=== PATIENT | female | born 1930 | race Hispanic/Latino ===

== ENCOUNTER 2017-01-18 19:43 | Inpatient (IN) | payer BC, MEDICARE ==
[2017-01-18 19:43] VITALS: PULSE 115
[2017-01-18] MEDS ORDERED: Sodium Chloride 0.9% 1,000 ML IV STA (20:18)
[2017-01-18] MEDS ORDERED: Morphine 2 mg/ml ISec IVP STA ×2 (20:18→23:22)
[2017-01-18] MEDS ORDERED: Sodium Chloride 0.9% 500 ML IV STA (20:20)
[2017-01-18] MEDS ORDERED: Iohexol 350 MG/100 ML VIAL ONE (20:33)
[2017-01-18 21:07] LABS: BASO # 0.04 K/mm3 (0.0-2.0); BASO % 0.3 % (0.0-3.0); EOS # 0.1 (0.0-0.7); EOS % 0.8 % (1.5-5.0); GRAN # 9.64 (1.4-6.5); GRAN % 78.6 % (50.0-68.0); HEMATOCRIT 33.2 % (36.0-48.0); LYMPH # 1.2 (1.2-3.4); LYMPH % 9.9 % (22.0-35.0); MEAN CELL VOLUME 78.1 fl (80.0-105.0); MEAN CORPUSCULAR HEMOGLOBIN 23.8 pg (25.0-35.0); MEAN CORPUSCULAR HGB CONC 30.4 g/dl (31.0-37.0); MEAN PLATELET VOLUME 10.6 fl (7.0-11.0); MONO # 1.3 (0.1-0.6); MONO % 10.4 % (1.0-6.0); RED CELL DISTRIBUTION WIDTH 17.8 % (11.5-14.5); WHITE BLOOD COUNT 12.3 10^3/ul (4.5-11.0)
[2017-01-18 21:10] LABS: INR 1.04 (0.93-1.08); PARTIAL THROMBOPLASTIN TIME 25.3 Seconds (25.1-36.5)
[2017-01-18 21:55] LABS: ALB/GLOB RATIO 1.1 (1.1-1.8); ALKALINE PHOSPHATASE 69 U/L (38-126); ALT/SGPT 36 U/L (7-56); AST/SGOT 26 U/L (14-36); BILIRUBIN,TOTAL 0.5 mg/dL (0.2-1.3); BLOOD UREA NITROGEN 16 mg/dL (7-21); CALCIUM 8.9 mg/dL (8.4-10.5); CARBON DIOXIDE 27 mmol/L (21-33); CHLORIDE 108 mmol/L (98-107); GFR AFRICAN-AMERICAN > 60; GLUCOSE,RANDOM 130 mg/dL (70-110); POTASSIUM 3.7 mmol/L (3.6-5.0); SODIUM 143 mmol/L (132-148); TOTAL PROTEIN 7.3 g/dL (5.8-8.3)
--- NOTE | 2017-01-18 21:56 | ED PDOC ---
Arrival/HPI <Wesly Phelps - Last Filed: 01/19/17 00:45> - General Historian: Patient - History of Present Illness Time/Duration: Prior to Arrival Symptom Onset: Sudden Symptom Course: Unchanged Quality: Pressure, Tightness, Stabbing, Throbbing Severity Level: 10 <Genia Andrews - Last Filed: 01/19/17 02:07> - General Chief Complaint: Trauma Time Seen by Provider: 01/18/17 20:04 - History of Present Illness Narrative History of Present Illness (Text): 01/18/17 21:53 86-year-old female presents today with right sided rib pain. Patient states she slipped coming out of the bathtub fell backwards landing on the edge of the bathtub sustaining an injury to her right lower ribs. Patient complaining of shortness of breath pain with deep inspiration. She is also complaining of a pressure sensation in the right upper abdomen. She denies dizziness or weakness. Denies lower leg pain. She denies hitting her head. She denies nausea or vomiting. Incident occurred prior to arrival no medications have been taken for pain at home. Patient denies loss of consciousness. c/o neck pain. (Genia Andrews) Past Medical History - Provider Review Nursing Documentation Reviewed: Yes - Travel History Have you recently traveled outside [place] w/in the past 3 mons?: No - Infectious Disease Hx of Infectious Diseases: None - Tetanus Immunization Tetanus Immunization: Unknown - Cardiac Hx Cardiac Disorders: Yes Hx Angina: No Hx Cardiac Arrhythmia: Yes Hx Circulatory Problems: Yes Hx Congestive Heart Failure: No Hx Heart Murmur: No Hx Heart Transplant: No Hx Hypertension: Yes Hx Internal Defibrillator: No Hx Mitral Valve Prolapse: No Hx Pacemaker: No Hx Peripheral Edema: No Hx Peripheral Vascular Disease: No Other/Comment: Afib - Pulmonary Hx Respiratory Disorders: Yes Hx Asthma: Yes Hx Bronchitis: No Hx Chronic Obstructive Pulmonary Disease (COPD): Yes Hx Emphysema: No Hx Pneumonia: No Hx Respiratory Aspiration: No Hx Respiratory Tract Infection: No Hx Sleep Apnea: No Hx Tuberculosis: No - Neurological Hx Neurological Disorder: Yes Hx Alzheimer's Disease: No HX Cerebrovascular Accident: No Hx Dementia: No Hx Dizziness: No Hx Meningitis: No Hx Migraine: No Hx Parkinson's Disease: No Hx Seizures: No Hx Transient Ischemic Attacks (TIA): No - HEENT Hx HEENT Disorder: Yes Hx Blind: No Hx Cataracts: Yes Hx Deafness: No Hx Epistaxis: No Hx Glaucoma: No Hx Macular Degeneration: No - Renal Hx Renal Disorder: Yes Hx Dialysis: No Hx Kidney Stones: No Hx Neurogenic Bladder: No Hx Pyelonephritis: No Hx Renal Cancer: No Hx Renal Failure: No - Endocrine/Metabolic Hx Endocrine Disorders: Yes Hx Adrenal Cancer: No Hx Diabetes Insipidus: No Hx Diabetes Mellitus Type 1: No Hx Diabetes Mellitus Type 2: Yes Hx Hyperthyroidism: No Hx Hypothyroidism: Yes Hx Systemic Lupus Erythematosus: No - Hematological/Oncological Hx Blood Disorders: No Hx AIDS: No Hx Anemia: No Hx Cancer: No Hx Chemotherapy: No Hx Cirrhosis: No Hx Hemophilia: No Hx Hepatitis A: No Hx Hepatitis B: No Hx Hepatitis C: No Hx Metastasis: No Hx Shingles: No Hx Sickle Cell Disease: No Hx Unexplained Bleeding: No Other/Comment: Blood transfusion - Integumentary Hx Dermatological Disorder: No Hx Basal Cell Carcinoma: No Hx Eczema: No Hx Melanoma: No Hx Psoriasis: No Hx Squamous Cell Carcinoma: No - Musculoskeletal/Rheumatological Hx Musculoskeletal Disorders: No Hx Arthritis: Yes Hx Back Pain: Yes Hx Degenerative Joint Disease: Yes Hx Falls: Yes Hx Fractures: Yes (left shoulder) Hx Gout: No Hx Herniated Disk: Yes Hx Myasthenia Gravis: No Hx Osteoarthritis: Yes Hx Osteomyelitis: No Hx Osteoporosis: Yes Hx Rhabdomyolysis: No Hx Spinal Stenosis: No Hx Unsteady Gait: Yes (uses cane) Other/Comment: Diverticulosis - Gastrointestinal Hx Gastrointestinal Disorders: Yes Hx Colostomy: No Hx Crohn's Disease: No Hx Diverticulitis: No Hx Gall Bladder Disease: No Hx Gastroesophageal Reflux: Yes Hx Ileostomy: No Hx Liver Failure: No Hx Pancreatitis: Yes HX Swallowing Problems: No - Genitourinary/Gynecological Hx Genitourinary Disorders: Yes Hx Hematuria: Yes Hx Incontinence: Yes (overactive bladder) Hx Sexually Transmitted Diseases: No Hx Urinary Tract Infection: No - Psychiatric Hx Psychophysiologic Disorder: No Hx Anxiety: No Hx Bipolar Disorder: No Hx Depression: No Hx Emotional Abuse: No Hx Hallucinations: No Hx Panic Disorder: No Hx Post Traumatic Stress Disorder: No Hx Psychosis: No Hx Physical Abuse: No Hx Schizophrenia: No Hx Sexual Abuse: No Hx Substance Use: No - Surgical History Hx Amputation: No Hx Appendectomy: Yes Hx Cholecystectomy: Yes Hx Coronary Stent: Yes Hx Gastric Bypass Surgery: No Hx Hysterectomy: No Hx Joint Replacement: No Hx Kidney Transplant: No Hx Liver Transplant: No Hx Musculoskeletal Surgery: No Hx Open Heart Surgery: No Hx Orthopedic Surgery: No Hx Splenectomy: No Hx Valve Replacement: No Other/Comment: Bilateral cataract sx - Anesthesia Hx Anesthesia: Yes Hx Anesthesia Reactions: No Hx Malignant Hyperthermia: No - Suicidal Assessment Feels Threatened In Home Enviroment: No <Genia Andrews - Last Filed: 01/19/17 02:07> Family/Social History - Physician Review Nursing Documentation Reviewed: Yes Family/Social History: Unknown Family HX Smoking Status: Former Smoker Hx Alcohol Use: No Hx Substance Use: No Hx Substance Use Treatment: No <Genia Andrews - Last Filed: 01/19/17 02:07> Allergies/Home Meds <Wesly Phelps - Last Filed: 01/19/17 00:45> <Genia Andrews - Last Filed: 01/19/17 02:07> Allergies/Adverse Reactions: Allergies No Known Allergies Allergy (Verified 08/01/15 19:10) Home Medications: Home Meds Medication Instructions Recorded Confirmed Unobtainable 01/18/17 01/18/17 Review of Systems - Review of Systems Constitutional: absent: Fevers Respiratory: SOB, Other (right rib pain) Cardiovascular: absent: Chest Pain, Palpitations Gastrointestinal: Abdominal Pain. absent: Constipation, Diarrhea, Nausea, Vomiting Genitourinary Female: absent: Dysuria, Frequency, Hematuria Musculoskeletal: Arthralgias (left arm pain (chronic)), Neck Pain. absent: Back Pain Skin: absent: Rash, Pruritis Neurological: absent: Headache, Dizziness Psychiatric: absent: Anxiety, Depression <Genia Andrews - Last Filed: 01/19/17 02:07> Physical Exam Vital Signs Reviewed: Yes Temperature: Afebrile Blood Pressure: Normal Pulse: Regular Respiratory Rate: Normal Appearance: Positive for: Well-Appearing, Non-Toxic, Uncomfortable Pain Distress: Mild Mental Status: Positive for: Alert and Oriented X 3 - Systems Exam Head: Present: Atraumatic Extroacular Muscles: Present: EOMI Mouth: Present: Moist Mucous Membranes Neck: Present: Normal Range of Motion, MIDLINE TENDERNESS, Paraspinal Tenderness , Trachea Midline Respiratory/Chest: Present: Rhonchi, Tender to Palpation (+ right lower posterior rib tenderness, ecchymosis and swelling; ). No: Clear to Auscultation , Respiratory Distress, Accessory Muscle Use, Wheezes Cardiovascular: Present: Regular Rate and Rhythm Abdomen: Present: Tenderness (+ minimal ruq tenderness), Normal Bowel Sounds. No: Rebound, Guarding Back: No: Normal Inspection (+ ecchymosis to left lower ribs; no midline tenderness), Midline Tenderness, Paraspinal Tenderness Upper Extremity: Present: Normal ROM, NORMAL PULSES, Tenderness, Neurovascularly Intact. No: Swelling, Erythema, Temperature Abnormalties, Capillary Refill < 2s Neurological: Present: GCS=15, Speech Normal Skin: Present: Warm, Dry, Normal Color. No: Rashes Psychiatric: Present: Alert, Oriented x 3 <Genia Andrews - Last Filed: 01/19/17 02:07> Vital Signs Temp Pulse Resp BP Pulse Ox 01/19/17 01:26 20 96 01/18/17 23:45 83 20 164/73 H 95 01/18/17 19:59 97.5 F L 84 18 185/52 H 99 Medical Decision Making <Wesly Phelps - Last Filed: 01/19/17 00:45> <Genia Andrews - Last Filed: 01/19/17 02:07> ED Course and Treatment: 01/18/17 22:00 86yr old female with right sided rib pain, sob , right sided upper abdominal pain s/p slip and fall onto edge of bathtub. morphine given for pain; pt on 2L NS at home. 2L nc given here. cbc: wnl cmp: wnl trop; wnl ekg: Sinus rhythm with first-degree AV block at 84 bpm normal axis and no ST elevations cxr; no infiltrate. pt refused xray of left arm; pt states she knows she has fracture, denies pain currently. states insurance wont cover a repeat xray of the arm. head ct: FINDINGS: Brain: No acute intracranial hemorrhage. Age-appropriate periventricular white matter disease. No edema. Ventricles: Age-appropriate ventriculomegaly. Bones: No acute displaced fracture. Sinuses: Unremarkable as visualized. No acute sinusitis. Mastoid air cells: Unremarkable as visualized. No mastoid effusion. IMPRESSION: No acute intracranial hemorrhage, or suspicious mass effect. neck ct; FINDINGS: Vertebrae: No acute fracture. Alignment: Preservation of the normal curvature of the cervical spine. Discs/spinal canal/neural foramina: Degenerative disease is present, with osteophyte formation, disc space narrowing, endplate changes and facet arthropathy. Thickening of the transverse ligament is suspected with accompanying synovial hypertrophy. Soft tissues: Right carotid artery stent. Densely calcified atherosclerotic disease. The remaining soft tissues are otherwise symmetric. Lung apices: The visualized lung apices are clear. IMPRESSION: Degenerative disease, without acute fracture. chest/abd/pelvis ct: FINDINGS: ABDOMEN: Liver: The hepatic parenchyma is intact. No perihepatic fluid. Benign-appearing hepatic calcifications. Gallbladder and bile ducts: No acute findings. No significant intra- or extrahepatic biliary ductal dilation. Pancreas: Enhances homogeneously. No ductal dilation. No discrete mass. No peripancreatic fluid. Spleen: The splenic parenchyma is intact, without perisplenic fluid. Adrenals: No acute findings. Kidneys and ureters: No acute findings. No hydronephrosis or renal calculi. No discrete solid mass. No perinephric fluid. PELVIS: HERON JENSEN | Final Radiology Report Page 2 of 3 Bladder: The bladder is decompressed. Reproductive: The uterus is atrophic. ABDOMEN and PELVIS: Stomach and bowel: No obstruction. No mucosal thickening. Colonic diverticulosis , without inflammation. Peritoneum: No free fluid. No free air. Lymph nodes: No pathologically enlarged lymph nodes. Vasculature: Intact. Densely calcified atherosclerotic disease. A filter is identified within the inferior vena cava with its struts beyond the berry of the IVC which is markedly decompressed and slitlike. These findings suggest significant hypovolemia, for which clinical correlation is needed. Bones: No acute fracture. IMPRESSION: No hollow or solid visceral organ injury. No acute fracture within the abdomen or pelvis. Findings suggesting significant hypovolemia, for which clinical correlation is needed. FINDINGS: Lungs: No mass. No consolidation. Small bilateral pleural effusions, with adjacent compressive atelectasis. Interstitial thickening is also detected. Pleural spaces: No significant effusion. No pneumothorax or hemothorax. Heart: No cardiomegaly. No significant pericardial effusion. Calcified coronary artery disease and calcified mitral annulus. Vasculature: The great vessels are intact. No aneurysmal dilatation of the thoracic aorta. Calcified atherosclerotic disease is present. Lymph nodes: Scattered lymph nodes within the mediastinum and supraclavicular region, all nonpathologically enlarged, a nonspecific finding. The Bones: Acute minimally displaced fractures are identified within the right posterior seventh, eighth and ninth ribs. The eighth and ninth ribs are fractured in 2 separate locations , worrisome for flail chest. No acute fractures within either the sternum, remaining ribs or thoracic vertebral bodies. No scapular or clavicular fractures are noted. Findings within the left humerus consistent with prior fracture with callus formation. IMPRESSION: Acute minimally displaced fractures within the right posterior seventh eighth and ninth ribs. Findings within the eighth ninth ribs worrisome for flail chest, as detailed above. Small bilateral pleural effusions, right greater than left (likely secondary to fractures) with adjacent compressive atelectasis. pt reassessment; pt with continued pain; additional morphine dose given. pt given incentive spirometer. case discussed with residential treatment staff dr. rizzo; who saw patient at bedside; discussed ct findings of rib fracture with mention of radiologist statement of "worrisome for flail chest" case discussed with dr. pabon covering for dr. moon; will consult surgery. admit observational status for rib fractures with intractable pain. impression; rib fractures, intractable pain admit observational status for rib fractures with surgical consult. (Genia Andrews) - Lab Interpretations Lab Results: 01/18/17 20:38 01/18/17 21:30 Lab Results 01/19/17 00:05: Urine Color Yellow, Urine Appearance Clear, Urine pH 7.0, Ur Specific Model 1.010, Urine Protein Trace H, Urine Glucose (UA) Negative, Urine Ketones Negative, Urine Blood Negative, Urine Nitrate Negative, Urine Bilirubin Negative, Urine Urobilinogen 0.2, Ur Leukocyte Esterase Negative, Urine RBC 0 - 2, Urine WBC 1 - 3, Ur Epithelial Cells 0 - 2 01/18/17 21:36: Lactate Dehydrogenase 556, Total Creatine Kinase 138, Troponin I < 0.01 01/18/17 21:30: Sodium 143, Potassium 3.7, Chloride 108 H, Carbon Dioxide 27, Anion Gap 12, BUN 16, Creatinine 0.7, Est GFR ( Amer) > 60, Est GFR (Non- Af Amer) > 60, Random Glucose 130 H, Calcium 8.9, Total Bilirubin 0.5, AST 26, ALT 36, Alkaline Phosphatase 69, Total Protein 7.3, Albumin 3.9, Globulin 3.4, Albumin/Globulin Ratio 1.1 01/18/17 20:38: WBC 12.3 H D, RBC 4.25, Hgb 10.1 L, Hct 33.2 L, MCV 78.1 L, MCH 23.8 L, MCHC 30.4 L, RDW 17.8 H, Plt Count 187, MPV 10.6, Gran % 78.6 H, Lymph % (Auto) 9.9 L, Coke % (Auto) 10.4 H, Eos % (Auto) 0.8 L, Baso % (Auto) 0.3, Gran # 9.64 H, Lymph # 1.2, Coke # 1.3 H, Eos # 0.1, Baso # 0.04 01/18/17 20:38: PT 11.3, INR 1.04, APTT 25.3 - RAD Interpretation Radiology Orders: 01/18/17 20:16 CHEST PORTABLE [RAD] Stat 01/18/17 20:20 CERVICAL SPINE W/O CONTRAST [CT] Stat 01/18/17 20:21 CHEST,ABD,PEL W/IV CONT ONLY [CT] Stat HEAD W/O CONTRAST [CT] Stat - Medication Orders Current Medication Orders: Hydromorphone HCl (Dilaudid) 0.5 mg IVP Q3H PRN PRN Reason: Pain, severe (8-10) Lactated Ringer's (Lactated Ringer's) 1,000 mls @ 75 mls/hr IV .[id number] ROSALBA Last Admin: 01/19/17 01:19 Dose: 75 mls/hr eMAR Start Stop Document 01/19/17 01:19 [email or web address] (Rec: 01/19/17 01:19 [email or web address] [facility] [id number]) Intravenous Solution Start Date 01/19/17 Start Time 01:19 End Date 01/19/17 Oxycodone/Acetaminophen (Percocet 10/325 Mg Tab) 1 tab PO Q4H PRN PRN Reason: Pain, moderate (4-7) Last Admin: 01/19/17 01:52 Dose: 1 tab MAR Pain Assessment Document 01/19/17 01:52 RR (Rec: 01/19/17 01:53 RR [id number]) Pain Reassessment Is this a pain reassessment? No Sleep Is patient sleeping during reassessment? No Presence of Pain Presence of Pain Yes Pain Scale Used Pain Scale Used Numeric Location Left, Right or Bilateral Right Upper or Lower Upper Pain Location Body Site Chest Description Description Constant Intensity of Pain at present 9 Pain Behavior Moaning Guarding Facial Grimacing Alleviating Factors/Management Medication Techniques Alleviating Factors Medication Oxycodone/Acetaminophen (Percocet 5/325 Mg Tab) 1 tab PO PRN PRN PRN Reason: Pain, Mild (1-3) Stop: 01/22/17 00:47 Discontinued Medications Sodium Chloride (Sodium Chloride 0.9%) 500 mls @ 999 mls/hr IV .Q31M STA Stop: 01/18/17 20:50 Last Admin: 01/18/17 21:17 Dose: 999 mls/hr eMAR Start Stop Document 01/18/17 21:17 [email or web address] (Rec: 01/18/17 21:[id number]) Intravenous Solution Start Date 01/18/17 Start Time 21:17 End Date 01/18/17 Morphine Sulfate (Morphine) 1 mg IVP STAT STA Stop: 01/18/17 20:19 Last Admin: 01/18/17 21:17 Dose: 1 mg MAR Pain Assessment Document 01/18/17 21:17 [email or web address] (Rec: 01/18/17 21:[id number]) Pain Reassessment Is this a pain reassessment? No Sleep Is patient sleeping during reassessment? No Presence of Pain Presence of Pain Yes Pain Scale Used Pain Scale Used Numeric Location Left, Right or Bilateral Right Pain Location Body Site Back Description Description Constant Intensity of Pain at present 8 Pain Behavior Facial Grimacing Aggravating Factors Changing Position Alleviating Factors/Management Medication Techniques Alleviating Factors Medication IVP Administration Document 01/18/17 21:17 [email or web address] (Rec: [facility]18/17 [id number] Charges for Administration # of IVP Administrations 1 Morphine Sulfate (Morphine) 1 mg IVP STAT STA Stop: 01/18/17 23:23 Last Admin: 01/18/17 23:44 Dose: 1 mg MAR Pain Assessment Document 01/18/17 23:44 [email or web address] (Rec: 01/18/17 23:[id number]) Pain Reassessment Is this a pain reassessment? No Sleep Is patient sleeping during reassessment? No Presence of Pain Presence of Pain Yes Pain Scale Used Pain Scale Used Numeric Location Left, Right or Bilateral Right Pain Location Body Site Back Description Description Constant Intensity of Pain at present 8 Pain Behavior Facial Grimacing Aggravating Factors Changing Position Alleviating Factors/Management Medication Techniques Alleviating Factors Medication IVP Administration Document 01/18/17 23:44 [email or web address] (Rec: 01/18/17 23:45 [email or web address] [facility] [id number]) Charges for Administration # of IVP Administrations 1 - PA / INTERIOR DESIGN ASSISTANT / Resident Statement MD/DO has reviewed & agrees with the documentation as recorded. /DO has examined the patient and agrees with the treatment plan. <Wesly Phelps - Last Filed: 01/19/17 00:45> Disposition/Present on Arrival <Wesly Phelps - Last Filed: 01/19/17 00:45> - Present on Arrival Any Indicators Present on Arrival: Yes History of DVT/PE: Yes History of Uncontrolled Diabetes: Yes Urinary Catheter: No History of Decub. Ulcer: No History Surgical Site Infection Following: None - Disposition Have Diagnosis and Disposition been Completed?: Yes Disposition Time: 00:29 Patient Plan: Observation <Genia Andrews - Last Filed: 01/19/17 02:07> - Disposition Diagnosis: Rib fractures, Intractable pain Disposition: HOSPITALIZED Patient Problems: Current Active Problems Problem Status Onset Intractable pain Acute Rib fractures Acute Condition: FAIR
[2017-01-18 22:28] LABS: TROPONIN I < 0.01 ng/mL
--- NOTE | 2017-01-18 23:18 | CT ---
EXAM: CT Head Without Intravenous Contrast CLINICAL HISTORY: 86 years old, female; Injury or trauma; Fall; Initial encounter; Blunt trauma (contusions or hematomas); Consciousness not specified TECHNIQUE: Axial computed tomography images of the head/brain without intravenous contrast. All CT scans at this facility use one or more dose reduction techniques, viz.: automated exposure control; ma/kV adjustment per patient size (including targeted exams where dose is matched to indication; i.e. head); or iterative reconstruction technique. COMPARISON: No relevant prior studies available. FINDINGS: Brain: No acute intracranial hemorrhage. Age-appropriate periventricular white matter disease. No edema. Ventricles: Age-appropriate ventriculomegaly. Bones: No acute displaced fracture. Sinuses: Unremarkable as visualized. No acute sinusitis. Mastoid air cells: Unremarkable as visualized. No mastoid effusion. IMPRESSION: No acute intracranial hemorrhage, or suspicious mass effect.
--- NOTE | 2017-01-18 23:48 | CT ---
EXAM: CT Cervical Spine Without Intravenous Contrast CLINICAL HISTORY: 86 years old, female; Injury or trauma; Fall; Initial encounter; Blunt trauma; Additional info: Neck pain TECHNIQUE: Axial computed tomography images of the cervical spine without intravenous contrast. All CT scans at this facility use one or more dose reduction techniques, viz.: automated exposure control; ma/kV adjustment per patient size (including targeted exams where dose is matched to indication; i.e. head); or iterative reconstruction technique. Coronal and sagittal reformatted images were created and reviewed. COMPARISON: None FINDINGS: Vertebrae: No acute fracture. Alignment: Preservation of the normal curvature of the cervical spine. Discs/spinal canal/neural foramina: Degenerative disease is present, with osteophyte formation, disc space narrowing, endplate changes and facet arthropathy. Thickening of the transverse ligament is suspected with accompanying synovial hypertrophy. Soft tissues: Right carotid artery stent. Densely calcified atherosclerotic disease. The remaining soft tissues are otherwise symmetric. Lung apices: The visualized lung apices are clear. IMPRESSION: Degenerative disease, without acute fracture.
--- NOTE | 2017-01-19 00:01 | CT ---
EXAM: CT Abdomen and Pelvis With Intravenous Contrast CLINICAL HISTORY: 86 years old, female; Injury or trauma; Fall; Initial encounter; Blunt; Generalized; Blunt trauma (contusions or hematomas); Additional info: Trauma, right upper back/rib, right upper abd pain TECHNIQUE: Axial computed tomography images of the abdomen and pelvis with intravenous contrast. All CT scans at this facility use one or more dose reduction techniques, viz.: automated exposure control; ma/kV adjustment per patient size (including targeted exams where dose is matched to indication; i.e. head); or iterative reconstruction technique. MIP reconstructed images were created and reviewed. Coronal and sagittal reformatted images were created and reviewed. CONTRAST: 100 mL of OMNI 350 administered intravenously. COMPARISON: CT of the abdomen and pelvis performed 05/24/2015 FINDINGS: ABDOMEN: Liver: The hepatic parenchyma is intact. No perihepatic fluid. Benign-appearing hepatic calcifications. Gallbladder and bile ducts: No acute findings. No significant intra- or extrahepatic biliary ductal dilation. Pancreas: Enhances homogeneously. No ductal dilation. No discrete mass. No peripancreatic fluid. Spleen: The splenic parenchyma is intact, without perisplenic fluid. Adrenals: No acute findings. Kidneys and ureters: No acute findings. No hydronephrosis or renal calculi. No discrete solid mass. No perinephric fluid. PELVIS: Bladder: The bladder is decompressed. Reproductive: The uterus is atrophic. ABDOMEN and PELVIS: Stomach and bowel: No obstruction. No mucosal thickening. Colonic diverticulosis, without inflammation. Peritoneum: No free fluid. No free air. Lymph nodes: No pathologically enlarged lymph nodes. Vasculature: Intact. Densely calcified atherosclerotic disease. A filter is identified within the inferior vena cava with its struts beyond the berry of the IVC which is markedly decompressed and slitlike. These findings suggest significant hypovolemia, for which clinical correlation is needed. Bones: No acute fracture. IMPRESSION: No hollow or solid visceral organ injury. No acute fracture within the abdomen or pelvis. Findings suggesting significant hypovolemia, for which clinical correlation is needed. EXAM: CT Chest With Intravenous Contrast CLINICAL HISTORY: 86 years old, female; Injury or trauma; Fall; Initial encounter; Blunt; Generalized; Blunt trauma (contusions or hematomas); Additional info: Trauma, right upper back/rib, right upper abd pain TECHNIQUE: Axial computed tomography images of the chest with intravenous contrast. All CT scans at this facility use one or more dose reduction techniques, viz.: automated exposure control; ma/kV adjustment per patient size (including targeted exams where dose is matched to indication; i.e. head); or iterative reconstruction technique. MIP reconstructed images were created and reviewed. Coronal and sagittal reformatted images were created and reviewed. CONTRAST: 100 mL of OMNI 350 administered intravenously. COMPARISON: None FINDINGS: Lungs: No mass. No consolidation. Small bilateral pleural effusions, with adjacent compressive atelectasis. Interstitial thickening is also detected. Pleural spaces: No significant effusion. No pneumothorax or hemothorax. Heart: No cardiomegaly. No significant pericardial effusion. Calcified coronary artery disease and calcified mitral annulus. Vasculature: The great vessels are intact. No aneurysmal dilatation of the thoracic aorta. Calcified atherosclerotic disease is present. Lymph nodes: Scattered lymph nodes within the mediastinum and supraclavicular region, all non-pathologically enlarged, a nonspecific finding. The Bones: Acute minimally displaced fractures are identified within the right posterior seventh, eighth and ninth ribs. The eighth and ninth ribs are fractured in 2 separate locations, worrisome for flail chest. No acute fractures within either the sternum, remaining ribs or thoracic vertebral bodies. No scapular or clavicular fractures are noted. Findings within the left humerus consistent with prior fracture with callus formation. IMPRESSION: Acute minimally displaced fractures within the right posterior seventh eighth and ninth ribs. Findings within the eighth ninth ribs worrisome for flail chest, as detailed above. Small bilateral pleural effusions, right greater than left (likely secondary to fractures) with adjacent compressive atelectasis.
[2017-01-19 00:28] LABS: URINE BILIRUBIN NEGATIVE (NEGATIVE); URINE BLOOD NEGATIVE (NEGATIVE); URINE GLUCOSE (UA) NEGATIVE (NEGATIVE); URINE KETONE NEGATIVE (NEGATIVE); URINE LEUKOCYTE ESTERASE NEGATIVE Leu/uL (NEGATIVE); URINE PROTEIN TRACE mg/dL (<30 mg/dL); URINE UROBILINOGEN 0.2 E.U./dL (<1 E.U./dL)
[2017-01-19 00:31] LABS: URINE APPEARANCE CLEAR (CLEAR); URINE COLOR YELLOW (YELLOW)
[2017-01-19] MEDS ORDERED: Oxycodone/Acetaminophen 5/325 mg Tab PO PRN (00:46)
[2017-01-19 00:54] LABS: URINE EPITHELIAL CELLS 0 - 2 /hpf (0-5); URINE RBC 0 - 2 /hpf (0-2)
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
[2017-01-19] MEDS ORDERED: Lactated Ringer's 1,000 ML IV SCH (01:15)
[2017-01-19] MEDS: Oxycodone/Acetaminophen 10/325 mg Tab PO PRN ×2 (01:52→11:57)
[2017-01-19] MEDS: HYDROmorphone 0.5 mg/0.5 ml ISec IVP PRN ×3 (04:17→18:04)
[2017-01-19 06:25] LABS: HEMATOCRIT 29.8 % (36.0-48.0); MEAN CELL VOLUME 76.8 fl (80.0-105.0); MEAN CORPUSCULAR HEMOGLOBIN 23.2 pg (25.0-35.0); MEAN CORPUSCULAR HGB CONC 30.2 g/dl (31.0-37.0); MEAN PLATELET VOLUME 10.8 fl (7.0-11.0); RED CELL DISTRIBUTION WIDTH 17.7 % (11.5-14.5); WHITE BLOOD COUNT 8.4 10^3/ul (4.5-11.0)
--- NOTE | 2017-01-19 07:29 | RAD ---
HISTORY: right rib pain COMPARISON: Portable chest 08/01/2015. FINDINGS: LUNGS: No active pulmonary disease. PLEURA: No significant pleural effusion identified, no pneumothorax apparent. CARDIOVASCULAR: Cardiomegaly appears stable. No definite pulmonary vascular derangement identified. OSSEOUS STRUCTURES: No significant abnormalities. VISUALIZED UPPER ABDOMEN: Normal. OTHER FINDINGS: None. IMPRESSION: No interval definitive acute cardiopulmonary disease appreciated.Stable cardiomegaly.
[2017-01-19 07:44] LABS: BLOOD UREA NITROGEN 13 mg/dL (7-21); CALCIUM 8.6 mg/dL (8.4-10.5); CARBON DIOXIDE 28 mmol/L (21-33); CHLORIDE 107 mmol/L (98-107); GFR AFRICAN-AMERICAN > 60; GLUCOSE,RANDOM 120 mg/dL (70-110); POTASSIUM 3.6 mmol/L (3.6-5.0); SODIUM 139 mmol/L (132-148)
--- NOTE | 2017-01-19 10:17 | HP ---
HISTORY OF PRESENT ILLNESS: I know Joslyn very well for many years. She comes into the emergency room last night with a slip and fall out of the bathtub, when back was landing on the right posterior ribs, had a bad injury with shortness of breath with deep inspiration and pressure in the upper abdomen and eventually made it to the emergency room. PAST MEDICAL HISTORY: She has a past medical history of atrial fibrillation, coronary artery disease, heart failure, hypertension, atrial fibrillation, COPD, asthma, neurological disorders, neuropathy, cataracts, renal insufficiency, diabetes type 2, hypothyroidism, arthritis, back pain, joint pain, left shoulder fracture, multiple falls, myesthesia gravis, herniated disk, osteoarthritis, osteoporosis, spinal stenosis, she uses cane, she has unsteady gait, diverticulosis, gastroesophageal reflux, pancreatitis history, hematuria, overactive bladder, appendectomy, cholecystectomy, coronary stents, bilateral cataract surgeries. ALLERGIES: NO KNOWN DRUG ALLERGIES. MEDICATIONS: She does take slew of medications, they do not have it on formulary here. I will get my office to get them called in this afternoon. FAMILY HISTORY: Hypertension and diabetes in the family. SOCIAL HISTORY: Former smoker. No alcohol. No drugs. REVIEW OF SYSTEMS: She has severe right rib pain in the back and shortness of breath. No chest pain or palpitation. There is some abdominal pain, but there is no constipation, diarrhea, nausea, or vomiting. No problems urinating. She does have a left arm pain, which is chronic and arthralgias in the back. No dizziness or headaches. No itching. No anxiety or depression. PHYSICAL EXAMINATION: GENERAL: She is appearing and uncomfortable with the right-sided rib fracture pain. Alert and oriented. She still works. VITAL SIGNS: Temperature 97.5, pulse 84, respiratory rate 18, blood pressure 185/52, and O2 saturation 99% on room air. HEENT: Head is atraumatic and normocephalic. Extraocular muscles intact. Throat is moist. NECK: Supple. Thyroid midline. No palpable or appreciable lymphadenopathy. HEART: Regular rate at this time, sometimes it is irregular atrial fibrillation. LUNGS: Decreased breath sounds bilaterally. Tender to palpation on the right posterior ribs. No wheezes or rhonchi right now, but unable to take a deep breath. ABDOMEN: Soft and nontender with positive bowel sounds. No guarding. No rebound. No CVA tenderness. EXTREMITIES: Trace edema. NEUROLOGIC: GCS is 15. Cranial nerves II through XII grossly intact. Alert and oriented x3. Calm. SKIN: Warm and dry. No rashes. No sweating. LABORATORY DATA: She has a urine that is normal. She has sodium 139, potassium 3.6, BUN 13, creatinine 0.6, GFR is greater than 60, sugar is 120, calcium 8.6, total bilirubin 0.5, AST 26, ALT 36, alkaline phosphatase 69. Lactate dehydrogenase is 556. Total creatinine kinase is 138. Troponin I is less than 0.01. Total protein is 7.2. Albumin is 3.9. Globulin is 3.4. INR is 1.04. White count, when she came in was 12.3, it could be reactionary, it is down to 8.4, hemoglobin 10.1 and now it is 9, hematocrit 29.8, and platelets are 169. A CAT scan of the chest, abdomen, and head were okay; cervical spine was okay. Chest x-ray was okay, but the chest showed on CAT scan fractured ribs posteriorly 7, 8, and 9, and it could be a flail chest. So we will get Surgery involved to keep an eye on her. IMPRESSION AND PLAN: She is in observation right now. After Physical Therapy sees her, if they recommend TCU or subacute rehab, I will change it to an inpatient for 3 overnights. I do think, she is going to need TCU or subacute rehab. We will put her back on her medications once they find out what they are. We will check her labs tomorrow. She uses morphine for pain. She is here fall with fractured right ribs 7, 8, and 9 posteriorly. Osvaldo Reyes DO
[2017-01-19] MEDS: Potassium Chloride 20 mEq ER Tab PO SCH (11:41)
[2017-01-19] MEDS: Sodium Chloride 0.45% 1,000 ML IV SCH (11:44)
--- NOTE | 2017-01-19 17:16 | CARD ---
APPROVED REPORT EKG Measurement Heart [id number] <Conclusion> Sinus rhythm with 1st degree AV block Nonspecific ST abnormality Abnormal ECG
[2017-01-20] MEDS: HYDROmorphone 0.5 mg/0.5 ml ISec IVP PRN ×3 (02:46→15:32)
[2017-01-20] MEDS ORDERED: Levothyroxine 150 MCG TAB PO SCH (06:00)
[2017-01-20 06:35] LABS: HEMATOCRIT 34.5 % (36.0-48.0); MEAN CELL VOLUME 78.4 fl (80.0-105.0); MEAN CORPUSCULAR HEMOGLOBIN 23.4 pg (25.0-35.0); MEAN CORPUSCULAR HGB CONC 29.9 g/dl (31.0-37.0); MEAN PLATELET VOLUME 11.2 fl (7.0-11.0); RED CELL DISTRIBUTION WIDTH 17.7 % (11.5-14.5); WHITE BLOOD COUNT 8.8 10^3/ul (4.5-11.0)
[2017-01-20 07:09] LABS: BLOOD UREA NITROGEN 14 mg/dL (7-21); CALCIUM 9.1 mg/dL (8.4-10.5); CARBON DIOXIDE 24 mmol/L (21-33); CHLORIDE 102 mmol/L (98-107); GFR AFRICAN-AMERICAN > 60; GLUCOSE,RANDOM 121 mg/dL (70-110); POTASSIUM 3.9 mmol/L (3.6-5.0); SODIUM 137 mmol/L (132-148)
[2017-01-20 07:17] VITALS: RESP 20
--- NOTE | 2017-01-20 08:02 | CP.PCM.PN ---
Subjective - Date & Time of Evaluation Date of Evaluation: 01/20/17 Time of Evaluation: 07:58 - Subjective Subjective: General Surgery - Dr. Dominique Pt S&E. NEFTALY. Pt complains of R sided back pain likely related to the rib fractures. She states it is worse with deep inspiration. Encouraged to ask for pain medication when needed. Pt is working with incentive spirometer but only reaching 500 at this time. She denies any F/C, SOB/CP. Objective - Vital Signs/Intake and Output Vital Signs (last 24 hours): Temp Pulse Resp BP Pulse Ox 98.5 F 67 20 145/54 L 97 01/20/17 07:00 01/20/17 07:00 01/20/17 07:00 01/20/17 07:00 01/20/17 00:00 Intake and Output: 01/20/17 01/20/17 06:59 18:59 Intake Total 420 Output Total 500 Balance -80 - Medications Medications: Current Medications Amiodarone HCl (Cordarone) 200 mg PO DAILY [facility] Last Admin: 01/19/17 11:41 Dose: 200 mg Aspirin (Aspirin Chewable) 81 mg PO DAILY [facility] Last Admin: 01/19/17 11:41 Dose: 81 mg Cyclobenzaprine HCl (Flexeril) 5 mg PO TID [facility] Last Admin: 01/19/17 18:01 Dose: 5 mg Docusate Sodium (Colace) 100 mg PO DAILY [facility] Last Admin: 01/19/17 11:41 Dose: 100 mg Fenofibrate (Tricor) 145 mg PO DAILY [facility] Last Admin: 01/19/17 11:41 Dose: 145 mg Hydromorphone HCl (Dilaudid) 0.5 mg IVP Q3H PRN PRN Reason: Pain, severe (8-10) Last Admin: 01/20/17 05:43 Dose: 0.5 mg Sodium Chloride (Sodium Chloride 0.45%) 1,000 mls @ 30 mls/hr IV .Q24H [facility] Last Admin: 01/19/17 11:44 Dose: 30 mls/hr Levothyroxine Sodium (Synthroid) 300 mcg PO 0600 [facility] Last Admin: 01/20/17 05:43 Dose: 300 mcg Oxycodone/Acetaminophen (Percocet 5/325 Mg Tab) 1 tab PO Q4H PRN PRN Reason: Pain, Mild (1-3) Stop: 01/22/17 00:47 Last Admin: 01/19/17 23:03 Dose: 1 tab Potassium Chloride (K-Dur 20 Meq Er Tab) 20 meq PO BRK ROSALBA Last Admin: 01/19/17 11:41 Dose: 20 meq - Labs Labs: 01/20/17 05:30 01/20/17 05:30 PT 11.3 SECONDS (9.4-12.5) 01/18/17 20:38 INR 1.04 (0.93-1.08) 01/18/17 20:38 APTT 25.3 Seconds (25.1-36.5) 01/18/17 20:38 - Constitutional Appears: No Acute Distress - Head Exam Head Exam: ATRAUMATIC, NORMAL INSPECTION, NORMOCEPHALIC - Eye Exam Eye Exam: Normal appearance - Respiratory Exam Respiratory Exam: NORMAL BREATHING PATTERN. absent: Respiratory Distress - Neurological Exam Neurological Exam: Alert, Oriented x3 - Psychiatric Exam Psychiatric exam: Normal Affect, Normal Mood - Skin Skin Exam: Dry, Intact Assessment and Plan - Assessment and Plan (Free Text) Assessment: 86F s/p fall w/ rib fractures 7-9 Plan: -Pain control -Incentive Spirometer - Encourage throughout the day to use 10x/hour to prevent pneumonia in setting of multiple rib fxs -OOB to chair and physical therapy -No surgical interventions planned DW Dr Catina Houston PGY3
[2017-01-20] MEDS: Sodium Chloride 0.45% 1,000 ML IV SCH (08:48)
[2017-01-20] MEDS: Potassium Chloride 20 mEq ER Tab PO SCH (08:48)
[2017-01-20] MEDS ORDERED: Lidocaine 5% Patch TD SCH (10:00)
--- NOTE | 2017-01-20 13:31 | PN ---
SUBJECTIVE: I saw Joslyn resting comfortably in bed. Family is present, answered many questions. Family discussed at length with Joslyn the plan. The plan is tomorrow she will go to [facility]CU [facility]. She has fractured ribs 7, 8 and 9. She is very uncomfortable. She is using incentive spirometry which is very good. She did get out of bed to chair yesterday for a while. She is eating little bit. She is uncomfortable though. I am going to add a Flector patch, they have it here on formulary, and hopefully tomorrow she will get over there to TCU. MEDICATIONS: She is currently on IV fluids, aspirin, Colace, Cordarone, Dilaudid, Flexeril, potassium, oxycodone, levothyroxine, and TriCor. PHYSICAL EXAMINATION: VITAL SIGNS: 98.5 temperature, 67 pulse, 145/64 blood pressure, 20 respiratory rate, 97% O2 sat on nasal canula. HEENT: Head is atraumatic and normocephalic. HEART: Regular rate. LUNGS: Clear to auscultation with decreased breath sounds. ABDOMEN: Soft. There is right-sided tenderness, especially when you palpate it close to the right ribs. EXTREMITIES: Trace edema. LABORATORY DATA: She has an 8.8 white count better than when she came in, 10.3 hemoglobin, 34.5 hematocrit with 197 platelets. She has a 137 sodium, potassium is 3.9, BUN is 14, creatinine 0.7, GFR is greater than 60, sugar is 121, calcium is 9.1. Urine was clean. She was being seen by surgery and she is doing much better. PLAN: She fell. She had a fractured right rib, and hopefully tomorrow she is going to TCU. Osvaldo Reyes DO
[2017-01-20 16:48] VITALS: BP 162/76; PULSE 84; TEMP 98; O2SAT 98
== END 2017-01-20 17:20 | DRG 185 ==
LOC: ED 19:43 → ERH 01-19 00:50 → 3RNO 01-19 01:34 → OBSVTOIN 01-19 12:00
PROVIDERS: ADMIT Family Medicine; ATTEND Family Medicine
DX: S22.41XA Multiple fractures of ribs, right side, initial encounter for closed fracture (principal); E11.40 Type 2 diabetes mellitus with diabetic neuropathy, unspecified; I50.9 Heart failure, unspecified; I11.0 Hypertensive heart disease with heart failure; I48.91 Unspecified atrial fibrillation; J44.9 Chronic obstructive pulmonary disease, unspecified; N32.81 Overactive bladder; M81.0 Age-related osteoporosis without current pathological fracture; K21.9 Gastro-esophageal reflux disease without esophagitis; I25.10 Atherosclerotic heart disease of native coronary artery without angina pectoris; E03.9 Hypothyroidism, unspecified; W18.2XXA Fall in (into) shower or empty bathtub, initial encounter; Y93.E1 Activity, personal bathing and showering; Y92.002 Bathroom of unspecified non-institutional (private) residence as the place of occurrence of the external cause; Y99.9 Unspecified external cause status; Z99.81 Dependence on supplemental oxygen; Z90.49 Acquired absence of other specified parts of digestive tract; Z95.5 Presence of coronary angioplasty implant and graft; Z87.891 Personal history of nicotine dependence; R29.6 Repeated falls

== ENCOUNTER 2017-01-20 16:47 | Inpatient (IN) | payer BC, OTHER ==
[2017-01-20 17:26] VITALS: BMI 27.8
[2017-01-20] MEDS ORDERED: Sodium Chloride 0.45% 1,000 ML IV SCH (17:30)
[2017-01-20] MEDS ORDERED: Influenza Vaccine 60 mcg/0.5 mL SYR (4YR UP) IM ONE (19:23)
[2017-01-20] MEDS ORDERED: Pneumococcal 23-Valent Vaccine IM ONE (19:23)
[2017-01-20] MEDS: HYDROmorphone 0.5 mg/0.5 ml ISec IVP PRN (22:44)
[2017-01-21] MEDS: Oxycodone/Acetaminophen 5/325 mg Tab PO PRN (00:35)
[2017-01-21 06:29] LABS: BASO # 0.03 K/mm3 (0.0-2.0); BASO % 0.4 % (0.0-3.0); EOS # 0.2 (0.0-0.7); EOS % 2.3 % (1.5-5.0); GRAN # 4.51 (1.4-6.5); GRAN % 65.9 % (50.0-68.0); HEMATOCRIT 29.7 % (36.0-48.0); LYMPH # 1.2 (1.2-3.4); LYMPH % 17.1 % (22.0-35.0); MEAN CELL VOLUME 77.3 fl (80.0-105.0); MEAN CORPUSCULAR HEMOGLOBIN 23.7 pg (25.0-35.0); MEAN CORPUSCULAR HGB CONC 30.6 g/dl (31.0-37.0); MEAN PLATELET VOLUME 10.8 fl (7.0-11.0); MONO % 14.3 % (1.0-6.0); RED CELL DISTRIBUTION WIDTH 17.5 % (11.5-14.5); WHITE BLOOD COUNT 6.9 10^3/ul (4.5-11.0)
[2017-01-21] MEDS: Levothyroxine 150 MCG TAB PO SCH (06:35)
[2017-01-21 07:04] LABS: ALKALINE PHOSPHATASE 52 U/L (38-126); ALT/SGPT 38 U/L (7-56); AST/SGOT 28 U/L (14-36); BILIRUBIN,TOTAL 0.9 mg/dL (0.2-1.3); BLOOD UREA NITROGEN 14 mg/dL (7-21); CALCIUM 8.6 mg/dL (8.4-10.5); CARBON DIOXIDE 27 mmol/L (21-33); CHLORIDE 103 mmol/L (98-107); GFR AFRICAN-AMERICAN > 60; GLUCOSE,RANDOM 102 mg/dL (70-110); POTASSIUM 3.9 mmol/L (3.6-5.0); SODIUM 136 mmol/L (132-148); TOTAL PROTEIN 6.2 g/dL (5.8-8.3)
[2017-01-21] MEDS: HYDROmorphone 0.5 mg/0.5 ml ISec IVP PRN ×4 (07:34→23:14)
[2017-01-21] MEDS: Potassium Chloride 20 mEq ER Tab PO SCH (08:48)
--- NOTE | 2017-01-21 10:33 | HP ---
HISTORY OF PRESENT ILLNESS: I know Joslyn very well, she had fallen backwards in the bathroom and slipped and hurt her right ribs and broke 7, 8 and 9. They thought it was is now needing physical therapy. She is in the Transitional Care Unit, I saw her in a room 319. She is a 86-year-old white female, who is still working, very productive, who has broken ribs 7, 8 and 9, and pain and needs some balance and strength training and was recommended by physical therapy to go the CCU. PAST MEDICAL HISTORY: She has a past medical history of atrial fibrillation, coronary artery disease, heart failure, hypertension, atrial fibrillation, COPD, asthma, neuropathy, cataracts, renal insufficiency, diabetes type 2, hypothyroidism, arthritis, back pain, joint pain, left shoulder fracture, multiple falls, myesthesia gravis, herniated disk, osteoarthritis, osteoporosis, spinal stenosis, diverticulosis, gastroesophageal reflux disease, pancreatitis history, hematuria, overactive bladder, appendectomy, cholecystectomy, coronary stents, and bilateral cataract surgeries. ALLERGIES: NO KNOWN DRUG ALLERGIES. FAMILY HISTORY: Has hypertension and diabetes in the family. SOCIAL HISTORY: She is a former smoker. No alcohol. No drugs. MEDICATIONS: She is on aspirin, Colace, Cordarone, Dilaudid, Flexeril, potassium, Lidoderm patch, Percocet, Synthroid, and TriCor. REVIEW OF SYSTEMS: No acute vision or hearing changes. No sore throat. No neck pain. No chest pain. There is some right-sided rib pain with little shortness of breath, but she is using incentive spirometry. No abdominal pain, nausea, vomiting, or constipation. Extremities are not swollen. There is no itching. No anxiety and no depression. She still has shoulder pains. she has definitely slowly improving with the fractured ribs. PHYSICAL EXAMINATION VITAL SIGNS: She has a 98.1 temperature, 83 pulse, 168/65 blood pressure, 18 respiratory rate, and 95% O2 saturation on room air. GENERAL: She is sitting up in bed which is good. She ate her breakfast. She is comfortable. No acute pain right now without moving. She has a patch on and she got medicated. She is alert and oriented x3. HEENT: Her head is atraumatic and normocephalic. Extraocular muscles are intact. Throat is moist. NECK: Supple. Thyroid is midline. No palpable appreciable lymphadenopathy. HEART: Regular rate, occasionally gets irregular, now it is regular. LUNGS: Decreased breath sounds, but clear to auscultation. Tender to palpation on the right side broken ribs. She is using the incentive spirometry very well, but no wheezes, rhonchi or rales. ABDOMEN: Soft and nontender. Positive bowel sounds. No guarding. No rebound. No CVA tenderness. EXTREMITIES: Have trace edema, which is good for her. NEUROLOGIC: GCS is 15. Cranial nerves II through XII grossly intact. Alert and oriented x3. She is calm. SKIN: Warm and dry. No rashes. No sweating. LABORATORY DATA: There are blood tests done this morning, 136 sodium, potassium is 3.9, BUN is 14, and creatinine is 0.6. GFR is greater than 60, sugar is 102, calcium is 8.6, and total and bilirubin is 0.9. AST is 28, ALT is 38, alkaline phosphatase is 52, total protein is 6.2, albumin is 3.2, and globulin is 3.1. White count is 6.9, hemoglobin is 9.1, hematocrit is 29.7, and platelets are 181. IMPRESSION AND PLAN: I am going to discontinue the intravenous fluids. Her kidney functions are good. She is eating and drinking well. She has pain medication. Hopefully, we will stop the Dilaudid and switch her to Toradol and Ultram soon in the next day or two, as she still has to heal. She will get physical therapy for balance and strength and she is here for fall and fractured right ribs. Osvaldo Reyes DO MTDD
[2017-01-21] MEDS: Lidocaine 5% Patch TD SCH (11:33)
--- NOTE | 2017-01-21 12:02 | CP.PCM.PN ---
<Teddy Ervin - Last Filed: 01/21/17 11:56> Subjective - Date & Time of Evaluation Date of Evaluation: 01/21/17 Time of Evaluation: 11:56 - Subjective Subjective: PGY1 General Surgery Progress Note for Dr. Dominique Patient seen and examined at bedside this morning. No acute events overnight. Patient was sleeping comfortably. She states that she is in pain but it has been well controlled with oral medications. Patient is working with incentive spirometer and is currently getting 750 at this time. Denies fevers, chills, shortness of breath and/or chest pain. Objective - Vital Signs/Intake and Output Vital Signs (last 24 hours): Temp Pulse Resp BP Pulse Ox 97.6 F 71 18 136/49 L 95 01/21/17 09:58 01/21/17 09:58 01/21/17 09:58 01/21/17 09:58 01/21/17 09:58 - Medications Medications: Current Medications Amiodarone HCl (Cordarone) 200 mg PO DAILY [facility] PRN Reason: Protocol Last Admin: 01/21/17 11:32 Dose: 200 mg Aspirin (Aspirin Chewable) 81 mg PO 0800 [facility] PRN Reason: Protocol Last Admin: 01/21/17 08:47 Dose: 81 mg Cyclobenzaprine HCl (Flexeril) 5 mg PO TID ROSAL[facility] PRN Reason: Protocol Last Admin: 01/21/17 11:33 Dose: 5 mg Docusate Sodium (Colace) 100 mg PO DAILY [facility] PRN Reason: Protocol Last Admin: 01/21/17 11:30 Dose: 100 mg Fenofibrate (Tricor) 145 mg PO DAILY [facility] PRN Reason: Protocol Last Admin: 01/21/17 11:35 Dose: 145 mg Hydromorphone HCl (Dilaudid) 0.5 mg IVP Q3H PRN; Protocol PRN Reason: Pain, severe (8-10) Last Admin: 01/21/17 07:34 Dose: 0.5 mg Levothyroxine Sodium (Synthroid) 300 mcg PO 0600 [facility] PRN Reason: Protocol Last Admin: 01/21/17 06:35 Dose: 300 mcg Lidocaine (Lidoderm) 1 ea TD DAILY ROS[facility] PRN Reason: Protocol Last Admin: 01/21/17 11:33 Dose: 1 ea Oxycodone/Acetaminophen (Percocet 5/325 Mg Tab) 1 tab PO Q4H PRN PRN Reason: Pain, Mild (1-3) Stop: 01/23/17 17:26 Last Admin: 01/21/17 00:35 Dose: 1 tab Potassium Chloride (K-Dur 20 Meq Er Tab) 20 meq PO 0800 [facility] PRN Reason: Protocol Last Admin: 01/21/17 08:48 Dose: 20 meq - Labs Labs: 01/21/17 06:15 01/21/17 06:15 - Constitutional Appears: Non-toxic, No Acute Distress - Head Exam Head Exam: ATRAUMATIC, NORMOCEPHALIC - Eye Exam Eye Exam: EOMI, Normal appearance. absent: Scleral icterus - ENT Exam ENT Exam: Mucous Membranes Moist - Respiratory Exam Respiratory Exam: NORMAL BREATHING PATTERN. absent: Accessory Muscle Use, Respiratory Distress - Neurological Exam Neurological Exam: Alert, Awake, Oriented x3 - Psychiatric Exam Psychiatric exam: Normal Affect, Normal Mood - Skin Skin Exam: Dry, Warm Assessment and Plan - Assessment and Plan (Free Text) Assessment: 86 year old female s/p fall with rib fractures 7-9 Plan: Pain Control Encourage Incentive Spirometer OOB to chair and physical therapy No surgical intervention at this time Surgery will be signing off. Please re-consult as needed. Case discussed with Dr. Catina Espinal Aziza PGY1 <Agustin Dominique - Last Filed: 01/30/17 23:45> Objective - Vital Signs/Intake and Output Vital Signs (last 24 hours): Temp Pulse Resp BP Pulse Ox 98.3 F 87 20 132/59 L 95 01/30/17 16:06 01/30/17 16:06 01/30/17 16:06 01/30/17 16:06 01/30/17 16:06 - Medications Medications: Current Medications Amiodarone HCl (Cordarone) 200 mg PO DAILY [facility] PRN Reason: Protocol Last Admin: 01/30/17 10:06 Dose: Not Given Amylase (Pancrease [id number] [id number] U) 5,000 u PO [facility] Last Admin: 01/30/17 17:58 Dose: 5,000 u Aspirin (Aspirin Chewable) 81 mg PO 0800 [facility] PRN Reason: Protocol Last Admin: 01/30/17 07:46 Dose: 81 mg Docusate Sodium (Colace) 100 mg PO DAILY [facility] PRN Reason: Protocol Last Admin: 01/30/17 09:45 Dose: Not Given Fenofibrate (Tricor) 145 mg PO DAILY [facility] PRN Reason: Protocol Last Admin: 01/30/17 10:07 Dose: 145 mg Meropenem 1 gm/ Dextrose 100 mls @ 100 mls/hr IVPB Q8 [facility] PRN Reason: Protocol Stop: 02/06/17 14:01 Last Admin: 01/30/17 22:12 Dose: 100 mls/hr Ketorolac Tromethamine (Toradol) 30 mg IVP Q8H PRN PRN Reason: Pain, moderate (4-7) Last Admin: 01/30/17 20:46 Dose: 30 mg Levothyroxine Sodium (Synthroid) 300 mcg PO 0600 [facility] PRN Reason: Protocol Last Admin: 01/30/17 05:21 Dose: 300 mcg Lidocaine (Lidoderm) 1 ea TD DAILY [facility] PRN Reason: Protocol Last Admin: 01/30/17 10:07 Dose: 1 ea Lorazepam (Ativan) 0.5 mg IVP Q4H PRN; Protocol PRN Reason: severe agitation Potassium Chloride (K-Dur 20 Meq Er Tab) 20 meq PO 0800 [facility] PRN Reason: Protocol Last Admin: 01/30/17 07:46 Dose: 20 meq Quetiapine Fumarate (Seroquel) 50 mg PO HS [facility] PRN Reason: Protocol Last Admin: 01/30/17 22:13 Dose: 50 mg Tramadol/Acetaminophen (Ultracet 37.5/325 Mg) 1 tab PO Q6H PRN PRN Reason: Pain, moderate (4-7) Last Admin: 01/29/17 11:59 Dose: 1 tab - Labs Labs: 01/30/17 07:04 01/30/17 07:04 Assessment and Plan - Assessment and Plan (Free Text) Plan: Patient was seen and examined by me. I agree with assessment and plan as per resident's note.
[2017-01-22] MEDS: HYDROmorphone 0.5 mg/0.5 ml ISec IVP PRN ×4 (03:26→22:32)
[2017-01-22] MEDS: Levothyroxine 150 MCG TAB PO SCH (05:43)
[2017-01-22 07:49] LABS: HEMATOCRIT 30.9 % (36.0-48.0); MEAN CELL VOLUME 77.6 fl (80.0-105.0); MEAN CORPUSCULAR HEMOGLOBIN 23.4 pg (25.0-35.0); MEAN CORPUSCULAR HGB CONC 30.1 g/dl (31.0-37.0); MEAN PLATELET VOLUME 10.9 fl (7.0-11.0); RED CELL DISTRIBUTION WIDTH 17.3 % (11.5-14.5); WHITE BLOOD COUNT 7.3 10^3/ul (4.5-11.0)
[2017-01-22 07:58] LABS: ALB/GLOB RATIO 1.1 (1.1-1.8); ALKALINE PHOSPHATASE 59 U/L (38-126); ALT/SGPT 37 U/L (7-56); AST/SGOT 24 U/L (14-36); BILIRUBIN,TOTAL 0.9 mg/dL (0.2-1.3); BLOOD UREA NITROGEN 13 mg/dL (7-21); CARBON DIOXIDE 30 mmol/L (21-33); CHLORIDE 102 mmol/L (98-107); GFR AFRICAN-AMERICAN > 60; GLUCOSE,RANDOM 103 mg/dL (70-110); POTASSIUM 3.9 mmol/L (3.6-5.0); SODIUM 137 mmol/L (132-148); TOTAL PROTEIN 6.4 g/dL (5.8-8.3)
[2017-01-22] MEDS: Potassium Chloride 20 mEq ER Tab PO SCH (08:34)
[2017-01-22] MEDS: Lidocaine 5% Patch TD SCH (10:44)
--- NOTE | 2017-01-22 12:10 | PN ---
DATE: SUBJECTIVE: Ms. Jorgensen is resting comfortably in bed, but she does not move. She is doing well. Any kind of motion makes the right ribs very painful. She has three fractured ribs 7, 8, and 9. She is on TCU, getting physical therapy and pain medications. She did walk a little bit yesterday, which was great. She is on aspirin, Colace, Cordarone, Dilaudid, Flexeril, potassium, Lidoderm patch, Percocet, Synthroid, and TriCor. PHYSICAL EXAMINATION VITAL SIGNS: She has 98.2 temperature, 73 pulse, 131/44 blood pressure, 18 respiratory rate, and 93% O2 saturation on nasal cannula. HEENT: Head atraumatic, normocephalic. Throat is moist. NECK: Supple. HEART: Regular rate. LUNGS: Decreased breath sounds, but clear. ABDOMEN: Soft. EXTREMITIES: No edema. There is tenderness to the right anterior rib area 7, 8, and 9. LABORATORY DATA: She has up to 7.3 white count, 9.3 hemoglobin, and 30.9 hematocrit with 202 platelets. Sodium 137, potassium 3.9, BUN 13, and creatinine 0.7. GFR is greater than 60. Sugar is 103. Calcium is 9, total bilirubin is 0.9, AST is 24, ALT is 37, alkaline phosphatase is 69, total protein is 6.4, and albumin is 3.3. ASSESSMENT AND PLAN: She is fairly comfortable. She is getting her medications. Surgery is following for possibility of a chest tube, which she does not need right now as the throat was not getting bad. There could have been a flail chest, but she is comfortable. She is on medications, which we need to watch her closely. Encouraged her to get out of bed to chair, eat healthy, use the breathing incentive spirometry. We will check her labs tomorrow. Fallen with fractured 7, 8, and 9 ribs right anteriorly. Osvaldo Reyes DO
[2017-01-22] MEDS: Oxycodone/Acetaminophen 5/325 mg Tab PO PRN (23:51)
[2017-01-23] MEDS: Levothyroxine 150 MCG TAB PO SCH (05:18)
[2017-01-23 05:54] LABS: HEMATOCRIT 30.8 % (36.0-48.0); MEAN CELL VOLUME 77.6 fl (80.0-105.0); MEAN CORPUSCULAR HEMOGLOBIN 23.7 pg (25.0-35.0); MEAN CORPUSCULAR HGB CONC 30.5 g/dl (31.0-37.0); MEAN PLATELET VOLUME 10.7 fl (7.0-11.0); RED CELL DISTRIBUTION WIDTH 17.8 % (11.5-14.5); WHITE BLOOD COUNT 7.2 10^3/ul (4.5-11.0)
[2017-01-23 06:29] LABS: ALB/GLOB RATIO 1.1 (1.1-1.8); ALKALINE PHOSPHATASE 60 U/L (38-126); ALT/SGPT 23 U/L (7-56); AST/SGOT 20 U/L (14-36); BILIRUBIN,TOTAL 0.9 mg/dL (0.2-1.3); BLOOD UREA NITROGEN 14 mg/dL (7-21); CALCIUM 9.1 mg/dL (8.4-10.5); CARBON DIOXIDE 27 mmol/L (21-33); CHLORIDE 104 mmol/L (98-107); GFR AFRICAN-AMERICAN > 60; GLUCOSE,RANDOM 104 mg/dL (70-110); POTASSIUM 3.7 mmol/L (3.6-5.0); SODIUM 138 mmol/L (132-148); TOTAL PROTEIN 6.4 g/dL (5.8-8.3)
[2017-01-23] MEDS: Potassium Chloride 20 mEq ER Tab PO SCH (08:26)
[2017-01-23] MEDS: Oxycodone/Acetaminophen 5/325 mg Tab PO PRN ×2 (08:27→13:19)
[2017-01-23] MEDS: Lidocaine 5% Patch TD SCH (09:20)
[2017-01-23] MEDS: HYDROmorphone 0.5 mg/0.5 ml ISec IVP PRN ×2 (11:11→20:20)
--- NOTE | 2017-01-23 13:07 | PN ---
DATE: SUBJECTIVE: I saw Joslyn sleeping this morning in her bed. She is having pain from the fractured ribs on the right anterior area of her belly. She had gotten out of bed and sat out of bed to chair yesterday for a while. She is eating okay. She is very uncomfortable. She is on aspirin, Colace, Cordarone, Dilaudid, Flexeril, potassium, Lidoderm, Percocet, Synthroid, TriCor, and I added Ultracet. She is trying physical therapy, has good spirit to the fracture. PHYSICAL EXAMINATION: VITAL SIGNS: She has 97.7 temperature, 77 pulse, 130/82 blood pressure, 20 respiratory rate, 100% O2 sat on 2 liters nasal cannula. HEENT: Head atraumatic, normocephalic. Throat is moist. NECK: Supple. HEART: Regular rate. LUNGS: Fair effort. Lot of pain in the right side rib fractures, but she is moving air. I am asking her to use the incentive spirometry every hour, 10 breaths. I did not hear any rhonchi, rales, or wheezes. EXTREMITIES: Trace edema, but good for her. She is only much worse. MEDICATIONS: She is on aspirin, Colace, Cordarone, Dilaudid, Flexeril, potassium, Lidoderm, Percocet, Synthroid, TriCor, and I added Ultracet to may be get her off some of the narcotics and switch her to Ultracet for the pain. She is working on that. LABORATORY DATA: She has a 7.2 white count, 9.4 hemoglobin, 30.8 hematocrit with a 200 platelets. 138 sodium, potassium 3.7, BUN is 14, creatinine 0.7, GFR is greater than 60, sugar is 104, calcium is 9.1, total bilirubin is 0.9, AST is 20, ALT is 23, alkaline phosphatase is 60, total protein is 6.4, albumin is 3.3, globulin is 3.1. ASSESSMENT AND PLAN: Overall, she is 5 more days in CCU. Physical therapy, incentive spirometry, pain medications, ambulation, out of bed to chair. Hopefully, she will continue to improve. Osvaldo Reyes DO MTDD
[2017-01-23] MEDS: TraMADol/Apap 37.5/325 mg Tab PO PRN (17:30)
[2017-01-24] MEDS: HYDROmorphone 0.5 mg/0.5 ml ISec IVP PRN ×4 (00:56→17:06)
[2017-01-24] MEDS: Levothyroxine 150 MCG TAB PO SCH (05:27)
[2017-01-24] MEDS: Potassium Chloride 20 mEq ER Tab PO SCH (08:03)
[2017-01-24] MEDS: Lidocaine 5% Patch TD SCH (10:48)
[2017-01-24] MEDS: TraMADol/Apap 37.5/325 mg Tab PO PRN ×2 (10:48→22:54)
--- NOTE | 2017-01-24 14:07 | PN ---
DATE: SUBJECTIVE: Ms. Jorgensen is resting comfortably in bed this morning. She slept well. Pain is still there, but may be a little bit better. MEDICATIONS: She is on aspirin, Colace, Cordarone, Dilaudid, Flexeril, potassium, Lidoderm, Synthroid, TriCor, and Ultracet. PHYSICAL EXAMINATION VITAL SIGNS: She has 98.2 temperature, 64 pulse, 124/54 blood pressure, 18 respiratory rate, and 90% O2 sat on 2 liters nasal cannula. GENERAL: She is also eating little bit better. HEENT: Head atraumatic and normocephalic. Throat is moist. NECK: Supple. HEART: Regular rate. LUNGS: Decreased breath sounds, but clear. ABDOMEN: Soft. EXTREMITIES: No edema. The right side of the ribs are turpentine distiller, may be a slight improvement. CHEST: She is using incentive spirometry, which is palpating her keep deep breath sounds and avoiding pneumonias. LABORATORY DATA: She has a 7.2 white count, 9.4 hemoglobin, and 30.8 hematocrit with 200 platelets. Last blood sugar was 109. Sodium is 138, potassium is 3.7, BUN is 14, and creatinine is 0.7. GFR is greater than 60. Sugar is 104. Calcium is 9.1, total bilirubin is 0.9, AST is 20, ALT is 23, alkaline phosphatase is 60, and total protein is 6.4. ASSESSMENT AND PLAN: We will check her labs tomorrow and get her out of bed to chair everyday. Pain medications as needed. A few more days here before she goes home, so she is a little bit more stable of all this right rib pain. Fracture of 7, 8 and 9 ribs. Osvaldo Reyes DO
[2017-01-25] MEDS: Levothyroxine 150 MCG TAB PO SCH (06:40)
[2017-01-25] MEDS: TraMADol/Apap 37.5/325 mg Tab PO PRN ×2 (06:47→21:11)
[2017-01-25 07:03] LABS: MEAN CELL VOLUME 77.3 fl (80.0-105.0); MEAN CORPUSCULAR HEMOGLOBIN 23.7 pg (25.0-35.0); MEAN CORPUSCULAR HGB CONC 30.6 g/dl (31.0-37.0); MEAN PLATELET VOLUME 10.1 fl (7.0-11.0); RED CELL DISTRIBUTION WIDTH 18.5 % (11.5-14.5); WHITE BLOOD COUNT 6.6 10^3/ul (4.5-11.0)
[2017-01-25 07:20] LABS: ALB/GLOB RATIO 1.1 (1.1-1.8); ALKALINE PHOSPHATASE 57 U/L (38-126); ALT/SGPT 33 U/L (7-56); AST/SGOT 20 U/L (14-36); BILIRUBIN,TOTAL 0.9 mg/dL (0.2-1.3); BLOOD UREA NITROGEN 15 mg/dL (7-21); CALCIUM 9.1 mg/dL (8.4-10.5); CARBON DIOXIDE 28 mmol/L (21-33); CHLORIDE 105 mmol/L (98-107); GFR AFRICAN-AMERICAN > 60; GLUCOSE,RANDOM 103 mg/dL (70-110); POTASSIUM 3.9 mmol/L (3.6-5.0); SODIUM 139 mmol/L (132-148); TOTAL PROTEIN 6.3 g/dL (5.8-8.3)
[2017-01-25] MEDS: Potassium Chloride 20 mEq ER Tab PO SCH (07:44)
[2017-01-25] MEDS: Lidocaine 5% Patch TD SCH (09:43)
--- NOTE | 2017-01-25 12:00 | PN ---
DATE: SUBJECTIVE: I saw Joslyn sitting up in bed in the TCU. She had a rough night last night with pains from the rib fractures. She is eating somewhat and she is doing well in therapy. MEDICATIONS: She is on aspirin, Colace, Cordarone, Dilaudid, Flexeril, potassium, Lidoderm patch, Synthroid, TriCor, and Ultracet. PHYSICAL EXAMINATION VITAL SIGNS: Her vital signs are 98.7 temperature, 76 pulse, 132/46 blood pressure and 135/62 blood pressure, 22 respiratory rate and 95% O2 saturation on 2 L nasal cannula. HEENT: Head is atraumatic and normocephalic. Throat is moist. NECK: Supple. HEART: Regular rate. LUNGS: Clear to auscultation bilaterally. Even with the pain, she is using the incentive spirometry and it is helping. ABDOMEN: Soft and nontender. Positive bowel sounds. EXTREMITIES: No edema. LABORATORY DATA: She has a 6.6 white count, 9.5 hemoglobin, 31 hematocrit with 191 platelets. She has 139 sodium, potassium is 3.9, BUN is 15, and creatinine is 0.7. GFR is greater than 60. Sugar is 103 and calcium is 9.1. Total bilirubin is 0.9. AST is 20, ALT is 33, alkaline phosphatase is 37, total protein is 6.3 and albumin is 3.2. IMPRESSION AND PLAN: She also is trying hard on therapy. We will continue progressive treatment and care. She had fallen with fractured ribs. Osvaldo Reyes DO
[2017-01-25] MEDS: HYDROmorphone 0.5 mg/0.5 ml ISec IVP PRN (13:40)
[2017-01-25 18:33] LABS: BASO # 0.05 K/mm3 (0.0-2.0); BASO % 0.6 % (0.0-3.0); EOS # 0.3 (0.0-0.7); GRAN # 5.63 (1.4-6.5); GRAN % 61.9 % (50.0-68.0); HEMATOCRIT 33.7 % (36.0-48.0); LYMPH # 1.7 (1.2-3.4); LYMPH % 19.1 % (22.0-35.0); MEAN CELL VOLUME 77.8 fl (80.0-105.0); MEAN CORPUSCULAR HGB CONC 30.9 g/dl (31.0-37.0); MEAN PLATELET VOLUME 10.7 fl (7.0-11.0); MONO # 1.4 (0.1-0.6); MONO % 15.4 % (1.0-6.0); RED CELL DISTRIBUTION WIDTH 18.6 % (11.5-14.5); WHITE BLOOD COUNT 9.1 10^3/ul (4.5-11.0)
[2017-01-25 18:44] LABS: ALB/GLOB RATIO 1.2 (1.1-1.8); ALKALINE PHOSPHATASE 70 U/L (38-126); ALT/SGPT 37 U/L (7-56); AST/SGOT 25 U/L (14-36); BLOOD UREA NITROGEN 17 mg/dL (7-21); CALCIUM 9.6 mg/dL (8.4-10.5); CARBON DIOXIDE 25 mmol/L (21-33); CHLORIDE 100 mmol/L (98-107); GFR AFRICAN-AMERICAN > 60; GLUCOSE,RANDOM 108 mg/dL (70-110); POTASSIUM 3.8 mmol/L (3.6-5.0); SODIUM 136 mmol/L (132-148); TOTAL PROTEIN 7.8 g/dL (5.8-8.3)
[2017-01-25 23:15] LABS: URINE BILIRUBIN NEGATIVE (NEGATIVE); URINE BLOOD TRACE-LYSED (NEGATIVE); URINE GLUCOSE (UA) NEGATIVE (NEGATIVE); URINE KETONE NEGATIVE (NEGATIVE); URINE LEUKOCYTE ESTERASE LARGE Leu/uL (NEGATIVE); URINE PROTEIN NEGATIVE mg/dL (<30 mg/dL); URINE UROBILINOGEN 0.2 E.U./dL (<1 E.U./dL)
[2017-01-25 23:18] LABS: URINE APPEARANCE SL CLOUDY (CLEAR); URINE COLOR YELLOW (YELLOW)
[2017-01-25 23:29] LABS: URINE BACTERIA MANY (NEG); URINE EPITHELIAL CELLS 0 - 2 /hpf (0-5); URINE RBC 0 - 2 /hpf (0-2); URINE WBC 20 - 25 /hpf (0-6)
[2017-01-26] MEDS: Levothyroxine 150 MCG TAB PO SCH (05:05)
[2017-01-26] MEDS: TraMADol/Apap 37.5/325 mg Tab PO PRN ×2 (05:06→17:56)
[2017-01-26 06:13] LABS: HEMATOCRIT 31.2 % (36.0-48.0); MEAN CELL VOLUME 77.6 fl (80.0-105.0); MEAN CORPUSCULAR HEMOGLOBIN 23.6 pg (25.0-35.0); MEAN CORPUSCULAR HGB CONC 30.4 g/dl (31.0-37.0); MEAN PLATELET VOLUME 10.1 fl (7.0-11.0); RED CELL DISTRIBUTION WIDTH 18.5 % (11.5-14.5); WHITE BLOOD COUNT 7.1 10^3/ul (4.5-11.0)
[2017-01-26 07:01] LABS: ALB/GLOB RATIO 1.1 (1.1-1.8); ALKALINE PHOSPHATASE 64 U/L (38-126); ALT/SGPT 28 U/L (7-56); AST/SGOT 21 U/L (14-36); BLOOD UREA NITROGEN 16 mg/dL (7-21); CALCIUM 9.3 mg/dL (8.4-10.5); CARBON DIOXIDE 26 mmol/L (21-33); CHLORIDE 104 mmol/L (98-107); GFR AFRICAN-AMERICAN > 60; GLUCOSE,RANDOM 109 mg/dL (70-110); POTASSIUM 3.8 mmol/L (3.6-5.0); SODIUM 138 mmol/L (132-148); TOTAL PROTEIN 6.7 g/dL (5.8-8.3)
[2017-01-26] MEDS: Potassium Chloride 20 mEq ER Tab PO SCH (08:04)
--- NOTE | 2017-01-26 10:32 | PN ---
DATE: SUBJECTIVE: I saw Joslyn Ellis on the TCU today. She was confused as of last night. I called the Neurology for change in mentation, ordered CAT scan of her head. Also, the urinalysis came out positive, I am going put on antibiotics, felt it could be urinary tract infection. I also stopped her Dilaudid and any medications that could give her change in mentation, I changed it to tramadol and Toradol IV. She is comfortable in bed. No chest pain. No abdominal pain, not even any rib pain right now. PHYSICAL EXAMINATION: VITAL SIGNS: She has a 98.3 temp, 43 to 58 pulse, 142/45 blood pressure, 16 respiratory rate, 90% O2 sat on 2 liters. HEENT: Head is atraumatic and normocephalic. GENERAL: She is alert and comfortable. No pain. She knew who I was, though she was HEART: Regular rate. LUNGS: Clear to auscultation with decreased breath sounds. ABDOMEN: Soft. Positive bowel sounds. EXTREMITIES: There is right-sided rib pain and no edema in the extremities and she is mildly confused. MEDICATIONS: She is now on aspirin, Colace, Cordarone, Flexeril, I am going to stop the Flexeril; potassium, Lidoderm, Synthroid, Toradol, TriCor, and Ultracet. I am trying to start all my alternating drugs. LABORATORY DATA: Her white count today was 7.1 with a hemoglobin 9.5, hematocrit 31.2, platelets 196. She has a 138 sodium, potassium 3.8, BUN 16, creatinine 0.6. GFR is greater than 60. Sugar is 109, calcium is 9.3, total bili is AST is 21, ALT is 28, alkaline phosphatase 64, total protein 6.7. Urine is positive, came back this morning many enlarged, we will put on antibiotics. ASSESSMENT AND PLAN: I have ordered Neurology consult, I ordered CAT scan of the head and some antibiotics. We will check her labs tomorrow, hopefully, she will be well and improved with antibiotics and stopped the Dilaudid and other pain medications that can make her oozy and hopefully she will improve. This is a progress note on Joslyn Ellis who had fallen and fractured 3 ribs, 7, 8, and 9 on the right, now change in mentation and urinary tract infection. Osvaldo Reyes DO PITA
[2017-01-26] MEDS: Lidocaine 5% Patch TD SCH (11:00)
[2017-01-26] MEDS ORDERED: cefTRIAXone 1 gm 1 GM/100 ML BAG IVPB ONE (11:03)
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
[2017-01-26] MEDS: Tmp-Smz 800 mg-160 mg DS Tab PO SCH ×3 (11:42→17:13)
--- NOTE | 2017-01-26 13:13 | RAD ---
PROCEDURE: Skull x-ray. HISTORY: COMPARISON: None available. TECHNIQUE: Four views of the skull were obtained. FINDINGS: The osseous structures are normal. The bone mineralization is normal. IMPRESSION: Normal radiographs of the skull.
--- NOTE | 2017-01-26 14:08 | CP.PCM.CON ---
<Corrine Solitario - Last Filed: 01/26/17 22:45> History of Present Illness - History of Present Illness History of Present Illness: PGY-2 Neurology consult note for Dr. Luke's service 86 yo female with PMH of a. fib, CAD, heart failure, HTN, copd, asthma, diabetes , multiple fractures, osteoporosis consulted for AMS. Patient had recent fall with multiple fractures. She was admitted to the TCU for further rehab. Per nurse overnight patient was confused and altered, she repeated tried to leave her room. Per patient she does not recall all the events overnight. She is alert and oriented to person, place and time but not to situation. Patient denies any headache, dizziness, lightheadedness, vision changes, chest pain, sob , focal weakness. PMH: a. 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, illicit drug use allergy: NKDA Review of Systems - Review of Systems All systems: reviewed and no additional remarkable complaints except (as stated in HPI) Past Patient History - Infectious Disease Hx of Infectious Diseases: None - Tetanus Immunizations Tetanus Immunization: Unknown - Past Social History Smoking Status: Former Smoker - CARDIAC Hx Cardiac Disorders: Yes Hx Hypertension: Yes - PULMONARY Hx Chronic Obstructive Pulmonary Disease (COPD): Yes - NEUROLOGICAL HX Cerebrovascular Accident: No - HEENT Hx HEENT Problems: Yes Hx Blind: No Hx Cataracts: Yes Hx Deafness: No Hx Epistaxis: No Hx Glaucoma: No Hx Macular Degeneration: No - RENAL Hx Renal Failure: No - ENDOCRINE/METABOLIC Hx Diabetes Mellitus Type 2: Yes Hx Hypothyroidism: Yes - HEMATOLOGICAL/ONCOLOGICAL Hx Blood Disorders: No Hx AIDS: No Hx Anemia: No Hx Cancer: No Hx Chemotherapy: No Hx Cirrhosis: No Hx Hemophilia: No Hx Hepatitis A: No Hx Hepatitis B: No Hx Hepatitis C: No Hx Metastesis: No Hx Shingles: No Hx Sickle Cell Disease: No Hx Unexplained Bleeding: No Other/Comment: Blood transfusion - INTEGUMENTARY Hx Dermatological Problems: No Hx Basil Cell: No Hx Eczema: No Hx Melanoma: No Hx Psoriasis: No Hx Squamous Cell: No - MUSCULOSKELETAL/RHEUMATOLOGICAL Hx Arthritis: Yes - GASTROINTESTINAL Hx Gastrointestinal Disorders: Yes (CONSTIPATION,DIVERTICULOSIS,ULCER,ABDOMINAL SX,CHOLECYSTECTOOMY,APPENDECTOM) - GENITOURINARY/GYNECOLOGICAL Hx Genitourinary Disorders: Yes (INCONTINENT,) Hx Reproductive Disorders: No - PSYCHIATRIC Hx Psychophysiologic Disorder: No Hx Anxiety: No Hx Bipolar Disorder: No Hx Depression: No Hx Emotional Abuse: No Hx Hallucinations: No Hx Panic Symptoms: No Hx Post Traumatic Stress Disorder: No Hx Psychosis: No Hx Physical Abuse: No Hx Schizophrenia: No Hx Sexual Abuse: No Hx Substance Use: No - SURGICAL HISTORY Hx Amputation: No Hx Appendectomy: Yes Hx Cholecystectomy: Yes Hx Coronary Stent: Yes Hx Gastric Bypass Surgery: No Hx Hysterectomy: No Hx Joint Replacement: No Hx Kidney Transplant: No Hx Liver Transplant: No Hx Musculoskeletal Surgery: No Hx Open Heart Surgery: No Hx Orthopedic Surgery: No Hx Splenectomy: No Hx Valve Replacement: No Other/Comment: Bilateral cataract sx - ANESTHESIA Hx Anesthesia: Yes Hx Anesthesia Reactions: No Hx Malignant Hyperthermia: No Meds Allergies/Adverse Reactions: Allergies Allergy/AdvReac Type Severity Reaction Status Date / Time No Known Allergies Allergy Verified 01/20/17 19:03 - Medications Medications: Current Medications Amiodarone HCl (Cordarone) 200 mg PO DAILY ROSALBA PRN Reason: Protocol Last Admin: 01/26/17 11:00 Dose: 200 mg Aspirin (Aspirin Chewable) 81 mg PO 0800 ROSALBA PRN Reason: Protocol Last Admin: 01/26/17 08:04 Dose: 81 mg Docusate Sodium (Colace) 100 mg PO DAILY ROSALBA PRN Reason: Protocol Last Admin: 01/26/17 11:42 Dose: 100 mg Fenofibrate (Tricor) 145 mg PO DAILY ROSALBA PRN Reason: Protocol Last Admin: 01/25/17 09:44 Dose: 145 mg Ketorolac Tromethamine (Toradol) 30 mg IVP Q8H PRN PRN Reason: Pain, moderate (4-7) Levothyroxine Sodium (Synthroid) 300 mcg PO 0600 ROSALBA PRN Reason: Protocol Last Admin: 01/26/17 05:05 Dose: 300 mcg Lidocaine (Lidoderm) 1 ea TD DAILY ROSALBA PRN Reason: Protocol Last Admin: 01/26/17 11:00 Dose: 1 ea Potassium Chloride (K-Dur 20 Meq Er Tab) 20 meq PO 0800 ROSALBA PRN Reason: Protocol Last Admin: 01/26/17 08:04 Dose: 20 meq Tramadol/Acetaminophen (Ultracet 37.5/325 Mg) 1 tab PO Q6H PRN PRN Reason: Pain, moderate (4-7) Last Admin: 01/26/17 05:06 Dose: 1 tab Trimethoprim/Sulfamethoxazole (Bactrim Ds Tab) 1 tab PO BID ROSALBA Physical Exam - Constitutional Appears: No Acute Distress - Head Exam Head Exam: ATRAUMATIC, NORMAL INSPECTION, NORMOCEPHALIC - Eye Exam Eye Exam: EOMI, Normal appearance - ENT Exam ENT Exam: Mucous Membranes Moist - Respiratory Exam Respiratory Exam: Clear to Auscultation Bilateral, NORMAL BREATHING PATTERN. absent: Rhonchi, Wheezes, Respiratory Distress - Cardiovascular Exam Cardiovascular Exam: REGULAR RHYTHM. absent: Tachycardia - GI/Abdominal Exam GI & Abdominal Exam: Normal Bowel Sounds, Soft. absent: Tenderness - Extremities Exam Extremities exam: Positive for: normal inspection. Negative for: pedal edema, tenderness - Neurological Exam Neurological exam: Alert, CN II-XII Intact Additional comments: patient is somewhat confused - Expanded Neurological Exam Expanded Patient oriented to: person, place, time Cranial nerves: EOM's Intact: Normal, Tongue Deviation: Normal Cerebellar Function: Finger to Nose: Normal Neuro motor strength exam: Left Upper Extremity: 5, Right Upper Extremity: 5, Left Lower Extremity: 5, Right Lower Extremity: 5 Coma Scale Motor Response: OBEYS COMMANDS - Skin Skin Exam: Dry, Intact, Normal Color, Warm Results - Vital Signs Recent Vital Signs: Last Vital Signs Temp 98.7 F 01/26/17 10:25 Pulse 74 01/26/17 11:00 Resp 16 01/26/17 10:25 BP 147/91 H 01/26/17 11:00 Pulse Ox 96 01/26/17 10:25 - Labs Result Diagrams: 01/26/17 06:00 01/26/17 06:00 Labs: Laboratory Results - last 24 hr 01/25/17 01/25/17 01/25/17 06:50 18:18 18:18 WBC 9.1 D RBC 4.33 Hgb 10.4 L Hct 33.7 L MCV 77.8 L MCH 24.0 L MCHC 30.9 L RDW 18.6 H Plt Count 239 MPV 10.7 Gran % 61.9 Lymph % (Auto) 19.1 L Beauregard % (Auto) 15.4 H Eos % (Auto) 3.0 Baso % (Auto) 0.6 Gran # 5.63 Lymph # 1.7 Beauregard # 1.4 H Eos # 0.3 Baso # 0.05 Sodium 136 Potassium 3.8 Chloride 100 Carbon Dioxide 25 Anion Gap 14 BUN 17 Creatinine 0.9 Est GFR ( Amer) > 60 Est GFR (Non-Af Amer) 60 POC Glucose (mg/dL) 112 H Random Glucose 108 Calcium 9.6 Total Bilirubin 1.0 AST 25 ALT 37 Alkaline Phosphatase 70 Ammonia Total Protein 7.8 Albumin 4.2 Globulin 3.6 Albumin/Globulin Ratio 1.2 Urine Color Urine Appearance Urine pH Ur Specific Natalia Urine Protein Urine Glucose (UA) Urine Ketones Urine Blood Urine Nitrate Urine Bilirubin Urine Urobilinogen Ur Leukocyte Esterase Urine RBC Urine WBC Ur Epithelial Cells Urine Bacteria 01/25/17 01/26/17 01/26/17 23:00 04:51 06:00 WBC 7.1 D RBC 4.02 Hgb 9.5 L Hct 31.2 L MCV 77.6 L MCH 23.6 L MCHC 30.4 L RDW 18.5 H Plt Count 196 MPV 10.1 Gran % Lymph % (Auto) Beauregard % (Auto) Eos % (Auto) Baso % (Auto) Gran # Lymph # Beauregard # Eos # Baso # Sodium Potassium Chloride Carbon Dioxide Anion Gap BUN Creatinine Est GFR ( Amer) Est GFR (Non-Af Amer) POC Glucose (mg/dL) 124 H Random Glucose Calcium Total Bilirubin AST ALT Alkaline Phosphatase Ammonia Total Protein Albumin Globulin Albumin/Globulin Ratio Urine Color Yellow Urine Appearance Sl cloudy Urine pH 7.0 Ur Specific Natalia 1.010 Urine Protein Negative Urine Glucose (UA) Negative Urine Ketones Negative Urine Blood Trace-lysed H Urine Nitrate Negative Urine Bilirubin Negative Urine Urobilinogen 0.2 Ur Leukocyte Esterase Large H Urine RBC 0 - 2 Urine WBC 20 - 25 Ur Epithelial Cells 0 - 2 Urine Bacteria Many 01/26/17 01/26/17 01/26/17 06:00 09:00 11:27 WBC RBC Hgb Hct MCV MCH MCHC RDW Plt Count MPV Gran % Lymph % (Auto) Beauregard % (Auto) Eos % (Auto) Baso % (Auto) Gran # Lymph # Beauregard # Eos # Baso # Sodium 138 Potassium 3.8 Chloride 104 Carbon Dioxide 26 Anion Gap 12 BUN 16 Creatinine 0.8 Est GFR ( Amer) > 60 Est GFR (Non-Af Amer) > 60 POC Glucose (mg/dL) 130 H Random Glucose 109 Calcium 9.3 Total Bilirubin 1.0 AST 21 ALT 28 Alkaline Phosphatase 64 Ammonia < 9 L Total Protein 6.7 Albumin 3.5 Globulin 3.2 Albumin/Globulin Ratio 1.1 Urine Color Urine Appearance Urine pH Ur Specific Natalia Urine Protein Urine Glucose (UA) Urine Ketones Urine Blood Urine Nitrate Urine Bilirubin Urine Urobilinogen Ur Leukocyte Esterase Urine RBC Urine WBC Ur Epithelial Cells Urine Bacteria Assessment & Plan - Assessment and Plan (Free Text) Assessment: 86 yo female with PMH of a. fib, CAD, heart failure, HTN, copd, asthma, diabetes , multiple fractures, osteoporosis consulted for AMS most likely due to delirium secondary to most likely secondary to pain medication. 1. delirium 2. multiple fractures - CT head showed no acute finding - xray of skull was negative - holding opioids, recommend muscle relaxant, tizanidine 4mg q6 prn or lidocaine patch - fall precautions - avoid night time disturbances - if agitated at night, seroquel 12.5 mg HS Thank you for the consult, if needed please reconsult Case reviewed and discussed with attending, Dr. Luke. <Ej Luke - Last Filed: 01/27/17 05:58> Meds - Medications Medications: Current Medications Amiodarone HCl (Cordarone) 200 mg PO DAILY ROSALBA PRN Reason: Protocol Last Admin: 01/26/17 11:00 Dose: 200 mg Aspirin (Aspirin Chewable) 81 mg PO 0800 ROSALBA PRN Reason: Protocol Last Admin: 01/26/17 08:04 Dose: 81 mg Docusate Sodium (Colace) 100 mg PO DAILY ROSALBA PRN Reason: Protocol Last Admin: 01/26/17 11:42 Dose: 100 mg Fenofibrate (Tricor) 145 mg PO DAILY ROSALBA PRN Reason: Protocol Last Admin: 01/26/17 11:00 Dose: 145 mg Ketorolac Tromethamine (Toradol) 30 mg IVP Q8H PRN PRN Reason: Pain, moderate (4-7) Levothyroxine Sodium (Synthroid) 300 mcg PO 0600 ROSALBA PRN Reason: Protocol Last Admin: 01/26/17 05:05 Dose: 300 mcg Lidocaine (Lidoderm) 1 ea TD DAILY ROSALBA PRN Reason: Protocol Last Admin: 01/26/17 11:00 Dose: 1 ea Potassium Chloride (K-Dur 20 Meq Er Tab) 20 meq PO 0800 ROSALBA PRN Reason: Protocol Last Admin: 01/26/17 08:04 Dose: 20 meq Quetiapine Fumarate (Seroquel) 12.5 mg PO HS PRN; Protocol PRN Reason: agitation/psychosis Last Admin: 01/26/17 20:04 Dose: 12.5 mg Tramadol/Acetaminophen (Ultracet 37.5/325 Mg) 1 tab PO Q6H PRN PRN Reason: Pain, moderate (4-7) Last Admin: 01/26/17 17:56 Dose: 1 tab Trimethoprim/Sulfamethoxazole (Bactrim Ds Tab) 1 tab PO BID ROSALBA Last Admin: 01/26/17 17:13 Dose: 1 tab Results - Vital Signs Recent Vital Signs: Last Vital Signs Temp 98.7 F 01/26/17 10:25 Pulse 74 01/26/17 11:00 Resp 16 01/26/17 10:25 BP 147/91 H 01/26/17 11:00 Pulse Ox 96 01/26/17 10:25 - Labs Result Diagrams: 01/26/17 06:00 01/26/17 06:00 Labs: Laboratory Results - last 24 hr 01/25/17 01/26/17 01/26/17 06:50 04:51 06:00 WBC 7.1 D RBC 4.02 Hgb 9.5 L Hct 31.2 L MCV 77.6 L MCH 23.6 L MCHC 30.4 L RDW 18.5 H Plt Count 196 MPV 10.1 Sodium Potassium Chloride Carbon Dioxide Anion Gap BUN Creatinine Est GFR ( Amer) Est GFR (Non-Af Amer) POC Glucose (mg/dL) 112 H 124 H Random Glucose Calcium Total Bilirubin AST ALT Alkaline Phosphatase Ammonia Total Protein Albumin Globulin Albumin/Globulin Ratio 01/26/17 01/26/17 01/26/17 06:00 09:00 11:27 WBC RBC Hgb Hct MCV MCH MCHC RDW Plt Count MPV Sodium 138 Potassium 3.8 Chloride 104 Carbon Dioxide 26 Anion Gap 12 BUN 16 Creatinine 0.8 Est GFR ( Amer) > 60 Est GFR (Non-Af Amer) > 60 POC Glucose (mg/dL) 130 H Random Glucose 109 Calcium 9.3 Total Bilirubin 1.0 AST 21 ALT 28 Alkaline Phosphatase 64 Ammonia < 9 L Total Protein 6.7 Albumin 3.5 Globulin 3.2 Albumin/Globulin Ratio 1.1 01/26/17 01/26/17 17:03 21:43 WBC RBC Hgb Hct MCV MCH MCHC RDW Plt Count MPV Sodium Potassium Chloride Carbon Dioxide Anion Gap BUN Creatinine Est GFR ( Amer) Est GFR (Non-Af Amer) POC Glucose (mg/dL) 127 H 127 H Random Glucose Calcium Total Bilirubin AST ALT Alkaline Phosphatase Ammonia Total Protein Albumin Globulin Albumin/Globulin Ratio Attending/Attestation - Attestation I have personally seen and examined this patient.: Yes I have fully participated in the care of the patient.: Yes I have reviewed all pertinent clinical information: Yes
[2017-01-27] MEDS: Levothyroxine 150 MCG TAB PO SCH (06:07)
[2017-01-27 06:12] LABS: HEMATOCRIT 34.7 % (36.0-48.0); MEAN CELL VOLUME 78.3 fl (80.0-105.0); MEAN CORPUSCULAR HEMOGLOBIN 23.7 pg (25.0-35.0); MEAN CORPUSCULAR HGB CONC 30.3 g/dl (31.0-37.0); MEAN PLATELET VOLUME 10.7 fl (7.0-11.0); RED CELL DISTRIBUTION WIDTH 18.6 % (11.5-14.5); WHITE BLOOD COUNT 6.6 10^3/ul (4.5-11.0)
[2017-01-27 06:29] LABS: ALB/GLOB RATIO 1.2 (1.1-1.8); ALKALINE PHOSPHATASE 73 U/L (38-126); ALT/SGPT 28 U/L (7-56); AST/SGOT 24 U/L (14-36); BILIRUBIN,TOTAL 0.9 mg/dL (0.2-1.3); BLOOD UREA NITROGEN 13 mg/dL (7-21); CALCIUM 9.5 mg/dL (8.4-10.5); CARBON DIOXIDE 21 mmol/L (21-33); CHLORIDE 106 mmol/L (98-107); GFR AFRICAN-AMERICAN > 60; GLUCOSE,RANDOM 106 mg/dL (70-110); SODIUM 139 mmol/L (132-148); TOTAL PROTEIN 7.5 g/dL (5.8-8.3)
--- NOTE | 2017-01-27 06:51 | CP.PCM.PN ---
Subjective - Date & Time of Evaluation Date of Evaluation: 01/27/17 Time of Evaluation: 06:50 (seen earlier.) - Subjective Subjective: Draft agitation. Ativan 05mg IV x 1. Objective - Vital Signs/Intake and Output Vital Signs (last 24 hours): Temp Pulse Resp BP Pulse Ox 98.7 F 74 16 147/91 H 96 01/26/17 10:25 01/26/17 11:00 01/26/17 10:25 01/26/17 11:00 01/26/17 10:25 - Medications Medications: Current Medications Amiodarone HCl (Cordarone) 200 mg PO DAILY ROSALBA PRN Reason: Protocol Last Admin: 01/26/17 11:00 Dose: 200 mg Aspirin (Aspirin Chewable) 81 mg PO 0800 REPLACED BY [facility] PRN Reason: Protocol Last Admin: 01/26/17 08:04 Dose: 81 mg Docusate Sodium (Colace) 100 mg PO DAILY ROSALBA PRN Reason: Protocol Last Admin: 01/26/17 11:42 Dose: 100 mg Fenofibrate (Tricor) 145 mg PO DAILY ROSALBA PRN Reason: Protocol Last Admin: 01/26/17 11:00 Dose: 145 mg Ketorolac Tromethamine (Toradol) 30 mg IVP Q8H PRN PRN Reason: Pain, moderate (4-7) Levothyroxine Sodium (Synthroid) 300 mcg PO 0600 REPLACED BY [facility] PRN Reason: Protocol Last Admin: 01/27/17 06:07 Dose: 300 mcg Lidocaine (Lidoderm) 1 ea TD DAILY ROSALBA PRN Reason: Protocol Last Admin: 01/26/17 11:00 Dose: 1 ea Potassium Chloride (K-Dur 20 Meq Er Tab) 20 meq PO 0800 ROSALBA PRN Reason: Protocol Last Admin: 01/26/17 08:04 Dose: 20 meq Quetiapine Fumarate (Seroquel) 12.5 mg PO HS PRN; Protocol PRN Reason: agitation/psychosis Last Admin: 01/26/17 20:04 Dose: 12.5 mg Tramadol/Acetaminophen (Ultracet 37.5/325 Mg) 1 tab PO Q6H PRN PRN Reason: Pain, moderate (4-7) Last Admin: 01/26/17 17:56 Dose: 1 tab Trimethoprim/Sulfamethoxazole (Bactrim Ds Tab) 1 tab PO BID REPLACED BY [facility] Last Admin: 01/26/17 17:13 Dose: 1 tab - Labs Labs: 01/27/17 05:30 01/27/17 05:30
[2017-01-27] MEDS: Potassium Chloride 20 mEq ER Tab PO SCH (08:13)
[2017-01-27] MEDS: Tmp-Smz 800 mg-160 mg DS Tab PO SCH ×2 (09:50→17:40)
[2017-01-27] MEDS: Lidocaine 5% Patch TD SCH (09:51)
[2017-01-27] MEDS: TraMADol/Apap 37.5/325 mg Tab PO PRN ×2 (13:43→23:12)
--- NOTE | 2017-01-27 19:03 | PN ---
DATE: SUBJECTIVE: The patient is 86-year-old female, not known previous psychiatric history. The patient who was seen initially yesterday for evaluation of change in mental status. The patient was started on small dose of Seroquel at the nighttime because the patient was confused and had hallucinations. The patient also had a fall yesterday. The patient was followed up today. The patient presented to be alert. The patient was started on one to one which this proposal lead writer is in agreement with. The patient appears to be confused. The patient does not have recollection of full yesterday. The patient also has hallucinations seeing things and hearing things. The patient most likely is in delirium stage which could be related to the pain killers and urinary tract infection, for both, the patient is on antibiotics. Case was discussed with Dr. Reyes, most likely the patient needs to stay in the hospital. This proposal lead writer will follow up on labs tomorrow. The patient's vital signs are stable. OBJECTIVE: VITAL SIGNS: Pulse is 73, temperature 98.7, blood pressure 166/77. MEDICATIONS: Reviewed. Seroquel will be increased to 50 mg at the nighttime. This proposal lead writer also had prolonged conversation with the nursing staff. The patient had agitation overnight and required to have Seroquel. MENTAL STATUS EXAMINATION: The patient presented to be alert. The patient knows that she is in [facility], but is not aware of what is the date today. Mood described. Intermittent eye contact. Speech was minimal, low volume. Thought process seems to be disorganized at times. The patient thought content, the patient has some visual hallucinations. The patient is seeing things, also seeing water on the floor. Visual hallucinations are related to the medical issues and delirium stage. Insight and judgment limited. Impulses are unpredictable. IMPRESSION: The patient most likely is in delirium stage due to either pain killers or urinary tract infection. PLAN: Continue current management. Seroquel will be increased to 50 mg at the nighttime. This proposal lead writer will follow up on the labs tomorrow. Case was discussed with Dr. Reyes. Should you have any questions give me a call back. Thank you very much. Elaina Escobar MD
[2017-01-28] MEDS: Levothyroxine 150 MCG TAB PO SCH (06:43)
[2017-01-28] MEDS: TraMADol/Apap 37.5/325 mg Tab PO PRN ×3 (06:56→21:42)
[2017-01-28 07:13] LABS: BASO # 0.02 K/mm3 (0.0-2.0); BASO % 0.4 % (0.0-3.0); EOS # 0.1 (0.0-0.7); EOS % 2.5 % (1.5-5.0); GRAN # 2.57 (1.4-6.5); GRAN % 54.1 % (50.0-68.0); HEMATOCRIT 30.8 % (36.0-48.0); LYMPH # 1.2 (1.2-3.4); LYMPH % 25.4 % (22.0-35.0); MEAN CELL VOLUME 77.6 fl (80.0-105.0); MEAN CORPUSCULAR HEMOGLOBIN 23.7 pg (25.0-35.0); MEAN CORPUSCULAR HGB CONC 30.5 g/dl (31.0-37.0); MEAN PLATELET VOLUME 10.6 fl (7.0-11.0); MONO # 0.8 (0.1-0.6); MONO % 17.6 % (1.0-6.0); RED CELL DISTRIBUTION WIDTH 18.4 % (11.5-14.5); WHITE BLOOD COUNT 4.8 10^3/ul (4.5-11.0)
[2017-01-28 07:47] LABS: ALB/GLOB RATIO 1.1 (1.1-1.8); ALKALINE PHOSPHATASE 59 U/L (38-126); ALT/SGPT 34 U/L (7-56); AST/SGOT 22 U/L (14-36); BILIRUBIN,TOTAL 0.7 mg/dL (0.2-1.3); BLOOD UREA NITROGEN 17 mg/dL (7-21); CARBON DIOXIDE 25 mmol/L (21-33); CHLORIDE 106 mmol/L (98-107); GFR AFRICAN-AMERICAN > 60; GLUCOSE,RANDOM 90 mg/dL (70-110); POTASSIUM 4.2 mmol/L (3.6-5.0); SODIUM 139 mmol/L (132-148); TOTAL PROTEIN 6.7 g/dL (5.8-8.3)
--- NOTE | 2017-01-28 08:52 | CON ---
DATE: 01/26/2017 HISTORY OF PRESENT ILLNESS: The patient is 86-year-old female with not known previous psychiatric history. The patient has multiple falls and that is why the patient was admitted into the medical side and then was transferred to Transitional Care Unit. Psych consult was called for evaluation of confusion as well as change in mental status. The patient was seen and examined today. The patient seems to be having aging process or early signs of dementia. The patient knows that she is in the hospital. The patient knows that she is in [facility]. The patient has difficulties to find the right words. She was confused with the dates, but besides that, the patient denied being depressed, denied thoughts of killing herself or others. The patient also denied any visual, auditory, or tactile hallucinations, but as per staff, the patient was confused and has episodes of restless behavior. This signwriter checked the previous history. The patient does not have history of mental illness. PHYSICAL EXAMINATION: VITAL SIGNS: Checked temperature 98.7, pulse is 74, blood pressure 147/91, respirations 16, oxygen saturation is 96. MEDICATIONS: Reviewed. The patient is on amiodarone, aspirin, Colace, TriCor, Toradol, Synthroid, Lidoderm, K-Dur, Ultracet and Bactrim. LABORATORY DATA: Reviewed. Urinalysis reviewed. Leukocyte esterase large, notes reviewed as well. The patient said that she does not have memory problems. The patient said that she is able to take care of her finances and when this signwriter asked the patient again about who is managing her finances, the patient remembers that she was asked this question before. The patient lives independently but the patient nephew lives 10 blocks from her. After this signwriter left the room, the patient fell, code star was called. The patient had x-ray of the skull normal. There is no fracture. MENTAL STATUS EXAMINATION: The patient appears to be alert. The patient knows that she is in [facility] but was confused with the dates. The patient had intermittent eye contact. Speech at times, the patient was having difficult to find the right words, appears to be confused at times. Mood described as I feel okay. Affect was constricted. Thought process seems to be circumstantial. Thought content, the patient denied visual,auditory or tactile hallucinations. Denied paranoid ideation, but as per staff reports the patient has episodes of confusion as well as visual hallucinations. Insight and judgment are limited. Impulses are not predictable. IMPRESSION: Most likely the patient has delirium, sundowning which is related to urinary tract infection and pain medication and also multiple medical conditions including atrial fibrillation, coronary artery disease, heart failure, hypertension, chronic obstructive pulmonary disease, asthma, diabetes and the patient has multiple fractures, osteoporosis. The patient was seen by Neurology team as well, which Neurology team has the same impression most likely the patient has delirium. PLAN: Continue current management. Neurology team involved. Physical Therapy involved. The patient also was started on antibiotics. Please try to avoid opioids. The patient should be on one to one in case of agitation at the nighttime, very small dose of Seroquel would be beneficial, 12.5 mg at the nighttime only as needed to clear sensorium. This signwriter discussed case with the dependency case manager, most likely the patient needs to have long-term placement in the skilled nursing but at the same time this signwriter cannot exclude that the patient mental status could be improving after improvement of medical condition. Family should be involved. Should you have any questions give me a call back. Thank you very much for letting me participate in care of your patient. Elaina Escobar MD
[2017-01-28] MEDS: Potassium Chloride 20 mEq ER Tab PO SCH (08:56)
--- NOTE | 2017-01-28 09:09 | PN ---
SUBJECTIVE: Joslyn is not doing well today. She fell last night. She is on one-to-one. She is mentally confused. She is being seen by Dr. Delaney, the psychiatrist. She is definitely changed. She has also been seen by the neurologist, Dr. Luke, who is stopped all medications that can make her loopy. Hoping that she will come back mentally, but the fall last night. She does not need to go to subacute rehab. I don't think she is able to go home tomorrow. She is having delirium, another fall, not helping. I am going to ask for case management to get her finance tomorrow because she is going to need further physical therapy and hopefully get her mentally back. I will continue hopefully her medications in the rehab for the fractured ribs. PHYSICAL EXAMINATION: VITAL SIGNS: Temperature 98.7, 76 pulse, 152/46 blood pressure, 16 respiratory rate, 98% O2 sat on room air. HEENT: Head is atraumatic and normocephalic. Throat is moist. NECK: Supple. HEART: Regular rate. LUNGS: Clear to auscultation. ABDOMEN: Soft. EXTREMITIES: No edema. The right ribs are tender to palpation. She is comfortable out of bed to a chair. She has a one-to-one. MEDICATIONS: She is on aspirin, Ativan, Bactrim DS for urinary tract infection, Colace, Cordarone, potassium, Lidoderm, Seroquel, Synthroid, Toradol, TriCor, and Ultracet. LABORATORY DATA: She has 6.6 white count, 10.5 hemoglobin, 34.7 hematocrit, and 230 platelets. Sodium is 139, potassium is 4, BUN is 30, creatinine 0.8. GFR is greater than 60. Sugar is 106, calcium is 9.5, total bilirubin is 0.9, AST is 24, ALT is 20, alk phos is 73, and total protein is 7.5. ASSESSMENT AND PLAN: She has a positive leukocytes and many bacteria. We treating for urinary tract infection, fractured ribs. Physical therapy for her weakness and her falls if she fell again. She also has diabetes, atrial fibrillation, congestive heart failure, everything is from delirium. I will get Psychiatry and Neurology give me the suggestion. My goal is to get her finance to more physical therapy before she came home. I get her mentally oriented. Osvaldo Reyes DO
[2017-01-28] MEDS: Tmp-Smz 800 mg-160 mg DS Tab PO SCH (09:36)
[2017-01-28] MEDS: Lidocaine 5% Patch TD SCH (09:37)
[2017-01-28] MEDS ORDERED: cefTRIAXone 1 gm 1 GM/100 ML BAG IVPB SCH (10:00)
--- NOTE | 2017-01-28 12:01 | PN ---
DATE: SUBJECTIVE: I saw Joslyn resting comfortably in bed. She actually may be a little more coherent than the other day. She has a camera in the room to keep an eye on her, she is off to one-to-one. PHYSICAL EXAMINATION: VITAL SIGNS: She has a 98.7 temperature, 42 pulse, 143/65 blood pressure, 16 respiratory rate, and 96% O2 sat on room air. HEENT: Head is atraumatic and normocephalic. GENERAL: She knew who I was this morning. She is alert, looking at me, comfortable. She understands why she is there. Mouth is moist. NECK: Supple. HEART: Regular rate. LUNGS: Decreased breath sounds. No wheezes or rhonchi. No rales. She does have fractured ribs on the right and she is using incentive spirometry to keep the lungs open, so far so good, so less pain. ABDOMEN: Soft and nontender. Positive bowel sounds. EXTREMITIES: No edema. LABORATORY DATA: She has 139 sodium, potassium 4.2, BUN 17, creatinine is 1, GFR is 53, sugar is 90, calcium is 9, total bilirubin is 0.7, AST is 22, ALT is 34, alkaline phosphatase is 59, total protein is 6.7, albumin is 3.5, globulin is 3.2. White count is 4.8, hemoglobin 9.4, hematocrit 30.8, platelets of 224. MEDICATIONS: She is on aspirin, Ativan, Colace, Cordarone, potassium, Lidoderm, Rocephin, Seroquel, Synthroid, Toradol, TriCor, Ultracet, I discontinued the Bactrim today. ASSESSMENT AND PLAN: She has urinary tract infection with large leukocytes, many bacteria. She is still on Rocephin IV and stated it. It was discontinued the other day, not sure why. I called in Dr. Godfrey, Infectious Disease to take a look at her, see if the antibiotics are okay. Hopefully, she will go to [facility] in a day or two, will see how she does mentally and continue physical therapy before she goes home. I will watch her potassium, replace the potassium as needed. We will check her labs tomorrow. Osvaldo Reyes DO
[2017-01-28] MEDS: Meropenem 1 GM in Dextrose 5% In Water 100 ML IVPB SCH ×2 (14:09→21:40)
--- NOTE | 2017-01-28 14:13 | CON ---
DATE: 01/28/2017 LOCATION: The patient seen earlier today in room 318. CHIEF COMPLAINT: Positive urine culture x1 day. HISTORY OF PRESENT ILLNESS: This is an 86-year-old female with past medical history significant for hypertension, diabetes mellitus, high cholesterol, hypothyroidism, atrial fibrillation, asthma, GERD, right carotid stent with no known allergies, who was admitted to Transitional Care with intractable pain. The patient found to have urinary symptoms, had urine culture which was positive for gram-negative jerry. Infectious Disease consultation requested. REVIEW OF SYSTEMS: Reveals the patient is having frequency and polyuria. The patient denies any fevers, any chills. No chest pain. No abdominal pain, diarrhea, or constipation at this time. No headaches or blurred vision. PAST MEDICAL HISTORY: Significant for hypertension, diabetes, high cholesterol, hypothyroidism, atrial fibrillation, asthma, GERD, osteoarthritis, and osteoporosis. PAST SURGICAL HISTORY: Significant for right carotid stent placement. The patient is an ex-tobacco user and the patient also has COPD. ALLERGIES: THE PATIENT HAS NO KNOWN ALLERGIES. PHYSICAL EXAMINATION: VITAL SIGNS: On exam, the patient's temperature is 98, blood pressure is 160/77, respiratory rate was up to 22. HEENT: Unremarkable. NECK: Supple. LUNGS: Decreased breath sounds. HEART: Normal S1, S2. ABDOMEN: Soft, nontender. No organomegaly, no rebound, no guarding, and no masses. LABORATORY DATA: Reveals a white count of 4.8, hemoglobin of 9, platelets of 224. Chemistries reveals a BUN of 17, creatinine of 1.0. Urinalysis reveals 20-25 wbc's. Microbiology now, gram-negative is identified as ESBL Klebsiella. Klebsiella pneumonia. Blood cultures are reported to be negative. Dr. Osvaldo Reyes's note from yesterday is reviewed. Dr. Delaney, psychiatrist, has seen the patient also. Dr. Osvaldo Reyes's history of physical examination is also reviewed. ASSESSMENT AND PLAN: This is an 86-year-old female with hypertension, diabetes, high cholesterol, hypothyroidism, chronic obstructive pulmonary disease, asthma, gastroesophageal reflux disease, and osteoporosis and osteoarthritis, presenting with urinary symptoms and positive urine culture. 1. Extended-spectrum beta-lactamase Klebsiella urinary tract infection. We will discontinue the Bactrim and discontinue the Rocephin. Start the patient on meropenem and place the patient on extended-spectrum beta-lactamase precautions. Care discussed with Dr. Osvaldo Reyes. We will follow closely with you. Rj Godfrey MD
--- NOTE | 2017-01-28 18:22 | PN ---
FOLLOWUP NOTE SUBJECTIVE: Shortly, the patient is an 86-year-old female. This financial underwriter was following the patient up for hallucinations and change in mental status. Labs showed that the patient has urinary tract infection as well as microbiology showed urine positive for Klebsiella pneumoniae. The patient has episodes of visual hallucinations. Majority of the time is at the nighttime. The patient was seen by Infectious Disease team. The patient was started on Bactrim and discontinued Rocephin. Discussed case with Dr. Reyes as well as nursing staff. The patient was seen today. The patient presented to be alert, presents a little bit better. Based on reports from the nursing staff, the patient was agitated overnight and IV Ativan was given. As per the patient, she is feeling well. She is quite aware of her discharge plan. The patient wants to go to [facility] but at [facility], she wants to feel better. MENTAL STATUS EXAMINATION: The patient appears to be alert, oriented, pleasant, cooperative, not in distress. Intermittent eye contact. Speech was normal rate but underproductive. Mood described as "I feel better." Affect was constricted but reactive. Thought process seems to be more coherent and goal directed. Thought content, the patient denied visual, auditory, or tactile hallucinations. Denied paranoid ideation. The patient denied thoughts of harming herself or others. Denied intents or plan. Overnight, the patient had episodes of hallucinations as well as agitated behavior. IMPRESSION: Most likely, the patient is in delirium stage, which is related to urinary tract infection, which is improving. PLAN: Continue current management. The patient is on Seroquel. This financial underwriter expects the patient to improve and going further because source of delirium was found, the patient has urinary tract infection, Dr. Conn will follow up on this patient every other day. The patient will be seen by her on Tuesday. Should you have any questions, give me a call back. Case was discussed with the patient's primary care physician Dr. Reyes. The patient is having physical therapy, antibiotics by Infectious Disease team. Thank you very much for letting me participate in care of your patient. Elaina Escobar MD [facility] # [id number]
[2017-01-29] MEDS: Meropenem 1 GM in Dextrose 5% In Water 100 ML IVPB SCH ×3 (05:01→21:33)
[2017-01-29] MEDS: Levothyroxine 150 MCG TAB PO SCH (05:54)
[2017-01-29 06:21] LABS: HEMATOCRIT 29.9 % (36.0-48.0); MEAN CELL VOLUME 76.9 fl (80.0-105.0); MEAN CORPUSCULAR HEMOGLOBIN 23.9 pg (25.0-35.0); MEAN CORPUSCULAR HGB CONC 31.1 g/dl (31.0-37.0); MEAN PLATELET VOLUME 10.8 fl (7.0-11.0); RED CELL DISTRIBUTION WIDTH 18.4 % (11.5-14.5); WHITE BLOOD COUNT 4.4 10^3/ul (4.5-11.0)
[2017-01-29 06:33] LABS: ALB/GLOB RATIO 1.1 (1.1-1.8); ALKALINE PHOSPHATASE 64 U/L (38-126); ALT/SGPT 22 U/L (7-56); AST/SGOT 25 U/L (14-36); BILIRUBIN,TOTAL 0.6 mg/dL (0.2-1.3); BLOOD UREA NITROGEN 15 mg/dL (7-21); CALCIUM 8.9 mg/dL (8.4-10.5); CARBON DIOXIDE 23 mmol/L (21-33); CHLORIDE 104 mmol/L (98-107); GFR AFRICAN-AMERICAN > 60; GLUCOSE,RANDOM 98 mg/dL (70-110); SODIUM 136 mmol/L (132-148); TOTAL PROTEIN 6.4 g/dL (5.8-8.3)
[2017-01-29] MEDS: Potassium Chloride 20 mEq ER Tab PO SCH (08:21)
--- NOTE | 2017-01-29 08:51 | PN ---
DATE: 01/29/2017 SUBJECTIVE: The patient is in bed and was seen in room 318. The patient has no fevers and no chills. She is comfortable. PHYSICAL EXAMINATION: VITAL SIGNS: On exam, temperature is 98, blood pressure is 120/50, and respiratory rate of 16. HEENT: Examination of HEENT is unremarkable. NECK: Supple. LUNGS: Have decreased breath sounds. HEART: Normal S1 and S2. GASTROINTESTINAL: Abdominal examination is soft and nontender. LABORATORY DATA: Examination reveals the patient's urine cultures positive for Klebsiella ESBL. White count is 4.4, hemoglobin of 9, and platelets of 233. Chemistries are noted. BUN of 15 and creatinine of 0.9. Blood cultures are reported to be no growth. REVIEW OF ORDERS: Confirms the patient to be on meropenem which was started by me yesterday. ASSESSMENT AND PLAN: This is an 86-year-old female with hypertension, diabetes, high cholesterol, hypothyroidism, chronic obstructive lung disease, asthma, gastroesophageal reflux disease, osteoporosis and osteoarthritis with urinary symptoms and positive urine culture. Extended-spectrum B-lactamase Klebsiella urinary tract infection, on day number 2 of meropenem. We will give a short course of antibiotics and follow the patient closely with you. Case discussed with Dr. Osvaldo Reyes. Rj Godfrey MD
[2017-01-29] MEDS ORDERED: Amylase/Lipase/Protease 5,000 U ECC PO SCH (11:15)
[2017-01-29] MEDS: Lidocaine 5% Patch TD SCH (11:57)
[2017-01-29] MEDS: TraMADol/Apap 37.5/325 mg Tab PO PRN (11:59)
[2017-01-29] MEDS: Amylase/Lipase/Protease 5,000 U ECC PO SCH ×2 (12:00→17:42)
[2017-01-30] MEDS: Meropenem 1 GM in Dextrose 5% In Water 100 ML IVPB SCH ×3 (05:21→22:12)
[2017-01-30] MEDS: Levothyroxine 150 MCG TAB PO SCH (05:21)
[2017-01-30 07:14] LABS: HEMATOCRIT 31.8 % (36.0-48.0); MEAN CORPUSCULAR HEMOGLOBIN 23.2 pg (25.0-35.0); MEAN CORPUSCULAR HGB CONC 30.2 g/dl (31.0-37.0); MEAN PLATELET VOLUME 10.8 fl (7.0-11.0); RED CELL DISTRIBUTION WIDTH 18.3 % (11.5-14.5); WHITE BLOOD COUNT 5.3 10^3/ul (4.5-11.0)
[2017-01-30] MEDS: Potassium Chloride 20 mEq ER Tab PO SCH (07:46)
[2017-01-30] MEDS: Amylase/Lipase/Protease 5,000 U ECC PO SCH ×3 (07:46→17:58)
[2017-01-30 08:06] LABS: ALB/GLOB RATIO 1.1 (1.1-1.8); ALKALINE PHOSPHATASE 72 U/L (38-126); ALT/SGPT 24 U/L (7-56); AST/SGOT 24 U/L (14-36); BILIRUBIN,TOTAL 0.7 mg/dL (0.2-1.3); BLOOD UREA NITROGEN 20 mg/dL (7-21); CALCIUM 9.1 mg/dL (8.4-10.5); CARBON DIOXIDE 24 mmol/L (21-33); CHLORIDE 104 mmol/L (98-107); GFR AFRICAN-AMERICAN > 60; GLUCOSE,RANDOM 107 mg/dL (70-110); POTASSIUM 4.3 mmol/L (3.6-5.0); SODIUM 138 mmol/L (132-148); TOTAL PROTEIN 6.5 g/dL (5.8-8.3)
[2017-01-30] MEDS: Lidocaine 5% Patch TD SCH (10:07)
--- NOTE | 2017-01-30 14:11 | PN ---
DATE: SUBJECTIVE: I saw Ms. Ellis resting comfortably out of bed to chair. She is mentally improved. She had a fall 2 to 3 days ago. The plan is to get finance tomorrow for further physical therapy since she fell in TCU. She is on aspirin, Ativan, Colace, Cordarone, potassium, Lidoderm, Merrem IV, amylase, which is Pancrease, Seroquel, Synthroid, Toradol, TriCor, and Ultracet. She is actually back to her baseline, which she great and significantly strong before she goes home. PHYSICAL EXAMINATION: VITAL SIGNS: She has a 97.7 temp, 77 pulse, 115/65 blood pressure, 18 respiratory rate, and 95% O2 sat on nasal cannula. HEENT: Head is atraumatic and normocephalic. Throat is moist. NECK: Supple. HEART: Regular rate. LUNGS: Clear to auscultation. ABDOMEN: Soft. Positive bowel sounds. There is tenderness over the right rib, where she fractured, 7, 8, and 9 are fractured. EXTREMITIES: No edema. LABORATORY DATA: She had a 5.3 white count, 9.6 hemoglobin, 31.8 hematocrit, and 247 platelets. Sodium is 138, potassium is 4.3, BUN is 20, creatinine is 0.9, GFR is greater than 60, sugar is 107, calcium is 9.1, total bili is 0.7, AST is 24, ALT is 24, alkaline phosphatase is 72, and total protein is 6.5. ASSESSMENT AND PLAN: She is being seen by Infectious Disease and Psychiatry. She is doing much better. The plan is tomorrow get her to [facility] for further care and treatment. She was in the hospital for a fall with fractured ribs. She went to TCU and she fell again there with change in mentation. Our plan is to get her around now to subacute rehab. Osvaldo Reyes DO
--- NOTE | 2017-01-30 18:23 | CON ---
DATE: HISTORY OF PRESENT ILLNESS: The patient is a 86-year-old female with no prior psychiatric history, who is being seen by Psychiatry due to change in mental status, very likely due to delirium. The patient was followed by Dr. Escobar two days ago who noted that the patient had been hallucinating and seeing and hearing things and was confused and disoriented. Seroquel was increased to 50 mg at night and the patient has been receiving it. I met with the patient at bedside, she appears to be improving. Her orientation, focus, and eye contact are good. She is aware that she is at [facility], the year is 2016 and that it is January. She is aware of the circumstances of her hospitalization as well. She denies having any depression. She denies having any hallucinations. Does not recall her hallucinations from prior day and when I asked about hopefulness about the future, she responds with "oh definitely." Range and affect are appropriate. She does not appear to responding to internal stimuli and responses are logical, relevant, and consistent. Delusions were not elicited. Recent nursing notes do not indicate any issues with mentation, orientation or behavior recently. The patient also reports that her anxiety is under control. Her insight and judgment are improving well. PHYSICAL EXAMINATION VITAL SIGNS: Temperature 97.7, pulse 77, blood pressure 115/65 and respirations 18 at 6 a.m. this morning. LABORATORY DATA: Labs are reviewed by this provider. CBC does not show of any acute change from yesterday's values. Chemistry-14 is within normal limits today. MEDICATIONS: Reviewed. Relevant psychiatric medications include Ativan 0.5 mg IV q.4 p.r.n., the patient did not receive any doses, and Seroquel 50 mg p.o. at bedtime scheduled, the patient received the dose last night as well as on 01/28/2017 and 01/27/2017. IMPRESSION: Resolving delirium, cannot rule out if this is lucid and temporary stage, however, she is definitely improving in consideration of report written by Dr. Escobar in today's note. RECOMMENDATIONS: We will continue with current treatment recommendation. There is no acute indication or change in treatment regimen. Psychiatry will continue to follow up on the patient to ensure that the patient's improvement is consistent and if she tolerates her medications. Naomy Conn MD
[2017-01-31] MEDS: Meropenem 1 GM in Dextrose 5% In Water 100 ML IVPB SCH ×2 (05:00→13:24)
[2017-01-31] MEDS: Levothyroxine 150 MCG TAB PO SCH (05:00)
[2017-01-31 07:13] LABS: HEMATOCRIT 31.1 % (36.0-48.0); MEAN CELL VOLUME 76.8 fl (80.0-105.0); MEAN CORPUSCULAR HEMOGLOBIN 23.2 pg (25.0-35.0); MEAN CORPUSCULAR HGB CONC 30.2 g/dl (31.0-37.0); MEAN PLATELET VOLUME 10.4 fl (7.0-11.0); RED CELL DISTRIBUTION WIDTH 18.2 % (11.5-14.5); WHITE BLOOD COUNT 5.2 10^3/ul (4.5-11.0)
[2017-01-31 07:30] LABS: ALB/GLOB RATIO 1.1 (1.1-1.8); ALKALINE PHOSPHATASE 70 U/L (38-126); ALT/SGPT 22 U/L (7-56); AST/SGOT 22 U/L (14-36); BILIRUBIN,TOTAL 0.7 mg/dL (0.2-1.3); BLOOD UREA NITROGEN 20 mg/dL (7-21); CARBON DIOXIDE 26 mmol/L (21-33); CHLORIDE 103 mmol/L (98-107); GFR AFRICAN-AMERICAN > 60; GLUCOSE,RANDOM 102 mg/dL (70-110); POTASSIUM 4.1 mmol/L (3.6-5.0); SODIUM 138 mmol/L (132-148); TOTAL PROTEIN 6.3 g/dL (5.8-8.3)
[2017-01-31] MEDS: Amylase/Lipase/Protease 5,000 U ECC PO SCH ×3 (08:51→17:44)
[2017-01-31] MEDS: Potassium Chloride 20 mEq ER Tab PO SCH (08:51)
--- NOTE | 2017-01-31 09:19 | PN ---
DATE: 01/30/2017 SUBJECTIVE: The patient is in bed in no acute distress and nontoxic. No fevers and no chills. PHYSICAL EXAMINATION: VITAL SIGNS: Temperature is 98, blood pressure is 115/60, respiratory rate of 18, and heart rate of 55. HEENT: Examination of HEENT is unremarkable. NECK: Supple. LUNGS: Decreased breath sounds. HEART: Normal S1 and S2. GASTROINTESTINAL: Abdominal examination is soft and nontender. LABORATORY DATA: Examination reveals a white count of 5.3, hemoglobin of 9, and platelets of 247. Chemistries reveals a BUN of 20 and creatinine is 0.7. Urinalysis is noted. Microbiology reveals the Klebsiella species in the urine and ESBL ASSESSMENT AND PLAN: This is an 86-year-old female with hypertension, diabetes, high cholesterol, chronic obstructive lung disease, asthma, gastroesophageal reflux disease, osteoporosis and osteoarthritis and urinary symptoms with extended-spectrum B-lactamase Klebsiella, urinary tract infection, day number 3 of meropenem. We would complete a short course of meropenem, today is day number 3 of 5 to 7 days. Rj Godfrey MD
--- NOTE | 2017-01-31 10:38 | CP.PCM.CON ---
<Radha Ellington - Last Filed: 01/31/17 10:33> History of Present Illness - History of Present Illness History of Present Illness: Patient was seen at bedside. She indicates she is leaving to go to a rehabilitation facility today. She denies any past psychiatric history and denies any current symptoms. 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 She denies any need for psychiatric follow up. Past Patient History - Infectious Disease Hx of Infectious Diseases: None - Tetanus Immunizations Tetanus Immunization: Unknown - Past Social History Smoking Status: Former Smoker - CARDIAC Hx Cardiac Disorders: Yes Hx Hypertension: Yes - PULMONARY Hx Chronic Obstructive Pulmonary Disease (COPD): Yes - NEUROLOGICAL HX Cerebrovascular Accident: No - HEENT Hx HEENT Problems: Yes Hx Blind: No Hx Cataracts: Yes Hx Deafness: No Hx Epistaxis: No Hx Glaucoma: No Hx Macular Degeneration: No - RENAL Hx Renal Failure: No - ENDOCRINE/METABOLIC Hx Diabetes Mellitus Type 2: Yes Hx Hypothyroidism: Yes - HEMATOLOGICAL/ONCOLOGICAL Hx Blood Disorders: No Hx AIDS: No Hx Anemia: No Hx Cancer: No Hx Chemotherapy: No Hx Cirrhosis: No Hx Hemophilia: No Hx Hepatitis A: No Hx Hepatitis B: No Hx Hepatitis C: No Hx Metastesis: No Hx Shingles: No Hx Sickle Cell Disease: No Hx Unexplained Bleeding: No Other/Comment: Blood transfusion - INTEGUMENTARY Hx Dermatological Problems: No Hx Basil Cell: No Hx Eczema: No Hx Melanoma: No Hx Psoriasis: No Hx Squamous Cell: No - MUSCULOSKELETAL/RHEUMATOLOGICAL Hx Arthritis: Yes - GASTROINTESTINAL Hx Gastrointestinal Disorders: Yes (CONSTIPATION,DIVERTICULOSIS,ULCER,ABDOMINAL SX,CHOLECYSTECTOOMY,APPENDECTOM) - GENITOURINARY/GYNECOLOGICAL Hx Genitourinary Disorders: Yes (INCONTINENT,) Hx Reproductive Disorders: No - PSYCHIATRIC Hx Psychophysiologic Disorder: No Hx Anxiety: No Hx Bipolar Disorder: No Hx Depression: No Hx Emotional Abuse: No Hx Hallucinations: No Hx Panic Symptoms: No Hx Post Traumatic Stress Disorder: No Hx Psychosis: No Hx Physical Abuse: No Hx Schizophrenia: No Hx Sexual Abuse: No Hx Substance Use: No - SURGICAL HISTORY Hx Amputation: No Hx Appendectomy: Yes Hx Cholecystectomy: Yes Hx Coronary Stent: Yes Hx Gastric Bypass Surgery: No Hx Hysterectomy: No Hx Joint Replacement: No Hx Kidney Transplant: No Hx Liver Transplant: No Hx Musculoskeletal Surgery: No Hx Open Heart Surgery: No Hx Orthopedic Surgery: No Hx Splenectomy: No Hx Valve Replacement: No Other/Comment: Bilateral cataract sx - ANESTHESIA Hx Anesthesia: Yes Hx Anesthesia Reactions: No Hx Malignant Hyperthermia: No Meds Allergies/Adverse Reactions: Allergies Allergy/AdvReac Type Severity Reaction Status Date / Time No Known Allergies Allergy Verified 01/20/17 19:03 - Medications Medications: Current Medications Amiodarone HCl (Cordarone) 200 mg PO DAILY ROSALBA PRN Reason: Protocol Last Admin: 01/30/17 10:06 Dose: Not Given Amylase (Pancrease 85424 U-5000 U-[id number] U) 5,000 u PO WM ROSALBA Last Admin: 01/31/17 08:51 Dose: 5,000 u Aspirin (Aspirin Chewable) 81 mg PO 0800 ROSALBA PRN Reason: Protocol Last Admin: 01/31/17 08:50 Dose: 81 mg Docusate Sodium (Colace) 100 mg PO DAILY ROSALBA PRN Reason: Protocol Last Admin: 01/30/17 09:45 Dose: Not Given Fenofibrate (Tricor) 145 mg PO DAILY ROSALBA PRN Reason: Protocol Last Admin: 01/30/17 10:07 Dose: 145 mg Meropenem 1 gm/ Dextrose 100 mls @ 100 mls/hr IVPB Q8 ROSALBA PRN Reason: Protocol Stop: 02/06/17 14:01 Last Admin: 01/31/17 05:00 Dose: 100 mls/hr Ketorolac Tromethamine (Toradol) 30 mg IVP Q8H PRN PRN Reason: Pain, moderate (4-7) Last Admin: 01/30/17 20:46 Dose: 30 mg Levothyroxine Sodium (Synthroid) 300 mcg PO 0600 ROSALBA PRN Reason: Protocol Last Admin: 01/31/17 05:00 Dose: 300 mcg Lidocaine (Lidoderm) 1 ea TD DAILY ROSALBA PRN Reason: Protocol Last Admin: 01/30/17 10:07 Dose: 1 ea Lorazepam (Ativan) 0.5 mg IVP Q4H PRN; Protocol PRN Reason: severe agitation Potassium Chloride (K-Dur 20 Meq Er Tab) 20 meq PO 0800 ROSALBA PRN Reason: Protocol Last Admin: 01/31/17 08:51 Dose: 20 meq Quetiapine Fumarate (Seroquel) 50 mg PO HS ROSALBA PRN Reason: Protocol Last Admin: 01/30/17 22:13 Dose: 50 mg Tramadol/Acetaminophen (Ultracet 37.5/325 Mg) 1 tab PO Q6H PRN PRN Reason: Pain, moderate (4-7) Last Admin: 01/29/17 11:59 Dose: 1 tab Results - Vital Signs Recent Vital Signs: Last Vital Signs Temp 98.1 F 01/31/17 06:00 Pulse 78 01/31/17 06:00 Resp 16 01/31/17 06:00 BP 147/56 L 01/31/17 06:00 Pulse Ox 97 01/31/17 06:00 - Labs Result Diagrams: 01/31/17 06:30 01/31/17 06:30 Labs: Laboratory Results - last 24 hr 01/30/17 01/30/17 01/30/17 11:14 16:55 21:12 WBC RBC Hgb Hct MCV MCH MCHC RDW Plt Count MPV Sodium Potassium Chloride Carbon Dioxide Anion Gap BUN Creatinine Est GFR ( Amer) Est GFR (Non-Af Amer) POC Glucose (mg/dL) 115 H 110 144 H Random Glucose Calcium Total Bilirubin AST ALT Alkaline Phosphatase Total Protein Albumin Globulin Albumin/Globulin Ratio 01/31/17 01/31/17 01/31/17 04:59 06:30 06:30 WBC 5.2 RBC 4.05 Hgb 9.4 L Hct 31.1 L MCV 76.8 L MCH 23.2 L MCHC 30.2 L RDW 18.2 H Plt Count 285 MPV 10.4 Sodium 138 Potassium 4.1 Chloride 103 Carbon Dioxide 26 Anion Gap 13 BUN 20 Creatinine 0.9 Est GFR ( Amer) > 60 Est GFR (Non-Af Amer) 60 POC Glucose (mg/dL) 106 Random Glucose 102 Calcium 9.0 Total Bilirubin 0.7 AST 22 ALT 22 Alkaline Phosphatase 70 Total Protein 6.3 Albumin 3.3 Globulin 3.0 Albumin/Globulin Ratio 1.1 <Elaina Escobar - Last Filed: 02/01/17 09:30> History of Present Illness - History of Present Illness History of Present Illness: case was discussed with CONTRACT ADMINISTRATION MANAGER and PMD pt was doing much better delirium improved pt will be seen by psychiatrist at [facility] labs reviewed meds reviewed Results - Vital Signs Recent Vital Signs: Last Vital Signs Temp 98.6 F 01/31/17 16:00 Pulse 59 L 01/31/17 16:00 Resp 18 01/31/17 16:00 BP 126/57 L 01/31/17 16:00 Pulse Ox 100 01/31/17 16:00 - Labs Result Diagrams: 01/31/17 06:30 01/31/17 06:30
[2017-01-31] MEDS: Lidocaine 5% Patch TD SCH (11:00)
--- NOTE | 2017-01-31 12:38 | CP.PCM.PN ---
Subjective - Date & Time of Evaluation Date of Evaluation: 01/31/17 Time of Evaluation: 11:25 - Subjective Subjective: Still with pain in the ribs but getting better, no fevers overnight, no nausea, no diarrhea, no abdominal pain, no dysuria. Objective - Vital Signs/Intake and Output Vital Signs (last 24 hours): Temp Pulse Resp BP Pulse Ox 98.1 F 78 16 147/56 L 97 01/31/17 06:00 01/31/17 06:00 01/31/17 06:00 01/31/17 06:00 01/31/17 06:00 - Medications Medications: Current Medications Amiodarone HCl (Cordarone) 200 mg PO DAILY ROSALBA PRN Reason: Protocol Last Admin: 01/30/17 10:06 Dose: Not Given Amylase (Pancrease 38459 U-5000 U-[id number] U) 5,000 u PO WM [facility] Last Admin: 01/31/17 08:51 Dose: 5,000 u Aspirin (Aspirin Chewable) 81 mg PO 0800 ROSALBA PRN Reason: Protocol Last Admin: 01/31/17 08:50 Dose: 81 mg Docusate Sodium (Colace) 100 mg PO DAILY ROSALBA PRN Reason: Protocol Last Admin: 01/30/17 09:45 Dose: Not Given Fenofibrate (Tricor) 145 mg PO DAILY ROSALBA PRN Reason: Protocol Last Admin: 01/30/17 10:07 Dose: 145 mg Meropenem 1 gm/ Dextrose 100 mls @ 100 mls/hr IVPB Q8 ROSALBA PRN Reason: Protocol Stop: 02/06/17 14:01 Last Admin: 01/31/17 05:00 Dose: 100 mls/hr Ketorolac Tromethamine (Toradol) 30 mg IVP Q8H PRN PRN Reason: Pain, moderate (4-7) Last Admin: 01/30/17 20:46 Dose: 30 mg Levothyroxine Sodium (Synthroid) 300 mcg PO 0600 ROSALBA PRN Reason: Protocol Last Admin: 01/31/17 05:00 Dose: 300 mcg Lidocaine (Lidoderm) 1 ea TD DAILY ROSALBA PRN Reason: Protocol Last Admin: 01/30/17 10:07 Dose: 1 ea Lorazepam (Ativan) 0.5 mg IVP Q4H PRN; Protocol PRN Reason: severe agitation Potassium Chloride (K-Dur 20 Meq Er Tab) 20 meq PO 0800 ROSALBA PRN Reason: Protocol Last Admin: 01/31/17 08:51 Dose: 20 meq Quetiapine Fumarate (Seroquel) 50 mg PO HS ROSALBA PRN Reason: Protocol Last Admin: 01/30/17 22:13 Dose: 50 mg Tramadol/Acetaminophen (Ultracet 37.5/325 Mg) 1 tab PO Q6H PRN PRN Reason: Pain, moderate (4-7) Last Admin: 01/29/17 11:59 Dose: 1 tab - Labs Labs: 01/31/17 06:30 01/31/17 06:30 - Constitutional Appears: Non-toxic - Head Exam Head Exam: NORMAL INSPECTION - ENT Exam ENT Exam: Mucous Membranes Moist - Neck Exam Neck Exam: absent: Lymphadenopathy, Meningismus - Respiratory Exam Respiratory Exam: Decreased Breath Sounds - Cardiovascular Exam Cardiovascular Exam: +S1, +S2 - GI/Abdominal Exam GI & Abdominal Exam: Soft. absent: Tenderness Assessment and Plan - Assessment and Plan (Free Text) Plan: Assessment ESBL Klebsiella UTI history of sepsis secondary to colitis/diverticulitis DVT atrial fibrillation hypertension COPD bilateral cataracts type 2 diabetes hypothyroidism S/P appendectomy S/P cholecystectomy Plan On Merrem day 4, to complete 5-7 days of therapy
[2017-01-31 16:42] VITALS: BP 126/57; PULSE 59; RESP 18; TEMP 98.6; O2SAT 100
[2017-01-31] MEDS: TraMADol/Apap 37.5/325 mg Tab PO PRN (17:47)
--- NOTE | 2017-02-01 08:04 | DS ---
HISTORY OF PRESENT ILLNESS: I saw her in the TCU. She was doing well up until about 4 days ago when she became very confused and agitated and a fall. Now, we are going to get her to the subacute rehab at [facility]. MEDICATIONS: She is on aspirin, Ativan, Colace, Cordarone, potassium, Lidoderm, Merrem IV, Pancrease, Seroquel, Synthroid, Toradol, TriCor and tramadol. PHYSICAL EXAMINATION VITAL SIGNS: 98.1 temp, 78 pulse, 147/56 blood pressure, 16 respiratory rate, 97% O2 sat on 2 liters nasal cannula. HEENT: Head is atraumatic, normocephalic. HEART: Regular rate. LUNGS: Clear to auscultation. ABDOMEN: Soft. EXTREMITIES: No edema. NEUROLOGIC: She is doing a lot better mentally. She is a little bit weak. LABORATORY DATA: She has 5.2 white count, 9.4 hemoglobin, 31.1 hematocrit, she has 285 platelets. She has 138 sodium, potassium 4.1, BUN is 20, creatinine 0.9, GFR is greater than 60; sugar is 102, calcium 9.0, total bilirubin 0.7, AST is 22, ALT 22, alk phos is 70, total protein is 6.3. ASSESSMENT AND PLAN: Urinary tract infection. She had many things wrong with her this day. She had a fall, fractured right ribs 7, 8, 9; diabetes; atrial fibrillation; congestive heart failure; urinary tract infection and now will presumably go to [facility] for subacute rehab before she goes home. Osvaldo Reyes DO
== END 2017-01-31 20:56 | DRG 184 ==
LOC: TRCU 16:47
PROVIDERS: ADMIT Family Medicine; ATTEND Family Medicine
PROC: F07Z9FZ Gait Training/Functional Ambulation Treatment using Assistive, Adaptive, Supportive or Protective Equipment (ICD-10-PCS; principal; 2017-01-21)
PROC: F07M6ZZ Therapeutic Exercise Treatment of Musculoskeletal System - Whole Body (ICD-10-PCS; 2017-01-21)
PROC: F08Z2ZZ Grooming/Personal Hygiene Treatment (ICD-10-PCS; 2017-01-21)
PROC: F08Z1ZZ Dressing Techniques Treatment (ICD-10-PCS; 2017-01-21)
PROC: F08Z0ZZ Bathing/Showering Techniques Treatment (ICD-10-PCS; 2017-01-21)
DX: S22.41XA Multiple fractures of ribs, right side, initial encounter for closed fracture (principal); N39.0 Urinary tract infection, site not specified; F05 Delirium due to known physiological condition; I11.0 Hypertensive heart disease with heart failure; E11.40 Type 2 diabetes mellitus with diabetic neuropathy, unspecified; I50.9 Heart failure, unspecified; W19.XXXA Unspecified fall, initial encounter; B96.1 Klebsiella pneumoniae [K. pneumoniae] as the cause of diseases classified elsewhere; E03.9 Hypothyroidism, unspecified; E78.00 Pure hypercholesterolemia, unspecified; F41.9 Anxiety disorder, unspecified; H26.9 Unspecified cataract; I25.10 Atherosclerotic heart disease of native coronary artery without angina pectoris; I48.91 Unspecified atrial fibrillation; J44.9 Chronic obstructive pulmonary disease, unspecified; K21.9 Gastro-esophageal reflux disease without esophagitis; M19.90 Unspecified osteoarthritis, unspecified site; M81.0 Age-related osteoporosis without current pathological fracture; N32.81 Overactive bladder; Z16.12 Extended spectrum beta lactamase (ESBL) resistance; Z79.82 Long term (current) use of aspirin; Z82.49 Family history of ischemic heart disease and other diseases of the circulatory system; Z83.3 Family history of diabetes mellitus; Z87.891 Personal history of nicotine dependence; Z90.49 Acquired absence of other specified parts of digestive tract; Z95.5 Presence of coronary angioplasty implant and graft; Z99.81 Dependence on supplemental oxygen; R40.2412 Glasgow coma scale score 13-15, at arrival to emergency department; R32 Unspecified urinary incontinence

== ENCOUNTER 2017-02-17 16:08 | Inpatient (IN) | payer BC, MEDICARE ==
[2017-02-17 16:09] VITALS: PULSE 115
[2017-02-17] MEDS ORDERED: Sodium Chloride 0.9% 1,000 ML IV STA (16:37)
--- NOTE | 2017-02-17 16:45 | ED PDOC ---
Arrival/HPI - General Chief Complaint: Chest Pain Time Seen by Provider: 02/17/17 16:11 Historian: Patient - History of Present Illness Narrative History of Present Illness (Text): 02/17/17 16:35 A 86 year old female, whose past medical history includes diabetes, hypothyroidism, atrial fibrillation, aortic clot removal on 11/24/16, presents to the emergency department complaining of malaise and generalized weakness for 2 days. Patient reports nausea, multiple episodes of non-bilious non-bloody vomiting, diarrhea and decrease appetite, but is tolerating PO intake. Patient reports today she began to experience non-radiating chest pressure causing her to come in for further evaluation. She also reports a mechanical fall yesterday , states she missed a step while going up the stair. She notes hitting her face but denies any loss of consciousness or other injuries. Patient denies any fever , chills, palpitation, shortness of breath, cough, headache, dizziness, lightheadedness or any other complaints. Patient recently seen at [facility] for previous injury on 07/26/16. Time/Duration: Other (2 days) Symptom Course: Unchanged Quality: Other Context: Home Past Medical History - Provider Review Nursing Documentation Reviewed: Yes - Infectious Disease Hx of Infectious Diseases: None - Tetanus Immunization Tetanus Immunization: Unknown - Cardiac Hx Cardiac Disorders: Yes Hx Hypertension: Yes - Pulmonary Hx Chronic Obstructive Pulmonary Disease (COPD): Yes - Neurological HX Cerebrovascular Accident: No - HEENT Hx HEENT Disorder: Yes Hx Blind: No Hx Cataracts: Yes Hx Deafness: No Hx Epistaxis: No Hx Glaucoma: No Hx Macular Degeneration: No - Renal Hx Renal Failure: No - Endocrine/Metabolic Hx Diabetes Mellitus Type 2: Yes Hx Hypothyroidism: Yes - Hematological/Oncological Hx Blood Disorders: No Hx AIDS: No Hx Anemia: No Hx Cancer: No Hx Chemotherapy: No Hx Cirrhosis: No Hx Hemophilia: No Hx Hepatitis A: No Hx Hepatitis B: No Hx Hepatitis C: No Hx Metastasis: No Hx Shingles: No Hx Sickle Cell Disease: No Hx Unexplained Bleeding: No Other/Comment: Blood transfusion - Integumentary Hx Dermatological Disorder: No Hx Basal Cell Carcinoma: No Hx Eczema: No Hx Melanoma: No Hx Psoriasis: No Hx Squamous Cell Carcinoma: No - Musculoskeletal/Rheumatological Hx Arthritis: Yes Other/Comment: broken ribs s/p fall - Gastrointestinal Hx Gastrointestinal Disorders: Yes (CONSTIPATION,DIVERTICULOSIS,ULCER,ABDOMINAL SX,CHOLECYSTECTOOMY,APPENDECTOM) - Genitourinary/Gynecological Hx Genitourinary Disorders: Yes (INCONTINENT,) Hx Reproductive Disorders: No - Psychiatric Hx Psychophysiologic Disorder: No Hx Anxiety: No Hx Bipolar Disorder: No Hx Depression: No Hx Emotional Abuse: No Hx Hallucinations: No Hx Panic Disorder: No Hx Post Traumatic Stress Disorder: No Hx Psychosis: No Hx Physical Abuse: No Hx Schizophrenia: No Hx Sexual Abuse: No Hx Substance Use: No - Surgical History Hx Amputation: No Hx Appendectomy: Yes Hx Cholecystectomy: Yes Hx Coronary Stent: Yes Hx Gastric Bypass Surgery: No Hx Hysterectomy: No Hx Joint Replacement: No Hx Kidney Transplant: No Hx Liver Transplant: No Hx Musculoskeletal Surgery: No Hx Open Heart Surgery: No Hx Orthopedic Surgery: No Hx Splenectomy: No Hx Valve Replacement: No Other/Comment: Bilateral cataract sx - Anesthesia Hx Anesthesia: Yes Hx Anesthesia Reactions: No Hx Malignant Hyperthermia: No - Suicidal Assessment Feels Threatened In Home Enviroment: No Family/Social History - Physician Review Nursing Documentation Reviewed: Yes Family/Social History: No Known Family HX Smoking Status: Former Smoker Hx Alcohol Use: No Hx Substance Use: No Hx Substance Use Treatment: No Allergies/Home Meds Allergies/Adverse Reactions: Allergies No Known Allergies Allergy (Verified 02/17/17 16:18) Review of Systems - Physician Review All systems were reviewed & negative as marked: Yes - Review of Systems Constitutional: Other (malaise, generalized weakness). absent: Fevers, Night Sweats Respiratory: absent: SOB, Cough Cardiovascular: Chest Pain. absent: Palpitations Gastrointestinal: Diarrhea, Nausea, Vomiting, Appetite Changes Skin: Other (facial trauma after fall) Neurological: absent: Headache, Dizziness (/Lightheadedness) Physical Exam Vital Signs Reviewed: Yes Vital Signs Temp Pulse Resp BP Pulse Ox 02/17/17 17:52 97.4 F L 104 H 20 129/63 95 02/17/17 16:29 134 H 24 117/71 97 Blood Pressure: Normal Pulse: Tachycardic Respiratory Rate: Normal Appearance: Positive for: Well-Appearing, Non-Toxic, Comfortable Pain Distress: None Mental Status: Positive for: Alert and Oriented X 3 Finger Stick Blood Glucose: 83 - Systems Exam Head: Present: Abrasion (left facial abrasion with mild edema). No: Tenderness Pupils: Present: PERRL Extroacular Muscles: Present: EOMI Conjunctiva: Present: Normal Mouth: Present: Moist Mucous Membranes, Other (no oral injuries) Pharnyx: Present: Normal Neck: Present: Normal Range of Motion. No: MIDLINE TENDERNESS, Paraspinal Tenderness Respiratory/Chest: Present: Clear to Auscultation, Good Air Exchange. No: Respiratory Distress, Accessory Muscle Use Cardiovascular: Present: Normal S1, S2, Irregular Rhythm, Tachycardic. No: Murmurs Abdomen: Present: Normal Bowel Sounds. No: Tenderness, Distention, Peritoneal Signs Upper Extremity: Present: Normal Inspection, Normal ROM, NORMAL PULSES. No: Cyanosis, Edema Lower Extremity: Present: Normal Inspection, NORMAL PULSES, Normal ROM. No: Edema, CALF TENDERNESS Neurological: Present: GCS=15, CN II-XII Intact, Speech Normal Skin: Present: Warm, Dry, Normal Color. No: Rashes Psychiatric: Present: Alert, Oriented x 3, Normal Insight, Normal Concentration Medical Decision Making ED Course and Treatment: 02/17/17 16:35 Impression: A 86 year old female with malaise and generalized weakness. Patient notes nausea , vomiting, diarrhea and chest pressure. Patient reports recent fall. Differential Diagnosis included but are not limited to: Gastroenteritis vs. Dehydration vs. Rapid atrial fibrillation, rule out Sepsis and Anemia Plan: -- Head CT -- Maxillofacial CT -- Chest xray -- EKG -- Labs -- Blood and Urine culture -- Urinalysis -- IV fluids -- Reassess and disposition Progress Notes: EKG shows atrial fibrillation at 125 BPM. Interpreted by me. 02/17/17 17:40 Chest xray read and interpreted by me, which shows no active disease. Report Date : 02/17/2017 17:51:00 PROCEDURE: CT HEAD WITHOUT CONTRAST. Dictator : Mayela Guerra MD IMPRESSION: Generalized atrophy. Nonspecific white matter changes. Report Date : 02/17/2017 18:25:09 PROCEDURE: CT MAXILLOFACIAL BONES WITHOUT CONTRAST Dictator : Patric Magana MD IMPRESSION: No fracture identified throughout the examination as discussed above. Left frontal scalp edema and a 3.5 mm radiodensity is seen with the latter potentially reflecting a chronic dermal finding versus retained radiodense foreign body. Clinically correlate further. 02/17/17 18:52 Troponin negative. HR improved. Patient noted to have elevated WBC. LA normal. CXR with no infiltrated. UA returned with positive UTI. CT pending. Will sign out to Dr. Ortega to follow up CT, reevaluate and disposition. - Lab Interpretations Lab Results: 02/17/17 16:58 02/17/17 17:05 Lab Results 02/17/17 18:12: Urine Color Yellow, Urine Appearance Cloudy, Urine pH 6.0, Ur Specific Keller 1.025, Urine Protein 30 H, Urine Glucose (UA) Negative, Urine Ketones 15 H, Urine Blood Trace-intact H, Urine Nitrate Negative, Urine Bilirubin Moderate H, Urine Urobilinogen 0.2, Ur Leukocyte Esterase Small H, Urine RBC 0 - 2, Urine WBC Tntc, Ur Epithelial Cells 1 - 3, Urine Bacteria Many 02/17/17 17:25: Blood Type B POSITIVE, Antibody Screen Negative, BBK History Checked Patient has bt 02/17/17 17:05: Sodium 136, Chloride 103, Potassium 3.1 L, Carbon Dioxide 19 L, Anion Gap 18, BUN 14, Creatinine 0.8, Est GFR ( Amer) > 60, Est GFR (Non- Af Amer) > 60, Random Glucose 100, Calcium 9.1, Magnesium 1.3 L, Total Bilirubin 0.5, AST 25, ALT 34, Alkaline Phosphatase 76, Lactate Dehydrogenase 418, Total Creatine Kinase 22 L, Troponin I < 0.01, NT-Pro-B Natriuret Pep 1050 H, Total Protein 6.8, Albumin 3.6, Globulin 3.1, Albumin/Globulin Ratio 1.1 02/17/17 16:58: TSH 3rd Generation 0.02 L 02/17/17 16:58: pO2 43, VBG pH 7.33, VBG pCO2 38.0 L, VBG HCO3 20.0 L, VBG Total CO2 21.2 L, VBG O2 Sat (Calc) 79.6 H, VBG Base Excess -5.4 L, VBG Potassium 4.4, Sodium 136.0, Chloride 102.0, Glucose 101, Lactate 2.1, FiO2 21.0 , Venous Blood Potassium 4.4 02/17/17 16:58: PT 14.4 H, INR 1.31 H, APTT 25.6 12/14/17 16:58: WBC 21.2 H D, RBC 4.88, Hgb 12.1 D, Hct 38.1, MCV 78.1 L, MCH 24.8 L, MCHC 31.8, RDW 18.1 H, Plt Count 248, MPV 11.3 H, Gran % 87.4 H, Lymph % (Auto) 3.6 L, [place] % (Auto) 8.7 H, Eos % (Auto) 0.2 L, Baso % (Auto) 0.1, Gran # 18.48 H, Lymph # 0.8 L, [place] # 1.8 H, Eos # 0.1, Baso # 0.02, Neutrophils % (Manual) 86 H, Lymphocytes % (Manual) 4 L, Monocytes % (Manual) 10 H I have reviewed the lab results: Yes - RAD Interpretation Radiology Orders: 02/17/17 16:33 CHEST PORTABLE [RAD] Stat 02/17/17 16:40 HEAD W/O CONTRAST [CT] Stat MAXILLOFACIAL W/O CONTRAST [CT] Stat 02/17/17 17:53 ABD & PELVIS IV CONTRAST ONLY [CT] Stat - Medication Orders Current Medication Orders: Discontinued Medications Sodium Chloride (Sodium Chloride 0.9%) 1,000 mls @ 999 mls/hr IV .Q1H1M STA Stop: 02/17/17 17:37 Last Admin: 02/17/17 17:40 Dose: 999 mls/hr eMAR Start Stop Document 02/17/17 17:40 RG (Rec: 02/17/17 18:01 RG [id number]) Intravenous Solution Start Date 02/17/17 Start Time 17:40 Piperacillin Sod/Tazobactam Sod (Zosyn 4.5 Gm In Ns 100ml) 4.5 gm in 100 mls @ 200 mls/hr IVPB STAT STA PRN Reason: Protocol Stop: 02/17/17 18:20 Last Admin: 02/17/17 18:16 Dose: 200 mls/hr eMAR Start Stop Document 02/17/17 18:16 RG (Rec: 02/17/17 18:22 RG [id number]) Intravenous Solution Start Date 02/17/17 Start Time 18:22 Magnesium Oxide (Mag-Ox) 400 mg PO STAT STA Stop: 02/17/17 17:46 Last Admin: 02/17/17 18:23 Dose: 400 mg Comments: Pt tolerated well Potassium Chloride (K-Dur 20 Meq Er Tab) 40 meq PO STAT STA Stop: 02/17/17 17:45 Last Admin: 02/17/17 18:22 Dose: 40 meq Comments: Pt tolerated well - Scribe Statement The provider has reviewed the documentation as recorded by the Scribe Nica Brooks Provider Scribe Attestation: All medical record entries made by the Scribe were at my direction and personally dictated by me. I have reviewed the chart and agree that the record accurately reflects my personal performance of the history, physical exam, medical decision making, and the department course for this patient. I have also personally directed, reviewed, and agree with the discharge instructions and disposition. Disposition/Present on Arrival - Present on Arrival Any Indicators Present on Arrival: Yes History of DVT/PE: Yes History of Uncontrolled Diabetes: Yes Urinary Catheter: No History of Decub. Ulcer: No History Surgical Site Infection Following: None - Disposition Have Diagnosis and Disposition been Completed?: Yes Diagnosis: Chest pain, Sepsis, Rapid atrial fibrillation, UTI (urinary tract infection) Disposition: HOSPITALIZED Disposition Time: 18:54 Patient Plan: Admission, Observation Patient Problems: Current Active Problems Problem Status Onset Chest pain Acute Sepsis Acute Rapid atrial fibrillation Acute UTI (urinary tract infection) Acute Condition: GUARDED Discharge Instructions (ExitCare): Chest Pain (ED), Sepsis (ED) Referrals: Osvaldo Reyes DO [Primary Care Provider] - Follow up with primary Forms: [employer] ([place])
[2017-02-17 17:10] LABS: VENOUS BLOOD GAS BASE EXCESS -5.4 mmol/L (0.0-2.0); VENOUS BLOOD PH 7.33 (7.32-7.43)
[2017-02-17 17:18] LABS: BASO # 0.02 K/mm3 (0.0-2.0); BASO % 0.1 % (0.0-3.0); EOS # 0.1 (0.0-0.7); EOS % 0.2 % (1.5-5.0); GRAN # 18.48 (1.4-6.5); GRAN % 87.4 % (50.0-68.0); HEMATOCRIT 38.1 % (36.0-48.0); LYMPH # 0.8 (1.2-3.4); LYMPH % 3.6 % (22.0-35.0); MEAN CELL VOLUME 78.1 fl (80.0-105.0); MEAN CORPUSCULAR HEMOGLOBIN 24.8 pg (25.0-35.0); MEAN CORPUSCULAR HGB CONC 31.8 g/dl (31.0-37.0); MEAN PLATELET VOLUME 11.3 fl (7.0-11.0); MONO # 1.8 (0.1-0.6); MONO % 8.7 % (1.0-6.0); PLATELET COUNT 248 10^3/uL (120.0-450.0); RED CELL DISTRIBUTION WIDTH 18.1 % (11.5-14.5); WHITE BLOOD COUNT 21.2 10^3/ul (4.5-11.0)
[2017-02-17 17:22] LABS: INR 1.31 (0.93-1.08); PARTIAL THROMBOPLASTIN TIME 25.6 Seconds (25.1-36.5)
[2017-02-17 17:40] LABS: ALB/GLOB RATIO 1.1 (1.1-1.8); ALKALINE PHOSPHATASE 76 U/L (38-126); ALT/SGPT 34 U/L (7-56); AST/SGOT 25 U/L (14-36); BILIRUBIN,TOTAL 0.5 mg/dL (0.2-1.3); BLOOD UREA NITROGEN 14 mg/dL (7-21); CALCIUM 9.1 mg/dL (8.4-10.5); CARBON DIOXIDE 19 mmol/L (21-33); CHLORIDE 103 mmol/L (98-107); GFR AFRICAN-AMERICAN > 60; GLUCOSE,RANDOM 100 mg/dL (70-110); MAGNESIUM 1.3 mg/dL (1.7-2.2); POTASSIUM 3.1 mmol/L (3.6-5.0); SODIUM 136 mmol/L (132-148); TOTAL PROTEIN 6.8 g/dL (5.8-8.3)
[2017-02-17] MEDS ORDERED: Potassium Chloride 20 mEq ER Tab PO STA (17:44)
[2017-02-17] MEDS ORDERED: Magnesium Oxide 400 mg Tab UD PO STA (17:45)
[2017-02-17 17:47] LABS: TROPONIN I < 0.01 ng/mL
[2017-02-17] MEDS ORDERED: Piperacill/Tazo 4.5gm in NS 4.5 GM/100 ML BAG IVPB STA (17:51)
--- NOTE | 2017-02-17 17:52 | CT ---
PROCEDURE: CT HEAD WITHOUT CONTRAST. HISTORY: head injury r/o ich COMPARISON: None available. TECHNIQUE: Axial computed tomography images were obtained through the head/brain without intravenous contrast. Radiation dose: Total exam DLP = 871.88 mGy-cm. This CT exam was performed using one or more of the following dose reduction techniques: Automated exposure control, adjustment of the mA and/or kV according to patient size, and/or use of iterative reconstruction technique. FINDINGS: HEMORRHAGE: No intracranial hemorrhage. BRAIN: Diffuse atrophy with prominence of the ventricles and sulci noted. No mass effect or edema. Scattered periventricular and subcortical white matter hypodensities, which are nonspecific, but often seen with chronic microvascular ischemic disease. Please note that MRI with diffusion imaging is more sensitive in the detection of acute ischemic event. VENTRICLES: No hydrocephalus. CALVARIUM: Unremarkable. PARANASAL SINUSES: Unremarkable as visualized. No significant inflammatory changes. MASTOID AIR CELLS: Under aeration of the mastoid air cells. OTHER FINDINGS: None. IMPRESSION: Generalized atrophy. Nonspecific white matter changes.
[2017-02-17 18:07] LABS: NEUTROPHIL 86 % (50.0-70.0)
[2017-02-17] MEDS ORDERED: Iohexol 350 MG/100 ML VIAL ONE (18:14)
--- NOTE | 2017-02-17 18:26 | CT ---
PROCEDURE: CT MAXILLOFACIAL BONES WITHOUT CONTRAST HISTORY: fall with facial injury COMPARISON: None TECHNIQUE: Contiguous axial CT images of the maxillofacial bones were obtained. Coronal and sagittal reformats were generated. Radiation dose: Total exam DLP = 773.93 mGy-cm. This CT exam was performed using one or more of the following dose reduction techniques: Automated exposure control, adjustment of the mA and/or kV according to patient size, and/or use of iterative reconstruction technique. FINDINGS: NASAL BONES: No acute fracture or destructive bony lesion identified. ORBITS: No acute fracture or destructive bony lesion identified. Postop changes may be present at the lenses which appear quite small. Clinically correlate. PARANASAL SINUSES/ MASTOIDS: No acute fracture or destructive bony lesion identified. MAXILLA: No acute fracture or destructive bony lesion identified. MANDIBLE/ TEMPOROMANDIBULAR JOINTS: No acute fracture or destructive bony lesion identified. SKULL BASE: No acute fracture or destructive bony lesion identified. TEMPORAL BONES: No acute fracture or destructive bony lesion identified. OTHER FINDINGS: Limited left frontal scalp edema is noted. Note is made of a E 3.5 mm calcification deep to the left frontal scalp skin suspicious for probable chronic sebaceous cyst or potential retained radiodense foreign body. Clinically correlate further. IMPRESSION: No fracture identified throughout the examination as discussed above. Left frontal scalp edema and a 3.5 mm radiodensity is seen with the latter potentially reflecting a chronic dermal finding versus retained radiodense foreign body. Clinically correlate further.
[2017-02-17 18:27] LABS: URINE BILIRUBIN MODERATE (NEGATIVE); URINE BLOOD TRACE-INTACT (NEGATIVE); URINE GLUCOSE (UA) NEGATIVE (NEGATIVE); URINE KETONE 15 mg/dL (NEGATIVE); URINE LEUKOCYTE ESTERASE SMALL Leu/uL (NEGATIVE); URINE PROTEIN 30 mg/dL (<30 mg/dL); URINE UROBILINOGEN 0.2 E.U./dL (<1 E.U./dL)
[2017-02-17 18:30] LABS: URINE APPEARANCE CLOUDY (CLEAR); URINE COLOR YELLOW (YELLOW)
[2017-02-17 18:33] LABS: URINE RBC 0 - 2 /hpf (0-2); URINE WBC TNTC /hpf (0-6)
[2017-02-17 18:34] LABS: URINE BACTERIA MANY (NEG)
--- NOTE | 2017-02-17 20:16 | CT ---
EXAM: CT Abdomen and Pelvis With Intravenous Contrast EXAM DATE/TIME: 02/17/2017 5:53 PM CLINICAL HISTORY: 86 years old, female; Pain; Abdominal pain; Generalized; Prior surgery; Surgery date: 6+ months; Surgery type: HX appendectomy, HX cholecystectomy; Additional info: Sepsis R/O abdominal source pt with n/v/d TECHNIQUE: Axial computed tomography images of the abdomen and pelvis with intravenous contrast. All CT scans at this facility use one or more dose reduction techniques, viz.: automated exposure control; ma/kV adjustment per patient size (including targeted exams where dose is matched to indication; i.e. head); or iterative reconstruction technique. Coronal and sagittal reformatted images were created and reviewed. CONTRAST: 100 mL of omnipaque 350 administered intravenously. COMPARISON: CT - CHEST,ABD,PEL W/IV CONT ONLY 2017-01-18 23:07 FINDINGS: Lower thorax: The heart is enlarged. There are coronary artery calcifications. There is calcification mitral anulus. There is prominence of interstitial markings at the lung bases. There is dependent airspace disease. There are multiple subacute lower right rib fractures. There is a small hiatal hernia. ABDOMEN: Liver: There are multiple low attenuation hepatic lesions difficult to characterize suggestive of cysts. There are focal hepatic calcifications. There are poorly defined low attenuation lesions in the tip of the right lobe of the liver difficult to further characterize.. Gallbladder and bile ducts: Gallbladder is absent. There is intra-and extrahepatic biliary ductal dilatation. Pancreas: Pancreas is atrophic. Spleen: unremarkable Adrenals: unremarkable Kidneys and ureters: There are bilateral renal cysts.There is no pelvocaliectasis or ureterectasis. Stomach and bowel: Stomach is incompletely distended which accentuates the gastric wall. Rotation is normal. Small bowel is mildly distended with air and fluid. There is air and fluid throughout the small bowel. There is no obstruction. Terminal ileum is unremarkable. There is diffuse colonic wall thickening. There is scattered diverticulosis. Appendix: Surgically absent PELVIS: Bladder: Bladder is almost completely empty. There is bladder wall thickening a period Reproductive: Uterus and adnexal structures are unremarkable. ABDOMEN and PELVIS: Intraperitoneal space: There is no free air or free fluid. Bones/joints: Bony structures are osteopenic with degenerative change. There are multiple subacute lower right rib fractures. Soft tissues: unremarkable Vasculature: There are vascular calcifications. There is an infrarenal aortic endograft. Lymph nodes: There is shotty para-aortic adenopathy IMPRESSION: Colitis; bladder wall thickening suggesting cystitis; dilated ducts status post cholecystectomy; hepatic and renal cysts; poorly defined low attenuation lesion in the tip of the right lobe of the liver difficult to further characterize Additional findings as described above.
[2017-02-17] MEDS ORDERED: Sodium Chloride 0.9% 1,000 ML IV SCH (21:15)
[2017-02-17 21:37] LABS: VENOUS BLOOD GAS BASE EXCESS -8.2 mmol/L (0.0-2.0); VENOUS BLOOD PH 7.31 (7.32-7.43)
[2017-02-18 01:14] VITALS: BMI 25.5
[2017-02-18] MEDS: Morphine 2 mg/ml ISec IVP PRN ×2 (03:40→23:26)
[2017-02-18 07:52] LABS: VENOUS BLOOD GAS BASE EXCESS -4.8 mmol/L (0.0-2.0); VENOUS BLOOD PH 7.34 (7.32-7.43)
[2017-02-18] MEDS ORDERED: Sodium Chloride 0.45% 1,000 ML IV SCH (08:00)
--- NOTE | 2017-02-18 08:55 | RAD ---
HISTORY: chest pain COMPARISON: 01/18/2017 FINDINGS: LUNGS: No active pulmonary disease. PLEURA: No significant pleural effusion identified, no pneumothorax apparent. CARDIOVASCULAR: Normal. OSSEOUS STRUCTURES: No significant abnormalities. VISUALIZED UPPER ABDOMEN: Normal. OTHER FINDINGS: None. IMPRESSION: No active disease.
[2017-02-18] MEDS: Dextrose 5%/0.45% NS 1,000 ML IV SCH (13:10)
[2017-02-18] MEDS ORDERED: Piperacillin/Tazobact 3.375 gm 100 ML IVPB SCH (14:00)
[2017-02-18] MEDS: Vancomycin 25 MG/ML PO SCH ×2 (17:07→21:17)
--- NOTE | 2017-02-18 18:32 | CARD ---
APPROVED REPORT EKG Measurement Heart [id number] <Conclusion> Atrial fibrillation with rapid ventricular response Nonspecific ST abnormality, probably digitalis effect Abnormal ECG
[2017-02-18] MEDS: metroNIDAZOLE IV 500 mg/100 ml 500 MG/100 ML BAG IVPB SCH (21:16)
[2017-02-18] MEDS: Meropenem IV 1 gm in NS 50 ML IVPB SCH (23:23)
--- NOTE | 2017-02-19 00:40 | CON ---
DATE: 02/18/2017 LOCATION: The patient is seen in 6, bed 2. The patient was seen early this morning. CHIEF COMPLAINT: Diarrhea times several days. HISTORY OF PRESENT ILLNESS: This is an 86-year-old female with hypertension, diabetes, high cholesterol, hypothyroidism, atrial fibrillation, asthma, GERD, osteoarthritis, osteoporosis. The patient has a history of right carotid stent placement, long time COPD, long time smoker. She was recently in the hospital, was discharged in end of January, was given antibiotics empirically and was found to have an ESBL Klebsiella in the urine with urinary tract infection, completed 5 to 7 days of meropenem, now is admitted with diarrhea, abdominal cramps. The patient denies any fevers and chills at this time. No chest pain or shortness of breath. No abdominal pain; however, the patient does have some abdominal cramps. There is no blood in the stool, that is bright and there is diarrhea though. No headaches or blurred vision. PAST MEDICAL HISTORY: Significant for hypertension, diabetes, high cholesterol, hypothyroidism, asthma, osteoarthritis, GERD, chronic obstructive lung disease, osteoporosis, atrial fibrillation. The patient had recent ESBL Klebsiella in the urine on 01/25/2017. ALLERGIES: THE PATIENT HAS NO KNOWN ALLERGIES. MEDICATIONS: Reviewed. PHYSICAL EXAMINATION: GENERAL/VITAL SIGNS: The patient is in bed, in no acute distress with temperature of 98, blood pressure is 112/70, respiratory rate of 24, and heart rate of 104. HEENT: Unremarkable. NECK: Supple. LUNGS: Have decreased breath sounds. HEART: Normal S1 and S2. ABDOMEN: Soft, nontender. No rebound. No guarding. LABORATORY DATA: Reveals a white count of 21,000, hemoglobin of 12, and platelets of 248. The patient has 84% granulocytosis. Coagulation is noted and chemistries revealed a BUN of 14, creatinine of 0.8. Urinalysis is noted to have [id number]-count wbc's, many bacteria. Microbiology is pending, and the patient had a CAT scan of the abdomen and pelvis, colitis and pancystitis, and the patient had history of cholecystectomy recorded in the CAT scan. ASSESSMENT AND PLAN: This is an 86-year-old female with hypertension, diabetes, chronic obstructive pulmonary disease, high cholesterol, hypothyroidism, atrial fibrillation, gastroesophageal reflux disease, and has recent history of extended-spectrum beta-lactamase Klebsiella presenting with, 1. Sepsis with tachycardia, dyspnea, leukocytosis, must rule out secondary to colitis, specifically pseudomembranous colitis versus cystitis. We will treat the patient with meropenem and place the patient on extended-spectrum beta-lactamase precautions. Start the patient on IV Flagyl and p.o. vancomycin. Send the patient's blood cultures, urine cultures, and stool for Clostridium difficile, and we will make further recommendations upon availability of initial results. We will follow closely with you. Rj Godfrey MD
[2017-02-19] MEDS: Meropenem IV 1 gm in NS 50 ML IVPB SCH ×3 (05:43→21:36)
[2017-02-19] MEDS ORDERED: Pantoprazole 40mg/100ml IVPB 40 MG/100 ML BAG IVPB SCH (06:00)
[2017-02-19] MEDS: metroNIDAZOLE IV 500 mg/100 ml 500 MG/100 ML BAG IVPB SCH ×3 (06:40→21:35)
[2017-02-19] MEDS: Dextrose 5%/0.45% NS 1,000 ML IV SCH (06:46)
[2017-02-19 07:21] LABS: HEMATOCRIT 30.7 % (36.0-48.0); MEAN CELL VOLUME 77.5 fl (80.0-105.0); MEAN CORPUSCULAR HGB CONC 30.9 g/dl (31.0-37.0); MEAN PLATELET VOLUME 10.7 fl (7.0-11.0); RED CELL DISTRIBUTION WIDTH 18.2 % (11.5-14.5); WHITE BLOOD COUNT 9.3 10^3/ul (4.5-11.0)
[2017-02-19 08:31] LABS: ALKALINE PHOSPHATASE 54 U/L (38-126); ALT/SGPT 27 U/L (7-56); AST/SGOT 18 U/L (14-36); BILIRUBIN,TOTAL 0.4 mg/dL (0.2-1.3); BLOOD UREA NITROGEN 10 mg/dL (7-21); CALCIUM 8.2 mg/dL (8.4-10.5); CARBON DIOXIDE 23 mmol/L (21-33); CHLORIDE 109 mmol/L (98-107); GFR AFRICAN-AMERICAN > 60; GLUCOSE,RANDOM 96 mg/dL (70-110); POTASSIUM 2.9 mmol/L (3.6-5.0); SODIUM 138 mmol/L (132-148); TOTAL PROTEIN 5.4 g/dL (5.8-8.3)
[2017-02-19] MEDS: Vancomycin 25 MG/ML PO SCH ×4 (11:11→21:36)
[2017-02-19] MEDS: Enoxaparin 40 mg Syringe SC SCH (13:42)
--- NOTE | 2017-02-19 14:01 | PN ---
DATE: SUBJECTIVE: I saw Joslyn resting comfortably in bed. She looks a little bit stronger today than the other day. She was very weak the other day. She is on lots of IV antibiotics with p.o. antibiotics and IV fluids. She is on dextrose IV, Flagyl IV, Lovenox, meropenem IV, morphine IV for pain, potassium replacement, Protonix, vancomycin p.o. and Zofran. PHYSICAL EXAMINATION: VITAL SIGNS: 98.5 temp, 75 pulse, 122/70 blood pressure, 20 respiratory rate, 99% O2 sat on room air. She is also having lots of diarrhea. HEENT: Head is atraumatic, normocephalic. Throat is dry. NECK: Supple. HEART: Regular rate. LUNGS: Decreased breath sounds, but clear. ABDOMEN: Soft, empty. Positive bowel sounds. Mildly distended. Nontender. No guarding. No rebound. No CVA tenderness. EXTREMITIES: There is no edema. LABORATORY DATA: She had labs. She has a urine, which is moderate bilirubin, many bacteria. She has a potassium of 2.9. It has been replaced. It is from all the diarrhea. Sodium is 138, BUN 10, creatinine 0.6, GFR is greater than 60, sugar is 95, calcium is 8.2, total bili is 0.4, AST is 18, ALT is 27, alk phos 54, total protein is 5.4, TSH is 0.02. I lowered her Synthroid. INR is 1.31. White count is down to 9.3 from 21.2. Hemoglobin 9.5, hematocrit 30.7, platelets of 207 and she was positive for C. diff. ASSESSMENT AND PLAN: She has multiple issues. She has got colitis, urinary tract infection, sepsis, low potassium, Clostridium difficile. She is being seen by Infectious Disease. I called in Gastroenterology. I did not see a note yet. I put her on a liquid diet, clears. Hopefully, she will be out of bed to chair and get some physical therapy also. We will check her labs tomorrow. Osvaldo Reyes DO
--- NOTE | 2017-02-19 14:41 | CON ---
DATE: 02/19/2017 GASTROENTEROLOGY CONSULTATION REQUESTING PHYSICIAN: Osvaldo Reyes DO REASON FOR CONSULTATION: I have been asked to see this 86-year-old female with history of hypothyroidism, paroxysmal atrial fibrillation, diabetes mellitus, arterial thrombosis of the aorta, status post fall with multiple rib fractures several months ago, and history of chronic recurrent anemia, who comes to the hospital with 2 days of nausea, vomiting, and diarrhea. This is associated with poor appetite. She also comes to the hospital with some substernal chest pressure. The patient apparently fell at home yesterday resulting in a contusion over her left eye. There is no loss of consciousness. The patient apparently fell one month ago sustaining multiple rib fractures requiring 2-week hospitalization. The patient apparently had been on antibiotics during that hospital stay. She currently denies any abdominal pain, hematemesis, melena, rectal bleeding, fevers or chills. Her white blood cell count on admission to the hospital was elevated at 21,000. The patient last had an endoscopy and colonoscopy in 05/2015 as part of her workup for anemia. She was found to have a benign gastric nodule, duodenal AVM, on upper endoscopy an extensive diverticulosis and a cecal nonbleeding AVM on colonoscopy. PAST MEDICAL HISTORY: As above. Again, she has a history of hypertension, paroxysmal atrial fibrillation, COPD, arterial thrombus, diabetes mellitus type 2, hypothyroidism, chronic anemia, and rib fractures. PAST SURGICAL HISTORY: Notable for cholecystectomy and appendectomy. SOCIAL HISTORY: The patient denies alcohol use. She is a former cigarette smoker, having quit years ago. FAMILY HISTORY: Noncontributory. REVIEW OF SYSTEMS: A 14-point review of systems is notable for vomiting, diarrhea, chest pain, loss of appetite, and generalized weakness. MEDICATIONS AT HOME: Unavailable currently. She is on Flagyl 500 mg IV q.8 hours, meropenem 1 g IV q.8 hours, morphine sulfate, potassium chloride, pantoprazole, vancomycin 250 mg by mouth every 6 hours, and Zofran. PHYSICAL EXAMINATION: GENERAL: A well-developed female lying in bed in no acute distress. VITAL SIGNS: Reveal temperature of 98.5, blood pressure of 122/70, and heart rate of 75. HEENT: Reveal sclerae to be white. Conjunctivae pale. Oral mucosa is moist. NECK: Supple. CHEST: Reveal lungs to be clear. HEART: Reveals an irregularly irregular rate. ABDOMEN: Flabby, soft, and nontender. No mass. EXTREMITIES: Show no edema. LABORATORY DATA: Reveal white blood cell count down to 9.3, hemoglobin of 9.5. Chemistries reveal potassium at 2.9, bicarb at 23, and albumin at 2.7. CT scan of the abdomen and pelvis reveal hypodense areas in the liver, most likely liver cysts, intra and extrahepatic biliary ductal dilatation, atrophic pancreas, and nonspecific diffuse colon wall thickening. Small bowel is filled with air and fluid with mild distention. There is no evidence of small bowel obstruction. There is bladder wall thickening of the urinary bladder. IMPRESSION: An 86-year-old female with 2 days of nausea, vomiting, and diarrhea, with a CT scan showing nonspecific diffuse thickening of the colon and fluid-filled small bowel. The patient was on antibiotic during her hospice stay about a month ago for multiple rib fractures sustained after a fall, one must rule out pseudomembranous colitis, the other possibility is gastroenteritis. RECOMMENDATIONS: 1. Check stool for C. diff. 2. Check stool for C and S and ova and parasites. 3. I will start the patient on low-fat lactose-free diet. If tolerated, the patient can be discharged home with outpatient followup. 4. The patient is on vancomycin 250 mg 4 times a day, which is ordered by Infectious Disease. 5. Replace potassium. Dale Patel MD
[2017-02-19] MEDS: Morphine 2 mg/ml ISec IVP PRN (23:03)
--- NOTE | 2017-02-20 01:05 | PN ---
DATE: 02/19/2017 SUBJECTIVE: The patient is in bed, in no acute distress. The patient was seen early this morning in 576, bed 2. PHYSICAL EXAMINATION: VITAL SIGNS: Temperature is 98, blood pressure is 120/70, and respiratory rate is 16. HEENT: Unremarkable. NECK: Supple. LUNGS: Decreased breath sounds. HEART: Normal S1 and S2. ABDOMEN: Soft. LABORATORY DATA: Reveals white count of 9.3, hemoglobin of 9, and platelets of 207. Chemistries reveals BUN of 10 and creatinine is 0.6. Urinalysis has noted too numerous to count WBCs, many bacteria. Microbiology reveals the blood cultures have no growth and stool for C. diff is positive antigen, negative toxin. The urine for gram negative jerry. Further identification and sensitivity is pending. ASSESSMENT AND PLAN: This is an 86-year-old female with hypertension, diabetes, chronic obstructive lung disease, high cholesterol, hypothyroidism, atrial fibrillation, gastroesophageal reflux disease, and recently history of extended-spectrum B-lactamase Klebsiella presenting with sepsis, tachycardia, dyspnea, and leukocytosis with pseudomembranous colitis and gram-negative rods in the urine as a source, on IV Flagyl, p.o. vancomycin, and IV meropenem. We will follow up closely with you. White count is resolved to 9.3. Rj Godfrey MD
[2017-02-20] MEDS: Morphine 2 mg/ml ISec IVP PRN ×2 (04:27→22:28)
[2017-02-20] MEDS: Meropenem IV 1 gm in NS 50 ML IVPB SCH ×3 (06:18→21:41)
[2017-02-20] MEDS: metroNIDAZOLE IV 500 mg/100 ml 500 MG/100 ML BAG IVPB SCH (06:18)
[2017-02-20 08:30] LABS: HEMATOCRIT 30.7 % (36.0-48.0); MEAN CELL VOLUME 76.9 fl (80.0-105.0); MEAN CORPUSCULAR HEMOGLOBIN 23.8 pg (25.0-35.0); MEAN CORPUSCULAR HGB CONC 30.9 g/dl (31.0-37.0); MEAN PLATELET VOLUME 11.2 fl (7.0-11.0); RED CELL DISTRIBUTION WIDTH 18.1 % (11.5-14.5); WHITE BLOOD COUNT 9.9 10^3/ul (4.5-11.0)
[2017-02-20 09:00] LABS: ALKALINE PHOSPHATASE 55 U/L (38-126); ALT/SGPT 27 U/L (7-56); AST/SGOT 14 U/L (14-36); BILIRUBIN,TOTAL 0.3 mg/dL (0.2-1.3); BLOOD UREA NITROGEN 9 mg/dL (7-21); CALCIUM 7.8 mg/dL (8.4-10.5); CARBON DIOXIDE 24 mmol/L (21-33); CHLORIDE 107 mmol/L (98-107); GFR AFRICAN-AMERICAN > 60; GLUCOSE,RANDOM 109 mg/dL (70-110); SODIUM 139 mmol/L (132-148); TOTAL PROTEIN 5.3 g/dL (5.8-8.3)
--- NOTE | 2017-02-20 12:11 | RAD ---
PROCEDURE: Right Wrist Radiographs. HISTORY: PAIN COMPARISON: None. FINDINGS: BONES: Normal. No fracture. JOINTS: Degenerative changes are seen at the base of the thumb SOFT TISSUES: Normal. OTHER FINDINGS: None. IMPRESSION: No acute findings
[2017-02-20] MEDS: Enoxaparin 40 mg Syringe SC SCH (12:13)
--- NOTE | 2017-02-20 12:13 | RAD ---
PROCEDURE: Right Hand Radiographs. HISTORY: PAIN COMPARISON: None. FINDINGS: BONES: Normal. No fracture. JOINTS: There is mild joint space narrowing of the DIP and PIP joints. SOFT TISSUES: Normal. OTHER FINDINGS: None. IMPRESSION: Mild osteoarthritis
[2017-02-20] MEDS: Vancomycin 25 MG/ML PO SCH ×3 (14:32→21:42)
[2017-02-20 19:27] LABS: URINE BILIRUBIN SMALL (NEGATIVE); URINE BLOOD NEGATIVE (NEGATIVE); URINE GLUCOSE (UA) NEGATIVE (NEGATIVE); URINE KETONE TRACE mg/dL (NEGATIVE); URINE LEUKOCYTE ESTERASE NEGATIVE Leu/uL (NEGATIVE); URINE PROTEIN 30 mg/dL (<30 mg/dL); URINE UROBILINOGEN 0.2 E.U./dL (<1 E.U./dL)
[2017-02-20 19:30] LABS: URINE APPEARANCE CLEAR (CLEAR); URINE COLOR DARK YELLOW (YELLOW)
[2017-02-20 20:05] LABS: URINE BACTERIA LARGE (NEG); URINE EPITHELIAL CELLS 0 - 2 /hpf (0-5); URINE RBC 0 - 2 /hpf (0-2)
[2017-02-21] MEDS: Dextrose 5%/0.45% NS 1,000 ML IV SCH ×2 (00:09→16:20)
[2017-02-21] MEDS: Meropenem IV 1 gm in NS 50 ML IVPB SCH ×3 (06:32→21:44)
[2017-02-21] MEDS: Morphine 2 mg/ml ISec IVP PRN (06:32)
[2017-02-21 07:10] LABS: HEMATOCRIT 30.5 % (36.0-48.0); MEAN CELL VOLUME 77.2 fl (80.0-105.0); MEAN CORPUSCULAR HEMOGLOBIN 23.8 pg (25.0-35.0); MEAN CORPUSCULAR HGB CONC 30.8 g/dl (31.0-37.0); MEAN PLATELET VOLUME 10.5 fl (7.0-11.0); RED CELL DISTRIBUTION WIDTH 18.2 % (11.5-14.5); WHITE BLOOD COUNT 8.2 10^3/ul (4.5-11.0)
--- NOTE | 2017-02-21 07:54 | HP ---
HISTORY OF PRESENT ILLNESS: I know Mainor very well from the office for multiple admissions to the hospital from subacute rehab. She is presently now in [facility]. She comes in after being in [facility] for rehab, status post fall with fractured ribs 7, 8, and 9. She is an 86-year-old female presented to the emergency room with malaise, diarrhea, generalized weakness, nonstop nausea and vomiting, nonbilious. No appetite. This came on fairly suddenly. She does not know how she got it. She also had a mechanical fall while she was going to stairs hitting her face. No loss of consciousness. PAST MEDICAL HISTORY: She has a past medical history of diabetes, hypothyroid, atrial fibrillation, aorta clot removed in 11/2016. She has fractured ribs 7, 8, 9, on the right from a fall. She has hypertension, COPD, cataract surgery, diabetes, hypothyroidism. She has had blood transfusions, arthritis, constipation, diverticulosis, ulcers, abdominal surgery, cholecystectomy, and appendectomy. She has incontinence of urine. FAMILY HISTORY: Hypertension and diabetes in the family. SOCIAL HISTORY: Former smoker. No alcohol. No drugs. ALLERGIES: NO KNOWN DRUG ALLERGIES. REVIEW OF SYSTEMS: She did fall and hit her head. She has generalized weak. She could talk. Little dehydrated for the nausea, vomiting and diarrhea. No acute vision or hearing changes, but old dry throat, neck. There is no pain No chest pain or palpitations. No shortness of breath. No cough. There is a right-sided rib pain from a fall. She had a trauma. She has nausea, vomiting, and diarrhea. Little anxious. MEDICATIONS: She takes many medications. She has taken Macrodantin for her UTI in the past, amiodarone 200 mg daily, DuoNeb, Synthroid, vitamin D, iron for anemia, Creon, baby aspirin, Zantac, Lidoderm patch, Nexium, some eyedrops, but she forgot what they are. PHYSICAL EXAMINATION: GENERAL: Well-appearing, nontoxic, comfortable at this time, alert, oriented x3. VITAL SIGNS: She has a 97.4 temperature, 134 pulse, 24 respiratory rate, 117/71 blood pressure, and 97% O2 saturation. HEENT: Head is traumatic some bruises and bumps, where she hit it, but no loss of conscious. There is an abrasion left facial area mild edema. Extraocular muscles intact. Pupils are equal and reactive to light. Throats dry. NECK: Supple, but midline. HEART: Irregular rate. Normal S1 and S2. LUNGS: Decreased breath sounds, but clear to auscultation. ABDOMEN: Soft and nontender. Positive bowel sounds. No masses. No guarding. No rebound. No CVA tenderness. EXTREMITIES: Have no edema. NEUROLOGIC: Cranial nerves II through XII grossly intact. GCS is 15. SKIN: Warm and dry. NEUROLOGIC: Alert and oriented x3. ENDOCRINE: Thyroid midline. No palpable appreciable lymphadenopathy. LABORATORY DATA: EKG showed AFib at 125. CT scan with nonspecific white matter changes of the head. CT of the maxillofacial bone, no fractures seen. There is an abrasion. She had multiple tests. The chest x-ray was also normal. The urine shows small esterase, positive bacteria, which goes along with the urinary tract infection. She has a sodium of 136, potassium 3.1, potassium was replaced, we will check it again, BUN 40, creatinine 0.8, GFR is greater than 60, sugar is 100, calcium 9.1, magnesium 1.3, total bilirubin 0.5, AST is 25, ALT is 34, alkaline phosphatase is 76. Troponin less than 0.01. BNP was 1050. No high TSH, it was very low at 0.02. We have dropped her Synthroid in the office a week or 2 ago. INR is 1.31. She has 21.2 white count, 12.1 hemoglobin, 38.1 hematocrit, and [address] scan of the abdomen and pelvis showed colitis, bladder wall thickening suggestive of cystitis. elevated white count, urinary tract infection, multiple chronic disease. She will have consult with GI and Infectious Disease for the antibiotics, IV fluids, make her n.p.o. Osvaldo Reyes DO PITA
[2017-02-21 07:55] LABS: ALKALINE PHOSPHATASE 51 U/L (38-126); ALT/SGPT 29 U/L (7-56); AST/SGOT 13 U/L (14-36); BILIRUBIN,TOTAL 0.3 mg/dL (0.2-1.3); BLOOD UREA NITROGEN 7 mg/dL (7-21); CALCIUM 7.7 mg/dL (8.4-10.5); CARBON DIOXIDE 25 mmol/L (21-33); CHLORIDE 106 mmol/L (98-107); GFR AFRICAN-AMERICAN > 60; GLUCOSE,RANDOM 124 mg/dL (70-110); SODIUM 137 mmol/L (132-148); TOTAL PROTEIN 5.2 g/dL (5.8-8.3)
--- NOTE | 2017-02-21 08:34 | PN ---
DATE: 02/20/2017 SUBJECTIVE: I saw Joslyn resting comfortably in bed. She is now having right hand and right wrist pain out of the blue, very stiff and hot to touch. She tells me she did not bang it at all. She is also still having diarrhea whenever she eats anything. She is on a clear liquid diet. PHYSICAL EXAMINATION: VITAL SIGNS: Temp 97.8, 96 pulse, 135/61 blood pressure, 20 respiratory rate, 95% O2 sat on room air. HEENT: Head is atraumatic, normocephalic. Throat is moist. NECK: Supple. HEART: Regular rate. LUNGS: Decreased breath sounds, but clear. ABDOMEN: Soft, high bowel sounds, empty. EXTREMITIES: No edema. MEDICATIONS: She is currently on dextrose, Lovenox, Merrem IV, morphine, Protonix IV, vancomycin p.o., Zofran IV, and tramadol for pain for the right wrist. LABORATORY DATA: She has a white count of 9.9, hemoglobin 9.5, hematocrit 30.7, platelets are 214. Sodium 139, potassium 3.0 and I gave her 2K vitamins today. BUN 9, creatinine 0.5, GFR is greater than 60, sugars 129, calcium 7.8, total bilirubin is 0.3. AST is 14, ALT is 27, alkaline phosphatase 55, total protein is 5.3. Many bacteria in the urine. ASSESSMENT AND PLAN: So besides the colitis, Clostridium difficile, urinary tract infection, sepsis, low potassium, now she is having a right hand pain. There is uric acid pending and x-ray pending. Klebsiella was in the urine. Clostridium difficile was positive. She is being seen by Gastroenterology and Infectious Disease. I do not want to increase her diet although she is on clears since she is having diarrhea, but I will increase it to full. Osvaldo Reyes DO
--- NOTE | 2017-02-21 09:16 | PN ---
DATE: 02/20/2017 SUBJECTIVE: The patient is lying in bed. She has some nausea yesterday. No further vomiting. She denies any abdominal pain. Stool for C. diff toxin is MEDICATIONS: Her medications currently include Lovenox 40 mg , meropenem 1 g q. 8 h., pantoprazole 40 mg once a day, 50 mg 3 times a day, 250 mg q. 6 hours. PHYSICAL EXAMINATION: GENERAL: Well bed, in no acute distress. VITAL SIGNS: Reveal temperature of 97.8, blood pressure 135/61, heart rate of . HEENT: . NECK: Supple. CHEST: Lungs are clear. HEART: Reveals regular rate and rhythm. ABDOMEN: Soft, nontender. EXTREMITIES: Show no edema. LABORATORY DATA: From today reveal white blood cell count 9.9, hemoglobin 9.5. Chemistries reveal potassium of 3, albumin of 2.7. IMPRESSION: 1. Pseudomembranous colitis. The patient was treated with antibiotics one month ago. 2. Dehydration. 3. Hypokalemia. 4. Diabetes mellitus. RECOMMENDATIONS: 1. We will increase the vancomycin to 500 mg 4 times a day given her age and initial white blood cell count greater than 20,000. 2. Advance to low-fat lactose-free diet. Dale Patel MD
--- NOTE | 2017-02-21 09:26 | PN ---
DATE: 02/20/2017 SUBJECTIVE: The patient is in bed, in no acute distress who was seen earlier. PHYSICAL EXAMINATION: VITAL SIGNS: Temperature is 97, blood pressure is 130/50, and respiratory rate 16. HEENT: Unremarkable. NECK: Supple. LUNGS: Decreased breath sounds. HEART: Normal S1 and S2. ABDOMEN: Soft and nontender. LABORATORY DATA: Reveals the patient's urine cultures positive for Klebsiella ESBL, Klebsiella in a urine. The blood cultures are negative and stool for C. diff is positive. Of note that the patient's right wrist is swollen today and mild erythema and no evidence of puncture wound from an I&D site. ASSESSMENT AND PLAN: This is an 86-year-old female with hypertension, diabetes, chronic obstructive lung disease, high cholesterol, hypothyroidism, atrial fibrillation, gastroesophageal reflux disease and recently history of extended-spectrum beta-lactamase Klebsiella now presenting with sepsis and with extended-spectrum beta-lactamase Escherichia coli in the urine as a source and pseudomembranous colitis with negative blood cultures and now today the patient has a right wrist swelling. The patient is on IV Flagyl, IV meropenem, and p.o. vancomycin. The patient's diarrhea has improved. We will discontinue the IV Flagyl and just continue with the p.o. vancomycin. We will order a uric acid, I am concerned about the gout of the right of the right wrist. We will repeat a urinalysis and the urine culture. We will follow closely with you. Rj Godfrey MD
[2017-02-21] MEDS: Enoxaparin 40 mg Syringe SC SCH (10:46)
[2017-02-21] MEDS: Vancomycin 25 MG/ML PO SCH ×4 (10:48→21:44)
[2017-02-21] MEDS: Amylase/Lipase/Protease 5,000 Units ECC PO SCH ×2 (11:55→17:21)
--- NOTE | 2017-02-21 11:57 | PN ---
DATE: 02/21/2017 SUBJECTIVE: The patient is lying in bed, comfortable. She still has some pain and swelling in her right wrist. She had one episode of diarrhea yesterday. She has not had any further vomiting, nausea. She denies any rectal bleeding or abdominal pain. MEDICATIONS: Currently include colchicine 0.6 mg once a day, Lovenox 40 mg subcu daily, meropenem 1 g IV q. 8 h., morphine sulfate, potassium chloride, pantoprazole, tramadol, vancomycin 500 mg four times a day and Zofran 4 mg IV q. 4 hours as needed for nausea. PHYSICAL EXAMINATION: VITAL SIGNS: Reveal temperature of 97.3, blood pressure 158/88, heart rate 98. HEENT: Reveal sclerae to be white. Oral mucosa is moist. NECK: Supple. CHEST: Reveal lungs to be clear. HEART: Reveals regular rate and rhythm. ABDOMEN: Soft, nontender. EXTREMITIES: Show no pedal edema. Again, she does have erythema and some soft tissue swelling to her right wrist. LABORATORY DATA: Reveal white blood cell count 8.2, hemoglobin 9.4. Chemistries reveal potassium of 3, AST 29, ALT 51. Her uric acid level was high at 6.4. IMPRESSION: 1. Pseudomembranous colitis. 2. Hypokalemia. 3. Pain in her right wrist with erythema, rule out gout. X-ray show osteoarthritis of the right wrist. RECOMMENDATIONS: 1. The patient has been started on colchicine. 2. Continue vancomycin 500 mg four times a day 3. I will start the patient on Pancrease that she does have a history of pancreatic insufficiency. 4. Consider discontinuing IV meropenem. Dale Patel MD
--- NOTE | 2017-02-21 15:57 | PN ---
DATE: 02/21/2017 SUBJECTIVE: She is resting comfortably in bed. She is doing better. Still has some diarrhea, but not as bad. She is also quite hungry. GI increased her diet. She is still currently on dextrose, Lovenox, Merrem, morphine, Protonix, vancomycin, and Zofran. She is here with colitis, C. diff, UTI, sepsis, low potassium, and now elevated uric acid and looks like she is having gout in the right hand. Added colchicine to her mix of medications. We are trying to get her to TCU today. PHYSICAL EXAMINATION: VITAL SIGNS: She has a 97.3 temperature, 98 pulse, 158/88 blood pressure, 18 respiratory rate, 99% O2 sat on room air. HEENT: Head is atraumatic, normocephalic. Throat is moist. NECK: Supple. HEART: Regular rate. LUNGS: Decreased breath sounds, but clear. ABDOMEN: Soft. Positive bowel sounds. EXTREMITIES: No edema. Right hand is painful in the wrist. LABORATORY DATA: She has had Klebsiella in the urine and positive Clostridium difficile. She had x-rays of the right hand and right wrist. Mild osteoarthritis and no acute findings of the wrist. Uric acid ends up being elevated. She has a white count 8.2, hemoglobin 9.4, hematocrit 30.5, platelets 218. She has 137 sodium, potassium is 3, I am going to replace potassium again. BUN is 7, creatinine 0.5, GFR is greater than 60, sugar is 124, calcium is 7.7, total bilirubin is 0.3, AST is 30, ALT is 29, alkaline phosphatase is 51. Uric acid is 6.4, elevated. PLAN: I will give her some colchicine and some potassium replacement. Hopefully, we can get her to physical therapy at TCU, to finish out the antibiotics and get her some physical therapy. Osvaldo Reyes DO
[2017-02-22] MEDS: Morphine 2 mg/ml ISec IVP PRN (00:22)
[2017-02-22] MEDS: Meropenem IV 1 gm in NS 50 ML IVPB SCH ×3 (05:21→21:48)
[2017-02-22] MEDS: Pantoprazole 40 mg EC Tab PO SCH (05:22)
[2017-02-22 07:17] LABS: HEMATOCRIT 31.8 % (36.0-48.0); MEAN CELL VOLUME 77.6 fl (80.0-105.0); MEAN CORPUSCULAR HEMOGLOBIN 24.1 pg (25.0-35.0); MEAN CORPUSCULAR HGB CONC 31.1 g/dl (31.0-37.0); MEAN PLATELET VOLUME 11.7 fl (7.0-11.0); RED CELL DISTRIBUTION WIDTH 18.4 % (11.5-14.5); WHITE BLOOD COUNT 7.7 10^3/ul (4.5-11.0)
[2017-02-22 07:53] LABS: ALB/GLOB RATIO 0.9 (1.1-1.8); ALKALINE PHOSPHATASE 50 U/L (38-126); ALT/SGPT 21 U/L (7-56); AST/SGOT 16 U/L (14-36); BILIRUBIN,TOTAL 0.3 mg/dL (0.2-1.3); BLOOD UREA NITROGEN 4 mg/dL (7-21); CALCIUM 7.9 mg/dL (8.4-10.5); CARBON DIOXIDE 24 mmol/L (21-33); CHLORIDE 106 mmol/L (98-107); GFR AFRICAN-AMERICAN > 60; GLUCOSE,RANDOM 116 mg/dL (70-110); POTASSIUM 3.3 mmol/L (3.6-5.0); SODIUM 137 mmol/L (132-148); TOTAL PROTEIN 5.5 g/dL (5.8-8.3)
[2017-02-22] MEDS: Dextrose 5%/0.45% NS 1,000 ML IV SCH (10:35)
[2017-02-22] MEDS: Enoxaparin 40 mg Syringe SC SCH (10:36)
[2017-02-22] MEDS: Amylase/Lipase/Protease 5,000 Units ECC PO SCH ×3 (10:36→17:31)
[2017-02-22] MEDS: Vancomycin 25 MG/ML PO SCH ×4 (10:38→21:51)
--- NOTE | 2017-02-22 14:17 | PN ---
DATE: 02/22/2017 SUBJECTIVE: The patient is sitting up in bed. She denies any nausea, vomiting, diarrhea. She complains of persistent pain and swelling in her right wrist. MEDICATIONS: Her medications currently include colchicine 0.6 mg once a day, Lovenox 40 mg subcu daily, meropenem 1 g IV q. 8 hours, morphine sulfate 1 g IV q. 8 hours, Pancrease 3 times a day with meals, Protonix 40 mg once a day, tramadol 50 mg three times a day as needed for pain, vancomycin 500 mg four times a day, Zofran 4 mg IV q. 4 hours as needed for nausea. PHYSICAL EXAMINATION: VITAL SIGNS: Reveal temperature of 97.8, blood pressure 120/58, heart rate 79. HEENT: Reveal sclerae to be white. Conjunctivae pale. NECK: Supple. CHEST: Reveal lungs to be clear. HEART: Reveals regular rate and rhythm. ABDOMEN: Soft, flabby, nontender. EXTREMITIES: Show some erythema and mild swelling of her right wrist. LABORATORY DATA: Reveal hemoglobin 9.9, which is stable, white blood cell count 7.7, platelet count 249,000. Chemistries reveal potassium of 3.3, BUN 4, creatinine 0.5. AST, ALT, alk phos were all normal. IMPRESSION: 1. Pseudomembranous colitis. 2. Chronic anemia. 3. Acute arthritis of the right wrist, probable gout. RECOMMENDATIONS: 1. Recommendations p.o. vancomycin 500 mg four times a day. 2. Continue colchicine. Dale Patel MD
--- NOTE | 2017-02-22 18:21 | PN ---
DATE: 02/22/2017 SUBJECTIVE: The patient is in bed, in no acute distress. PHYSICAL EXAMINATION VITAL SIGNS: Temperature is 97, blood pressure is 120/50, respiratory rate of 18. HEENT: Unremarkable. NECK: Supple. LUNGS: Have decreased breath sounds. HEART: Normal S1, S2. ABDOMEN: Soft, nontender. LABORATORY DATA: Reveals a white count of 7.7, hemoglobin of 9, platelets of 249. Chemistries are noted. BUN of 4, creatinine of 0.5. Urinalysis is noted. Microbiology reveals Klebsiella in the urine. Review of the orders reveals the patient to be on meropenem. ASSESSMENT AND PLAN: This is an 86-year-old female with hypertension, diabetes, chronic obstructive lung disease, high cholesterol, hypothyroidism, atrial fibrillation, gastroesophageal reflux disease and a recently history of extended spectrum beta lactamase Klebsiella, now presenting with sepsis with extended spectrum beta lactamase Escherichia coli in the urine and a pseudomembranous colitis and currently on p.o. vancomycin and IV meropenem. We will follow closely with you. Rj Godfrey MD
[2017-02-23] MEDS: Dextrose 5%/0.45% NS 1,000 ML IV SCH (04:11)
[2017-02-23] MEDS: Meropenem IV 1 gm in NS 50 ML IVPB SCH ×2 (05:12→13:17)
[2017-02-23] MEDS: Pantoprazole 40 mg EC Tab PO SCH (05:12)
--- NOTE | 2017-02-23 06:48 | DS ---
SUBJECTIVE: She is sitting out of bed to chair. She is still having abdominal issues, also having right hand with gout. She is having colitis, urinary tract infection, sepsis, low potassium, and she is slowly improving. She is currently on colchicine, dextrose, Lovenox, Merrem, morphine, Creon, potassium replacement, Protonix, tramadol, vancomycin p.o., and Zofran. PHYSICAL EXAMINATION: VITAL SIGNS: She has a 97.8 temp, 79 pulse, 120/58 blood pressure, 20 respiratory rate, 96% saturation on room air. HEENT: Head is atraumatic and normocephalic. HEART: Regular rate. LUNGS: Clear to auscultation. ABDOMEN: Soft, nontender. Positive bowel sounds. EXTREMITIES: No edema. Gout is slowly improving. LABORATORY DATA: She has 7.7 white count, 9.9 hemoglobin, 31.8 hematocrit, with 249 platelets. She has 137 sodium, potassium 3.3, replace the potassium, BUN 4, creatinine 0.5, GFR is greater than 60, sugar is 107, calcium is 7.9, total bilirubin is 0.3, AST is 16, ALT is 21, alkaline phosphatase is total protein is 5.5. Overall, she is improving. ASSESSMENT AND PLAN: Clostridium difficile colitis, urinary tract infection, sepsis, low potassium, and hoping to get her to TCU to finish off the antibiotics and physical therapy. Osvaldo Reyes DO MTDD
[2017-02-23] MEDS: Amylase/Lipase/Protease 5,000 Units ECC PO SCH ×2 (08:21→11:48)
[2017-02-23 09:47] VITALS: BP 139/67; PULSE 89; RESP 18; TEMP 98.5; O2SAT 90
--- NOTE | 2017-02-23 10:18 | PN ---
DATE: SUBJECTIVE: I saw Joslyn resting comfortably in bed. She slept fairly well. She is still having some bowel issues. She has some diarrhea, but also had 2 formed bowel movements, the nurse told me, so she is starting to get better. She is walking a little bit better, getting little bit stronger. She is eating little bit better. She is on Colcrys, dextrose, Lovenox, Merrem IV, morphine, amylase, Protonix, Ultram, vancomycin p.o. and Zofran. PHYSICAL EXAMINATION: VITAL SIGNS: 97.8 temp, 79 pulse, 120/58 blood pressure, 20 respiratory rate, 96% O2 sat on room air. HEENT: Head is atraumatic, normocephalic. Throat is moist. NECK: Supple. HEART: Regular rate. LUNGS: Clear to auscultation. ABDOMEN: Soft. Positive bowel sounds. EXTREMITIES: No edema. The right hand is stiff, but getting a little bit better from the gout. LABORATORY DATA: She has a 7.7 white count, 9.9 hemoglobin, 31.8 hematocrit with 249 platelets. She has 137 sodium, potassium 3.2, we replaced potassium, 99 sugar, 7.9 calcium, 0.3 total bilirubin, AST is 16, ALT is 21, alkaline phosphatase is 50, and total protein is 5.5. ASSESSMENT AND PLAN: She is being seen by Infectious Disease and GI. I do think she is starting to improve. I am trying to get her to physical therapy at TCU, to finish out the antibiotics as per Infectious Disease. I will continue with p.o. vancomycin and IV Merrem until ID stops her. I will try and get her to TCU if we can. I will check her labs tomorrow. Continue with aggressive treatment and care on Joslyn Ellis with colitis, Clostridium difficile and debility. Osvaldo Reyes DO
[2017-02-23] MEDS: Enoxaparin 40 mg Syringe SC SCH (10:43)
[2017-02-23] MEDS: Vancomycin 25 MG/ML PO SCH ×2 (10:47→13:17)
--- NOTE | 2017-02-23 12:35 | PN ---
DATE: 02/23/2017 SUBJECTIVE: The patient is lying in bed, comfortable. She had one episode of diarrhea this morning. She denies any further nausea, vomiting. She feels better. Her right wrist also feels better. She denies any abdominal pain, nausea, vomiting. She is tolerating solid foods. OBJECTIVE: VITAL SIGNS: Reveal temperature of 98.5, blood pressure 139/67, heart rate of 89. HEENT: Reveal sclerae to be white. Conjunctivae pale. NECK: Supple. CHEST: Reveal lungs to be clear. HEART: Reveals regular rate and rhythm. ABDOMEN: Soft, nontender. EXTREMITIES: Show no edema. There is marked improvement of her right wrist with less erythema and less swelling. LABORATORY DATA: No new laboratory data are available. IMPRESSION: 1. Pseudomembranous colitis. 2. Chronic anemia. 3. Acute arthritis of her right wrist most likely secondary to gout. RECOMMENDATIONS: 1. Continue vancomycin 500 mg p.o. four times a day for total of 14-day treatment. 2. Continue colchicine. Dale Patel MD
--- NOTE | 2017-02-24 00:21 | PN ---
DATE: 02/23/2017 SUBJECTIVE: The patient is seen earlier today in room 576, bed 2. No fevers, no chills, no nausea, no vomiting, no diarrhea reported. PHYSICAL EXAMINATION: VITAL SIGNS: Temperature is 98, blood pressure is 130/90, and respiratory rate of 16. HEENT: Unremarkable. NECK: Supple. LUNGS: Have decreased breath sounds. HEART: Normal S1, S2. ABDOMEN: Soft, nontender. LABORATORY EXAMINATION: Reveals a white count of 7.7, hemoglobin of 9, platelets of 249. Coagulation is noted. Chemistries are reviewed with a BUN of 4, creatinine of 0.5. Urinalysis is noted. Microbiology reveals Klebsiella in the urine. Repeat urine culture is negative. Stool for C. diff antigen is positive, but the toxin is negative. ASSESSMENT AND PLAN: This is an 86-year-old female with hypertension, chronic obstructive lung disease, high cholesterol, hypothyroidism, atrial fibrillation, gastroesophageal disease, history of extended spectrum beta-lactamase Klebsiella, presented with sepsis with extended spectrum beta-lactamase Escherichia coli in the urine and pseudomembranous colitis, on p.o. vancomycin. Complete the p.o. vancomycin therapy as discussed, and we will follow with you. Rj Godfrey MD
--- NOTE | 2017-02-24 19:50 | PN ---
DATE: 02/21/2017 SUBJECTIVE: The patient is in bed, in no acute distress, nontoxic. The patient was seen early this morning in 576, bed 2. OBJECTIVE: VITAL SIGNS: On exam, temperature is 98, blood pressure is 140/70, respiratory rate of 20, heart rate of 96. HEENT: Examination of HEENT is unremarkable. NECK: Supple. LUNGS: Have decreased breath sounds. HEART: Normal S1 and S2. ABDOMEN: Soft, nontender. No rebound or guarding. No masses. LABORATORY EXAMINATION: Reveals a white count of 8.2, hemoglobin of 9, platelets of 218. Chemistries reveal a BUN of 7, creatinine of 0.5. Urinalysis is noted. Microbiology reveals blood cultures are no growth. Klebsiella pneumoniae ESBL in the urine, stool for C. diff antigen is positive, the toxin is negative. The patient had an x-ray of the wrist. ASSESSMENT AND PLAN: This is an 86-year-old female with hypertension, diabetes, chronic obstructive lung disease, high cholesterol, hypothyroidism, atrial fibrillation, gastroesophageal reflux disease, recent history of ESBL, presenting with sepsis with an ESBL E. coli in the urine as the source and pseudomembranous colitis with wrist swollen is consistent with gout, currently on p.o. vancomycin, would complete 10 to 14 days of p.o. vancomycin, today is day #4 of 14 days of p.o. vancomycin. The patient would complete 4 to 7 days of the meropenem, today is day #4 of 4 to 7 days of IV meropenem. The patient is started treatment on colchicine 0.[address] Osvaldo Reyes, and we will follow clinically and Dr. note is reviewed. Rj Godfrey MD
== END 2017-02-23 15:15 | DRG 872 ==
LOC: ED 16:08 → OBSVTOIN 20:38 → ERH 20:38 → 5RSO 21:40 → OBSVTOIN 02-18 11:12 → INTOOBSV 02-18 11:12
PROVIDERS: ADMIT Family Medicine; ATTEND Family Medicine
DX: A41.9 Sepsis, unspecified organism (principal); A04.72 Enterocolitis due to Clostridium difficile, not specified as recurrent; I48.0 Paroxysmal atrial fibrillation; E86.0 Dehydration; E11.9 Type 2 diabetes mellitus without complications; D64.9 Anemia, unspecified; E03.9 Hypothyroidism, unspecified; E78.00 Pure hypercholesterolemia, unspecified; N39.0 Urinary tract infection, site not specified; J44.9 Chronic obstructive pulmonary disease, unspecified; I10 Essential (primary) hypertension; R32 Unspecified urinary incontinence; M81.0 Age-related osteoporosis without current pathological fracture; K21.9 Gastro-esophageal reflux disease without esophagitis; E87.6 Hypokalemia; M19.031 Primary osteoarthritis, right wrist; M10.9 Gout, unspecified; Z16.12 Extended spectrum beta lactamase (ESBL) resistance; K31.819 Angiodysplasia of stomach and duodenum without bleeding; K57.30 Diverticulosis of large intestine without perforation or abscess without bleeding; K55.20 Angiodysplasia of colon without hemorrhage; Z91.81 History of falling; Z87.891 Personal history of nicotine dependence

== ENCOUNTER 2017-02-23 15:20 | Inpatient (IN) | payer BC, OTHER ==
[2017-02-23 16:02] VITALS: BMI 27.9
[2017-02-23] MEDS ORDERED: Morphine 2 mg/ml ISec IVP PRN (16:04)
[2017-02-23] MEDS: Amylase/Lipase/Protease 5,000 Units ECC PO SCH (17:30)
[2017-02-23] MEDS: Dextrose 5%/0.45% NS 1,000 ML IV SCH (18:16)
[2017-02-23] MEDS: Vancomycin 25 MG/ML PO SCH ×2 (18:25→21:51)
[2017-02-23] MEDS ORDERED: Pneumococcal 23-Valent Vaccine IM ONE (23:11)
[2017-02-23] MEDS ORDERED: Influenza Vaccine 60 mcg/0.5 mL SYR (4YR UP) IM ONE (23:11)
[2017-02-24] MEDS: Enoxaparin 40 mg Syringe SC SCH (06:00)
[2017-02-24] MEDS: Pantoprazole 40 mg EC Tab PO SCH (06:01)
[2017-02-24 07:45] LABS: BASO # 0.03 K/mm3 (0.0-2.0); BASO % 0.5 % (0.0-3.0); EOS # 0.2 (0.0-0.7); EOS % 2.5 % (1.5-5.0); GRAN # 3.62 (1.4-6.5); GRAN % 59.6 % (50.0-68.0); HEMATOCRIT 31.3 % (36.0-48.0); LYMPH # 1.1 (1.2-3.4); LYMPH % 18.8 % (22.0-35.0); MEAN CELL VOLUME 77.9 fl (80.0-105.0); MEAN CORPUSCULAR HEMOGLOBIN 23.9 pg (25.0-35.0); MEAN CORPUSCULAR HGB CONC 30.7 g/dl (31.0-37.0); MEAN PLATELET VOLUME 10.8 fl (7.0-11.0); MONO # 1.1 (0.1-0.6); MONO % 18.6 % (1.0-6.0); RED CELL DISTRIBUTION WIDTH 18.3 % (11.5-14.5); WHITE BLOOD COUNT 6.1 10^3/ul (4.5-11.0)
[2017-02-24 08:13] LABS: ALB/GLOB RATIO 0.9 (1.1-1.8); ALKALINE PHOSPHATASE 52 U/L (38-126); ALT/SGPT 31 U/L (7-56); AST/SGOT 16 U/L (14-36); BILIRUBIN,TOTAL 0.3 mg/dL (0.2-1.3); BLOOD UREA NITROGEN 3 mg/dL (7-21); CARBON DIOXIDE 25 mmol/L (21-33); CHLORIDE 105 mmol/L (98-107); GFR AFRICAN-AMERICAN > 60; GLUCOSE,RANDOM 96 mg/dL (70-110); POTASSIUM 3.3 mmol/L (3.6-5.0); SODIUM 139 mmol/L (132-148); TOTAL PROTEIN 5.2 g/dL (5.8-8.3)
[2017-02-24] MEDS: Amylase/Lipase/Protease 5,000 Units ECC PO SCH ×3 (08:28→18:05)
[2017-02-24] MEDS: Dextrose 5%/0.45% NS 1,000 ML IV SCH (08:28)
[2017-02-24] MEDS: Vancomycin 25 MG/ML PO SCH ×4 (09:47→22:08)
--- NOTE | 2017-02-24 10:53 | PN ---
DATE: 02/24/2017 SUBJECTIVE: The patient was seen in [facility]. She is walking around in her room. She had a formed bowel movement this morning. She denies any nausea, vomiting, abdominal pain. OBJECTIVE: VITAL SIGNS: Reveal temperature of 97.2, blood pressure 132/77, heart rate of 69. HEENT: Reveal sclerae to be white. Conjunctivae pink. NECK: Supple. CHEST: Lungs are clear. HEART EXAM: Reveals regular rate and rhythm. ABDOMEN: Soft, nontender. EXTREMITIES: Show no edema. LABORATORY DATA: Reveal white blood cell count 6.1, hemoglobin 9.6, potassium of 3.3. IMPRESSION: 1. Pseudomembranous colitis. 2. Chronic anemia. 3. Acute arthritis of her right wrist, most likely gout. RECOMMENDATIONS: 1. Continue vancomycin 500 mg four times a day 2. Continue colchicine 0.6 mg once a day. Dale Patel MD
--- NOTE | 2017-02-24 14:43 | HP ---
HISTORY OF PRESENT ILLNESS: She is now on the Transitional Care Unit. She was in the [facility] for status post fall with fractured ribs VII, VIII, and IX. She also had bouts of diarrhea, ended up being C. diff. She has nausea and vomiting. Now, she has pseudomembranous colitis, C. diff, debility, chronic anemia, history of fall with fractured ribs and now she is going to continue with IV antibiotic, p.o. antibiotics, physical therapy before she goes home from U. PAST MEDICAL HISTORY: She is an 86-year-old female with history of diabetes, hypothyroidism, AFib, fractured rib VII, VIII, and IX from a fall, hypertension, COPD, cataract surgery diabetes, hypothyroidism. She has had blood transfusions, arthritis, constipation, diverticulosis, ulcers, abdominal surgery, cholecystectomy, appendectomy, and incontinence of urine. FAMILY HISTORY: There is hypertension and diabetes in the family. SOCIAL HISTORY: A former smoker. No alcohol. No drugs. ALLERGIES: NO KNOWN DRUG ALLERGIES. REVIEW OF SYSTEMS: She is doing better now in Transitional Care Unit, sitting up, eating breakfast. She is still having watery bowels mixed with some hard bowels is starting to form. She is on p.o. antibiotics for C. diff. She had fallen on her head, but that is okay. She is weak, but getting stronger. She is talking. No more nausea or vomiting. Bowels are starting to heal up. No acute vision changes or hearing changes. No sore throat. No chest pain or palpitations. No shortness of breath. There is some abdominal discomfort, some diarrhea and hard stool Extremities, she is weak, but she is able to walk some now with a walker. Getting around better. PHYSICAL EXAMINATION: VITAL SIGNS: She has a 97.2 temperature, 69 pulse, 132/77 blood pressure, 18 respiratory rate, and 100% on O2 saturation on room air. HEENT: Head is atraumatic, normocephalic. Throat is moist. NECK: Supple. HEART: Regular rate. LUNG: Clear to auscultation with decreased breath sounds. Tenderness to her right VII, VIII, and IX, but improving. ABDOMEN: Soft and nontender. Positive bowel sounds. EXTREMITIES: No edema. SKIN: For the most part is intact. No palpable lymphadenopathy appreciated. LABORATORY DATA: She has a 139 sodium, potassium 3.3. We will replace potassium. BUN 3 and creatinine 0.5. GFR greater than 60, sugar is 100, calcium is 8, total bilirubin is 0.3, AST is 16, ALT 31, alk phos 52, total protein is 5.2. She has a white count of 6.1, hemoglobin 9.6, hematocrit 31.3, and platelets are 258. PLAN: She was seen by the stump shooter. She is on CCU for physical therapy, IV antibiotics and p.o. antibiotics. She is on Colcrys for right wrist gout, IV dextrose. She has Lovenox, Merrem IV, morphine as needed, Creon, Protonix, Ultram, vancomycin p.o., and Zofran as needed. We will replace the potassium and calcium. We will check her labs tomorrow. Osvaldo Reyes DO PITA
--- NOTE | 2017-02-25 00:18 | CON ---
DATE: 02/24/2017 LOCATION: The patient is seen in room 322. CHIEF COMPLAINT: Weakness times several days. HISTORY OF PRESENT ILLNESS: This is an 86-year-old female with past medical history significant for hypertension, diabetes, high cholesterol, hypothyroidism, atrial fib, asthma, gastroesophageal reflux disease, osteoarthritis, osteoporosis. The patient has a history of right carotid stent placement, long-time COPD, smoker, who is in acute care with diagnosis of sepsis with an ESBL E. coli in the urine culture, and pseudomembranous colitis, on p.o. vancomycin. REVIEW OF SYSTEMS: Reveals the patient has no nausea, no vomiting, no chest pain. She is doing much better. PAST MEDICAL HISTORY: Significant for GERD, osteoarthritis, osteoporosis, end-stage COPD, hypertension, diabetes, high cholesterol, hypothyroidism, atrial fibrillation, and asthma. PAST SURGICAL HISTORY: Significant for right carotid stent placement. ALLERGIES: THE PATIENT HAS NO KNOWN ALLERGIES. PHYSICAL EXAMINATION: VITAL SIGNS: The patient's temperature is 97, blood pressure 130/70, respiratory rate of 18, heart rate 69. HEENT: Unremarkable. NECK: Supple. LUNGS: Have decreased breath sounds. HEART: Normal S1, S2. ABDOMEN: Soft, nontender. LABORATORY EXAMINATION: Reveals a white count of 6.1, hemoglobin of 9, platelets of 258. BUN of 3, creatinine of 0.5, and review of the orders reveals the patient to be on p.o. vancomycin and IV meropenem. ASSESSMENT AND PLAN: An 86-year-old female with hypertension and diabetes and chronic obstructive pulmonary disease and high cholesterol, hypothyroidism, atrial fibrillation, gastroesophageal reflux disease, osteoarthritis, osteoporosis with sepsis and extended-spectrum beta-lactamase Escherichia coli in the urine. Now repeat urinalysis and urine cultures are negative, and we will discontinue the meropenem and complete with p.o. vancomycin for pseudomembranous colitis, and we can discontinue the isolation since the repeat urine culture is negative for the urine, and we will follow closely with you. Rj Godfrey MD
[2017-02-25] MEDS: Dextrose 5%/0.45% NS 1,000 ML IV SCH (03:22)
[2017-02-25] MEDS: Pantoprazole 40 mg EC Tab PO SCH (05:06)
[2017-02-25] MEDS: Enoxaparin 40 mg Syringe SC SCH (06:32)
[2017-02-25 07:13] LABS: HEMATOCRIT 29.8 % (36.0-48.0); MEAN CELL VOLUME 76.8 fl (80.0-105.0); MEAN CORPUSCULAR HEMOGLOBIN 23.7 pg (25.0-35.0); MEAN CORPUSCULAR HGB CONC 30.9 g/dl (31.0-37.0); MEAN PLATELET VOLUME 10.6 fl (7.0-11.0); RED CELL DISTRIBUTION WIDTH 18.2 % (11.5-14.5); WHITE BLOOD COUNT 6.8 10^3/ul (4.5-11.0)
[2017-02-25 07:44] LABS: ALB/GLOB RATIO 0.9 (1.1-1.8); ALKALINE PHOSPHATASE 54 U/L (38-126); ALT/SGPT 24 U/L (7-56); AST/SGOT 19 U/L (14-36); BILIRUBIN,TOTAL 0.4 mg/dL (0.2-1.3); BLOOD UREA NITROGEN 2 mg/dL (7-21); CALCIUM 7.9 mg/dL (8.4-10.5); CARBON DIOXIDE 26 mmol/L (21-33); CHLORIDE 104 mmol/L (98-107); GFR AFRICAN-AMERICAN > 60; GLUCOSE,RANDOM 90 mg/dL (70-110); POTASSIUM 3.2 mmol/L (3.6-5.0); SODIUM 137 mmol/L (132-148); TOTAL PROTEIN 5.3 g/dL (5.8-8.3)
[2017-02-25] MEDS: Amylase/Lipase/Protease 5,000 Units ECC PO SCH ×3 (08:55→17:21)
[2017-02-25] MEDS: Potassium Chloride 20 mEq ER Tab PO SCH (08:55)
[2017-02-25] MEDS: Calcium-Vit D 250 mg-125 Units Tab UD PO SCH (09:02)
[2017-02-25] MEDS: Vancomycin 25 MG/ML PO SCH ×4 (10:41→21:30)
--- NOTE | 2017-02-25 11:44 | PN ---
DATE: 02/25/2017 SUBJECTIVE: The patient is seen ambulating in the corridor in [facility]. She had one loose bowel movement earlier today. She denies any vomiting. She is tolerating solid foods. OBJECTIVE: VITAL SIGNS: Reveal temperature of 98.6, blood pressure of 136/66, and heart rate of 84. HEENT: Reveal sclerae to be white. Conjunctivae pink. NECK: Supple. CHEST: Lungs are clear. HEART: Reveals regular rate and rhythm. ABDOMEN: Soft and nontender. EXTREMITIES: Show no edema. LABORATORY DATA: Reveal hemoglobin of 9.2 and white blood cell count of 6.8. Potassium of 3.2, BUN of 2, and creatinine of 0.5. IMPRESSION: 1. Pseudomembranous colitis. 2. Anemia. 3. Hypokalemia. RECOMMENDATIONS: 1. Continue vancomycin 500 mg 4 times a day. 2. Replace potassium. Dale Patel MD
--- NOTE | 2017-02-25 13:14 | PN ---
DATE: SUBJECTIVE: I saw Taqueria resting comfortably, sitting up in bed. She is doing better. She slept fairly well. She is in good spirit. She says she is eating better. The pain in her right ribs is a little better not as bad, also the right hand is better, no complaints. She is trying a physical therapy, getting more steady and more balanced and the bowels are starting to form. She is on Colcrys, potassium, Lovenox, morphine as needed, calcium, Pancrease, Protonix, Ultram, vancomycin p.o., and Zofran. I stopped the IV fluids today because her labs improved and bowels are forming. PHYSICAL EXAMINATION: VITAL SIGNS: She has 98.6 temp, 84 pulse, 136/66 blood pressure, 20 respiratory rate, 94% O2 sat on room air. HEENT: Head is atraumatic, normocephalic. Throat is moist. NECK: Supple. HEART: Regular rate. LUNGS: Decreased breath sounds, but clear to auscultation. ABDOMEN: Soft and nontender. Positive bowel sounds. EXTREMITIES: No edema and the right rib pain is less and the right hand is less with pain. LABORATORY DATA: She has 6.8 white count, 9.2 hemoglobin, 29.8 hematocrit with 273 platelets. Sodium 137, potassium 3.2, she is starting potassium 20 mEq daily now, BUN 2, creatinine 0.5, GFR is greater than 60, sugar 90, calcium 7.9, total bili is 0.4, AST is 19, ALT is 24, and alkaline phosphatase is 54. ASSESSMENT AND PLAN: We will check her labs tomorrow. Encourage her to eat well. Encourage her to do physical therapy well and she will be here for physical therapy before she goes home. She has Clostridium difficile colitis, pseudomembranous colitis, debility, anemia, and arthritis with gout. Osvaldo Reyes DO
--- NOTE | 2017-02-25 22:38 | PN ---
DATE: 02/25/2017 LOCATION: In room 322. SUBJECTIVE: The patient was seen earlier this morning. No fevers. No chills. No nausea. PHYSICAL EXAMINATION VITAL SIGNS: Temperature is 98, blood pressure is 112/70, and respiratory rate of 16. HEENT: Unremarkable. NECK: Supple. LUNGS: Have decreased breath sounds. HEART: Normal S1, S2. ABDOMEN: Soft. LABORATORY DATA: Reveals the patient, there is a white count of 6.1, hemoglobin of 9, platelets of 273. BUN of 2, creatinine of 0.5. Microbiology reveals blood cultures are no growth, urine culture Klebsiella. Stool C. diff antigen is positive, bu toxin is negative. Review of order reveals the patient is on p.o. vancomycin. ASSESSMENT AND PLAN: This is an 86-year-old female with hypertension, diabetes, chronic obstructive lung disease, high cholesterol, hypothyroidism, atrial fibrillation, gastroesophageal reflux disease, osteoarthritis, osteoporosis with sepsis with extended spectrum beta-lactamase Escherichia coli in the urine and then pseudomembranous colitis, now on p.o. vancomycin, improving. We will follow closely with you. Rj Godfrey MD
[2017-02-26] MEDS: Pantoprazole 40 mg EC Tab PO SCH (05:42)
[2017-02-26] MEDS: Enoxaparin 40 mg Syringe SC SCH (05:42)
[2017-02-26 07:50] LABS: HEMATOCRIT 29.8 % (36.0-48.0); MEAN CELL VOLUME 77.4 fl (80.0-105.0); MEAN CORPUSCULAR HEMOGLOBIN 24.4 pg (25.0-35.0); MEAN CORPUSCULAR HGB CONC 31.5 g/dl (31.0-37.0); MEAN PLATELET VOLUME 10.4 fl (7.0-11.0); RED CELL DISTRIBUTION WIDTH 18.3 % (11.5-14.5); WHITE BLOOD COUNT 6.2 10^3/ul (4.5-11.0)
[2017-02-26 08:11] LABS: ALB/GLOB RATIO 0.9 (1.1-1.8); ALKALINE PHOSPHATASE 58 U/L (38-126); ALT/SGPT 27 U/L (7-56); AST/SGOT 20 U/L (14-36); BILIRUBIN,TOTAL 0.5 mg/dL (0.2-1.3); BLOOD UREA NITROGEN 3 mg/dL (7-21); CALCIUM 7.9 mg/dL (8.4-10.5); CARBON DIOXIDE 26 mmol/L (21-33); CHLORIDE 104 mmol/L (98-107); GFR AFRICAN-AMERICAN > 60; GLUCOSE,RANDOM 88 mg/dL (70-110); POTASSIUM 3.2 mmol/L (3.6-5.0); SODIUM 136 mmol/L (132-148); TOTAL PROTEIN 5.3 g/dL (5.8-8.3)
[2017-02-26] MEDS: Potassium Chloride 20 mEq ER Tab PO SCH (08:23)
[2017-02-26] MEDS: Amylase/Lipase/Protease 5,000 Units ECC PO SCH ×3 (08:23→17:36)
[2017-02-26] MEDS: Vancomycin 25 MG/ML PO SCH ×4 (10:35→21:45)
[2017-02-26] MEDS: Calcium-Vit D 250 mg-125 Units Tab UD PO SCH (10:36)
[2017-02-26] MEDS ORDERED: Potassium Chloride 20 mEq ER Tab PO ONE (13:03)
--- NOTE | 2017-02-26 14:43 | PN ---
DATE: 02/26/2017 SUBJECTIVE: The patient is in bed in no acute distress, nontoxic. No fevers and chills. PHYSICAL EXAMINATION: VITAL SIGNS: Temperature is 97, blood pressure is 120/70, and respiratory rate of 16. HEENT: Unremarkable. NECK: Supple. LUNGS: Have decreased breath sounds. HEART: Normal S1 and S2. ABDOMEN: Soft. LABORATORY EXAMINATION: Reveals the patient's white count of 6, hemoglobin of 9, and platelets of 258. Chemistries are noted. Microbiology is noted. ASSESSMENT AND PLAN: This is an 86-year-old female with hypertension, diabetes, chronic obstructive lung disease, high cholesterol, hypothyroidism, atrial fibrillation, gastroesophageal reflux disease, osteoarthritis, osteoporosis with sepsis with extended-spectrum beta-lactamase Escherichia coli in the urine and pseudomembranous colitis on p.o. vancomycin. Review of orders reveals the patient's p.o. vancomycin to be active. We will follow with you. Rj Godfrey MD
--- NOTE | 2017-02-26 17:15 | PN ---
DATE: 02/26/2017 SUBJECTIVE: I saw Joslyn at lunchtime. She is eating her lunch very well. She tells me she had some loose bowels, not diarrhea. The other day, she had formed stools, so was still fighting the C. diff pseudomembranous colitis. She is on Colcrys, potassium, Lovenox, morphine, Os-Ignacio, Creon, Protonix, Ultram, vancomycin p.o., and Zofran. PHYSICAL EXAMINATION: VITAL SIGNS: 97.9 temp, 79 pulse, 150/50 blood pressure, 18 respiratory rate, 96% O2 sat on room air. HEENT: Head is atraumatic, normocephalic. HEART: Regular rate. LUNGS: Decreased breath sounds but clear to auscultation. CHEST: There is some right rib pain when she fractured, but not as bad, much improved since she fractured a month ago. ABDOMEN: Soft. Positive bowel sounds. Nontender. EXTREMITIES: No edema today. It is one of the better days I have seen her. LABORATORY DATA: She has a 6.2 white count, 9.4 hemoglobin, 29.8 hematocrit with 258 platelets. 136 sodium, potassium 3.2, BUN 3, and creatinine 0.5. GFR is greater than 6, sugar is 88, calcium 7.9, total bilirubin is 0.5, AST is 20, ALT is 27, and alkaline phosphatase 58. Total protein is 5.3. I am going to give her some potassium to help replenish her low potassium. Continue with physical therapy, oral vancomycin. As she is improving slowly with the therapy to get her bowels. She is here for pseudomembranous colitis, C. diff, debility, gait dysfunction, anemia, fractured ribs, and low potassium. Osvaldo Reyes DO
[2017-02-27] MEDS: Enoxaparin 40 mg Syringe SC SCH (05:29)
[2017-02-27] MEDS: Pantoprazole 40 mg EC Tab PO SCH (05:30)
[2017-02-27 07:18] LABS: HEMATOCRIT 29.7 % (36.0-48.0); MEAN CELL VOLUME 77.1 fl (80.0-105.0); MEAN CORPUSCULAR HEMOGLOBIN 23.6 pg (25.0-35.0); MEAN CORPUSCULAR HGB CONC 30.6 g/dl (31.0-37.0); MEAN PLATELET VOLUME 10.9 fl (7.0-11.0); RED CELL DISTRIBUTION WIDTH 18.4 % (11.5-14.5); WHITE BLOOD COUNT 5.5 10^3/ul (4.5-11.0)
[2017-02-27 07:56] LABS: ALKALINE PHOSPHATASE 53 U/L (38-126); ALT/SGPT 31 U/L (7-56); AST/SGOT 19 U/L (14-36); BILIRUBIN,TOTAL 0.4 mg/dL (0.2-1.3); BLOOD UREA NITROGEN 3 mg/dL (7-21); CALCIUM 7.9 mg/dL (8.4-10.5); CARBON DIOXIDE 26 mmol/L (21-33); CHLORIDE 103 mmol/L (98-107); GFR AFRICAN-AMERICAN > 60; GLUCOSE,RANDOM 80 mg/dL (70-110); POTASSIUM 3.7 mmol/L (3.6-5.0); SODIUM 138 mmol/L (132-148); TOTAL PROTEIN 5.2 g/dL (5.8-8.3)
[2017-02-27 08:00] LABS: ALB/GLOB RATIO 0.9 (1.1-1.8)
[2017-02-27] MEDS: Amylase/Lipase/Protease 5,000 Units ECC PO SCH ×3 (08:27→17:38)
[2017-02-27] MEDS: Potassium Chloride 20 mEq ER Tab PO SCH (08:28)
[2017-02-27] MEDS: Calcium-Vit D 250 mg-125 Units Tab UD PO SCH (09:53)
[2017-02-27] MEDS: Vancomycin 25 MG/ML PO SCH ×4 (09:54→21:38)
--- NOTE | 2017-02-27 13:57 | PN ---
DATE: SUBJECTIVE: I saw Joslyn is sitting up in bed in the TCU. She is doing better with her physical therapy. She is still having some loose bowel movements but overall improved. The right rib pain from the fractures are definitely improved. She is eating well. She is working with physical therapy and trying to get herself more steady. While she is walking, she says that is getting little bit better and she has a good attitude, she feels strong. She is on Colcrys, potassium, Lovenox, morphine, Os-Ignacio, Pancrease, Protonix, Ultram, vancomycin p.o., and Zofran. PHYSICAL EXAMINATION VITAL SIGNS: 97.5 temp, 87 pulse, 121/61 blood pressure, 18 respiratory rate, 93% O2 sat on room air. HEENT: Head is atraumatic, normocephalic. Throat is moist. NECK: Supple. HEART: Regular rate. LUNGS: Clear to auscultation, decreased breath sounds, but clear. No wheezing or rhonchi. No rales. ABDOMEN: Soft. Positive bowel sounds. Nontender. No guarding, no rebound. No CVA tenderness. No bloating. EXTREMITIES: Have trace edema if any at all, much better. LABORATORY DATA: She has a 5.5 white count, 9.1 hemoglobin, 29.7 hematocrit with 282 platelets. 138 sodium, potassium 3.7, BUN 3, creatinine 0.6, GFR is greater than 60, sugar is 80, calcium is 7.9. Total bilirubin is 0.4. AST is 19, ALT is 31, alk phos is 53, total protein is 5.2. ASSESSMENT AND PLAN: We will continue with aggressive treatment and care. We will check her labs tomorrow. She has been here for 4 days, she has 4 more days to go. She has got pseudomembranous colitis, clostridium difficile, anemia, and electrolyte abnormalities. Osvaldo Reyes DO
--- NOTE | 2017-02-27 16:26 | PN ---
DATE: 02/27/2017 SUBJECTIVE: The patient is in bed in no acute distress, nontoxic. No fevers and chills. PHYSICAL EXAMINATION: VITAL SIGNS: Temperature is 97, blood pressure is 120/60, respiratory rate of 18, heart rate of 53. HEENT: Unremarkable. NECK: Supple. LUNGS: Have decreased breath sounds. HEART: Normal S1, S2. ABDOMEN: Soft, nontender. Laboratory examination reveals a white count of 5.5, hemoglobin of 9, platelets of 282. BUN of 3, creatinine of 0.6. Microbiology is noted and review of orders reveals the patient to be on p.o. vancomycin. ASSESSMENT/PLAN: An 86-year-old female with hypertension, diabetes, chronic obstructive lung disease, high cholesterol, hypothyroidism, atrial fibrillation, gastroesophageal reflux disease, osteoarthritis, osteoporosis, sepsis with ESBL E. coli in the urine, and pseudomembranous colitis, on p.o. vancomycin. Complete 10-14 days. Rj Godfrey MD
[2017-02-28] MEDS: Enoxaparin 40 mg Syringe SC SCH (05:43)
[2017-02-28] MEDS: Pantoprazole 40 mg EC Tab PO SCH (05:43)
[2017-02-28 07:39] LABS: HEMATOCRIT 30.3 % (36.0-48.0); MEAN CELL VOLUME 77.9 fl (80.0-105.0); MEAN CORPUSCULAR HEMOGLOBIN 23.9 pg (25.0-35.0); MEAN CORPUSCULAR HGB CONC 30.7 g/dl (31.0-37.0); MEAN PLATELET VOLUME 10.3 fl (7.0-11.0); RED CELL DISTRIBUTION WIDTH 18.3 % (11.5-14.5); WHITE BLOOD COUNT 4.7 10^3/ul (4.5-11.0)
[2017-02-28 07:52] LABS: ALB/GLOB RATIO 0.9 (1.1-1.8); ALKALINE PHOSPHATASE 56 U/L (38-126); ALT/SGPT 28 U/L (7-56); AST/SGOT 20 U/L (14-36); BILIRUBIN,TOTAL 0.3 mg/dL (0.2-1.3); BLOOD UREA NITROGEN 2 mg/dL (7-21); CALCIUM 8.1 mg/dL (8.4-10.5); CARBON DIOXIDE 25 mmol/L (21-33); CHLORIDE 103 mmol/L (98-107); GFR AFRICAN-AMERICAN > 60; GLUCOSE,RANDOM 81 mg/dL (70-110); POTASSIUM 4.1 mmol/L (3.6-5.0); SODIUM 137 mmol/L (132-148); TOTAL PROTEIN 5.5 g/dL (5.8-8.3)
[2017-02-28] MEDS: Amylase/Lipase/Protease 5,000 Units ECC PO SCH ×3 (08:20→17:35)
[2017-02-28] MEDS: Potassium Chloride 20 mEq ER Tab PO SCH (08:20)
[2017-02-28] MEDS: Calcium-Vit D 250 mg-125 Units Tab UD PO SCH (09:56)
[2017-02-28] MEDS: Vancomycin 25 MG/ML PO SCH ×4 (09:56→21:29)
[2017-02-28] MEDS ORDERED: Bismuth Subsalicylate 262 mg/15 ml Sus (240 ml) PO PRN (11:16)
--- NOTE | 2017-02-28 12:28 | PN ---
DATE: 02/28/2017 SUBJECTIVE: The patient is in bed, in no acute distress, nontoxic. PHYSICAL EXAMINATION: VITAL SIGNS: Temperature is 98, blood pressure is 120/70, respiratory rate is 16. HEENT: Unremarkable. NECK: Supple. LUNGS: Have decreased breath sounds. HEART: Normal S1 and S2. ABDOMEN: Soft. LABORATORY EXAMINATION: Reveals the patient's white count is 4.7, hemoglobin of 9, BUN of 2, creatinine of 0.6. ASSESSMENT AND PLAN: This is an 86-year-old female with hypertension, diabetes, chronic obstructive lung disease, high cholesterol, hypothyroidism, atrial fibrillation, gastroesophageal reflux disease, osteoarthritis, osteoporosis, sepsis with extended spectrum beta-lactamase, Escherichia coli in the urine, pseudomembranous colitis, currently on p.o. vancomycin, we would complete 10-14 days. Review of orders reveals the p.o. vancomycin to be active. Rj Godfrey MD
--- NOTE | 2017-02-28 13:18 | PN ---
DATE: SUBJECTIVE: Ms. Jorgensen is resting comfortable in bed. She tells me she is still having loose bowels and diarrhea. MEDICATIONS: She is on Colcrys, potassium replacement, Lovenox, morphine for pain, Os-Ignacio, Pancrease, Pepto Bismol, Protonix, Ultram, vancomycin, and Zofran. PHYSICAL EXAMINATION VITAL SIGNS: She has a 97.9 temperature, 73 pulse, 147/66 blood pressure, 18 respiratory rate, and 97% on O2 saturation on room air. HEENT: Head is atraumatic and normocephalic. HEART: Regular rate. LUNGS: Clear to auscultation. ABDOMEN: Soft. Positive bowel sounds. Nontender. No guarding. No rebound. EXTREMITIES: No edema. LABORATORY DATA: She has a 4.7 white count, 9.3 hemoglobin and 30.2 hematocrit, with a 280 platelets. Sodium is 137, potassium is 4.7, BUN is 2, and creatinine is 0.6. GFR is greater than 60, sugar is 81, calcium is 8.1, total bilirubin is 0.3, AST is 20, ALT is 20, alkaline phosphatase is 56, and total protein is 5.5. ASSESSMENT AND PLAN: She is being seen by Infectious Diseases and Gastroenterology. Awaiting for Gastroenterology to come in with a plan for the persistent diarrhea. I added Kaopectate. She has pseudomembranous colitis Clostridium difficile, on p.o. vancomycin. Hypertension, diabetes, chronic obstructive pulmonary disease, high cholesterol, hypothyroid, atrial fibrillation, gastroesophageal reflux disease, osteoarthritis, osteoporosis, sepsis with extended spectrum beta-lactamase in the urine, still with diarrhea. See if Kaopectate will work or see if Gastroenterology wants to add anything else. Continue physical therapy for a gait dysfunction. Osvaldo Reyes DO
[2017-03-01] MEDS: Pantoprazole 40 mg EC Tab PO SCH (05:19)
[2017-03-01] MEDS: Enoxaparin 40 mg Syringe SC SCH (05:38)
[2017-03-01 06:11] LABS: HEMATOCRIT 31.5 % (36.0-48.0); MEAN CORPUSCULAR HGB CONC 31.1 g/dl (31.0-37.0); RED CELL DISTRIBUTION WIDTH 18.1 % (11.5-14.5); WHITE BLOOD COUNT 5.6 10^3/ul (4.5-11.0)
[2017-03-01 07:14] LABS: ALKALINE PHOSPHATASE 65 U/L (38-126); ALT/SGPT 26 U/L (7-56); AST/SGOT 21 U/L (14-36); BILIRUBIN,TOTAL 0.3 mg/dL (0.2-1.3); BLOOD UREA NITROGEN 3 mg/dL (7-21); CALCIUM 8.5 mg/dL (8.4-10.5); CARBON DIOXIDE 27 mmol/L (21-33); CHLORIDE 102 mmol/L (98-107); GFR AFRICAN-AMERICAN > 60; GLUCOSE,RANDOM 87 mg/dL (70-110); POTASSIUM 4.3 mmol/L (3.6-5.0); SODIUM 136 mmol/L (132-148); TOTAL PROTEIN 5.7 g/dL (5.8-8.3)
[2017-03-01] MEDS: Potassium Chloride 20 mEq ER Tab PO SCH (08:08)
[2017-03-01] MEDS: Amylase/Lipase/Protease 5,000 Units ECC PO SCH ×3 (08:08→17:30)
[2017-03-01] MEDS ORDERED: Bismuth Subsalicylate 262 mg/15 ml Sus (240 ml) PO ONE (10:03)
[2017-03-01] MEDS ORDERED: Loperamide Hydrochloride 1 mg/5 ml Cup PO ONE (10:05)
[2017-03-01] MEDS: Calcium-Vit D 250 mg-125 Units Tab UD PO SCH (11:00)
[2017-03-01] MEDS: Vancomycin 25 MG/ML PO SCH ×4 (11:00→21:52)
--- NOTE | 2017-03-01 11:37 | PN ---
DATE: SUBJECTIVE: I saw Joslyn sitting up in bed. She is still having diarrhea. I tried to order Kaopectate. The only thing she got was Pepto Bismol, for some reason I want give her Kaopectate. She is eating her breakfast. She still having bowel issues and runs. I will call in GI to get their opinion to help her with her bowels. PHYSICAL EXAMINATION: VITAL SIGNS: Temperature 97.3, pulse 69, blood pressure 161/64, respiratory rate 16, and O2 saturation on room air 96%. HEENT: Head is atraumatic and normocephalic. HEART: Regular rate. LUNGS: Clear to auscultation. ABDOMEN: Soft and nontender. Positive bowel sounds. EXTREMITIES: No edema. LABORATORY DATA: She has a white count 5.6, hemoglobin 9.8, hematocrit 31.5 with platelets of 306. She has a sodium 136, potassium 4.3, BUN 3, creatinine 0.6, GFR is greater than 60, sugar is 87, calcium is 8.5, total bilirubin is 0.3, AST is 21, ALT is 26, alkaline phosphatase is 65 and total protein is 5.7. PLAN: I will reconsult GI for the persistent diarrhea. She is currently on Colcrys, potassium, Lovenox, morphine, vitamin D, Pancrease, I am trying to order Kaopectate, all they are giving is Pepto Bismol, Protonix, Ultram, vancomycin, and Zofran. I will then order an Imodium to see if that might help. We will continue with aggressive treatment and care. She has 2 more days of physical therapy. She is here for Clostridium difficile, pseudomembranous colitis, and diarrhea. Osvaldo Reyes DO MTDD
[2017-03-01] MEDS: Cholestyramine 4 gm/Pkt UD PO SCH ×2 (12:12→17:30)
--- NOTE | 2017-03-01 13:39 | PN ---
DATE: 03/01/2017 SUBJECTIVE: I have been asked to reevaluate this patient by Dr. Osvaldo Reyes for new onset of diarrhea. The patient has had 4 to 5 episodes over the last 24 hours that is nonbloody. It is loose. The patient is currently being treated for pseudomembranous colitis with vancomycin 500 mg 4 times a day. Her diarrhea had been improved until the last 24 to 48 hours. The patient is currently on colchicine 0.6 mg once a day for gout. MEDICATIONS: Include colchicine 0.6 mg once a day, Lovenox 40 mg once a day, calcium carbonate 1 tablet daily, Pancrease 5000 units a.c., bismuth subsalicylate p.r.n., Protonix 40 mg once a day, tramadol 50 mg 3 times a day for pain, vancomycin 500 mg 4 times a day and Zofran 4 mg IV every 4 hours as needed for nausea and vomiting. PHYSICAL EXAMINATION: GENERAL: The patient is lying in bed, appears comfortable. VITAL SIGNS: Reveal temperature of 97.3, blood pressure 151/64, heart rate 69. HEENT: Reveals sclerae to be white. Conjunctivae pink. NECK: Supple. CHEST: Reveal lungs to be clear. HEART: Exam reveals regular rate and rhythm. ABDOMEN: Soft, nontender. EXTREMITIES: Show no edema. LABORATORY DATA: Reveal white blood cell count 5.6, hemoglobin 9.8. Chemistries reveal BUN 3, creatinine 0.6, albumin 2.8. Potassium is 4.3. AST, ALT, alk phos were all normal. IMPRESSION: 1. An 86-year-old female with new onset of diarrhea. I suspect that this is related to the colchicine that the patient is on for gout. Her previous diarrhea had resolved with p.o. vancomycin 500 mg 4 times a day for pseudomembranous colitis. 2. Chronic anemia, stable. RECOMMENDATIONS: 1. I will stop the colchicine. 2. I will start the patient on Questran 4 g a.c. 3. Will continue to monitor the patient closely for recurrent diarrhea. Dale Patel MD
--- NOTE | 2017-03-01 13:58 | PN ---
DATE: 03/01/2017 SUBJECTIVE: The patient is in bed in no acute distress, nontoxic. PHYSICAL EXAMINATION: VITAL SIGNS: Temperature is 98, blood pressure is 150/60, respiratory rate 18, and heart rate of 93. HEENT: Unremarkable. NECK: Supple. LUNGS: Decreased breath sounds. HEART: Normal S1 and S2. ABDOMEN: Soft and nontender. LABORATORY EXAMINATION: Reveals the patient to have white count of 5.6, hemoglobin of 9. BUN of 3 and creatinine 0.6. Microbiology is noted. ASSESSMENT AND PLAN: This is an 86-year-old female with hypertension, diabetes, chronic obstructive lung disease, high cholesterol, hypothyroidism, atrial fibrillation, gastroesophageal reflux disease, osteoarthritis, osteoporosis, sepsis, extended-spectrum beta-lactamase Escherichia coli in the urine and pseudomembranous colitis, currently on p.o. vancomycin, would complete 10-14 days. Rj Godfrey MD
[2017-03-01 17:11] VITALS: TEMP 97.7
[2017-03-02] MEDS: Enoxaparin 40 mg Syringe SC SCH (06:12)
[2017-03-02] MEDS: Pantoprazole 40 mg EC Tab PO SCH (06:13)
[2017-03-02 06:41] LABS: HEMATOCRIT 30.8 % (36.0-48.0); MEAN CELL VOLUME 77.6 fl (80.0-105.0); MEAN CORPUSCULAR HEMOGLOBIN 24.2 pg (25.0-35.0); MEAN CORPUSCULAR HGB CONC 31.2 g/dl (31.0-37.0); RED CELL DISTRIBUTION WIDTH 18.1 % (11.5-14.5); WHITE BLOOD COUNT 4.9 10^3/ul (4.5-11.0)
[2017-03-02 06:55] VITALS: BP 120/54; PULSE 80; RESP 20; O2SAT 92
[2017-03-02 07:39] LABS: ALKALINE PHOSPHATASE 60 U/L (38-126); ALT/SGPT 19 U/L (7-56); AST/SGOT 45 U/L (14-36); BILIRUBIN,TOTAL 0.4 mg/dL (0.2-1.3); BLOOD UREA NITROGEN 3 mg/dL (7-21); CALCIUM 8.2 mg/dL (8.4-10.5); CARBON DIOXIDE 25 mmol/L (21-33); CHLORIDE 104 mmol/L (98-107); GFR AFRICAN-AMERICAN > 60; GLUCOSE,RANDOM 82 mg/dL (70-110); POTASSIUM 4.3 mmol/L (3.6-5.0); SODIUM 136 mmol/L (132-148); TOTAL PROTEIN 5.8 g/dL (5.8-8.3)
[2017-03-02] MEDS: Cholestyramine 4 gm/Pkt UD PO SCH ×3 (08:27→18:06)
[2017-03-02] MEDS: Potassium Chloride 20 mEq ER Tab PO SCH (08:27)
[2017-03-02] MEDS: Amylase/Lipase/Protease 5,000 Units ECC PO SCH ×3 (08:28→18:06)
--- NOTE | 2017-03-02 09:44 | PN ---
DATE: SUBJECTIVE: I saw Joslyn resting comfortably in bed. She is doing a little bit better this morning. I am glad Dr. Patel, the chisel trimmer already adjusted her medications. She stopped the colchicine and add a Questran. I am hoping that will help with the bowel. She is in good spirits. She knows tomorrow she is going home. She is eating well, participating in physical therapy and her balance is improving. PHYSICAL EXAMINATION: VITAL SIGNS: She has a 97.7 temperature, 80 pulse, 120/54 blood pressure, 20 respiratory rate, and 100% O2 sat on room air. HEENT: Head is atraumatic and normocephalic. Throat is moist. NECK: Supple. HEART: Regular rate. LUNGS: Decreased breath sounds, but clear to auscultation. ABDOMEN: Soft and nontender. Positive bowel sounds. EXTREMITIES: No edema. MEDICATIONS: She is currently on potassium, Lovenox, calcium, Pancrease, Pepto Bismol as needed, Protonix, Questran, Ultram, vancomycin p.o. and Zofran as needed. LABORATORY DATA: She has a 136 sodium, potassium of 4.3, BUN of 3, and creatinine of 0.7. GFR is greater than 60, sugar is 82, calcium is 8.2, and total bilirubin is 0.4. AST is 45, ALT is 19, and alkaline phosphatase is 60. Total protein is 5.8, albumin is 2.9. She has 4.9 white count, 9.6 hemoglobin and 30.8 hematocrit with 302 platelets. IMPRESSION AND PLAN: She is being seen also by Infectious Diseases and Gastroenterology. Gastroenterology appreciated with the change medication. She is here for multiple issues, pseudomembranous colitis, Clostridium difficile on vancomycin, hypertension, diabetes, chronic obstructive pulmonary disease, high cholesterol, hypothyroidism,atrial fibrillation, gastroesophageal reflux disease, osteoarthritis, osteoporosis, sepsis, extended spectrum beta-lactamase, Escherichia coli in the urine. We will check her labs tomorrow and discharged tomorrow. Osvaldo Reyes DO
[2017-03-02] MEDS: Vancomycin 25 MG/ML PO SCH ×4 (11:06→21:59)
[2017-03-02] MEDS: Calcium-Vit D 250 mg-125 Units Tab UD PO SCH (11:06)
--- NOTE | 2017-03-02 22:16 | PN ---
DATE: 03/02/2017 SUBJECTIVE: The patient is in bed, in no acute distress, nontoxic. PHYSICAL EXAMINATION: VITAL SIGNS: Temperature is 97, blood pressure is 120/50, respiratory rate of 20, and heart rate of 80. HEENT: Unremarkable. NECK: Supple. LUNGS: Decreased breath sounds. HEART: Normal S1 and S2. ABDOMEN: Soft. LABORATORY EXAMINATION: Reveals the white count of 4.9, hemoglobin of 9, platelets of 302. Chemistry reveals the BUN of 3 and creatinine of 0.7. ASSESSMENT AND PLAN: This is an 86-year-old female, who was seen early this morning in room 322 with hypertension, diabetes, chronic obstructive lung disease, high cholesterol, hypothyroidism, atrial fibrillation, gastroesophageal reflux disease, osteoarthritis, osteoporosis, and sepsis with an extended-spectrum beta-lactamase Escherichia coli in the urine and pseudomembranous colitis, currently on p.o. vancomycin, would complete 10-14 days. Rj Godfrey MD
[2017-03-03] MEDS: Pantoprazole 40 mg EC Tab PO SCH (05:50)
[2017-03-03] MEDS: Enoxaparin 40 mg Syringe SC SCH (05:51)
[2017-03-03 06:38] LABS: HEMATOCRIT 30.5 % (36.0-48.0); MEAN CELL VOLUME 77.4 fl (80.0-105.0); MEAN CORPUSCULAR HEMOGLOBIN 23.9 pg (25.0-35.0); MEAN CORPUSCULAR HGB CONC 30.8 g/dl (31.0-37.0); MEAN PLATELET VOLUME 9.7 fl (7.0-11.0); RED CELL DISTRIBUTION WIDTH 18.2 % (11.5-14.5)
[2017-03-03 07:05] LABS: ALB/GLOB RATIO 0.9 (1.1-1.8); ALKALINE PHOSPHATASE 57 U/L (38-126); ALT/SGPT 28 U/L (7-56); AST/SGOT 20 U/L (14-36); BILIRUBIN,TOTAL 0.3 mg/dL (0.2-1.3); BLOOD UREA NITROGEN 3 mg/dL (7-21); CALCIUM 8.3 mg/dL (8.4-10.5); CARBON DIOXIDE 27 mmol/L (21-33); CHLORIDE 102 mmol/L (98-107); GFR AFRICAN-AMERICAN > 60; GLUCOSE,RANDOM 83 mg/dL (70-110); POTASSIUM 4.2 mmol/L (3.6-5.0); SODIUM 137 mmol/L (132-148); TOTAL PROTEIN 5.6 g/dL (5.8-8.3)
[2017-03-03] MEDS: Amylase/Lipase/Protease 5,000 Units ECC PO SCH (08:30)
[2017-03-03] MEDS: Cholestyramine 4 gm/Pkt UD PO SCH (08:30)
[2017-03-03] MEDS: Potassium Chloride 20 mEq ER Tab PO SCH (08:40)
--- NOTE | 2017-03-03 09:48 | DS ---
HISTORY OF PRESENT ILLNESS: I saw her resting in bed. She slept well. She is doing better overall. Bowels are better. PHYSICAL EXAMINATION: VITAL SIGNS: Temperature 97.7, pulse 80, blood pressure 120/54, respiratory rate 20, and O2 saturation 92% on room air. HEENT: Head is atraumatic and normocephalic. HEART: Regular rate. LUNGS: Clear to auscultation. ABDOMEN: Soft and nontender. Positive bowel sounds. EXTREMITIES: No edema. MEDICATIONS: She is on potassium, Lovenox, Os-Ignacio, Pancrease, Pepto-Bismol, Protonix, Questran, Ultram, vancomycin, and Zofran. LABORATORY DATA: She has a white count of 5, hemoglobin 9.4, hematocrit 30.5, and platelets 270. Sodium 137, potassium 4.7, BUN 3, creatinine 0.6, GFR greater than 60, sugars 83, calcium 8.3, total bilirubin 20, AST is 20, ALT is 20, alkaline phosphatase is 57, total protein is 5.6, and albumin is 2.7. ASSESSMENT AND PLAN: Overall, she is doing well. She will be discharged today. She was here for multiple reasons. She has pseudomembranous colitis, debility, gait dysfunction, anemia, low potassium, has had fallen few weeks back and fractured ribs. She is doing much better, walking better, eating better, and bowels are better. We will in the office in the next week. Osvaldo Reyes DO MTDD
--- NOTE | 2017-03-03 10:44 | PN ---
DATE: 03/03/2017 SUBJECTIVE: The patient is lying in bed. She feels better. Diarrhea is less. She denies any nausea, vomiting, abdominal pain, rectal bleeding, melena, hematemesis. PHYSICAL EXAMINATION: VITAL SIGNS: Reveal temperature of 97.7, blood pressure 120/54, heart rate of 80. HEENT: Reveal sclerae to be white. Conjunctivae pink. NECK: Supple. CHEST: Reveal lungs to be clear. HEART: Reveals an irregular rate. ABDOMEN: Soft, nontender. EXTREMITIES: Show no edema. LABORATORY DATA: Revealed BUN 3, creatinine 0.6, potassium 4.2, hemoglobin 9.4. IMPRESSION: 1. Pseudomembranous colitis. 2. Recurrent diarrhea secondary to colchicine. 3. Chronic anemia. RECOMMENDATIONS: 1. The patient has not been instructed to complete a 14-day course of vancomycin 500 mg q.6 hours. 2. She is to continue Questran 4 g before meals. 3. Continue Lactobacillus 1 tablet three times a day. Dale Patel MD
--- NOTE | 2017-03-03 12:02 | PN ---
DATE: 03/03/2017 SUBJECTIVE: The patient is lying in bed without any further diarrhea. She states that she had a formed bowel movement this morning and last night. PHYSICAL EXAMINATION: VITAL SIGNS: Reveal temperature of 97.8, blood pressure of 131/84, and heart rate of 60. HEENT: Reveals sclerae to be white. Conjunctivae are pink. NECK: Supple. CHEST: Reveal lungs to be clear. CARDIOVASCULAR: Heart exam reveals regular rate and rhythm. ABDOMEN: Soft and nontender. EXTREMITIES: Show 1+ pedal edema with chronic stasis changes bilaterally. She has a foot ulcer on her right foot on the plantar aspect which is covered by a dressing. LABORATORY DATA: Revealed hemoglobin of 13.5 and white blood cell count of 4.9. BUN of 6 and blood sugar of 192. IMPRESSION: 1. Diarrhea secondary to pseudomembranous colitis. 2. Charcot foot with recurrent diabetic foot ulcer on her right foot. 3. Type 2 diabetes mellitus. RECOMMENDATIONS: 1. Continue vancomycin 250 mg four times a day for a 14-day course 2. Low-fat lactose-free diet. 3. Lactobacillus 1 tablet three times a day. Dale Patel MD
--- NOTE | 2017-03-04 08:24 | PN ---
DATE: 03/03/2017 SUBJECTIVE: Patient is in bed, was seen early this morning. Patient is doing well. Diarrhea has improved. OBJECTIVE: VITAL SIGNS: Temperature is 97, blood pressure is 120/50, respiratory rate is 16. HEENT: Unremarkable. NECK: Supple. LUNGS: Have decreased breath sounds. HEART: Normal S1, S2. ABDOMEN: Soft, nontender. Laboratory examination reveals a white count of 5, hemoglobin of 9, BUN of 3, creatinine of 0.6. ASSESSMENT AND PLAN: This is an 86-year-old female seen early this morning in room 322. She is still awake and alert, doing well with a history of hypertension, chronic obstructive lung disease, high cholesterol, hypothyroidism, atrial fibrillation, gastroesophageal reflux disease, osteoarthritis, osteoporosis, sepsis with extended spectrum beta-lactamases Escherichia coli in the urine and pseudomembranous colitis, on p.o. vancomycin, would complete 10-14 days. Patient is tolerating medication well. Rj Godfrey MD
== END 2017-03-03 11:30 | disposition home or self-care (01) | DRG 872 ==
LOC: TRCU 15:20
PROVIDERS: ADMIT Family Medicine; ATTEND Family Medicine
PROC: F07Z9FZ Gait Training/Functional Ambulation Treatment using Assistive, Adaptive, Supportive or Protective Equipment (ICD-10-PCS; principal; 2017-02-24)
PROC: F07M6ZZ Therapeutic Exercise Treatment of Musculoskeletal System - Whole Body (ICD-10-PCS; 2017-02-24)
PROC: F08Z0ZZ Bathing/Showering Techniques Treatment (ICD-10-PCS; 2017-02-24)
PROC: F08Z2ZZ Grooming/Personal Hygiene Treatment (ICD-10-PCS; 2017-02-24)
PROC: F08Z1ZZ Dressing Techniques Treatment (ICD-10-PCS; 2017-02-24)
PROC: F08Z4ZZ Home Management Treatment (ICD-10-PCS; 2017-02-24)
DX: A41.9 Sepsis, unspecified organism (principal); A04.72 Enterocolitis due to Clostridium difficile, not specified as recurrent; K52.1 Toxic gastroenteritis and colitis; E11.610 Type 2 diabetes mellitus with diabetic neuropathic arthropathy; E11.621 Type 2 diabetes mellitus with foot ulcer; D64.9 Anemia, unspecified; E03.9 Hypothyroidism, unspecified; E78.00 Pure hypercholesterolemia, unspecified; E87.6 Hypokalemia; I10 Essential (primary) hypertension; I48.91 Unspecified atrial fibrillation; J44.9 Chronic obstructive pulmonary disease, unspecified; K21.9 Gastro-esophageal reflux disease without esophagitis; T50.4X5A Adverse effect of drugs affecting uric acid metabolism, initial encounter; L97.509 Non-pressure chronic ulcer of other part of unspecified foot with unspecified severity; M10.9 Gout, unspecified; M14.671 Charcot's joint, right ankle and foot; M19.90 Unspecified osteoarthritis, unspecified site; M81.0 Age-related osteoporosis without current pathological fracture; Z16.12 Extended spectrum beta lactamase (ESBL) resistance; Z82.49 Family history of ischemic heart disease and other diseases of the circulatory system; Z83.3 Family history of diabetes mellitus; Z87.891 Personal history of nicotine dependence

== ENCOUNTER 2017-03-27 12:07 | Inpatient (IN) | payer BC, MEDICARE ==
[2017-03-27 12:07] VITALS: PULSE 115
--- NOTE | 2017-03-27 13:13 | ED PDOC ---
Arrival/HPI - General Chief Complaint: Chest Pain Time Seen by Provider: 03/27/17 12:36 - History of Present Illness Narrative History of Present Illness (Text): you were treated in the ED today for history of atrial fibrilliation, hypertension, hypothyroid, diabetes, and recently in february treated for c- difficile and now with generalized chest pain, cough with yellow sputum and still having mild loose stool, but otherwise without any nausea/vomiting/ headache/dizziness/difficulty breathing/abdomen pain/numbness/tingling/loss of limb function/pain with urination/travel/prior blood clots/prior cancer. 03/27/17 13:11 03/27/17 13:17 Time/Duration: Other (1 day) Symptom Onset: Gradual Symptom Course: Improving Quality: Aching Severity Level: 3 Activities at Onset: Rest Context: Sitting Past Medical History - Provider Review Nursing Documentation Reviewed: Yes - Travel History Have you recently traveled outside [place] w/in the past 3 mons?: No - Infectious Disease Hx of Infectious Diseases: None - Tetanus Immunization Tetanus Immunization: Unknown - Cardiac Hx Cardiac Disorders: Yes - Pulmonary Hx Chronic Obstructive Pulmonary Disease (COPD): Yes - Neurological HX Cerebrovascular Accident: No - HEENT Hx HEENT Disorder: Yes Hx Blind: No Hx Cataracts: Yes Hx Deafness: No Hx Epistaxis: No Hx Glaucoma: No Hx Macular Degeneration: No - Renal Hx Renal Failure: No - Endocrine/Metabolic Hx Diabetes Mellitus Type 2: Yes Hx Hypothyroidism: Yes - Hematological/Oncological Hx Blood Disorders: No Hx AIDS: No Hx Anemia: No Hx Cancer: No Hx Chemotherapy: No Hx Cirrhosis: No Hx Hemophilia: No Hx Hepatitis A: No Hx Hepatitis B: No Hx Hepatitis C: No Hx Metastasis: No Hx Shingles: No Hx Sickle Cell Disease: No Hx Unexplained Bleeding: No Other/Comment: Blood transfusion - Integumentary Hx Dermatological Disorder: No Hx Basal Cell Carcinoma: No Hx Eczema: No Hx Melanoma: No Hx Psoriasis: No Hx Squamous Cell Carcinoma: No - Musculoskeletal/Rheumatological Hx Arthritis: Yes - Gastrointestinal Hx Gastrointestinal Disorders: Yes (+ c dif) - Genitourinary/Gynecological Hx Reproductive Disorders: No - Psychiatric Hx Psychophysiologic Disorder: No Hx Anxiety: No Hx Bipolar Disorder: No Hx Depression: No Hx Emotional Abuse: No Hx Hallucinations: No Hx Panic Disorder: No Hx Post Traumatic Stress Disorder: No Hx Psychosis: No Hx Physical Abuse: No Hx Schizophrenia: No Hx Sexual Abuse: No Hx Substance Use: No - Surgical History Hx Amputation: No Hx Appendectomy: Yes Hx Cholecystectomy: Yes Hx Coronary Stent: Yes Hx Gastric Bypass Surgery: No Hx Hysterectomy: No Hx Joint Replacement: No Hx Kidney Transplant: No Hx Liver Transplant: No Hx Musculoskeletal Surgery: No Hx Open Heart Surgery: No Hx Orthopedic Surgery: No Hx Splenectomy: No Hx Valve Replacement: No Other/Comment: Bilateral cataract sx - Anesthesia Hx Anesthesia: Yes - Suicidal Assessment Feels Threatened In Home Enviroment: No Family/Social History - Physician Review Nursing Documentation Reviewed: Yes Family/Social History: No Known Family HX Smoking Status: Never Smoked Hx Alcohol Use: No Hx Substance Use: No Hx Substance Use Treatment: No Allergies/Home Meds Allergies/Adverse Reactions: Allergies No Known Allergies Allergy (Verified 03/27/17 12:20) Review of Systems - Review of Systems Constitutional: Normal Eyes: Normal ENT: Normal Respiratory: Normal Cardiovascular: Chest Pain Gastrointestinal: Other (loose stool) Genitourinary Female: Normal Musculoskeletal: Normal Skin: Normal Neurological: Normal Endocrine: Normal Hemo/Lymphatic: Normal Psychiatric: Normal Physical Exam Vital Signs Reviewed: Yes Vital Signs Temp Pulse Resp BP Pulse Ox 03/27/17 14:07 99.2 F 102 H 18 134/63 97 03/27/17 12:40 111 H 18 132/50 L 98 03/27/17 12:20 99.7 F H 139 H 20 100/58 L 94 L Temperature: Afebrile Blood Pressure: Hypertensive Pulse: Tachycardic Respiratory Rate: Normal Appearance: Positive for: Well-Appearing, Non-Toxic, Comfortable Pain Distress: None Mental Status: Positive for: Alert and Oriented X 3 - Systems Exam Head: Present: Atraumatic, Normocephalic Pupils: Present: PERRL Extroacular Muscles: Present: EOMI Conjunctiva: Present: Normal Ears: Present: Normal Mouth: Present: Moist Mucous Membranes Pharnyx: Present: Normal Nose (External): Present: Atraumatic Nose (Internal): Present: Normal Inspection Neck: Present: Normal Range of Motion Respiratory/Chest: Present: Clear to Auscultation, Good Air Exchange Cardiovascular: Present: Regular Rate and Rhythm Abdomen: No: Tenderness, Distention, Normal Bowel Sounds, Peritoneal Signs, Rebound, Guarding, McBurney's Point Tender, Rovsing's Sign Present, Hernias, Feeding Tubes, Ostomy Tubes, Mass/Organomegaly, Scars, Other Back: Present: Normal Inspection Upper Extremity: Present: Normal Inspection Lower Extremity: Present: Normal Inspection Neurological: Present: GCS=15, CN II-XII Intact, Speech Normal, Motor Func Grossly Intact Skin: Present: Warm, Normal Color Psychiatric: Present: Alert, Oriented x 3, Normal Insight, Normal Concentration Medical Decision Making ED Course and Treatment: you were treated in the ED today for history of atrial fibrilliation, hypertension, hypothyroid, diabetes, and recently in february treated for c- difficile and now with generalized chest pain, cough with yellow sputum and still having mild loose stool, but otherwise without any nausea/vomiting/ headache/dizziness/difficulty breathing/abdomen pain/numbness/tingling/loss of limb function/pain with urination/travel/prior blood clots/prior cancer. You were otherwise breathing easily, smiling and talking easily, good strength/ sensation, walking easily, clear lungs, no abdomen tenderness, no fever temp 99.7, fast heart rate 111, stable breathing rate 20, excellent oxygen level 98% room air, elevated blood [id number] which we recommend repeat in 2-3 days primary care office to determine further treatment, you have blood tests infection count 18, stable blood level hemoglobin 9.9/platelets 288, stable chemistry sodium, mildly low potassium 3.1 which was supplemented and magnesium 1.2 which was supplemented, heart blood test negative, c-diff____, influenza negative, lactic acid 3.1 - ivf/flagyl/sepsis bundle, radiology chest xray prominent interstitial markings/hilar prominence, ECG atrial fibrilliation, aspirin and observation done in the ED with improvement, discussed with Dr. Reyes. 03/27/17 13:15 03/27/17 13:40 03/27/17 13:41 03/27/17 13:45 pt with 18 wbc - sepsis work-up. pt with back pain and tylenol 975mg given. 03/27/17 15:17 03/27/17 15:37 Dr. Reyes stated admit to remote telemetry sepsis related gastroenteritis and c -diff studies pending with iv flagyl, he put orders in asked for cardiology Dr. Rust which I completed. - Lab Interpretations Lab Results: 03/27/17 13:00 03/27/17 13:00 Lab Results 03/27/17 14:44: POC Glucose (mg/dL) 113 H 03/27/17 13:50: pO2 135 H, VBG pH 7.43, VBG pCO2 34.0 L, VBG HCO3 22.6, VBG Total CO2 23.6, VBG O2 Sat (Calc) 100.0 H, VBG Base Excess -1.1 L, VBG Potassium 3.3 L, Glucose 157 H, Lactate 3.1 H, FiO2 21.0, Sodium 136.0, Chloride 102.0, Venous Blood Potassium 3.3 L 03/27/17 13:00: Influenza Typ A,B (EIA) Negative for flu a/b 03/27/17 13:00: Sodium 136, Potassium 3.1 L, Chloride 103, Carbon Dioxide 21, Anion Gap 15, BUN 10, Creatinine 0.6 L, Est GFR ( Amer) > 60, Est GFR ( Non-Af Amer) > 60, Random Glucose 155 H, Calcium 8.5, Magnesium 1.2 L, Total Bilirubin 0.9, AST 22, ALT 15, Alkaline Phosphatase 70, Lactate Dehydrogenase 548, Total Creatine Kinase 28 L, Troponin I < 0.01, NT-Pro-B Natriuret Pep 2230 H, Total Protein 6.5, Albumin 3.2, Globulin 3.3, Albumin/Globulin Ratio 1.0 L 03/27/17 13:00: PT 14.9 H, INR 1.29 H, APTT 28.1 03/27/17 13:00: WBC 18.3 H D, RBC 4.13, Hgb 9.9 L, Hct 32.1 L, MCV 77.7 L, MCH 24.0 L, MCHC 30.8 L, RDW 18.5 H, Plt Count 288, MPV 10.7, Gran % 86.6 H, Lymph % (Auto) 2.9 L, Amador % (Auto) 10.3 H, Eos % (Auto) 0.1 L, Baso % (Auto) 0.1, Gran # 15.89 H, Lymph # 0.5 L, Amador # 1.9 H, Eos # 0.0, Baso # 0.02, Neutrophils % (Manual) 88 H, Lymphocytes % (Manual) 5 L, Monocytes % (Manual) 7 H, Platelet Evaluation Normal, Hypochromasia 1+, Anisocytosis (manual) 1+, Microcytosis (manual) 1+ - RAD Interpretation Radiology Orders: 03/27/17 12:51 CHEST TWO VIEWS (PA/LAT) [RAD] Stat - EKG Interpretation Interpreted by ED Physician: Yes (afib) Type: 12 lead EKG - Medication Orders Current Medication Orders: Amylase (Pancrease 18326 [id number] U) 5,000 unit PO TID ROSALBA Calcium/Vitamin D (Oscal-D 250 Mg-125 Units Tab) 1 tab PO DAILY ROSALBA Cholestyramine Resin (Questran) 4 gm PO DAILY ROSALBA Sodium Chloride (Sodium Chloride 0.9%) 1,000 mls @ 100 mls/hr IV .Q10H ROSALBA Last Admin: 03/27/17 13:51 Dose: 100 mls/hr eMAR Start Stop Document 03/27/17 13:51 EWO (Rec: 03/27/17 13:51 [id number] Intravenous Solution Start Date 03/27/17 Start Time 13:51 Metronidazole (Flagyl) 500 mg in 100 mls @ 100 mls/hr IVPB Q8H ROSALBA PRN Reason: Protocol Last Admin: 03/27/17 15:16 Dose: 100 mls/hr eMAR Start Stop Document 03/27/17 15:16 EWO (Rec: 03/27/17 15:17 [id number][facility] Intravenous Solution Start Date 03/27/17 Start Time 15:17 End Date 03/27/17 End time 16:17 Total Infusion Time 60 Insulin Human Regular (Humulin R High) 0 units SC ACHS ROSALBA PRN Reason: Protocol Ondansetron HCl (Zofran Inj) 4 mg IVPB Q6 PRN PRN Reason: Nausea/Vomiting Pantoprazole Sodium (Protonix Ec Tab) 40 mg PO 0600 ROSALBA Potassium Chloride (K-Dur 20 Meq Er Tab) 20 meq PO DAILY ROSALBA Tramadol HCl (Ultram) 50 mg PO TID PRN PRN Reason: Pain, moderate (4-7) Vancomycin HCl (Vancocin 25 Mg/Ml (Oral Use)) 500 mg PO QID ROSALBA PRN Reason: Protocol Discontinued Medications Acetaminophen (Tylenol 325mg Tab) 975 mg PO STAT STA Stop: 03/27/17 13:44 Last Admin: 03/27/17 13:50 Dose: 975 mg MAR Pain/Vitals Document 03/27/17 13:50 EWO (Rec: 03/27/17 13:50 [id number][facility] Pain Reassessment Is This A Pain ReAssessment? No Sleep Is patient sleeping during reassessment? No Presence of Pain Presence of Pain Yes Pain Scale Used Pain Scale Used Numeric Location Pain Location Body Site Back Description Constant Intensity 5 Scale Used Numeric Re-Assess: MAR Pain/Vitals Document 03/27/17 14:50 EWO (Rec: 03/27/17 15:22 [id number] Pain Reassessment Is This A Pain ReAssessment? Yes Sleep Is patient sleeping during reassessment? No Presence of Pain Presence of Pain No Aspirin (Aspirin Chewable) 324 mg PO STAT STA Stop: 03/27/17 12:53 Last Admin: 03/27/17 12:58 Dose: 324 mg Magnesium Sulfate/Dextrose (Magnesium Sulfate 1 Gm/100 Ml D5w) 1 gm in 100 mls @ 100 mls/hr IVPB ONCE ONE Stop: 03/27/17 14:41 Last Admin: 03/27/17 13:50 Dose: 100 mls/hr eMAR Start Stop Document 03/27/17 13:50 EW (Rec: 03/27/17 13:50 [id number][facility] Intravenous Solution Start Date 03/27/17 Start Time 13:50 End Date 03/27/17 End time 14:50 Total Infusion Time 60 Metronidazole (Flagyl) 500 mg in 100 mls @ 100 mls/hr IVPB STAT STA PRN Reason: Protocol Stop: 03/27/17 16:18 Potassium Chloride (K-Dur 20 Meq Er Tab) 40 meq PO STAT STA Stop: 03/27/17 13:44 Last Admin: 03/27/17 13:50 Dose: 40 meq Disposition/Present on Arrival - Present on Arrival Any Indicators Present on Arrival: No History of DVT/PE: No History of Uncontrolled Diabetes: No Urinary Catheter: No History of Decub. Ulcer: No History Surgical Site Infection Following: None - Disposition Have Diagnosis and Disposition been Completed?: Yes Diagnosis: Gastroenteritis Disposition: HOSPITALIZED Disposition Time: 15:39 Isolation: Contact Patient Plan: Telemetry Condition: IMPROVED Referrals: Osvaldo Reyes, [Primary Care Provider] - Follow up with primary Forms: [employer] (Chinese)
[2017-03-27 13:17] LABS: BASO # 0.02 K/mm3 (0.0-2.0); BASO % 0.1 % (0.0-3.0); EOS % 0.1 % (1.5-5.0); GRAN # 15.89 (1.4-6.5); GRAN % 86.6 % (50.0-68.0); HEMOGLOBIN 9.9 g/dL (12.0-16.0); LYMPH # 0.5 (1.2-3.4); LYMPH % 2.9 % (22.0-35.0); MEAN CELL VOLUME 77.7 fl (80.0-105.0); MEAN CORPUSCULAR HGB CONC 30.8 g/dl (31.0-37.0); MEAN PLATELET VOLUME 10.7 fl (7.0-11.0); MONO # 1.9 (0.1-0.6); MONO % 10.3 % (1.0-6.0); PLATELET COUNT 288 10^3/uL (120.0-450.0); RBC 4.13 10^6/uL (3.5-6.1); RED CELL DISTRIBUTION WIDTH 18.5 % (11.5-14.5); WHITE BLOOD COUNT 18.3 10^3/ul (4.5-11.0)
[2017-03-27 13:36] LABS: BLOOD UREA NITROGEN 10 mg/dL (7-21); GFR AFRICAN-AMERICAN > 60; GFR NON-AFRICAN AMERICAN > 60; MAGNESIUM 1.2 mg/dL (1.7-2.2)
[2017-03-27] MEDS ORDERED: Magnesium Sulfate 1 gm in D5W 1 GM/100 ML BAG IVPB ONE (13:42)
[2017-03-27] MEDS ORDERED: Potassium Chloride 20 mEq ER Tab PO STA (13:43)
[2017-03-27 13:46] LABS: INR 1.29 (0.93-1.08); PARTIAL THROMBOPLASTIN TIME 28.1 Seconds (25.1-36.5); PROTHROMBIN TIME 14.9 SECONDS (9.4-12.5)
[2017-03-27] MEDS: Sodium Chloride 0.9% 1,000 ML IV SCH (13:51)
[2017-03-27 14:10] LABS: B-TYPE NATRIURETIC PEPTIDE 2230 pg/mL (0-450); TROPONIN I < 0.01 ng/mL
[2017-03-27 14:16] LABS: VENOUS BLOOD GAS BASE EXCESS -1.1 mmol/L (0.0-2.0); VENOUS BLOOD GAS PO2 135 mm/Hg (30-55); VENOUS BLOOD PH 7.43 (7.32-7.43)
[2017-03-27 14:21] LABS: CALCIUM 8.5 mg/dL (8.4-10.5)
[2017-03-27 14:22] LABS: ALBUMIN 3.2 g/dL (3.0-4.8); ALT/SGPT 15 U/L (7-56); AST/SGOT 22 U/L (14-36)
--- NOTE | 2017-03-27 15:00 | RAD ---
HISTORY: 86yoF, chest pain COMPARISON: Chest x-ray performed 02/17/17 TECHNIQUE: Chest PA and lateral FINDINGS: LUNGS: Prominent position markings may be chronic. Right hilar prominence. No focal consolidation. Please note that chest x-ray has limited sensitivity for the detection of pulmonary masses. PLEURA: No significant pleural effusion identified. No definite pneumothorax . CARDIOVASCULAR: Mild cardiomegaly. OSSEOUS STRUCTURES: Degenerative changes. Osseous demineralization. VISUALIZED UPPER ABDOMEN: Elevation of the right hemidiaphragm. OTHER FINDINGS: None. IMPRESSION: Prominent interstitial markings may be chronic. Right hilar prominence. Mild cardiomegaly.
[2017-03-27] MEDS: metroNIDAZOLE IV 500 mg/100 ml 500 MG/100 ML BAG IVPB SCH (15:16)
[2017-03-27] MEDS ORDERED: metroNIDAZOLE IV 500 mg/100 ml 500 MG/100 ML BAG IVPB STA (15:19)
[2017-03-27 15:27] LABS: LYMPHOCYTE 5 % (22.0-35.0); MONOCYTE 7 % (1.0-6.0); NEUTROPHIL 88 % (50.0-70.0); PLATELET ESTIMATE NORMAL (NORMAL)
[2017-03-27 15:28] LABS: ANISOCYTOSIS 1+; HYPOCHROMIA 1+; MICROCYTOSIS 1+
[2017-03-27 17:50] LABS: VENOUS BLOOD GAS PO2 109 mm/Hg (30-55); VENOUS BLOOD PH 7.34 (7.32-7.43)
[2017-03-27 18:38] VITALS: BMI 23.9
[2017-03-27] MEDS: Vancomycin 25 MG/ML PO SCH (19:12)
[2017-03-27] MEDS: Amylase/Lipase/Protease 5,000 Units ECC PO SCH (19:12)
[2017-03-28] MEDS ORDERED: Potassium Chloride 20 mEq ER Tab PO ONE (00:08)
[2017-03-28] MEDS: metroNIDAZOLE IV 500 mg/100 ml 500 MG/100 ML BAG IVPB SCH ×3 (00:48→22:09)
[2017-03-28] MEDS: Sodium Chloride 0.9% 1,000 ML IV SCH ×2 (00:48→22:10)
[2017-03-28] MEDS: Insulin Reg-HIGH-Coverage SC SCH ×5 (00:49→22:39)
--- NOTE | 2017-03-28 01:57 | HP ---
HISTORY: I sent Joslyn to the emergency room today with a phone call for having chills this morning. I saw her in the office last week. She was doing quite well. No issues going on, and now she has chills. She is starting this on and off for the past couple of months. She has a history of being an 86-year-old white female with atrial fibrillation, hypertension, hypothyroid, diabetes. She had C. difficile in the past. It could be the same thing again. She has generalized weakness, coughing with yellow sputum, still having mild loose stool; otherwise, without any nausea, vomiting, or headache. It is very possible she has a C. difficile again. She will be on Flagyl and vancomycin and assuming I will discuss that with Infectious Disease and GI for persistent Clostridium C. difficile. She is not feeling well overall. She has COPD, cataracts, diabetes, C. difficile history, cholecystectomy, coronary stents, bilateral cataracts. FAMILY HISTORY: No known family history. SOCIAL HISTORY: No smoker. No drinking. No drugs. ALLERGIES: NO KNOWN DRUG ALLERGIES. MEDICATIONS: I do not know the list of medications yet, I will get him. REVIEW OF SYSTEMS: No changes in vision or hearing. No sore throats. No chest pain or palpitations. She is having loose stools, may be cramping every now and then. No blood. No extremity pains. No anxiety. No depression. She did have shaking chills earlier as per report. PHYSICAL EXAMINATION: VITAL SIGNS: She has a 99.7 temperature, she was a 101 at home; 139 pulse; 20 respiratory rate; 132/50 blood pressure; and 94% O2 saturation on room air. GENERAL: She is well appearing, nontoxic at this time, although earlier she said she was very shaking, feeling not well. Alert and oriented x3. HEENT: Her head is atraumatic, normocephalic. Extraocular muscles are for the most part intact. Throat is moist. NECK: Supple. Thyroid midline. HEART: Regular rate. No murmurs. LUNGS: Decreased breath sounds, but clear to auscultation. ABDOMEN: Soft, nontender. Positive bowel sounds. No guarding, rebound, or CVA tenderness. EXTREMITIES: No edema. NEUROLOGIC: GCS is 15. Cranial nerves II-XII grossly intact. Speech is normal. SKIN: Warm and dry. No ulcers or rashes apparently noticeable. LYMPH: No palpable or appreciable lymphadenopathy. LABORATORY DATA: She had multiple tests. She was given magnesium and IV fluids and potassium replacement. She has a sodium of 136, potassium 3.1, they were replaced in the ER. BUN 10, creatinine 0.6, GFR greater than 60. Sugar is 155, she will be on insulin coverage. Calcium is pending. Magnesium is 1.2, she got a magnesium rider. AST is pending, ALT is pending, lactate dehydrogenase is 548. Troponin I is pending. BNP is pending. Total protein 6.5. INR is 1.29. She has 18.2 white count, very high; 9.9 hemoglobin; 32.1 hematocrit with 288 platelets. She has to be put in the hospital probably for infection with C. difficile, most probably with the onset of shaking chills, 18,000 white count. Awaiting rest of the labs. We are going to consult with Infectious Disease and Gastroenterology. Check her labs, put her back on her meds. PT, out of bed to chair. She looks weak. Flagyl, vancomycin, insulin coverage, and her meds. Osvaldo Reyes DO
[2017-03-28] MEDS: Vancomycin 25 MG/ML PO SCH ×4 (02:03→22:40)
[2017-03-28 05:47] LABS: HEMOGLOBIN 10.1 g/dL (12.0-16.0); MEAN CELL VOLUME 78.7 fl (80.0-105.0); MEAN CORPUSCULAR HEMOGLOBIN 23.9 pg (25.0-35.0); MEAN CORPUSCULAR HGB CONC 30.3 g/dl (31.0-37.0); MEAN PLATELET VOLUME 11.1 fl (7.0-11.0); RBC 4.23 10^6/uL (3.5-6.1); RED CELL DISTRIBUTION WIDTH 18.8 % (11.5-14.5); WHITE BLOOD COUNT 22.3 10^3/ul (4.5-11.0)
[2017-03-28 06:07] LABS: URINE BILIRUBIN MODERATE (NEGATIVE); URINE BLOOD LARGE (NEGATIVE); URINE GLUCOSE (UA) NEGATIVE (NEGATIVE); URINE LEUKOCYTE ESTERASE MODERATE Leu/uL (NEGATIVE); URINE NITRATE POSITIVE (NEGATIVE); URINE PROTEIN 100 mg/dL (<30 mg/dL)
[2017-03-28 06:14] LABS: URINE APPEARANCE CLOUDY (CLEAR); URINE COLOR DARK YELLOW (YELLOW)
[2017-03-28 06:32] LABS: ALBUMIN 3.1 g/dL (3.0-4.8); ALT/SGPT 21 U/L (7-56); AST/SGOT 42 U/L (14-36); BLOOD UREA NITROGEN 11 mg/dL (7-21); CALCIUM 8.2 mg/dL (8.4-10.5); GFR AFRICAN-AMERICAN > 60; GFR NON-AFRICAN AMERICAN > 60
[2017-03-28 06:35] LABS: URINE BACTERIA MOD (NEG); URINE EPITHELIAL CELLS 0 - 2 /hpf (0-5); URINE WBC 25 - 30 /hpf (0-6)
[2017-03-28] MEDS ORDERED: Levalbuterol 0.63 MG/3 ML Inhal Soln UD IH PRN (08:58)
--- NOTE | 2017-03-28 09:17 | CARD ---
APPROVED REPORT EKG Measurement Heart [id number] <Conclusion> Atrial fibrillation with rapid ventricular response with premature ventricular or aberrantly conducted complexes ST & T wave abnormality, consider lateral ischemia , increased c/w ECG 02/17/17
[2017-03-28] MEDS ORDERED: Potassium Chloride 20 mEq ER Tab PO SCH (10:00)
--- NOTE | 2017-03-28 11:41 | PN ---
DATE: SUBJECTIVE: I saw Joslyn in the emergency room, we did not have a bed for upstairs yet. She is uncomfortable. She is not feeling well. She is still having diarrhea, mucus from her throat and nose, she swallowed it and then she feels that is the reason for the diarrhea. Although, we are treating her for Clostridium difficile. She is on aspirin, metronidazole IV, she is on insulin coverage, potassium replacement for low potassium, metoprolol for elevated pulse, magnesium replacement, calcium replacement, Protonix, Questran, IV fluids, Tylenol, Ultram, vancomycin p.o. and Zofran for some nauseousness. PHYSICAL EXAMINATION VITAL SIGNS: She has 98.3 temperature, 103 pulse, 130 pulse this morning. I put her on some metoprolol per here, 154/82 blood pressure, 18 respiratory rate, 100% O2 sat on room air. HEENT: Head: Atraumatic, normocephalic. Throat is moist. NECK: Supple. HEART: Regular rate. LUNGS: Decreased breath sounds. Mild congestion. I will call in Pulmonary for their evaluation. EXTREMITIES: Legs have no edema. NEUROLOGIC: She is weak. LABORATORY DATA: She has 138 sodium, potassium 3.3, replaced potassium. BUN 11, creatinine 0.64, GFR is greater than 60, sugar is 119, calcium is 8.2, total bilirubin is 0.9, AST is 42, ALT is 41, alkaline phosphatase 79, total protein 6.3. Her white count went to 22.3, hemoglobin 10.1, hematocrit 36.3, platelets are 282. ASSESSMENT AND PLAN: The infection is getting a little bit worse. We will see what Dr. Godfrey wants to do about changing in any medications. We will check stool cultures. We are going to call in Pulmonary about the congestion that she is having. This is a progress note on Joslyn Ellis, who has an elevated white count now up to 22,000, it was 18, we are ruling out Clostridium difficile. Now, she is getting congested, low potassium. Osvaldo Reyes DO PITA
[2017-03-28] MEDS: Calcium-Vit D 250 mg-125 Units Tab UD PO SCH (14:05)
[2017-03-28] MEDS: Cholestyramine 4 gm/Pkt UD PO SCH (14:05)
[2017-03-28] MEDS: Amylase/Lipase/Protease 5,000 Units ECC PO SCH ×2 (14:05→18:52)
--- NOTE | 2017-03-28 15:40 | CP.PCM.CON ---
History of Present Illness - History of Present Illness History of Present Illness: 86 year female with DVT, atrial fibrillation, hypertension, COPD, bilateral cataracts, type 2 diabetes, hypothyroidism, S/P appendectomy, S/P cholecystectomy, history of ESBL Klebsiella UTI was brought in to [facility] [place] complaining of watery diarrhea for the past 2-3 days. In February 2017 the patient was apparently treated for C. diff. infection and she got better. Prior to that she had apparently 2 episodes since January of being treated for C. diff. infection. She has some nausea but no vomiting, no headache or dizziness, no runny nose, no sore throat, no cough, no SOB, no chest pain, no abdominal pain, no dysuria. She states she has not eaten anything out of the ordinary. Infectious Diseases consult is requested to further evaluate and manage. Review of Systems - Review of Systems All systems: reviewed and no additional remarkable complaints except (as per HPI ) Past Patient History - Infectious Disease Hx of Infectious Diseases: None - Tetanus Immunizations Tetanus Immunization: Unknown - Past Social History Smoking Status: Never Smoked - CARDIAC Hx Cardiac Disorders: Yes - PULMONARY Hx Chronic Obstructive Pulmonary Disease (COPD): Yes - NEUROLOGICAL HX Cerebrovascular Accident: No - HEENT Hx HEENT Problems: Yes Hx Blind: No Hx Cataracts: Yes Hx Deafness: No Hx Epistaxis: No Hx Glaucoma: No Hx Macular Degeneration: No - RENAL Hx Renal Failure: No - ENDOCRINE/METABOLIC Hx Diabetes Mellitus Type 2: Yes Hx Hypothyroidism: Yes - HEMATOLOGICAL/ONCOLOGICAL Hx Blood Disorders: No Hx AIDS: No Hx Anemia: No Hx Cancer: No Hx Chemotherapy: No Hx Cirrhosis: No Hx Hemophilia: No Hx Hepatitis A: No Hx Hepatitis B: No Hx Hepatitis C: No Hx Metastesis: No Hx Shingles: No Hx Sickle Cell Disease: No Hx Unexplained Bleeding: No Other/Comment: Blood transfusion - INTEGUMENTARY Hx Dermatological Problems: No Hx Basil Cell: No Hx Eczema: No Hx Melanoma: No Hx Psoriasis: No Hx Squamous Cell: No - MUSCULOSKELETAL/RHEUMATOLOGICAL Hx Falls: Yes - GASTROINTESTINAL Hx Gastrointestinal Disorders: Yes (+ c dif) - GENITOURINARY/GYNECOLOGICAL Hx Genitourinary Disorders: Yes (INCONTINENT,) - PSYCHIATRIC Hx Psychophysiologic Disorder: No Hx Anxiety: No Hx Bipolar Disorder: No Hx Depression: No Hx Emotional Abuse: No Hx Hallucinations: No Hx Panic Symptoms: No Hx Post Traumatic Stress Disorder: No Hx Psychosis: No Hx Physical Abuse: No Hx Schizophrenia: No Hx Sexual Abuse: No Hx Substance Use: No - SURGICAL HISTORY Hx Amputation: No Hx Appendectomy: Yes Hx Cholecystectomy: Yes Hx Coronary Stent: Yes Hx Gastric Bypass Surgery: No Hx Hysterectomy: No Hx Joint Replacement: No Hx Kidney Transplant: No Hx Liver Transplant: No Hx Musculoskeletal Surgery: No Hx Open Heart Surgery: No Hx Orthopedic Surgery: No Hx Splenectomy: No Hx Valve Replacement: No Other/Comment: Bilateral cataract sx - ANESTHESIA Hx Anesthesia: Yes Meds Allergies/Adverse Reactions: Allergies Allergy/AdvReac Type Severity Reaction Status Date / Time No Known Allergies Allergy Verified 03/27/17 12:20 - Medications Medications: Current Medications Amylase (Pancrease 40403 U-5000 U-74529 U) 5,000 unit PO TID [facility] Last Admin: 03/27/17 19:12 Dose: Not Given Calcium/Vitamin D (Oscal-D 250 Mg-125 Units Tab) 1 tab PO DAILY [facility] Cholestyramine Resin (Questran) 4 gm PO DAILY [facility] Sodium Chloride (Sodium Chloride 0.9%) 1,000 mls @ 100 mls/hr IV .Q10H [facility] Last Admin: 03/28/17 00:48 Dose: Not Given Metronidazole (Flagyl) 500 mg in 100 mls @ 100 mls/hr IVPB Q8H [facility]AL[facility] PRN Reason: Protocol Last Admin: 03/28/17 00:48 Dose: 100 mls/hr Insulin Human Regular (Humulin R High) 0 units SC ACHS ROSAL[facility] PRN Reason: Protocol Last Admin: 03/28/17 07:42 Dose: Not Given Levalbuterol HCl (Xopenex) 0.63 mg IH [id number] PRN PRN Reason: Shortness of Breath Metoprolol Tartrate (Lopressor) 12.5 mg PO BID [facility] Ondansetron HCl (Zofran Inj) 4 mg IVPB Q6 PRN PRN Reason: Nausea/Vomiting Pantoprazole Sodium (Protonix Ec Tab) 40 mg PO 0600 [facility] Potassium Chloride (K-Dur 20 Meq Er Tab) 20 meq PO DAILY [facility] Tramadol HCl (Ultram) 50 mg PO TID PRN PRN Reason: Pain, moderate (4-7) Vancomycin HCl (Vancocin 25 Mg/Ml (Oral Use)) 500 mg PO QID [facility] PRN Reason: Protocol Last Admin: 03/28/17 02:03 Dose: 500 mg Physical Exam - Constitutional Appears: Non-toxic - Head Exam Head Exam: NORMAL INSPECTION - ENT Exam ENT Exam: Mucous Membranes Moist - Neck Exam Neck exam: Negative for: Meningismus - Respiratory Exam Respiratory Exam: Decreased Breath Sounds - Cardiovascular Exam Cardiovascular Exam: +S1, +S2 - GI/Abdominal Exam GI & Abdominal Exam: Soft. absent: Tenderness Results - Vital Signs Recent Vital Signs: Last Vital Signs Temp 98.3 F 03/27/17 18:34 Pulse 103 H 03/28/17 06:04 Resp 18 03/28/17 06:04 BP 154/82 H 03/28/17 06:04 Pulse Ox 101 H 03/28/17 06:04 - Labs Result Diagrams: 03/28/17 05:20 03/28/17 05:20 Labs: Laboratory Results - last 24 hr 03/27/17 03/27/17 03/28/17 17:35 19:25 00:47 WBC RBC Hgb Hct MCV MCH MCHC RDW Plt Count MPV pO2 109 H VBG pH 7.34 VBG pCO2 42.0 VBG HCO3 22.7 VBG Total CO2 24.0 VBG O2 Sat (Calc) 99.3 H VBG Base Excess -3.0 L VBG Potassium 3.1 L Sodium 135.0 Chloride 107.0 Glucose 144 H Lactate 2.3 H FiO2 21.0 Potassium Carbon Dioxide Anion Gap BUN Creatinine Est GFR ( Amer) Est GFR (Non-Af Amer) POC Glucose (mg/dL) 124 H 131 H Random Glucose Calcium Total Bilirubin AST ALT Alkaline Phosphatase Total Protein Albumin Globulin Albumin/Globulin Ratio Venous Blood Potassium 3.1 L Urine Color Urine Appearance Urine pH Ur Specific [place] Urine Protein Urine Glucose (UA) Urine Ketones Urine Blood Urine Nitrate Urine Bilirubin Urine Urobilinogen Ur Leukocyte Esterase Urine RBC Urine WBC Ur Epithelial Cells Urine Bacteria Influenza Typ A,B (EIA) 03/28/17 03/28/17 03/28/17 04:55 04:58 05:20 WBC 22.3 H D RBC 4.23 Hgb 10.1 L Hct 33.3 L MCV 78.7 L MCH 23.9 L MCHC 30.3 L RDW 18.8 H Plt Count 282 MPV 11.1 H pO2 VBG pH VBG pCO2 VBG HCO3 VBG Total CO2 VBG O2 Sat (Calc) VBG Base Excess VBG Potassium Sodium Chloride Glucose Lactate FiO2 Potassium Carbon Dioxide Anion Gap BUN Creatinine Est GFR ( Amer) Est GFR (Non-Af Amer) POC Glucose (mg/dL) Random Glucose Calcium Total Bilirubin AST ALT Alkaline Phosphatase Total Protein Albumin Globulin Albumin/Globulin Ratio Venous Blood Potassium Urine Color Dark yellow Urine Appearance Cloudy Urine pH 6.0 Ur Specific [place] >= 1.030 Urine Protein 100 H Urine Glucose (UA) Negative Urine Ketones Trace H Urine Blood Large H Urine Nitrate Positive H Urine Bilirubin Moderate H Urine Urobilinogen 1.0 H Ur Leukocyte Esterase Moderate H Urine RBC 5 - 10 Urine WBC 25 - 30 Ur Epithelial Cells 0 - 2 Urine Bacteria Mod Influenza Typ A,B (EIA) Negative for flu a/b 03/28/17 03/28/17 05:20 07:41 WBC RBC Hgb Hct MCV MCH MCHC RDW Plt Count MPV pO2 VBG pH VBG pCO2 VBG HCO3 VBG Total CO2 VBG O2 Sat (Calc) VBG Base Excess VBG Potassium Sodium 138 Chloride 106 Glucose Lactate FiO2 Potassium 3.3 L Carbon Dioxide 20 L Anion Gap 16 BUN 11 Creatinine 0.6 L Est GFR ( Amer) > 60 Est GFR (Non-Af Amer) > 60 POC Glucose (mg/dL) 119 H Random Glucose 125 H Calcium 8.2 L Total Bilirubin 0.9 AST 42 H D ALT 21 Alkaline Phosphatase 79 Total Protein 6.3 Albumin 3.1 Globulin 3.2 Albumin/Globulin Ratio 1.0 L Venous Blood Potassium Urine Color Urine Appearance Urine pH Ur Specific [place] Urine Protein Urine Glucose (UA) Urine Ketones Urine Blood Urine Nitrate Urine Bilirubin Urine Urobilinogen Ur Leukocyte Esterase Urine RBC Urine WBC Ur Epithelial Cells Urine Bacteria Influenza Typ A,B (EIA) Assessment & Plan - Assessment and Plan (Free Text) Plan: Assessment Consider sepsis due to C. diff. associated diarrhea history of ESBL Klebsiella UTI history of sepsis secondary to colitis/diverticulitis DVT atrial fibrillation hypertension COPD bilateral cataracts type 2 diabetes hypothyroidism S/P appendectomy S/P cholecystectomy Plan patient has been started on PO Vancomycin and IV Flagyl pending stool for C.diff.; will also get stool cx and blood cx will monitor clinical response follow up GI evaluation and recommendations
[2017-03-28] MEDS ORDERED: Metoprolol 1 mg/ml Inj IVP STA (23:49)
--- NOTE | 2017-03-28 23:51 | CP.PCM.PN ---
Subjective - Date & Time of Evaluation Date of Evaluation: 03/28/17 Time of Evaluation: 23:50 - Subjective Subjective: Nurse called because patient's heart rate had been in 150's -170's. Did not get lopressor all day. Patient has no complaints. Denies chest pain, sob, palpitations. Medical record was reviewed. This 86 year old woman was admitted with chills, generalized weakness, cough with yellow sputum, mild loose stool. Has PMH of COPD, DM, CAD,cataract, C.Difificile, cholecystectomy, coronary stents. Objective - Vital Signs/Intake and Output Vital Signs (last 24 hours): Temp Pulse Resp BP Pulse Ox 98.3 F 103 H 18 154/82 H 101 H 03/27/17 18:34 03/28/17 06:04 03/28/17 06:04 03/28/17 06:04 03/28/17 06:04 - Medications Medications: Current Medications Amylase (Pancrease 42708 U-5000 U-98137 U) 5,000 unit PO TID [facility] Last Admin: 03/28/17 18:52 Dose: Not Given Aspirin (Ecotrin) 81 mg PO DAILY [facility] Calcium/Vitamin D (Oscal-D 250 Mg-125 Units Tab) 1 tab PO DAILY [facility] Last Admin: 03/28/17 14:05 Dose: Not Given Cholestyramine Resin (Questran) 4 gm PO DAILY [facility] Last Admin: 03/28/17 14:05 Dose: Not Given Sodium Chloride (Sodium Chloride 0.9%) 1,000 mls @ 100 mls/hr IV .Q10H [facility] Last Admin: 03/28/17 22:10 Dose: 100 mls/hr Metronidazole (Flagyl) 500 mg in 100 mls @ 100 mls/hr IVPB Q8H [facility]AL[facility] PRN Reason: Protocol Last Admin: 03/28/17 22:09 Dose: 100 mls/hr Insulin Human Regular (Humulin R High) 0 units SC ACHS [facility] PRN Reason: Protocol Last Admin: 03/28/17 22:39 Dose: Not Given Levalbuterol HCl (Xopenex) 0.63 mg IH [id number] PRN PRN Reason: Shortness of Breath Metoprolol Tartrate (Lopressor) 12.5 mg PO BID [facility] Last Admin: 03/28/17 14:05 Dose: Not Given Metoprolol Tartrate (Lopressor) 5 mg IVP STAT STA Stop: 03/28/17 23:50 Ondansetron HCl (Zofran Inj) 4 mg IVPB Q6 PRN PRN Reason: Nausea/Vomiting Pantoprazole Sodium (Protonix Ec Tab) 40 mg PO 0600 [facility] Potassium Chloride (K-Dur 20 Meq Er Tab) 20 meq PO DAILY [facility] Last Admin: 03/28/17 14:05 Dose: Not Given Tramadol HCl (Ultram) 50 mg PO TID PRN PRN Reason: Pain, moderate (4-7) Vancomycin HCl (Vancocin 25 Mg/Ml (Oral Use)) 500 mg PO QID [facility] PRN Reason: Protocol Last Admin: 03/28/17 22:40 Dose: Not Given - Labs Labs: 03/28/17 05:20 03/28/17 05:20 PT 14.9 SECONDS (9.4-12.5) H 03/27/17 13:00 INR 1.29 (0.93-1.08) H 03/27/17 13:00 APTT 28.1 Seconds (25.1-36.5) 03/27/17 13:00 - Constitutional Appears: Well, No Acute Distress - Head Exam Head Exam: ATRAUMATIC, NORMAL INSPECTION, NORMOCEPHALIC - Eye Exam Eye Exam: Normal appearance - ENT Exam ENT Exam: Normal External Ear Exam - Neck Exam Neck Exam: Normal Inspection - Respiratory Exam Respiratory Exam: NORMAL BREATHING PATTERN - Cardiovascular Exam Cardiovascular Exam: Tachycardia. absent: JVD - GI/Abdominal Exam GI & Abdominal Exam: absent: Distended - Rectal Exam Rectal Exam: Deferred - Exam Additional comments: Deferred. - Extremities Exam Extremities Exam: Normal Inspection - Back Exam Back Exam: NORMAL INSPECTION - Neurological Exam Neurological Exam: Alert, Awake, Oriented x3 - Psychiatric Exam Psychiatric exam: Normal Affect, Normal Mood - Skin Skin Exam: Normal Color Assessment and Plan - Assessment and Plan (Free Text) Assessment: Tachyarrhythmia. COPD. NIDDM. CAD. Hypokalemia. Hx coronary stents. Hx cholecystectomy. Plan: Lopressor 5 mg IV x 1. Potassium supplement as ordered. Continue present management. If no help with lopressor, will order work up for tachyarrhythmia. Continue present management.
--- NOTE | 2017-03-29 00:45 | CON ---
DATE: 03/28/2017 HISTORY OF PRESENT ILLNESS: The patient is an 86-year-old woman who presents with an episode of chest discomfort that since has resolved. PAST MEDICAL HISTORY: Includes a cardiac history of chronic atrial fibrillation, which she was transiently treated with anticoagulation and stopped due to GI bleeding. The patient has developed febrile illness over the past several weeks and is here also for evaluation. Her other cardiac issue is borderline hypertension. No diabetes mellitus. No previous myocardial infarction. SOCIAL HISTORY: Negative for smoking. REVIEW OF SYSTEMS: A 14-point review of systems was reviewed in detail. Her chest pain is now resolved. No shortness of breath. The patient is predominantly sedentary. PHYSICAL EXAMINATION: VITAL SIGNS: Blood pressure is 140/94, the heart rate is atrial fibrillation, is 104. NECK: Negative JVD. LUNGS: Without rales. HEART: Reveals S1, S2 with a 1/6 systolic ejection murmur. EXTREMITIES: Without edema. DIAGNOSTIC DATA: EKG shows atrial fibrillation with ST-T changes. LABORATORY DATA: Reveals a white count of 22,000, hemoglobin is 10.1. Chemistries, BUN and creatinine 11 and 0.9, glucose is 125. Troponin is negative x1. IMPRESSION: 1. Transient substernal angina. 2. Coronary artery disease. 3. Atrial fibrillation. 4. Hypertension. 5. Borderline diabetes mellitus. 6. Febrile illness. Given these findings, I agree with adding beta stacy to her regimen for better heart rate control. We will obtain serial troponins. A septic workup has been ordered. Carter Rust MD
[2017-03-29] MEDS ORDERED: Potassium Chloride 20 mEq ER Tab PO ONE (00:50)
[2017-03-29] MEDS ORDERED: Potassium Chloride 40 mEq/30 ml LIQ UD PO ONE (00:51)
[2017-03-29] MEDS: Potassium Chloride 20 mEq ER Tab PO ONE ×2 (01:09→01:14)
[2017-03-29] MEDS: metroNIDAZOLE IV 500 mg/100 ml 500 MG/100 ML BAG IVPB SCH ×3 (05:37→22:04)
[2017-03-29] MEDS: Pantoprazole 40 mg EC Tab PO SCH (05:38)
[2017-03-29] MEDS: Insulin Reg-HIGH-Coverage SC SCH ×4 (08:01→22:00)
[2017-03-29 08:10] LABS: HEMOGLOBIN 8.7 g/dL (12.0-16.0); MEAN CELL VOLUME 77.4 fl (80.0-105.0); MEAN CORPUSCULAR HEMOGLOBIN 23.6 pg (25.0-35.0); MEAN CORPUSCULAR HGB CONC 30.5 g/dl (31.0-37.0); MEAN PLATELET VOLUME 10.7 fl (7.0-11.0); RBC 3.68 10^6/uL (3.5-6.1); RED CELL DISTRIBUTION WIDTH 18.5 % (11.5-14.5)
[2017-03-29 08:22] LABS: ALB/GLOB RATIO 0.9 (1.1-1.8); ALBUMIN 2.6 g/dL (3.0-4.8); ALT/SGPT 23 U/L (7-56); AST/SGOT 20 U/L (14-36); BLOOD UREA NITROGEN 12 mg/dL (7-21); CALCIUM 7.8 mg/dL (8.4-10.5); GFR AFRICAN-AMERICAN > 60; GFR NON-AFRICAN AMERICAN > 60
[2017-03-29 08:30] LABS: TROPONIN I 0.08 ng/mL
[2017-03-29] MEDS: Sodium Chloride 0.9% 1,000 ML IV SCH (08:31)
[2017-03-29] MEDS: Cholestyramine 4 gm/Pkt UD PO SCH ×2 (09:21→17:40)
[2017-03-29] MEDS: Amylase/Lipase/Protease 5,000 Units ECC PO SCH ×3 (09:22→17:35)
[2017-03-29] MEDS: Potassium Chloride 20 mEq ER Tab PO SCH (09:22)
[2017-03-29] MEDS: Calcium-Vit D 250 mg-125 Units Tab UD PO SCH (09:23)
[2017-03-29] MEDS: Vancomycin 25 MG/ML PO SCH ×4 (09:26→22:05)
--- NOTE | 2017-03-29 10:37 | PN ---
DATE: SUBJECTIVE: I saw Joslyn resting comfortably this morning. She slept fairly well. She is still having diarrhea, feeling miserable in that regard. Awaiting for GI to see how she is doing on IV antibiotics and p.o. antibiotics to make sure . She also has a UTI, low potassium, which we are replacing, COPD, AFib, and diabetes. She has a whole lot of things going on. MEDICATIONS: She is currently on Ecotrin, Flagyl, Insulin, potassium replacement, Lopressor, Os-Ignacio, Pancrease, Protonix, Questran, IV fluids, Ultram, vancomycin oral, Xopenex, and Zofran. PHYSICAL EXAMINATION: GENERAL: She is alert and comfortable. VITAL SIGNS: She has 98.2 temperature, 57 pulse, 137/72 blood pressure, 20 respiratory rate, and 90% O2 saturation on room air. HEENT: Head is atraumatic, normocephalic. She does not look as washed out. She is Throat is moist. NECK: Supple. HEART: Regular rate. LUNGS: Decreased breath sounds, but clear. ABDOMEN: Soft. Positive bowel sounds. She is moving her bowels, which I do think she is improving. EXTREMITIES: No edema. LABORATORY DATA: She has white count of 18 it was as high as 22 in the right direction, hemoglobin is 8.7, hematocrit is 20.5, and platelets are 256. If her hemoglobin drops below 8, I will transfuse her. Sodium 139, potassium 3.1, she was given replacement of potassium today, BUN is 12, creatinine 0.5, GFR is greater than 60, sugar is 92, calcium is 7.8, total bilirubin is 0.4, AST is 20, ALT is 23, and alkaline phosphatase is 59. Troponin I is 0.08. ASSESSMENT AND PLAN: She is being seen by Cardio, Infectious Disease, ENT, and Dr. Patel, GI. We will continue with aggressive treatment and care. Check her labs tomorrow. Get her out of bed to chair and have Physical Therapy sees her, I am hoping the white count continues to decrease and the bowels improve. Osvaldo Reyes DO [facility] # [id number] MTDD
[2017-03-29] MEDS ORDERED: Nitroglycerin 2% Ointment Foilpak UD TOP ONE (16:06)
--- NOTE | 2017-03-29 16:33 | CARD ---
APPROVED REPORT EKG Measurement Heart [id number] <Conclusion> Atrial fibrillation with premature ventricular or aberrantly conducted complexes Low voltage QRS Prolonged QT Abnormal ECG
--- NOTE | 2017-03-29 19:42 | PN ---
CARDIOLOGY FOLLOWUP DATE: 03/29/2017 SUBJECTIVE: The patient is complaining of shortness of breath and persistent substernal chest pain. She is still having marked diarrhea consistent with C. difficile. OBJECTIVE: VITAL SIGNS: Blood pressure is 137/76 and heart rate in the 50s. NECK: Negative JVD. LUNGS: Decreased breath sounds bilaterally. HEART: Reveal S1 and S2. EXTREMITIES: Without edema. LABORATORY DATA: Troponins have gone up from 0.01 to 0.08. Potassium is 3.1. The hemoglobin is 8.7 and white count is 18,000. IMPRESSION: 1. Unstable angina. 2. High probability for coronary artery disease. 3. Diarrhea. 4. Clostridium difficile. 5. Dyspnea. 6. Atrial fibrillation. 7. Hypertension. PLAN: Given these findings, we will get a stat EKG today. I have discussed with the patient the possibility of needing cardiac catheterization, the patient refuses at this time. She understands the implications and potentials for myocardial infarction. We will then try to treat her medically until the patient is able to better consider her options. Carter Rust MD
--- NOTE | 2017-03-30 00:40 | CON ---
DATE: 03/29/2017 OTOLARYNGOLOGY CONSULTATION REFERRING PHYSICIAN: Osvaldo Reyes DO REASON FOR CONSULTATION: Right ear itching. HISTORY OF PRESENT ILLNESS: This is an 86-year-old female with past medical history including recent C. diff infection, COPD, diabetes, coronary artery disease, who is admitted for generalized weakness, coughing, loose stools, and has also been complaining of right ear itching, dryness, and occasional fullness. The patient states that she has some history of hearing loss and does wear hearing aids bilaterally. The patient states that this sometimes leads to increased wax build up and increased itchiness. The patient denies using any Q-tips to itch of her ears. She has had this problem intermittently over the last few years, has not tried any therapy. The patient also states that she has chronic postnasal drip, has not tried any nasal steroids. She otherwise states that she is feeling well, is being treated for her C. diff infection. The patient has never seen any ear, nose, or throat physician in the past. She otherwise denies any headaches, changes in vision, purulent nasal discharge, otorrhea, dysphagia, odynophagia, or neck pain. PAST MEDICAL HISTORY: As above. PAST SURGICAL HISTORY: No previous surgeries of head and neck. SOCIAL HISTORY: The patient is a nonsmoker. No alcohol. No illicit. ALLERGIES: NO KNOWN DRUG ALLERGIES. MEDICATIONS: As per medical reconciliation. REVIEW OF SYSTEMS: Twelve-point review of systems are negative except as stated in HPI. PHYSICAL EXAMINATION: VITAL SIGNS: Temperature 97.6, pulse 95, blood pressure 119/54, respirations 20, SpO2 of 100% on room air. GENERAL: Alert and oriented, in no acute distress. HEENT: Head; normocephalic and atraumatic. Eyes; extraocular muscles are grossly intact. No visual changes. Ears; auricles appear symmetric. No masses noted. Right external acoustic canal with erythema and crusting. Tympanic membrane is visualized to be normal. Left external acoustic canal also with erythema and crusting. Tympanic membrane is visualized to be normal. Nose: Nasal cavities are thin bilaterally. No septal deviation. Mouth; mucous membrane are moist. Tongue is nonedematous. Uvula is midline. Tonsil is 2+. There is some postnasal drip in the posterior oropharynx. NECK: Soft, supple. No palpable lymphadenopathy. Non palpable thyroid. LABORATORY DATA: WBC 18.3, hemoglobin 9.9, hematocrit 32.1, platelets 288. Sodium 139, potassium 3.1, chloride 109, bicarb 22, BUN 12, creatinine 0.5. ASSESSMENT: This is an 86-year-old female who is admitted for Clostridium difficile colitis with symptoms of right ear canal dryness and itching as well as postnasal drip. 1. Please prescribe Ciprodex ear drops 4 drops in each ear twice a day for 7 to 10 days. 2. Begin nasal saline rinses frequently throughout the day as well as Flonase 2 sprays in each nostril once a day. 3. The patient to follow up in office with us for re-evaluation of her ear symptoms. 4. The patient is advised to hold off on placing hearing aids until completed course of Ciprodex ear drops. 5. Use humidified O2 if needed. Thank you for the consultation and allowing us to participate in the care of the patient. Tano Rivas DO
--- NOTE | 2017-03-30 04:16 | PN ---
DATE: 03/29/2017 SUBJECTIVE: The patient is in bed in no acute distress. PHYSICAL EXAMINATION: VITAL SIGNS: Temperature 97, blood pressure is 109/49, respiratory rate of 20, heart rate of 95. HEENT: Unremarkable. NECK: Supple. LUNGS: Have decreased breath sounds. HEART: Normal S1 and S2. ABDOMEN: Soft. LABORATORY EXAMINATION: Revealed a white count of 18,000, hemoglobin of 8, platelets of 256. Coagulation is noted. The chemistries revealed a BUN of 12, creatinine 0.5, procalcitonin is 3.45. Urinalysis is 25-30 . Blood cultures are negative and no . Stool C. diff. antigen is positive. Toxin is positive. The patient is on Flagyl IV and p.o. vancomycin high dose. ASSESSMENT AND PLAN: This is an 86-year-old female with a history of deep venous thrombosis, atrial fibrillation, hypertension, chronic obstructive lung disease, bilateral cataracts, type 2 diabetes, hypothyroidism, appendectomy, cholecystectomy, who is admitted now with sepsis with pseudomembranous colitis, on intravenous Flagyl and p.o. vancomycin. We will follow closely with you. The patient continues to have diarrhea when I saw the patient. Rj Godfrey MD
[2017-03-30] MEDS: Levothyroxine 125 MCG TAB PO SCH (05:25)
[2017-03-30] MEDS: Pantoprazole 40 mg EC Tab PO SCH (05:26)
[2017-03-30] MEDS: metroNIDAZOLE IV 500 mg/100 ml 500 MG/100 ML BAG IVPB SCH (05:30)
[2017-03-30 06:36] LABS: HEMOGLOBIN 8.8 g/dL (12.0-16.0); MEAN CORPUSCULAR HEMOGLOBIN 24.1 pg (25.0-35.0); MEAN CORPUSCULAR HGB CONC 31.3 g/dl (31.0-37.0); MEAN PLATELET VOLUME 10.4 fl (7.0-11.0); RBC 3.65 10^6/uL (3.5-6.1); RED CELL DISTRIBUTION WIDTH 19.1 % (11.5-14.5); WHITE BLOOD COUNT 12.3 10^3/ul (4.5-11.0)
[2017-03-30 07:12] LABS: ALB/GLOB RATIO 0.9 (1.1-1.8); ALBUMIN 2.4 g/dL (3.0-4.8); ALT/SGPT 24 U/L (7-56); AST/SGOT 17 U/L (14-36); BLOOD UREA NITROGEN 8 mg/dL (7-21); CALCIUM 7.8 mg/dL (8.4-10.5); GFR AFRICAN-AMERICAN > 60; GFR NON-AFRICAN AMERICAN > 60
[2017-03-30] MEDS: Cholestyramine 4 gm/Pkt UD PO SCH ×3 (08:26→18:24)
[2017-03-30] MEDS: Insulin Reg-HIGH-Coverage SC SCH ×4 (08:44→22:00)
--- NOTE | 2017-03-30 08:55 | CON ---
DATE: 03/29/2017 REQUESTING PHYSICIAN: Osvaldo Reyes DO REASON FOR CONSULTATION: I have been asked to see this 86-year-old female for recurrent pseudomembranous colitis. The patient was hospitalized in 02/17/2017 with diarrhea and abdominal cramps and found to have pseudomembranous colitis. She improved with vancomycin 500 mg p.o. four times a day and cholestyramine 4 g three times a day. The patient states that over the last 3 days, she has had recurrent diarrhea, averaging about five nonbloody bowel movements daily. She denies any associated rectal bleeding. The patient apparently has been taking vancomycin 500 mg four times a day at home since her discharge from the hospital 3 weeks ago. She currently admits to some abdominal cramps. She also has had complaints of some oropharyngeal dysphagia. The patient has had extensive workup for this in the past including endoscopy in 05/2015, which was unrevealing for a esophageal stricture, esophagitis as well as CT scan of her neck, which did not show any soft tissue lesions. The patient states that she has had one to two episodes of nocturnal diarrhea. She denies any fevers or chills. The patient also had a colonoscopy back in 05/2015, which did not reveal any evidence of colonic neoplasm. PAST MEDICAL HISTORY: Notable for paroxysmal atrial fibrillation, hypertension, COPD, diabetes mellitus type 2, hypothyroidism, chronic anemia, and recurrent falls with resulting rib fractures. PAST SURGICAL HISTORY: Notable for appendectomy and cholecystectomy. SOCIAL HISTORY: She denies cigarette smoking or alcohol use. She quit smoking several years ago. FAMILY HISTORY: Noncontributory. REVIEW OF SYSTEMS: 14-point review of systems is notable for diarrhea, abdominal cramps and oropharyngeal dysphagia. MEDICATIONS AT HOME: Include [id number] mg three times day as needed for pain, potassium chloride 20 mg once a day, Protonix 40 mg once a day, Questran 4 g daily, calcium carbonate 1 tablet daily, and Pancrease 5000 units p.o. t.i.d. PHYSICAL EXAMINATION GENERAL: Well-developed female lying in bed, in no acute distress. VITAL SIGNS: Reveal temperature of 98.2, blood pressure 137/73, heart rate of 57. HEENT: Reveal sclerae to be white. Oral mucosa to be dry. NECK: Supple. CHEST: Reveal lungs to be clear. HEART: Reveals a irregular rate. There is a 1/6 systolic murmur. ABDOMEN: Soft, nontender. No mass. EXTREMITIES: Reveal no edema. LABORATORY DATA: Reveal white blood cell count of 18, hemoglobin of 8.7. Chemistries reveal potassium 3.1, bicarb of 22, chloride of 109, albumin 2.6. AST, ALT, alk phos is all normal. Stool for C. diff toxin and antigen both positive. IMPRESSION: 1. Recurrent pseudomembranous colitis. The patient also appears to be clinically dehydrated. 2. Chronic oropharyngeal dysphagia with negative endoscopy and CT imaging in the past. RECOMMENDATIONS: 1. Will try and obtain Deficit 200 mg p.o. b.i.d. for the patient. I spoke with the pharmacist this is nonformulary, she will try and obtain this through a specialty pharmacy. We will continue vancomycin 500 mg p.o. four times a day for now. 2. Continue Questran 4 g p.o. t.i.d. 3. I will start the patient on clear liquid diet with close observation for aspiration. 4. Will plan for flexible sigmoidoscopy for morning. Dale Patel MD MTDHemanth
[2017-03-30] MEDS: Amylase/Lipase/Protease 5,000 Units ECC PO SCH ×3 (11:20→18:22)
[2017-03-30] MEDS: Potassium Chloride 20 mEq ER Tab PO SCH (11:22)
[2017-03-30] MEDS: Calcium-Vit D 250 mg-125 Units Tab UD PO SCH (11:22)
[2017-03-30] MEDS: Vancomycin 25 MG/ML PO SCH ×2 (11:23→14:19)
[2017-03-30] MEDS: Sodium Chloride 0.9% 1,000 ML IV SCH ×2 (11:25→20:30)
[2017-03-30] MEDS: FIDAXOMICIN 200 MG PO SCH ×2 (12:12→18:23)
--- NOTE | 2017-03-30 13:09 | PN ---
DATE: SUBJECTIVE: The patient is lying in bed. She has not had any further diarrhea. She has not had a bowel movement in almost 24 hours. There is no nocturnal diarrhea. She denies any abdominal cramps. She is hungry, asking for solid food. CURRENT MEDICATIONS: Include Flagyl 500 mg IV q.8h., potassium chloride 20 mg once a day, metoprolol 25 mg twice a day, calcium carbonate 1 tablet daily, Pancrease 5000 units a.c. t.i.d., potassium chloride 10 mg IV, pantoprazole 40 mg once a day, Questran 4 mg a.c., Levoxyl 250 mcg daily, vancomycin 500 mg p.o. q.6h., Xopenex q. 6h. as needed, Zofran 4 mg IV q. 6 p.r.n. nausea. PHYSICAL EXAMINATION: GENERAL: Elderly female lying in bed in no distress. VITAL SIGNS: Reveal she is afebrile. Blood pressure 109/49, heart rate of 86. HEENT: Reveal sclerae to be white. Oral mucosa is moist. NECK: Supple. CHEST: Lungs are clear. HEART: Exam reveals a irregularly irregular rate. ABDOMEN: Soft, flabby, nontender. EXTREMITIES: Show no edema. LABORATORY DATA: From this morning revealed white blood cell count down to 12.3, hemoglobin 8.8. Chemistries reveal potassium 3.4, BUN 8, creatinine 0.5, albumin 2.4. IMPRESSION: 1. Recurrent pseudomembranous colitis. This is the patient's third episode in approximately 8 to 10 weeks. Symptomatically, she has improved with no further diarrhea in 24 hours. I have ordered Dificid 200 mg twice a day, which we are awaiting 2. Atrial fibrillation. 3. Anemia. 4. Hypothyroidism. RECOMMENDATIONS: 1. We will advance to a low-fat lactose-free diet. 2. I will schedule the patient for flexible sigmoidoscopy in the morning. Dale Patel MD [facility]
--- NOTE | 2017-03-30 13:12 | PN ---
DATE: 03/30/2017 SUBJECTIVE: I saw her resting comfortably in the bed this morning. She slept only 3 hours last night. She is passing a lot of gas but the diarrhea is definitely falling down. She is a little bit stronger, not as weak, not as pale, and more compliant which is also good. She is talking more and had a lot of complaints, so that is a good sign for her. PHYSICAL EXAMINATION: GENERAL: She is very alert this morning better than yesterday she was weak and lethargic. Her lethargy definitely is lifting. VITAL SIGNS: She has a temperature of 97.6, 95 pulse, 119/54 blood pressure, 20 respiratory rate, 100% O2 sat on room air. HEENT: Head is atraumatic, normocephalic. HEART: Regular rate. LUNGS: Decreased breath sounds, but clear. ABDOMEN: Mildly distended. Lots of bowel sounds. Soft. Sounds very empty, it is only unclear. EXTREMITIES: No edema. GENITOURINARY: No diarrhea in the last 6 to 8 hours which is very good. She used to have 5 to 10 diarrheas a day. MEDICATIONS: She is now on Dificid which is a new medication for the pseudomembranous colitis. The other medications were not working well. Ecotrin, Flagyl, insulin, potassium, Lopressor, Os-Ignacio, Pancrease, potassium replacement, Protonix, Questran, IV fluids, Ultram, vancomycin, Xopenex, and Zofran. LABORATORY DATA: She has a 138 sodium, potassium 3.4, I gave her K-riders, BUN is 8, creatinine 0.5, GFR is greater than 60, sugar is 84, calcium is 7.8, total bilirubin is 0.3, AST is 17, ALT is 20, alkaline phosphatase is 52, total protein is 5.1. She has a white count that was 22, now it is down to 12.3, hemoglobin 8.8, if it drops below 8 I will transfuse her, 28.1 hematocrit with a 242 platelets. ASSESSMENT AND PLAN: I do think she is starting to change the corner. She also has a urinary tract infection. She is being seen by multiple doctors, Infectious Disease; Cardiology; GI, Ear, Nose,Throat. She had multiple issues while she has been here, and we are trying to address all of them. This is the first day I think she turned the corner. She does well, she eats well, and she walks well, may be tomorrow, we can discharge her. She also had some unstable angina and went from 0.01 to 0.08, high probability to coronary artery disease. A cardiac catheterization was offered to her which she refused. To be on medication that is potential for myocardial infarction, so besides the clostridium difficile she is having unstable angina. She refused cardiac catheterization. We will continue with the aggressive treatment and care. Osvaldo Reyes DO
--- NOTE | 2017-03-30 19:08 | PN ---
CARDIOLOGY FOLLOWUP DATE: 03/30/2017 SUBJECTIVE: The patient is asymptomatic today. No shortness of breath. No chest pain. PHYSICAL EXAMINATION VITAL SIGNS: Blood pressure 135/66 and heart rate in the 70s. NECK: Negative JVD. LUNGS: Without rales. HEART: Reveals S1 and S2. EXTREMITIES: Without edema. LABORATORY DATA: BUN and creatinine are unremarkable. Potassium is 3.4. Hemoglobin is 8.8. The last troponin was 0.08. IMPRESSION AND PLAN: 1. Resolution of chest pain and shortness of breath. 2. One borderline elevated troponin. 3. High probability for coronary artery disease. 4. Clostridium difficile. 5. Chronic atrial fibrillation. 6. Hypertension. Given these findings, we will obtain another troponin today. The patient's diarrhea has improved. Carter Rust MD
--- NOTE | 2017-03-31 02:34 | PN ---
DATE: 03/30/2017 SUBJECTIVE: The patient is seen earlier this morning, no diarrhea. PHYSICAL EXAMINATION VITAL SIGNS: Temperature is 97, blood pressure is 140/70, respiratory rate is 16. HEENT: Unremarkable. NECK: Supple. LUNGS: Decreased breath sounds. HEART: Normal S1 and S2. ABDOMEN: Soft. LABORATORY DATA: Reveals white count of 12,300, hemoglobin of 8. Chemistries reveal the BUN of 8, creatinine of 0.5, procalcitonin is 3.45. Urinalysis is noted and serology is noted. Microbiology reveals blood cultures have no growth. Stool cultures are stool C. diff and toxin is positive. Review of orders reveal the patient supposed to be started on Dificid today. ASSESSMENT AND PLAN: This is an 86-year-old female with past medical history significant for history of deep venous thrombosis, atrial fibrillation, hypertension, chronic obstructive lung disease, bilateral cataracts, type 2 diabetes, hypothyroidism, appendectomy, cholecystectomy, admitted with sepsis, pseudomembranous colitis, pharmacy they can discontinue the vancomycin and Flagyl, use Dificid, and we will follow the patient closely. Rj Godfrey MD
[2017-03-31] MEDS: Sodium Chloride 0.9% 1,000 ML IV SCH (06:43)
[2017-03-31] MEDS: Pantoprazole 40 mg EC Tab PO SCH (06:47)
[2017-03-31] MEDS: Levothyroxine 125 MCG TAB PO SCH (06:48)
[2017-03-31 07:06] LABS: HEMOGLOBIN 9.4 g/dL (12.0-16.0); MEAN CELL VOLUME 79.2 fl (80.0-105.0); MEAN CORPUSCULAR HEMOGLOBIN 24.1 pg (25.0-35.0); MEAN CORPUSCULAR HGB CONC 30.4 g/dl (31.0-37.0); MEAN PLATELET VOLUME 11.1 fl (7.0-11.0); RBC 3.9 10^6/uL (3.5-6.1); RED CELL DISTRIBUTION WIDTH 19.3 % (11.5-14.5); WHITE BLOOD COUNT 9.6 10^3/ul (4.5-11.0)
[2017-03-31 07:21] LABS: TROPONIN I < 0.01 ng/mL
[2017-03-31 07:34] LABS: ALB/GLOB RATIO 0.9 (1.1-1.8); ALBUMIN 2.5 g/dL (3.0-4.8); ALT/SGPT 29 U/L (7-56); AST/SGOT 18 U/L (14-36); BLOOD UREA NITROGEN 6 mg/dL (7-21); CALCIUM 8.1 mg/dL (8.4-10.5); GFR AFRICAN-AMERICAN > 60; GFR NON-AFRICAN AMERICAN > 60
[2017-03-31] MEDS: Insulin Reg-HIGH-Coverage SC SCH ×2 (08:21→14:40)
[2017-03-31] MEDS ORDERED: Propofol 10 mg/ml Inj (20 ML) ONE (08:32)
[2017-03-31] MEDS ORDERED: Sodium Chloride 0.9% 1,000 ML IV SCH (09:00)
[2017-03-31 09:06] VITALS: RESP 14; TEMP 98
[2017-03-31 09:43] VITALS: O2SAT 98
[2017-03-31] MEDS ORDERED: Ciprofloxacin/Dexamethasone OTIC SUSP AU SCH (10:00)
[2017-03-31] MEDS ORDERED: Fluticasone Nasal 50 mcg/Spray NS SCH (10:00)
[2017-03-31] MEDS: Calcium-Vit D 250 mg-125 Units Tab UD PO SCH (10:26)
[2017-03-31] MEDS: Potassium Chloride 20 mEq ER Tab PO SCH (10:26)
[2017-03-31] MEDS: Amylase/Lipase/Protease 5,000 Units ECC PO SCH ×2 (10:26→14:40)
[2017-03-31] MEDS: Cholestyramine 4 gm/Pkt UD PO SCH ×2 (10:26→14:40)
[2017-03-31 10:30] VITALS: BP 142/78; PULSE 86
[2017-03-31] MEDS: FIDAXOMICIN 200 MG PO SCH (10:53)
--- NOTE | 2017-03-31 11:21 | PN ---
DATE: SUBJECTIVE: She just came back from an endoscopy, I am not sure of the results of that yet. She is currently on Dificid to help her C. diff. She is off other medications. She is on Pancrease, Cipro ear drops, Ecotrin, Flonase, potassium, Lopressor, calcium, Protonix, Questran, IV fluids, Synthroid, Ultram, Xopenex and Zofran. PHYSICAL EXAMINATION: VITAL SIGNS: She has a 98 temp, 80 pulse, 157/68 blood pressure, 14 respiratory rate, 98% O2 sat on 2 L. HEENT: Head is atraumatic, normocephalic. HEART: Regular rate. LUNGS: Clear to auscultation. ABDOMEN: Soft, nontender. Positive bowel sounds. EXTREMITIES: Have no edema. She is quite weak. LABORATORY DATA: She has a 138 sodium, potassium 3.9, BUN 6, creatinine 0.5, GFR is greater than 60, sugar is 94, calcium is 8.1, AST is 18, ALT is 29, alkaline phosphatase 58, troponin less than 0.01. Her white count is down to 9.6, first time it broke 10; hemoglobin 9.4; hematocrit 30.9; platelets of 256,000. ASSESSMENT AND PLAN: I will discuss this with Infectious Disease and Gastroenterology. I am hoping possibly we can discharge her in the next 24 hours. She is still under the anesthesia at this time. I need to get Physical Therapy to walk her and get their opinion and they recommended home with services so we will try and discharge later today if we can. Osvaldo Reyes DO
--- NOTE | 2017-03-31 11:38 | PN ---
DATE: 03/31/2017 CARDIOLOGY FOLLOWUP SUBJECTIVE: The patient is without chest pain. OBJECTIVE: VITAL SIGNS: Blood pressure 157/68, heart rate is in the 80s. NECK: Negative JVD. LUNGS: Without rales. HEART: With S1, S2. EXTREMITIES: Without edema. LABORATORY DATA: Hemoglobin is 9.4. Chemistries, BUN and creatinine are unremarkable. IMPRESSION: 1. Marked anemia. 2. Resolution of chest pain and shortness of breath. 3. High probability for coronary artery disease. 4. Clostridium difficile. 5. Chronic atrial fibrillation. 6. Hypertension. Given these findings, the troponin is negative so far. The patient's cardiac status is treated medically at this time. Carter Rust MD
--- NOTE | 2017-03-31 23:28 | PN ---
DATE: SUBJECTIVE: The patient is seen early this morning still with weakness. PHYSICAL EXAMINATION: VITAL SIGNS: Temperature of 98, blood pressure is 120/70, and respirations 16. HEENT: Unremarkable. NECK: Supple. LUNGS: Decreased breath sounds. HEART: Normal S1 and S2. ABDOMEN: Soft and nontender. LABORATORY DATA: Laboratory examination is noted. ASSESSMENT AND PLAN: This is an 86-year-old female with history of deep vein thrombosis, atrial fibrillation, hypertension, chronic obstructive lung disease, and the patient with sepsis with pseudomembranous colitis. I had a discussion with her regarding taking *------* this morning. She understands and she is to follow up with her PMD. Rj Godfrey MD
--- NOTE | 2017-04-01 03:38 | DS ---
She is actually doing very well today. She is doing fine. She is comfortable. Good spirits. She is going to have eat some lunch and then if she does well, we will discharge her this afternoon. She had an endoscopy today, done with the results. She is being treated with Dificid now. She is off IV antibiotics by Infectious Disease. PHYSICAL EXAMINATION: VITAL SIGNS: She has 98 temperature, 80 pulse, 157/68 blood pressure, 14 respiratory rate, and 98% O2 saturation on 3 L nasal cannula. HEENT: Head, atraumatic, normocephalic. HEART: Regular rate. LUNGS: Clear to auscultation. ABDOMEN: Soft. EXTREMITIES: No edema. She is going to be go home on her Dificid. LABORATORY DATA: She has a white count of 9.6, 9.4 hemoglobin, 30.9 hematocrit, and 256 platelets. She has 138 sodium, potassium of 3.9, BUN of 6, creatinine of 0.5, GFR is greater than 60, sugar is 94, calcium is 8.1, total billirubin is 0.38, AST is 18, ALT is 29, alkaline phosphatase is 58, troponin I is less than 0.01. She has C. diff and she will be on Dificid for seven more days, and hopefully she will not be back in the hospital anymore, she will drink fluids, and I will see her in the house call or in the office. Osvaldo Reyes DO MTDD
== END 2017-03-31 15:12 | disposition home or self-care (01) | DRG 872 ==
LOC: ED 12:07 → ERH 15:34 → 3RNO 03-28 19:36
PROVIDERS: ADMIT Family Medicine; ATTEND Family Medicine
PROC: 0DBM8ZX Excision of Descending Colon, Via Natural or Artificial Opening Endoscopic, Diagnostic (ICD-10-PCS; principal; 2017-03-31 08:30)
DX: A41.9 Sepsis, unspecified organism (principal); A04.71 Enterocolitis due to Clostridium difficile, recurrent; I25.110 Atherosclerotic heart disease of native coronary artery with unstable angina pectoris; I48.0 Paroxysmal atrial fibrillation; I48.2 Chronic atrial fibrillation; R13.12 Dysphagia, oropharyngeal phase; N39.0 Urinary tract infection, site not specified; D64.9 Anemia, unspecified; E03.9 Hypothyroidism, unspecified; E11.9 Type 2 diabetes mellitus without complications; H26.9 Unspecified cataract; H91.90 Unspecified hearing loss, unspecified ear; I10 Essential (primary) hypertension; J44.9 Chronic obstructive pulmonary disease, unspecified; Z79.01 Long term (current) use of anticoagulants; Z79.899 Other long term (current) drug therapy; Z86.718 Personal history of other venous thrombosis and embolism; Z87.891 Personal history of nicotine dependence; Z90.49 Acquired absence of other specified parts of digestive tract; Z95.5 Presence of coronary angioplasty implant and graft; R40.2412 Glasgow coma scale score 13-15, at arrival to emergency department

== ENCOUNTER 2017-05-13 14:44 | Inpatient (IN) | payer BC, MEDICARE ==
[2017-05-13 14:44] VITALS: PULSE 100
--- NOTE | 2017-05-13 15:24 | ED PDOC ---
Arrival/HPI - General Chief Complaint: GI Problem Time Seen by Provider: 05/13/17 14:50 Historian: Patient, Other (PMD Dr. Reyes) - History of Present Illness Narrative History of Present Illness (Text): 05/13/17 15:21 86 yo female, h/o Cdiff, Afib on coumadin, Right Lower Leg DVT, HTN, DM (diet controlled), COPD (oxygen at home as needed), presents to the ED c/o nausea, vomiting, and diarrhea since yesterday. She couldn't keep any food down yesterday. She's tolerating some PO fluids. She feels very weak and at times lightheaded. She c/o generalized abdominal pain when she has the bowel movements. She also has some left lower back pain she attributes to her anxiety. PMD: Dr. 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 uRst GI: Dr. Patel Past Medical History - Provider Review Nursing Documentation Reviewed: Yes - Infectious Disease Hx of Infectious Diseases: None - Tetanus Immunization Tetanus Immunization: Unknown - Cardiac Hx Cardiac Disorders: Yes (Afib) Hx Hypertension: Yes - Pulmonary Hx Respiratory Disorders: Yes Hx Chronic Obstructive Pulmonary Disease (COPD): Yes - Neurological Hx Neurological Disorder: No - HEENT Hx HEENT Disorder: Yes Hx Cataracts: Yes Other/Comment: HEARING AID - Renal Hx Renal Disorder: No - Endocrine/Metabolic Hx Endocrine Disorders: Yes Hx Diabetes Mellitus Type 2: Yes Hx Hypothyroidism: Yes - Hematological/Oncological Hx Blood Disorders: Yes Hx Blood Transfusions: Yes Other/Comment: SEPSIS - Integumentary Hx Dermatological Disorder: No - Musculoskeletal/Rheumatological Hx Musculoskeletal Disorders: Yes Hx Falls: Yes - Gastrointestinal Hx Gastrointestinal Disorders: Yes Hx Clostridium Difficile: Yes - Genitourinary/Gynecological Hx Genitourinary Disorders: No - Psychiatric Hx Psychophysiologic Disorder: No Hx Substance Use: No - Surgical History Hx Appendectomy: Yes Hx Cholecystectomy: Yes - Anesthesia Hx Anesthesia: Yes Hx Anesthesia Reactions: No Hx Malignant Hyperthermia: No - Suicidal Assessment Feels Threatened In Home Enviroment: No Family/Social History - Physician Review Nursing Documentation Reviewed: Yes Family/Social History: No Known Family HX Smoking Status: Former Smoker Hx Alcohol Use: No Hx Substance Use: No Hx Substance Use Treatment: No Allergies/Home Meds Allergies/Adverse Reactions: Allergies No Known Allergies Allergy (Verified 05/13/17 14:57) Review of Systems - Physician Review All systems were reviewed & negative as marked: Yes - Review of Systems Constitutional: Normal Eyes: Normal ENT: Normal Respiratory: Normal. absent: SOB, Cough Cardiovascular: Normal. absent: Chest Pain Gastrointestinal: Abdominal Pain, Diarrhea, Nausea, Vomiting Genitourinary Female: Normal Musculoskeletal: Normal Skin: Normal Neurological: Dizziness. absent: Gait Changes Endocrine: Normal Hemo/Lymphatic: Normal Psychiatric: Normal Physical Exam Vital Signs Reviewed: Yes Vital Signs Temp Pulse Resp BP Pulse Ox 05/13/17 17:44 98.1 F 75 17 111/48 L 99 05/13/17 17:13 98.1 F 79 17 125/66 99 05/13/17 15:03 97.5 F L 79 17 98/64 L 99 Temperature: Afebrile Blood Pressure: Hypotensive Pulse: Regular Respiratory Rate: Normal Appearance: Positive for: Well-Appearing, Non-Toxic, Comfortable Pain Distress: None Mental Status: Positive for: Alert and Oriented X 3 - Systems Exam Head: Present: Atraumatic, Normocephalic Pupils: Present: PERRL Extroacular Muscles: Present: EOMI Conjunctiva: Present: Normal Mouth: Present: Moist Mucous Membranes Pharnyx: Present: Normal. No: ERYTHEMA, EXUDATE Neck: Present: Normal Range of Motion Respiratory/Chest: Present: Clear to Auscultation, Good Air Exchange. No: Respiratory Distress, Accessory Muscle Use Cardiovascular: Present: Regular Rate and Rhythm, Normal S1, S2. No: Murmurs Abdomen: Present: Tenderness, Normal Bowel Sounds, Guarding (epigastric). No: Distention, Peritoneal Signs, McBurney's Point Tender, Hernias Rectal: Present: Melena, Hemorrhoids, Normal Rectal Tone, Other (Glass Ribbon Machine Operator Neda Sandlin). No: Rectal Tenderness, Gross Blood Back: Present: Normal Inspection Upper Extremity: Present: Normal Inspection, NORMAL PULSES. No: Cyanosis, Edema Lower Extremity: Present: Normal Inspection. No: Edema Neurological: Present: GCS=15, CN II-XII Intact, Speech Normal, Motor Func Grossly Intact, Normal Sensory Function, Memory Normal Skin: Present: Warm, Dry, Pale. No: Rashes Psychiatric: Present: Alert, Oriented x 3, Normal Insight, Normal Concentration Medical Decision Making ED Course and Treatment: 05/13/17 15:26 86 yo female with n/v/d and dark stools, lightheadedness DDx: GI bleed, Dehydration -- Labs -- EKG -- CXR, -- CT abd/pelv -- Protonox, IVF 05/13/17 15:52 EKG reviewed, shows Atrial Fibrillation at [address] depressions at V4, V5, V6. 05/13/17 18:53 Case was discussed with Dr. Reyes who will admit the patient to his service. CT pending. Will continue to hydrate. Signed out to Dr. Pearson to f/u UA, CT , dose antibiotics, reevaluate and disposition. - Critical Care Critical Care Minutes: 30 minutes - Lab Interpretations Lab Results: 05/13/17 16:30 05/13/17 16:30 Lab Results 05/13/17 16:55: Blood Type B POSITIVE, Antibody Screen Negative, BBK History Checked Patient has bt 05/13/17 16:30: Sodium 139, Potassium 3.4 L, Chloride 101, Carbon Dioxide 26, Anion Gap 16, BUN 17, Creatinine 0.6 L, Est GFR ( Amer) > 60, Est GFR ( Non-Af Amer) > 60, Random Glucose 116 H, Calcium 9.6, Total Bilirubin 1.0, AST 24, ALT 25, Alkaline Phosphatase 79, Lactate Dehydrogenase 486, Total Creatine Kinase < 20 L, Troponin I < 0.01, Total Protein 7.7, Albumin 4.0, Globulin 3.7, Albumin/Globulin Ratio 1.1, Lipase 21 L 05/13/17 16:30: PT 16.5 H, INR 1.44 H, APTT 31.0 05/13/17 16:30: WBC 16.2 H D, RBC 4.62, Hgb 11.4 L D, Hct 37.3, MCV 80.7 D, MCH 24.7 L, MCHC 30.6 L, RDW 18.8 H, Plt Count 275, MPV 10.9, Gran % 84.1 H, Lymph % (Auto) 7.9 L, Sibley % (Auto) 7.7 H, Eos % (Auto) 0.2 L, Baso % (Auto) 0.1 , Gran # 13.63 H, Lymph # (Auto) 1.3, Sibley # (Auto) 1.3 H, Eos # (Auto) 0.0, Baso # (Auto) 0.02 05/13/17 15:28: POC Glucose (mg/dL) 131 H - RAD Interpretation Radiology Orders: 05/13/17 15:19 CHEST PORTABLE [RAD] Stat 05/13/17 17:23 ABD & PELVIS IV CONTRAST ONLY [CT] Stat - Medication Orders Current Medication Orders: Amylase (Pancrease 00574 [id number] U) 5,000 unit PO TID ROSALBA Calcium/Vitamin D (Oscal-D 250 Mg-125 Units Tab) 1 tab PO DAILY ROSALBA Sodium Chloride (Sodium Chloride 0.45%) 1,000 mls @ 30 mls/hr IV .Q24H ROSALBA Pantoprazole Sodium (Protonix Inj) 40 mg IVP DAILY RSOALBA Potassium Chloride (K-Dur 20 Meq Er Tab) 20 meq PO DAILY ROSALBA Discontinued Medications Sodium Chloride (Sodium Chloride 0.9%) 500 mls @ 999 mls/hr IV .Q31M STA Stop: 05/13/17 15:57 Last Admin: 05/13/17 16:00 Dose: 999 mls/hr eMAR Start Stop Document 05/13/17 16:00 OCS (Rec: 05/13/17 16:00 OCS [id number]) Intravenous Solution Start Date 05/13/17 Start Time 16:00 End Date 05/13/17 End time 16:30 Total Infusion Time 30 Pantoprazole Sodium (Protonix Inj) 80 mg IVP STAT STA Stop: 05/13/17 15:20 Last Admin: 05/13/17 15:54 Dose: 80 mg IVP Administration Document 05/13/17 15:54 OCS (Rec: 05/13/17 15:54 OCS [id number]) Charges for Administration # of IVP Administrations 1 Potassium Chloride (K-Dur 20 Meq Er Tab) 40 meq PO STAT STA Stop: 05/13/17 17:24 Last Admin: 05/13/17 17:46 Dose: 40 meq Disposition/Present on Arrival - Present on Arrival Any Indicators Present on Arrival: Yes History of DVT/PE: Yes History of Uncontrolled Diabetes: No Urinary Catheter: No History of Decub. Ulcer: No History Surgical Site Infection Following: None - Disposition Have Diagnosis and Disposition been Completed?: Yes Diagnosis: GI bleed Disposition: HOSPITALIZED Disposition Time: 18:57 Patient Plan: Admission Condition: FAIR Referrals: Reyes,Osvaldo S, DO [Primary Care Provider] - Follow up with primary Forms: [employer] (Estonian)
[2017-05-13] MEDS ORDERED: Sodium Chloride 0.9% 500 ML IV STA (15:27)
--- NOTE | 2017-05-13 16:44 | RAD ---
HISTORY: Abdominal pain COMPARISON: 04/06/2017 FINDINGS: LUNGS: No active pulmonary disease. PLEURA: No significant pleural effusion identified, no pneumothorax apparent. CARDIOVASCULAR: No radiographic findings to suggest acute or significant cardiovascular disease. OSSEOUS STRUCTURES: No significant abnormalities. VISUALIZED UPPER ABDOMEN: Normal. OTHER FINDINGS: None. IMPRESSION: No active disease. No significant interval change compared to the prior examination(s).
[2017-05-13 16:52] LABS: BASO # 0.02 K/mm3 (0.0-2.0); BASO % 0.1 % (0.0-3.0); EOS % 0.2 % (1.5-5.0); GRAN # 13.63 (1.4-6.5); GRAN % 84.1 % (50.0-68.0); HEMOGLOBIN 11.4 g/dL (12.0-16.0); LYMPH # 1.3 (1.2-3.4); LYMPH % 7.9 % (22.0-35.0); MEAN CELL VOLUME 80.7 fl (80.0-105.0); MEAN CORPUSCULAR HEMOGLOBIN 24.7 pg (25.0-35.0); MEAN CORPUSCULAR HGB CONC 30.6 g/dl (31.0-37.0); MEAN PLATELET VOLUME 10.9 fl (7.0-11.0); MONO # 1.3 (0.1-0.6); MONO % 7.7 % (1.0-6.0); RBC 4.62 10^6/uL (3.5-6.1); RED CELL DISTRIBUTION WIDTH 18.8 % (11.5-14.5); WHITE BLOOD COUNT 16.2 10^3/ul (4.5-11.0)
[2017-05-13 17:03] LABS: INR 1.44 (0.93-1.08); PROTHROMBIN TIME 16.5 SECONDS (9.4-12.5)
[2017-05-13 17:16] LABS: ALB/GLOB RATIO 1.1 (1.1-1.8); ALT/SGPT 25 U/L (7-56); AST/SGOT 24 U/L (14-36); BLOOD UREA NITROGEN 17 mg/dL (7-21); CALCIUM 9.6 mg/dL (8.4-10.5); GFR AFRICAN-AMERICAN > 60; GFR NON-AFRICAN AMERICAN > 60; LIPASE 21 U/L (23-300)
[2017-05-13] MEDS ORDERED: Potassium Chloride 20 mEq ER Tab PO STA (17:23)
[2017-05-13] MEDS ORDERED: Iohexol 350 MG/100 ML VIAL ONE (17:26)
[2017-05-13 17:27] LABS: TROPONIN I < 0.01 ng/mL
[2017-05-13] MEDS ORDERED: metroNIDAZOLE IV 500 mg/100 ml 500 MG/100 ML BAG IVPB STA (19:00)
[2017-05-13] MEDS: Sodium Chloride 0.45% 1,000 ML IV SCH (20:42)
[2017-05-13 20:49] LABS: URINE BILIRUBIN NEGATIVE (NEGATIVE); URINE BLOOD NEGATIVE (NEGATIVE); URINE GLUCOSE (UA) NEGATIVE (NEGATIVE); URINE LEUKOCYTE ESTERASE SMALL Leu/uL (NEGATIVE); URINE PROTEIN NEGATIVE mg/dL (<30 mg/dL); URINE UROBILINOGEN 0.2 E.U./dL (<1 E.U./dL)
[2017-05-13 20:50] LABS: URINE APPEARANCE CLEAR (CLEAR); URINE COLOR LIGHT YELLOW (YELLOW)
[2017-05-13 20:57] LABS: URINE BACTERIA TRACE (NEG); URINE EPITHELIAL CELLS 0 - 2 /hpf (0-5); URINE RBC NEGATIVE /hpf (0-2)
[2017-05-13] MEDS ORDERED: Vancomycin 25 MG/ML PO SCH (22:00)
--- NOTE | 2017-05-13 22:02 | CARD ---
APPROVED REPORT EKG Measurement Heart [id number] <Conclusion> Atrial fibrillation ST & T wave abnormality, consider lateral ischemia or digitalis effect Abnormal ECG
[2017-05-13] MEDS: metroNIDAZOLE IV 500 mg/100 ml 500 MG/100 ML BAG IVPB SCH (22:26)
--- NOTE | 2017-05-13 23:53 | PN ---
DATE: 05/13/2017 HISTORY OF PRESENT ILLNESS: I saw Joslyn in the office today. She was very weak, barely walked down the hallway, losing weight, no appetite and abdominal pain. This is an 86-year-old female who I know very well with a past medical history of C. diff; AFib, on Coumadin; right lower leg DVT, hypertension, diabetes, COPD, oxygen at home, nausea, vomiting, abdominal pain, cannot keep food down at all. She feels very weak, lightheaded, difficulty walking. She has had cataracts. She has a hearing aid and diabetic, hypothyroidism, history of sepsis, blood transfusions in the past, falls, C. difficile, appendectomy, cholecystectomy. FAMILY HISTORY: No known family history. SOCIAL HISTORY: Former smoker. No alcohol. No drugs. ALLERGIES: NO KNOWN DRUG ALLERGIES. REVIEW OF SYSTEMS: No vision changes or hearing changes, but old. No sore throat. No shortness of breath or cough. No chest pain or palpitations. There is abdominal pain. There is diarrhea. There is nauseousness. There is vomiting. She was driving in a car and in the middle of the drive she had to open up the door and throw up. No problems urinating. Chronic back issues. No skin issues. She is dizzy, weak, lightheaded. She does have problems walking. She sways. She walks with a cane slowly. She walked up the stairs at my office and was very slow and needed help. No anxiety, no depression, but she is upset about being here. PHYSICAL EXAMINATION: VITAL SIGNS: She has a 97.5 temperature, 79 pulse, 17 respiratory rate, 98/64 blood pressure, 99% O2 sat on room air. GENERAL: She is weak and tired, lethargic. Looks pale. Hypotensive. Alert and oriented x3. HEENT: Head is atraumatic, normocephalic. Extraocular muscles are intact. Pupils are equal and reactive to light. Throat is moist. NECK: Supple. Thyroid is midline. No palpable lymphadenopathy. HEART: Regular rate. Normal S1, S2. LUNGS: Decreased breath sounds, but clear to auscultation bilaterally. ABDOMEN: Mildly distended. Borderline guarding plus/minus. No rebound. Decreased bowel sounds. RECTAL: They did a rectal in the ER. Melena was present. EXTREMITIES: No edema. NEUROLOGIC: GCS is 15. Cranial nerves II through XII grossly intact. Speech is normal. Alert and oriented x3. SKIN: Warm and dry. No apparent rashes or ulcers. LABORATORY DATA: She had some tests done already in the ER. I sent it from the office. She has a 16.2 white count, 11.4 hemoglobin, 37.3 hematocrit with 275 platelets. INR is 1.44. Sodium is 139, potassium is 3.4. We will give her potassium in the ER. BUN 17, creatinine 0.6, GFR is greater than 60, sugar is 116, calcium is 9.6 and total bili is 1. AST is 24, ALT is 25, alk phos 79, lactate dehydrogenase Troponin I is less than 0.01, total protein is 7.7, albumin is 4. She has a chest x-ray, which showed no acute disease. There is a CT scan of the abdomen and pelvis that is pending. IMPRESSION AND PLAN: Her doctors are, Dr. Patel and Dr. Rust. I will get Dr. Patel consulted. I will put her on IV fluids. I will discuss the antibiotics with Dr. Godfrey because of her history of C. diff, I am quite concerned. She does have an elevated white count. We will check her labs tomorrow. Get Physical Therapy involved. She is here for abdominal pain, nausea, vomiting, melena in the stool Osvaldo Reyes DO MTDD
[2017-05-14 01:08] VITALS: BMI 21.1
[2017-05-14] MEDS: metroNIDAZOLE IV 500 mg/100 ml 500 MG/100 ML BAG IVPB SCH ×3 (05:57→23:06)
[2017-05-14 06:56] LABS: HEMOGLOBIN 10.6 g/dL (12.0-16.0); MEAN CELL VOLUME 81.2 fl (80.0-105.0); MEAN CORPUSCULAR HEMOGLOBIN 24.3 pg (25.0-35.0); MEAN CORPUSCULAR HGB CONC 29.9 g/dl (31.0-37.0); MEAN PLATELET VOLUME 11.1 fl (7.0-11.0); RBC 4.37 10^6/uL (3.5-6.1); RED CELL DISTRIBUTION WIDTH 18.7 % (11.5-14.5)
[2017-05-14 07:07] LABS: ALB/GLOB RATIO 1.1 (1.1-1.8); ALBUMIN 3.6 g/dL (3.0-4.8); ALT/SGPT 18 U/L (7-56); AST/SGOT 20 U/L (14-36); BLOOD UREA NITROGEN 13 mg/dL (7-21); CALCIUM 9.5 mg/dL (8.4-10.5); GFR AFRICAN-AMERICAN > 60; GFR NON-AFRICAN AMERICAN > 60
[2017-05-14] MEDS: Amylase/Lipase/Protease 5,000 Units ECC PO SCH ×3 (09:00→17:22)
[2017-05-14] MEDS: Potassium Chloride 20 mEq ER Tab PO SCH (09:01)
[2017-05-14] MEDS: Calcium-Vit D 250 mg-125 Units Tab UD PO SCH (09:01)
[2017-05-14] MEDS: Vancomycin 25 MG/ML PO SCH ×4 (09:05→23:05)
--- NOTE | 2017-05-14 09:35 | CT ---
PROCEDURE: CT Abdomen and Pelvis with contrast HISTORY: Abdominal pain COMPARISON: 02/17/2017. Melo TECHNIQUE: Contrast dose: 100 cc Omnipaque 300 Radiation dose: Total exam DLP = 1386.47 mGy-cm. This CT exam was performed using one or more of the following dose reduction techniques: Automated exposure control, adjustment of the mA and/or kV according to patient size, and/or use of iterative reconstruction technique. FINDINGS: LOWER THORAX: Unremarkable. LIVER: Unremarkable. No gross lesion Dilated intrahepatic and common bile duct system similar finding identified previously likely related to prior cholecystectomy. Incidental finding(s): Multiple simple subcentimeter hepatic cysts. GALLBLADDER AND BILE DUCTS: Status post cholecystectomy. No abnormality is seen in the gallbladder fossa. PANCREAS: Unremarkable. No gross lesion or ductal dilatation. SPLEEN: Unremarkable. ADRENALS: Unremarkable. No mass. KIDNEYS AND URETERS: Unremarkable. No hydronephrosis. No solid mass. Incidental finding(s): Multiple simple renal cysts. VASCULATURE: Unremarkable. No aortic aneurysm. Right common femoral and iliac deep vein thrombosis. IVC filter also identified. BOWEL: Acute diverticulitis confined to a short segment of the descending colon measuring approximately 8 cm. Widespread diverticulosis throughout remainder of the colon and similar to that seen on the prior study. APPENDIX: Normal appendix. PERITONEUM: Unremarkable. No free fluid. No free air. LYMPH NODES: Unremarkable. No enlarged lymph nodes. BLADDER: Unremarkable. REPRODUCTIVE: Unremarkable. BONES: No acute fracture. OTHER FINDINGS: None. IMPRESSION: Acute diverticulitis confined to the descending colon, short segment. Underlying extensive diverticulosis. Deep vein thrombosis right common femoral and iliac veins a new finding compared to the prior study. Additional benign and/or incidental findings described above. Concordant results (preliminary interpretation) provided by [facility]. Procedure Completed: 18:50. Preliminary ([facility]) Report: Dictated and Authenticated: 21:02. Final Interpretation: 09:34 May 14, 2017.
[2017-05-14] MEDS: Oxycodone/Acetaminophen 2.5/325 mg Tab PO PRN ×2 (13:21→19:51)
[2017-05-14] MEDS: Cholestyramine 4 gm/Pkt UD PO SCH ×2 (13:53→23:04)
--- NOTE | 2017-05-14 18:38 | CON ---
DATE: 05/14/2017 LOCATION: The patient was seen early in [facility], bed 1. CHIEF COMPLAINT: Nausea, vomiting and diarrhea and 1-day duration. HISTORY OF PRESENT ILLNESS: This is an 86-year-old female with a history of pseudomembranous colitis, right leg DVT, hypertension, diabetes, chronic obstructive lung disease and who states that she had some nausea. She had diarrhea. She denied any blood per rectum. No fevers and chills. No headaches or blurred vision. No ankles pains. No sore throat. PAST MEDICAL HISTORY: Significant for chronic obstructive lung disease, diabetes mellitus, hypertension, hypothyroidism, atrial fibrillation, osteoarthritis, GERD. PAST SURGICAL HISTORY: Significant for appendectomy and cholecystectomy. ALLERGIES: THE PATIENT HAS NO KNOWN ALLERGIES. MEDICATIONS AT HOME: Include Protonix, Tramadol, Pancrease. PHYSICAL EXAMINATION: GENERAL: The patient is in bed. VITAL SIGNS: Temperature of 98, blood pressure is 130/60, respiratory rate of 20. HEENT: Examination of HEENT is unremarkable. NECK: Supple. LUNGS: Have decreased breath sounds. HEART: Normal S1 and S2. ABDOMEN: Soft, nontender. LABORATORY DATA: Laboratory examination reveals the patient's white count of 16,200, hemoglobin of 11, platelets of 275. Chemistries reveals a BUN of 17, creatinine 0.6. Urinalysis is noted. Microbiology reveals the patient has a history of Klebsiella urinary tract infection in April, which was ESBL. The patient had a chest x-ray and she has no active disease. CAT scan of the abdomen and pelvis, which is pending. Dr. Osvaldo Reyes's progressive note from yesterday is reviewed. ASSESSMENT AND PLAN: An 86-year-old female with a history of pseudomembranous colitis, right leg deep venous thrombosis, chronic obstructive lung disease, history of extended-spectrum beta-lactamase Klebsiella urinary tract infection, hypertension, diabetes, hypothyroidism, atrial fibrillation, osteoarthritis and gastroesophageal reflux disease, admitted with a diagnosis of sepsis secondary to gastroenteritis with diarrhea and tachycardia, heart rate is 94 and leukocytosis. Must rule out recurrent pseudomembranous colitis and blood cultures have been ordered pending. Urine cultures pending and stool gastroenteritis from other etiologies. We will treat the patient with p.o. vancomycin and IV Flagyl. Pending stool Clostridium difficile and stool cultures. We will make further recommendations. The patient has had sepsis with tachycardia, leukocytosis, diarrhea. We will follow up. Rj Godfrey MD
[2017-05-14] MEDS: Sodium Chloride 0.45% 1,000 ML IV SCH (19:19)
--- NOTE | 2017-05-14 20:13 | CON ---
DATE: 05/14/2017 GASTROENTEROLOGY CONSULTATION REQUESTING PHYSICIAN: Osvaldo Reyes DO REASON FOR CONSULTATION: I have been asked to see this 86-year-old female with a history of recurrent pseudomembranous colitis; right lower leg DVT; type 2 diabetes mellitus; hypertension; COPD, on home oxygen; chronic anemia; atrial fibrillation, on Coumadin; with nearly monthly hospitalizations over the last 4 months (five admissions in four months) who was just recently discharged from the hospital approximately 6 weeks ago, now comes to the hospital with recurrent diarrhea for the last 3 days averaging four to five bowel movements a day with one episode of nausea and vomiting. Patient also has a history of pancreatic insufficiency and possible bile salt colitis. She only admits to some abdominal cramps with the diarrhea. She denies any persistent abdominal pain. She is known to have extensive diverticulosis. Patient last had a colonoscopy within the last 2 months. This did not show any endoscopic evidence of pseudomembranous colitis. Biopsies were negative. Patient admits to some streaks of blood after several episodes of diarrhea, mostly on the tissue paper. Patient admits to generalized weakness and lightheadedness, especially when she stands up quickly from a sitting position. Patient also was known to have an anxiety disorder. CT scan of the abdomen and pelvis performed in the emergency room was read as a short segment area of diverticulitis in the descending colon. I reviewed the CT scan of the abdomen and pelvis myself and agree that there is some mural thickening of the descending colon with possibly mild fatty infiltration of the pericolonic fat. She does not have any pain in the left abdomen. PAST MEDICAL HISTORY: Past medical history is as above. Again, she has a history of recurrent pseudomembranous colitis, last colonoscopy was several months ago; history of atrial fibrillation, on Coumadin; type 2 diabetes mellitus; COPD, on home oxygen; chronic anemia; right lower leg DVT; diverticulosis; bile salt colitis; pancreatic insufficiency. PAST SURGICAL HISTORY: Notable for cholecystectomy and appendectomy. SOCIAL HISTORY: She is a former cigarette smoker having quit years ago. She denies alcohol use. FAMILY HISTORY: Noncontributory. REVIEW OF SYSTEMS: Fourteen-point review of systems is notable for diarrhea for 3 days up to five episodes a day, nausea, vomiting for 1 day, abdominal cramps, weakness and lightheadedness. MEDICATIONS: At home include Protonix 40 mg once a day, Os-Ignacio D once a day, Pancrease 5000 units three times a day, Ultram 50 mg three times a day for back pain and sciatica, potassium chloride tablets 20 mg once a day. PHYSICAL EXAMINATION: GENERAL: An elderly female lying in bed in no acute distress. VITAL SIGNS: Reveal a temperature of 98.5, blood pressure 122/77, heart rate of 77. HEENT: Reveals sclerae to be white. Oral mucosa is dry. NECK: Supple. CHEST: Reveals lungs to be clear. HEART: Reveals an irregularly irregular rate. ABDOMEN: Flabby, soft, nontender. No mass. No rebound. No guarding. EXTREMITIES: Show no edema. LABORATORY DATA: Reveal a white blood cell count of 13, down from 16.2; hemoglobin of 10.6. Chemistries reveal normal electrolytes. Serum albumin is 3.6. IMPRESSION: 1. Chronic recurrent diarrhea with clinical dehydration. Etiology is multifactorial. She does have a history of pancreatic insufficiency, bile salt colitis, and recurrent pseudomembranous colitis. CT scan shows nonspecific findings of some mural thickening and some mild infiltration of the pericolonic fat in the descending colon. She is asymptomatic from this. Clinically, I do not believe patient has diverticulitis. I do not believe that the patient needs antibiotic coverage for diverticulitis. She may have recurrent Clostridium difficile. 2. Chronic anemia. 3. Atrial fibrillation. 4. Anxiety disorder. 5. History of lower extremity deep vein thrombosis. RECOMMENDATIONS: 1. Await stool for C. diff. 2. Advance to a low-fat lactose-free diet as well as a low-residue diet as tolerated. 3. Continue IV fluid hydration. 4. We will start the patient on Questran 4 g before meals. 5. Continue Pancrease three times a day with meals. Dale Patel MD
[2017-05-15] MEDS: Oxycodone/Acetaminophen 2.5/325 mg Tab PO PRN ×2 (05:50→17:34)
[2017-05-15] MEDS: Cholestyramine 4 gm/Pkt UD PO SCH ×3 (05:50→21:56)
[2017-05-15] MEDS: metroNIDAZOLE IV 500 mg/100 ml 500 MG/100 ML BAG IVPB SCH ×3 (05:50→21:54)
[2017-05-15 07:07] LABS: MEAN CELL VOLUME 80.7 fl (80.0-105.0); MEAN CORPUSCULAR HEMOGLOBIN 23.9 pg (25.0-35.0); MEAN CORPUSCULAR HGB CONC 29.6 g/dl (31.0-37.0); MEAN PLATELET VOLUME 11.5 fl (7.0-11.0); RBC 4.19 10^6/uL (3.5-6.1); RED CELL DISTRIBUTION WIDTH 18.8 % (11.5-14.5); WHITE BLOOD COUNT 8.9 10^3/ul (4.5-11.0)
[2017-05-15 07:17] LABS: ALBUMIN 3.4 g/dL (3.0-4.8); ALT/SGPT 18 U/L (7-56); AST/SGOT 22 U/L (14-36); BLOOD UREA NITROGEN 9 mg/dL (7-21); CALCIUM 9.4 mg/dL (8.4-10.5); GFR AFRICAN-AMERICAN > 60; GFR NON-AFRICAN AMERICAN > 60
[2017-05-15] MEDS: Potassium Chloride 20 mEq ER Tab PO SCH (09:36)
[2017-05-15] MEDS: Calcium-Vit D 250 mg-125 Units Tab UD PO SCH (09:36)
[2017-05-15] MEDS: Amylase/Lipase/Protease 5,000 Units ECC PO SCH ×3 (09:36→17:34)
[2017-05-15] MEDS: Vancomycin 25 MG/ML PO SCH ×4 (09:42→21:57)
[2017-05-15] MEDS ORDERED: Metoprolol Succinate 25 mg XL Tab PO SCH (10:00)
[2017-05-15] MEDS: Enoxaparin 40 mg Syringe SC SCH (11:35)
--- NOTE | 2017-05-15 12:23 | CP.PCM.CON ---
History of Present Illness - History of Present Illness History of Present Illness: Seen and examined by me and Dr. Madrigal Reason for consult: Atrial fibrillation with rapid rate with activity like going to the bathroom. denies chest pain or shortness of breath History of present illness:an 86 year old with past medical history of Atrial fibrillation, on coumadin for lower leg deep vein thrombosis, hypertension, diabetes,hypothyroidism, COPD and on oxygen at home. came in to the hospital due to weakness,lightheadedness and difficulty walking. She has diffuculty hearing and has gearing aide. She has history of falls,cataracts, sepsis,blood transfusion and C-diff. Surgical History: appendectomy,cholecystectomy Social History: ex smoker,smokes 1 pack per 3 days Review of Systems - Review of Systems Review of Systems: Generalized weakness,unsteady gait - Constitutional Constitutional: Weakness - Cardiovascular Cardiovascular: As Per HPI, Irregular Heart Rhythm Additional comments: Atrial fibrillation, hypertension,diabetes mellitus, - Respiratory Additional comments: absent shortness of breath, COPD,ex smoker, on oxygen at home - Gastrointestinal Additional comments: C-diff from prior admissions, colitis - Musculoskeletal Musculoskeletal: Muscle Weakness - Endocrine Additional Comments: diabetes mellitus,hypothyroidism Past Patient History - Infectious Disease Hx of Infectious Diseases: None, C.diff - Tetanus Immunizations Tetanus Immunization: Unknown - Past Social History Smoking Status: Former Smoker - CARDIAC Hx Cardiac Disorders: Yes (Afib) Hx Atrial Fibrillation: Yes Hx Hypertension: Yes - PULMONARY Hx Respiratory Disorders: Yes Hx Chronic Obstructive Pulmonary Disease (COPD): Yes Other/Comment: EX SMOKER - NEUROLOGICAL Hx Neurological Disorder: No - HEENT Hx HEENT Problems: Yes Hx Cataracts: Yes Other/Comment: HEARING AID - RENAL Hx Chronic Kidney Disease: No - ENDOCRINE/METABOLIC Hx Endocrine Disorders: Yes Hx Diabetes Mellitus Type 2: Yes Hx Hypothyroidism: Yes - HEMATOLOGICAL/ONCOLOGICAL Hx Blood Disorders: Yes Other/Comment: SEPSIS - INTEGUMENTARY Hx Dermatological Problems: No - MUSCULOSKELETAL/RHEUMATOLOGICAL Hx Musculoskeletal Disorders: Yes (SCIATICA) Hx Falls: Yes - GASTROINTESTINAL Hx Gastrointestinal Disorders: Yes (COLITIS) - GENITOURINARY/GYNECOLOGICAL Hx Genitourinary Disorders: No - PSYCHIATRIC Hx Psychophysiologic Disorder: No - SURGICAL HISTORY Hx Appendectomy: Yes Hx Cholecystectomy: Yes - ANESTHESIA Hx Anesthesia: Yes Hx Anesthesia Reactions: No Hx Malignant Hyperthermia: No Meds Allergies/Adverse Reactions: Allergies Allergy/AdvReac Type Severity Reaction Status Date / Time No Known Allergies Allergy Verified 05/13/17 14:57 - Medications Medications: Current Medications Acetaminophen (Tylenol 325mg Tab) 650 mg PO Q6H PRN PRN Reason: Pain, Mild (1-3) Last Admin: 05/14/17 09:01 Dose: 650 mg Amylase (Pancrease [id number] U) 5,000 unit PO TID ON LICENSE OF [facility] Last Admin: 05/15/17 09:36 Dose: 5,000 unit Atenolol (Tenormin) 25 mg PO DAILY ON LICENSE OF [facility] Calcium/Vitamin D (Oscal-D 250 Mg-125 Units Tab) 1 tab PO DAILY ON LICENSE OF [facility] Last Admin: 05/15/17 09:36 Dose: 1 tab Cholestyramine Resin (Questran) 4 gm PO 0600,1200,2000 ON LICENSE OF [facility] Last Admin: 05/15/17 05:50 Dose: 4 gm Enoxaparin Sodium (Lovenox) 40 mg SC DAILY ON LICENSE OF [facility] PRN Reason: Protocol Last Admin: 05/15/17 11:35 Dose: 40 mg Sodium Chloride (Sodium Chloride 0.45%) 1,000 mls @ 30 mls/hr IV .Q24H ON LICENSE OF [facility] Last Admin: 05/14/17 19:19 Dose: Not Given Metronidazole (Flagyl) 500 mg in 100 mls @ 100 mls/hr IVPB Q8 ON LICENSE OF [facility] PRN Reason: Protocol Last Admin: 05/15/17 05:50 Dose: 100 mls/hr Oxycodone/Acetaminophen (Percocet 2.5/325 Mg Tab) 1 tab PO Q6H PRN PRN Reason: Pain, moderate (4-7) Last Admin: 05/15/17 05:50 Dose: 1 tab Pantoprazole Sodium (Protonix Inj) 40 mg IVP DAILY ON LICENSE OF [facility] Last Admin: 05/15/17 09:36 Dose: 40 mg Potassium Chloride (K-Dur 20 Meq Er Tab) 20 meq PO DAILY ON LICENSE OF [facility] Last Admin: 05/15/17 09:36 Dose: 20 meq Vancomycin HCl (Vancocin 25 Mg/Ml (Oral Use)) 500 mg PO QID ON LICENSE OF [facility] PRN Reason: Protocol Stop: 05/23/17 10:01 Last Admin: 05/15/17 09:42 Dose: 500 mg Physical Exam - Constitutional Appears: No Acute Distress, Cachectic - Head Exam Head Exam: NORMAL INSPECTION - Eye Exam Eye Exam: Normal appearance Pupil Exam: NORMAL ACCOMODATION - ENT Exam ENT Exam: Mucous Membranes Moist, Normal Exam - Neck Exam Neck exam: Positive for: Normal Inspection - Respiratory Exam Respiratory Exam: Clear to Auscultation Bilateral, NORMAL BREATHING PATTERN - Cardiovascular Exam Cardiovascular Exam: +S1, +S2 Additional comments: Atrial fibrillation 70 to 80's - GI/Abdominal Exam GI & Abdominal Exam: Normal Bowel Sounds, Soft - Extremities Exam Extremities exam: Positive for: normal inspection - Back Exam Back exam: NORMAL INSPECTION - Neurological Exam Neurological exam: Alert, Oriented x3 - Psychiatric Exam Psychiatric exam: Normal Affect, Normal Mood - Skin Skin Exam: Dry, Intact, Normal Color, Warm Results - Vital Signs Recent Vital Signs: Last Vital Signs Temp 97.9 F 05/15/17 12:00 Pulse 83 05/15/17 12:00 Resp 18 05/15/17 12:00 BP 125/70 05/15/17 12:00 Pulse Ox 96 05/15/17 06:00 - Labs Result Diagrams: 05/15/17 06:30 05/15/17 06:30 Labs: Laboratory Results - last 24 hr 05/14/17 05/14/17 05/14/17 11:22 16:38 21:15 WBC RBC Hgb Hct MCV MCH MCHC RDW Plt Count MPV Sodium Potassium Chloride Carbon Dioxide Anion Gap BUN Creatinine Est GFR ( Amer) Est GFR (Non-Af Amer) POC Glucose (mg/dL) 116 H 87 95 Random Glucose Calcium Total Bilirubin AST ALT Alkaline Phosphatase Total Protein Albumin Globulin Albumin/Globulin Ratio 05/15/17 05/15/17 05/15/17 06:30 06:30 07:43 WBC 8.9 D RBC 4.19 Hgb 10.0 L Hct 33.8 L MCV 80.7 MCH 23.9 L MCHC 29.6 L RDW 18.8 H Plt Count 291 MPV 11.5 H Sodium 138 Potassium 4.0 Chloride 103 Carbon Dioxide 26 Anion Gap 12 BUN 9 Creatinine 0.6 L Est GFR ( Amer) > 60 Est GFR (Non-Af Amer) > 60 POC Glucose (mg/dL) 77 Random Glucose 85 Calcium 9.4 Total Bilirubin 0.5 AST 22 ALT 18 Alkaline Phosphatase 66 Total Protein 6.6 Albumin 3.4 Globulin 3.3 Albumin/Globulin Ratio 1.0 L Assessment & Plan - Assessment and Plan (Free Text) Assessment: Impression: Medical history of Atrial fibrillation, on coumadin for lower leg deep vein thrombosis, hypertension,diabetes,hypothyroidism, COPD and on oxygen at home. diffuculty hearing and has hearing aide,history of falls,cataracts, sepsis,blood transfusion and C-diff. Plan: Consultation was called for due to rapid afib rate of 140's with activity going to the bathroom and back to bed. Patient is known to Dr. Rust.Dr. Madrigal covering for Dr. Rust. Patient not on any medications for hypertension and heart rate. Dr. Reyes started Metoprolol 12.5 mg today . Discontinued Metropolol and Started on Atenolol 25 daily to control afib. Blood pressure stable. EKG consistent with Atrial fibrillation controlled rate Chest X ray -normal Ordered TSH level in AM K+ normal Will follow up Plan and treatment reviewed with Dr. Madrigal - Date & Time Date: 05/15/17 Time: 12:05
--- NOTE | 2017-05-15 15:31 | PN ---
DATE: SUBJECTIVE: I saw her resting comfortably in bed. She looks stronger and stronger. She has a good appetite. She is comfortable. No chest pain, no shortness of breath and the abdominal pain has gone. There is a note when she does get up, the heart rate does increase. PHYSICAL EXAMINATION VITAL SIGNS: She has a 98.1 temperature, 72 pulse, 139/63 blood pressure, 19 respiratory rate, 96% O2 sat on room air. HEENT: Head is atraumatic, normocephalic. GENERAL: She is more alert. Color is better, talking better. No sore throat. HEART: Regular rate. LUNGS: Decreased breath sounds, but clear. ABDOMEN: Soft, nontender. Positive bowel sounds. No more pain anymore. No guarding, no rebound. EXTREMITIES: No edema. MEDICATIONS: She is on Flagyl IV, potassium, Os-Ignacio, Pancrease, Percocet, Protonix, Questran, IV fluids, metoprolol 12.5 twice a day added because of the elevated pulse, Tylenol, and vancomycin. LABORATORY DATA: She has a 8.9 white count, better; 10 hemoglobin, 32.8 hematocrit with 291 platelets. She has sodium 138, potassium 4, BUN is 9, creatinine 0.6, GFR is greater than 60, sugar is 85, calcium is 9.4, total bilirubin is 0.5, AST is 22, ALT is 18, alkaline phosphatase 66, total protein 6.6. She has not been seen by Physical Therapy yet. I will order physical therapy again. I need to know if she can go home or she can go to TCU or I am not sure about the recommendation while we evaluate. There is no ordering for physical therapy. We will continue with treatment and care. We will increase the diet as per GI and continue IV antibiotics. She has acute diverticulitis, right deep venous thrombosis and pain. Osvaldo Reyse DO MTDHemanth
--- NOTE | 2017-05-15 15:49 | PN ---
DATE: 05/15/2017 SUBJECTIVE: The patient is lying in bed, comfortable. She denies any abdominal pain, nausea, vomiting, diarrhea. She is hungry, asking for solid foods. MEDICATIONS: Currently include Questran 4 g p.o. a.c. and at bedtime, Flagyl 500 mg IV q. 8 hours, K-Dur 20 mg once a day, Lovenox 40 mg subcu daily, Os-Ignacio 1 daily, Pancrease 5000 units p.o. t.i.d. with meals, Percocet 2.5 mg q. 6 hours as needed for back pain, Protonix 40 mg IV daily, Toprol XL 12.5 mg twice a day, acetaminophen 650 mg q. 6 p.r.n. abdominal pain and vancomycin 500 mg p.o. q.i.d. PHYSICAL EXAMINATION GENERAL: Elderly female lying in bed, comfortable, in no acute distress. VITAL SIGNS: Reveal temperature of 98.1, blood pressure 139/63, heart rate of 72. HEENT: Reveals sclerae to be white. Conjunctivae pink. Oral mucosa is moist. NECK: Supple. CHEST: Reveals lungs to be clear. HEART: Reveals regular rate and rhythm. ABDOMEN: Soft, nontender. No mass. EXTREMITIES: Show no edema. LABORATORY DATA: Reveals white blood cell count 8.9, hemoglobin of 10. Chemistries reveal BUN 9, creatinine 0.6. AST, ALT, alkaline phosphatase were all normal. Albumin 3.4. Urine is positive for 2 different gram-negative rods, probably contaminant. IMPRESSION: 1. Recurrent diarrhea, multifactorial in etiology including pancreatic insufficiency and bile salt colitis in a patient with recurrent pseudomembranous colitis. 2. Nonspecific mural thickening of the descending colon with history of diverticulosis. I do not believe that the patient has an acute diverticulitis. 3. Atrial fibrillation. 4. Chronic anemia. 5. History of lower extremity deep venous thrombosis. 6. Anxiety disorder. RECOMMENDATIONS: 1. We will advance the patient to a low-fat lactose-free diet and low residue diet. 2. Continue IV Flagyl and p.o. vancomycin. 3. Continue Questran and Pancrease. The patient is stable from a GI standpoint and if diet is tolerated without any further vomiting or diarrhea, she can be discharged home with outpatient followup. Dale Patel MD [facility] # [id number]
[2017-05-15] MEDS: Sodium Chloride 0.45% 1,000 ML IV SCH (21:56)
[2017-05-16] MEDS: Oxycodone/Acetaminophen 2.5/325 mg Tab PO PRN (04:54)
[2017-05-16] MEDS: Cholestyramine 4 gm/Pkt UD PO SCH ×4 (04:55→22:19)
[2017-05-16] MEDS: metroNIDAZOLE IV 500 mg/100 ml 500 MG/100 ML BAG IVPB SCH ×4 (04:55→23:00)
[2017-05-16 07:43] LABS: HEMOGLOBIN 10.3 g/dL (12.0-16.0); MEAN CELL VOLUME 80.2 fl (80.0-105.0); MEAN CORPUSCULAR HGB CONC 29.9 g/dl (31.0-37.0); MEAN PLATELET VOLUME 10.4 fl (7.0-11.0); RBC 4.29 10^6/uL (3.5-6.1); RED CELL DISTRIBUTION WIDTH 18.7 % (11.5-14.5); WHITE BLOOD COUNT 8.1 10^3/ul (4.5-11.0)
[2017-05-16 08:02] LABS: ALBUMIN 3.4 g/dL (3.0-4.8); ALT/SGPT 22 U/L (7-56); AST/SGOT 24 U/L (14-36); BLOOD UREA NITROGEN 7 mg/dL (7-21); CALCIUM 9.5 mg/dL (8.4-10.5); GFR AFRICAN-AMERICAN > 60; GFR NON-AFRICAN AMERICAN > 60
--- NOTE | 2017-05-16 08:32 | PN ---
DATE: 05/14/2017 SUBJECTIVE: I came in. I saw her standing up next to her bed. She is doing better, less wobbly, more mentally there arguing with me and that is her baseline, which is good. She is on IV fluids, IV Flagyl, potassium replacement, Os-Ignacio, Pancrease, I added Percocet 2.5/325, Protonix, Questran, Tylenol and vancomycin. PHYSICAL EXAMINATION: VITAL SIGNS: She has a 96.9 temp, 70 pulse, 121/63 blood pressure, 18 respiratory rate, 98% O2 sat on room air. HEENT: Head is atraumatic, normocephalic. HEART: Regular rate. LUNGS: Clear to auscultation. ABDOMEN: Soft, less tenderness. Positive bowel sounds. She is on clear fluids. EXTREMITIES: No edema. She is definitely stronger than yesterday. LABORATORY DATA: She has a 137 sodium, potassium 3.9, BUN 13, creatinine 0.6, GFR is greater than 60, sugar is 81, calcium is 9.5, total bili is 0.9, AST is 20, ALT is 18, alk phos 71, total protein 6.8. Troponin I is less than 0.01. She has a 13 white count, coming down, it was 16; 10.6 hemoglobin; 35.5 hematocrit with a 257 platelets. Urine was clean. ASSESSMENT: She was getting better. She had a CAT scan showing diverticulitis and a new deep venous thrombosis, but she does have a inferior vena cava in place. We will give her some Percocet 2.5 p.r.n. pain. Continue IV antibiotics. Continue with clear fluids. Osvaldo Reyes DO
--- NOTE | 2017-05-16 09:55 | PN ---
DATE: 05/15/2017 SUBJECTIVE: The patient is seen in bed, in no acute distress, nontoxic. The patient seen earlier today in 376. She states that she is doing much better. No abdominal pain. The diarrhea has resolved. PHYSICAL EXAMINATION: VITAL SIGNS: On exam, temperature is 97, blood pressure is 120/70, respiratory rate of 18. HEENT: Unremarkable. NECK: Supple. LUNGS: Have decreased breath sounds. HEART: Normal S1 and S2. ABDOMEN: Soft, nontender. LABORATORY DATA: Reveals a white count of 8.9, hemoglobin of 10, platelets of 291. Chemistries reveals a BUN of 9, creatinine of 0.6. Urinalysis is noted. Microbiology reveals the urine culture is a Gram-negative jerry and another Gram-negative jerry, although urinalysis is not impressive. The patient had a CAT scan of the abdomen and pelvis; according to the CAT scan, acute diverticulitis confined to the descending colon and DVT in the right common femoral iliac veins. Dr. Patel has reviewed the CT scan, I spoke to him today, he does not feel there is acute diverticulitis on CAT scan, and certainly on exam, the patient does not have abdominal pain and no tenderness on exam; in the history, she denies any abdominal pain and has not been treated for Gram negatives. The only thing the patient is on is Flagyl and vancomycin p.o ASSESSMENT AND PLAN: This is an 86-year-old female with history of pseudomembranous colitis, right leg deep venous thrombosis, hypertension, diabetes, chronic obstructive lung disease, was admitted now with diarrhea and nausea, and admitted with sepsis secondary to gastroenteritis versus pseudomembranous colitis. Awaiting for stool for Clostridium difficile, currently on IV Flagyl and p.o. vancomycin. The patient is not being treated for diverticulitis as per discussion with Dr. Patel, who feels the patient not have diverticulitis regardless of radiological findings. Rj Godfrey MD
[2017-05-16] MEDS: Potassium Chloride 20 mEq ER Tab PO SCH (10:00)
[2017-05-16] MEDS: Calcium-Vit D 250 mg-125 Units Tab UD PO SCH (10:01)
[2017-05-16] MEDS: Amylase/Lipase/Protease 5,000 Units ECC PO SCH ×3 (10:01→17:57)
[2017-05-16] MEDS: Enoxaparin 40 mg Syringe SC SCH (10:02)
[2017-05-16] MEDS: Vancomycin 25 MG/ML PO SCH ×4 (10:03→22:19)
[2017-05-16] MEDS ORDERED: cefTRIAXone 1 gm 1 GM/100 ML BAG IVPB SCH (10:30)
[2017-05-16] MEDS ORDERED: Ciprofloxacin/Dexamethasone OTIC SUSP AD SCH (10:30)
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
--- NOTE | 2017-05-16 13:53 | PN ---
DATE: 05/16/2017 SUBJECTIVE: The patient is sitting up in bed. She denies any further diarrhea, nausea, vomiting, abdominal pain. Medications currently include Antivert 25 mg q. 8h. as needed for dizziness, Flagyl 500 mg IV q. 8h, K-Dur 20 mEq once a day, Lovenox 40 mg once a day, Os-Ignacio 250 mg one tablet daily, Pancrease 5000 units before meals and at bedtime, Protonix 40 mg once a day, Questran 4 g p.o. before meals and at bedtime, Rocephin 1 g daily, atenolol 25 mg daily, vancomycin 500 mg p.o. four times a day. OBJECTIVE VITAL SIGNS: Reveal temperature of 97.8, blood pressure 146/80, heart rate of 88. HEENT: Reveal sclerae to be white. Conjunctivae pink. NECK: Supple. CHEST: Reveal lungs to be clear. HEART: Exam reveals a regular rate and rhythm. ABDOMEN: Soft, nontender. No mass. EXTREMITIES: Show no edema. LABORATORY DATA: White blood cell count 8.1, hemoglobin 10.3, platelet count 297,000. Chemistries reveal normal electrolytes. IMPRESSION 1. Recurrent diarrhea in a patient with history of pancreatic insufficiency, recurrent C. diff, bile salt colitis. 2. Chronic anemia. 3. History of deep venous thrombosis 4. Nonspecific thickening of the descending colon with diverticulosis. Clinically, the patient does not have diverticulitis. The patient found by ENT to have otitis externa as well as otitis media. RECOMMENDATIONS 1. Given recurrent C. diff., we will stop Rocephin and treat the patient with local Cipro ear drops. 2. Continue IV Flagyl and p.o. vancomycin. 3. Continue Pancrease and Questran. Dale Patel MD
--- NOTE | 2017-05-16 14:08 | PN ---
DATE: SUBJECTIVE: She is sitting up in bed. She tells me she is having ear issues. Wants to see the ear, nose and throat doctor. She is also dizzy. She is a little bit hungry. pain like this she is getting back to her old self. She did have some very wobbly walking and she did have some falls and very reluctant to put her on anything for the DVT that she has because she is already on and has the IV filter. MEDICATIONS: She is on IV fluids, Antivert, metronidazole IV, potassium replacement, Lovenox, calcium carbonate, Pancrease, Percocet as needed, Protonix, Questran, Tenormin, Tylenol and vancomycin p.o. PHYSICAL EXAMINATION: VITAL SIGNS: She has a 97.8 temp, 83 pulse, 142/79 blood pressure, 20 respiratory rate, 96% O2 sat on room air. HEENT: Head is atraumatic, normocephalic. HEART: Regular rate. LUNGS: Clear to auscultation. ABDOMEN: Soft, nontender. Positive bowel sounds. EXTREMITIES: No edema. She needs physical therapy. LABORATORY DATA: She has an 8.1 white count, 10.3 hemoglobin, 34.4 hematocrit with a 297 platelets. She has a 138 sodium, potassium 4, BUN 7, creatinine 0.6, GFR is greater than 60, sugar is 8.4, glucose is 81, calcium is 9.5, AST is 24, ALT is 22, alk phos 61, total protein 6.7. ASSESSMENT AND PLAN: She is here with acute diverticulitis, abdominal pain, nauseousness, tachycardia, now she is dizzy, history of deep venous thrombosis, also inferior vena cava filter. I will discuss with the consults. She is being seen by Gastroenterology, Infectious Disease. She is also having diarrhea with Clostridium difficile history. I will discuss with Cardiology if they want to put her back on the Coumadin, but she has been falling and has been weak. We will continue with aggressive treatment and care on Joslyn Ellis. Osvaldo Reyes DO [facility]
--- NOTE | 2017-05-16 14:24 | CP.PCM.PN ---
Subjective - Date & Time of Evaluation Date of Evaluation: 05/16/17 Time of Evaluation: 11:55 - Subjective Subjective: Comfortable, no abdominal pain, no nausea, no vomiting, no diarrhea currently. Objective - Vital Signs/Intake and Output Vital Signs (last 24 hours): Temp Pulse Resp BP Pulse Ox 97.8 F 83 20 142/79 96 05/16/17 05:54 05/16/17 05:54 05/16/17 05:54 05/16/17 05:54 05/16/17 05:54 Intake and Output: 05/16/17 05/16/17 06:59 18:59 Intake Total 600 Output Total 700 Balance -100 - Medications Medications: Current Medications Acetaminophen (Tylenol 325mg Tab) 650 mg PO Q6H PRN PRN Reason: Pain, Mild (1-3) Last Admin: 05/14/17 09:01 Dose: 650 mg Amylase (Pancrease 62557 U-5000 U-00948 U) 5,000 unit PO TID [facility] Last Admin: 05/15/17 17:34 Dose: 5,000 unit Atenolol (Tenormin) 25 mg PO DAILY [facility] Last Admin: 05/15/17 12:21 Dose: 25 mg Calcium/Vitamin D (Oscal-D 250 Mg-125 Units Tab) 1 tab PO DAILY [facility] Last Admin: 05/15/17 09:36 Dose: 1 tab Cholestyramine Resin (Questran) 4 gm PO 0600,1200,2000 [facility] Last Admin: 05/16/17 04:55 Dose: 4 gm Enoxaparin Sodium (Lovenox) 40 mg SC DAILY [facility] PRN Reason: Protocol Last Admin: 05/15/17 11:35 Dose: 40 mg Sodium Chloride (Sodium Chloride 0.45%) 1,000 mls @ 30 mls/hr IV .Q24H [facility] Last Admin: 05/15/17 21:56 Dose: 30 mls/hr Metronidazole (Flagyl) 500 mg in 100 mls @ 100 mls/hr IVPB Q8 [facility] PRN Reason: Protocol Last Admin: 05/16/17 04:55 Dose: 100 mls/hr Meclizine HCl (Antivert) 25 mg PO Q8H PRN PRN Reason: Dizziness Oxycodone/Acetaminophen (Percocet 2.5/325 Mg Tab) 1 tab PO Q6H PRN PRN Reason: Pain, moderate (4-7) Last Admin: 05/16/17 04:54 Dose: 1 tab Pantoprazole Sodium (Protonix Inj) 40 mg IVP DAILY [facility] Last Admin: 05/15/17 09:36 Dose: 40 mg Potassium Chloride (K-Dur 20 Meq Er Tab) 20 meq PO DAILY [facility] Last Admin: 05/15/17 09:36 Dose: 20 meq Vancomycin HCl (Vancocin 25 Mg/Ml (Oral Use)) 500 mg PO QID [facility] PRN Reason: Protocol Stop: 05/23/17 10:01 Last Admin: 05/15/17 21:57 Dose: 500 mg - Labs Labs: 05/16/17 07:00 05/16/17 07:00 PT 16.5 SECONDS (9.4-12.5) H 05/13/17 16:30 INR 1.44 (0.93-1.08) H 05/13/17 16:30 APTT 31.0 Seconds (25.1-36.5) 05/13/17 16:30 - Constitutional Appears: Chronically Ill - Head Exam Head Exam: NORMAL INSPECTION - ENT Exam ENT Exam: Mucous Membranes Moist - Neck Exam Neck Exam: absent: Meningismus - Respiratory Exam Respiratory Exam: Decreased Breath Sounds - Cardiovascular Exam Cardiovascular Exam: +S1, +S2 - GI/Abdominal Exam GI & Abdominal Exam: Soft. absent: Tenderness Assessment and Plan - Assessment and Plan (Free Text) Plan: Assessment R/O C. diff. associated diarrhea non-specific mural thickening in the colon history of ESBL Klebsiella UTI history of sepsis secondary to colitis/diverticulitis DVT atrial fibrillation hypertension COPD bilateral cataracts type 2 diabetes hypothyroidism S/P appendectomy S/P cholecystectomy Plan continue PO Vancomycin and IV Flagyl day 3 reviewed GI notes - more likely non-specific mural thickening of the colon, less likely diverticulitis will continue to monitor clinically
--- NOTE | 2017-05-16 15:44 | PN ---
DATE: 05/16/2017 CARDIOLOGY FOLLOWUP SUBJECTIVE: The patient is complaining of feeling cold. No shortness of breath. No chest pain. She is found to be in rapid atrial fibrillation. PHYSICAL EXAMINATION: VITAL SIGNS: Blood pressure is 125/77, heart rate is atrial fibrillation in the 70s. NECK: Negative JVD. LUNGS: Without rales. HEART: Reveals S1, S2. EXTREMITIES: Without edema. LABORATORY DATA: Hemoglobin is 10.3. Chemistries, BUN and creatinine are unremarkable. TSH is 15. IMPRESSION: 1. Atrial fibrillation. 2. Diverticulitis. 3. Hypertension. 4. Questionable gastrointestinal bleed. 5. Anemia. Given these findings, we will need to hold off on any Coumadin until her diarrhea is resolved on antibiotics and no evidence of bleeding can be documented. Carter Rust MD
[2017-05-16] MEDS: Ciprofloxacin/Dexamethasone OTIC SUSP AD SCH (17:21)
[2017-05-16] MEDS: Sodium Chloride 0.45% 1,000 ML IV SCH (21:30)
[2017-05-17] MEDS: Oxycodone/Acetaminophen 2.5/325 mg Tab PO PRN (00:35)
[2017-05-17 06:18] VITALS: BP 115/59; RESP 18; TEMP 97.5; O2SAT 96
[2017-05-17] MEDS: Cholestyramine 4 gm/Pkt UD PO SCH ×2 (07:05→12:02)
[2017-05-17 07:22] LABS: HEMOGLOBIN 9.5 g/dL (12.0-16.0); MEAN CELL VOLUME 80.3 fl (80.0-105.0); MEAN CORPUSCULAR HGB CONC 29.9 g/dl (31.0-37.0); MEAN PLATELET VOLUME 11.1 fl (7.0-11.0); RBC 3.96 10^6/uL (3.5-6.1); RED CELL DISTRIBUTION WIDTH 18.7 % (11.5-14.5); WHITE BLOOD COUNT 7.2 10^3/ul (4.5-11.0)
[2017-05-17 07:45] LABS: ALT/SGPT 24 U/L (7-56); AST/SGOT 20 U/L (14-36); BLOOD UREA NITROGEN 7 mg/dL (7-21); CALCIUM 8.9 mg/dL (8.4-10.5); GFR AFRICAN-AMERICAN > 60; GFR NON-AFRICAN AMERICAN > 60
--- NOTE | 2017-05-17 08:05 | CP.PCM.PN ---
Subjective - Date & Time of Evaluation Date of Evaluation: 05/17/17 Time of Evaluation: 08:01 - Subjective Subjective: ENT Progress Note: Patient seen and examined at bedside. No acute events overnight. Pt reports improvement in his right ear pain/itchiness. Denies fever, chills, headache, ear discharge, nausea, vomiting. Objective - Vital Signs/Intake and Output Vital Signs (last 24 hours): Temp Pulse Resp BP Pulse Ox 97.5 F L 79 18 115/59 L 96 05/17/17 06:00 05/17/17 06:00 05/17/17 06:00 05/17/17 06:00 05/17/17 06:00 Intake and Output: 05/17/17 05/17/17 06:59 18:59 Intake Total 960 Output Total 700 Balance 260 - Medications Medications: Current Medications Acetaminophen (Tylenol 325mg Tab) 650 mg PO Q6H PRN PRN Reason: Pain, Mild (1-3) Last Admin: 05/14/17 09:01 Dose: 650 mg Amylase (Pancrease 45421 U-5000 U-40622 U) 5,000 unit PO TID [facility] Last Admin: 05/16/17 17:57 Dose: 5,000 unit Atenolol (Tenormin) 25 mg PO DAILY [facility] Last Admin: 05/16/17 10:01 Dose: 25 mg Calcium/Vitamin D (Oscal-D 250 Mg-125 Units Tab) 1 tab PO DAILY [facility] Last Admin: 05/16/17 10:01 Dose: 1 tab Cholestyramine Resin (Questran) 4 gm PO 0600,1200,2000 [facility] Last Admin: 05/17/17 07:05 Dose: 4 gm Ciprofloxacin/Dexamethasone (Ciprodex Otic) 4 drop AD BID [facility] Stop: 05/23/17 10:31 Last Admin: 05/16/17 17:21 Dose: 4 drop Enoxaparin Sodium (Lovenox) 40 mg SC DAILY [facility] PRN Reason: Protocol Last Admin: 05/16/17 10:02 Dose: 40 mg Fluticasone Propionate (Flonase) 1 actuation NS DAILY [facility] Sodium Chloride (Sodium Chloride 0.45%) 1,000 mls @ 30 mls/hr IV .Q24H [facility] Last Admin: 05/16/17 21:30 Dose: 30 mls/hr Meclizine HCl (Antivert) 25 mg PO Q8H PRN PRN Reason: Dizziness Oxycodone/Acetaminophen (Percocet 2.5/325 Mg Tab) 1 tab PO Q6H PRN PRN Reason: Pain, moderate (4-7) Last Admin: 05/17/17 00:35 Dose: 1 tab Pantoprazole Sodium (Protonix Inj) 40 mg IVP DAILY [facility] Last Admin: 05/16/17 10:02 Dose: 40 mg Potassium Chloride (K-Dur 20 Meq Er Tab) 20 meq PO DAILY [facility] Last Admin: 05/16/17 10:00 Dose: 20 meq Sodium Chloride ([place] Nasal [place]) 0 ml NS Q6H [facility] Last Admin: 05/17/17 07:05 Dose: 2 spr Vancomycin HCl (Vancocin 25 Mg/Ml (Oral Use)) 500 mg PO QID [facility] PRN Reason: Protocol Stop: 05/23/17 10:01 Last Admin: 05/16/17 22:19 Dose: 500 mg - Labs Labs: 05/17/17 06:45 05/17/17 06:45 PT 16.5 SECONDS (9.4-12.5) H 05/13/17 16:30 INR 1.44 (0.93-1.08) H 05/13/17 16:30 APTT 31.0 Seconds (25.1-36.5) 05/13/17 16:30 - Additional Findings Additional findings: - Constitutional Appears: Non-toxic, No Acute Distress, Older Than Stated Age - Head Exam Head Exam: ATRAUMATIC, NORMOCEPHALIC - Eye Exam Eye Exam: EOMI, PERRL. absent: Conjunctival injection, Scleral icterus Pupil Exam: NORMAL ACCOMODATION, PERRL. absent: Irregular, Unequal - ENT Exam ENT Exam: Mucous Membranes Moist, Normal Oropharynx, TM's Normal Bilaterally Additional comments: + erythematous right external ear canal noted, + cerumen, no discharge - Expanded ENT Exam Expanded Ear exam: absent: Auricular Hematoma, Auricular Trauma, External Canal Tenderness TM/Canal Exam: Erythema: Right Mouth exam: moist Throat exam: Normal Inspection - Neck Exam Neck exam: Positive for: Normal Inspection - Respiratory Exam Respiratory Exam: Clear to Auscultation Bilateral, NORMAL BREATHING PATTERN. absent: Accessory Muscle Use, Rales, Rhonchi, Wheezes, Stridor - Cardiovascular Exam Cardiovascular Exam: Irregular Rhythm - GI/Abdominal Exam GI & Abdominal Exam: Normal Bowel Sounds, Soft, Tenderness. absent: Distended, Firm, Guarding, Rigid - Extremities Exam Extremities exam: Positive for: normal inspection. Negative for: calf tenderness, pedal edema - Back Exam Back exam: NORMAL INSPECTION - Neurological Exam Neurological exam: Alert, Oriented x3 - Psychiatric Exam Psychiatric exam: Normal Affect, Normal Mood - Skin Skin Exam: Dry, Normal Color, Warm Assessment and Plan - Assessment and Plan (Free Text) Assessment: 86 year old female with PMH bilateral hearing loss (with hearing aides), recurrent C diff, afib, DVT, HTN, DM, COPD (home O2), admitted for nausea, vomiting, diarrhea, found to be acute diverticulitis. ENT consulted for right ear pain/itchiness, found to be otitis media: - Cipro ear drops x 7-10 days - IV Rocephin x1 dose - Continue with hearing aides once completed the course of Cipro ear drops. - Can continue with Meclizine - Follow up outpatient with Dr Rivera in 1 week. - Further recs per Dr Rivera.
[2017-05-17] MEDS: Ciprofloxacin/Dexamethasone OTIC SUSP AD SCH (09:58)
[2017-05-17] MEDS: Vancomycin 25 MG/ML PO SCH (09:59)
[2017-05-17] MEDS ORDERED: Fluticasone Nasal 50 mcg/Spray NS SCH (10:00)
[2017-05-17] MEDS: Potassium Chloride 20 mEq ER Tab PO SCH (10:00)
[2017-05-17] MEDS: Enoxaparin 40 mg Syringe SC SCH (10:00)
[2017-05-17] MEDS: Calcium-Vit D 250 mg-125 Units Tab UD PO SCH (10:00)
[2017-05-17] MEDS: Amylase/Lipase/Protease 5,000 Units ECC PO SCH (10:01)
[2017-05-17 11:29] VITALS: PULSE 63
--- NOTE | 2017-05-17 13:44 | PN ---
DATE: 05/17/2017 SUBJECTIVE: The patient is sitting in a chair, comfortable. She denies any diarrhea, nausea, vomiting, abdominal pain. She denies any further ear pain. PHYSICAL EXAMINATION: VITAL SIGNS: Reveal temperature of 97.5, blood pressure 115/59, heart rate of 79. HEENT: Reveals sclerae to be white. Conjunctivae pink. NECK: Supple. CHEST: Lungs are clear. HEART: Reveals regular rate and rhythm. ABDOMEN: Soft, nontender. No mass. EXTREMITIES: Show no edema. LABORATORY DATA: Reveals white blood cell count 7.2, hemoglobin 9.5, BUN 7, creatinine 0.6. Stool for C. diff toxin and antigen negative. IMPRESSION: 1. Chronic diarrhea, multifactorial. 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 2. Anemia. 3. Ear pain. 4. History of deep venous thrombosis. RECOMMENDATIONS: 1. The patient is to be discharged home and continue her medications of Questran 4 g once a day before meals and Pancrease 5000 units three times a day with meals with Protonix 40 mg once a day. She does have diverticulosis without clinical evidence of diverticulitis. I have instructed her to embark on a soft bland diet. She will follow up with me in the office. Dale Patel MD
--- NOTE | 2017-05-17 14:45 | PN ---
DATE: SUBJECTIVE: I saw Joslyn sitting up in bed. She is doing better, feeling better, lots of complaints, which is good for her and answering lots of questions. She is on Antivert, Ciprodex, Flonase, potassium, Lovenox, [place] spray, Os-Ignacio, Pancrease, Percocet, Protonix, Questran, Tenormin, Tylenol, and vancomycin oral use. It looks likes she is only on oral antibiotics, so I will discus that with the infectious disease doctor. OBJECTIVE: GENERAL: She has a 97.5 temperature, 63 pulse, 115/59 blood pressure, 18 respiratory rate, 96% O2 sat on room air. HEENT: Head is atraumatic, normocephalic. HEART: Regular rate. LUNGS: Clear to auscultation. ABDOMEN: Soft. EXTREMITIES: No edema. LABORATORY DATA: She has a 7.2 white count, 9.5 hemoglobin, 31.8 hematocrit with 283 platelets. She has a 137 sodium, potassium 4. BUN is 7, creatinine 0.6. GFR is greater than 60. Sugar is 76. Calcium is 8.9. Total bili is 0.4, AST is 20, ALT is 24, alk phos 53, total protein is 6. ASSESSMENT AND PLAN: Overall, she is doing fairly well. She is being seen by GI, Cardiology, Infectious Disease. She is here for a diverticulitis, abdominal pain, tachycardia and hopefully discharging her if I can do that. Osvaldo Reyes DO MTDD
--- NOTE | 2017-05-17 17:06 | CP.PCM.PN ---
Subjective - Date & Time of Evaluation Date of Evaluation: 05/17/17 Time of Evaluation: 12:05 - Subjective Subjective: Diarrhea is better, no abdominal pain, no fevers, not in distress. Objective - Vital Signs/Intake and Output Vital Signs (last 24 hours): Temp Pulse Resp BP Pulse Ox 97.5 F L 79 18 115/59 L 96 05/17/17 06:00 05/17/17 06:00 05/17/17 06:00 05/17/17 06:00 05/17/17 06:00 Intake and Output: 05/17/17 05/17/17 06:59 18:59 Intake Total 960 Output Total 700 Balance 260 - Medications Medications: Current Medications Acetaminophen (Tylenol 325mg Tab) 650 mg PO Q6H PRN PRN Reason: Pain, Mild (1-3) Last Admin: 05/14/17 09:01 Dose: 650 mg Amylase (Pancrease 63166 U-5000 [id number] U) 5,000 unit PO TID [facility] Last Admin: 05/17/17 10:01 Dose: 5,000 unit Atenolol (Tenormin) 25 mg PO DAILY [facility] Last Admin: 05/17/17 09:59 Dose: 25 mg Calcium/Vitamin D (Oscal-D 250 Mg-125 Units Tab) 1 tab PO DAILY [facility] Last Admin: 05/17/17 10:00 Dose: 1 tab Cholestyramine Resin (Questran) 4 gm PO 0600,1200,2000 [facility] Last Admin: 05/17/17 07:05 Dose: 4 gm Ciprofloxacin/Dexamethasone (Ciprodex Otic) 4 drop AD BID [facility] Stop: 05/23/17 10:31 Last Admin: 05/17/17 09:58 Dose: 4 drop Enoxaparin Sodium (Lovenox) 40 mg SC DAILY [facility] PRN Reason: Protocol Last Admin: 05/17/17 10:00 Dose: 40 mg Fluticasone Propionate (Flonase) 1 actuation NS DAILY [facility] Meclizine HCl (Antivert) 25 mg PO Q8H PRN PRN Reason: Dizziness Oxycodone/Acetaminophen (Percocet 2.5/325 Mg Tab) 1 tab PO Q6H PRN PRN Reason: Pain, moderate (4-7) Last Admin: 05/17/17 00:35 Dose: 1 tab Pantoprazole Sodium (Protonix Inj) 40 mg IVP DAILY [facility] Last Admin: 05/17/17 10:01 Dose: 40 mg Potassium Chloride (K-Dur 20 Meq Er Tab) 20 meq PO DAILY [facility] Last Admin: 05/17/17 10:00 Dose: 20 meq Sodium Chloride (Arial Nasal Solomon) 0 ml NS Q6H [facility] Last Admin: 05/17/17 07:05 Dose: 2 spr Vancomycin HCl (Vancocin 25 Mg/Ml (Oral Use)) 500 mg PO QID [facility] PRN Reason: Protocol Stop: 05/23/17 10:01 Last Admin: 05/17/17 09:59 Dose: 500 mg - Labs Labs: 05/17/17 06:45 05/17/17 06:45 PT 16.5 SECONDS (9.4-12.5) H 05/13/17 16:30 INR 1.44 (0.93-1.08) H 05/13/17 16:30 APTT 31.0 Seconds (25.1-36.5) 05/13/17 16:30 - Constitutional Appears: Non-toxic, Chronically Ill - Head Exam Head Exam: NORMAL INSPECTION - Respiratory Exam Respiratory Exam: Decreased Breath Sounds - Cardiovascular Exam Cardiovascular Exam: +S1, +S2 - GI/Abdominal Exam GI & Abdominal Exam: Soft. absent: Tenderness Assessment and Plan - Assessment and Plan (Free Text) Plan: Assessment R/O C. diff. associated diarrhea non-specific mural thickening in the colon history of ESBL Klebsiella UTI history of sepsis secondary to colitis/diverticulitis DVT atrial fibrillation hypertension COPD bilateral cataracts type 2 diabetes hypothyroidism S/P appendectomy S/P cholecystectomy Plan continue PO Vancomycin day 4 to complete 10-14 days of therapy reviewed GI notes - more likely non-specific mural thickening of the colon, less likely diverticulitis
== END 2017-05-17 12:38 | disposition home or self-care (01) | DRG 392 ==
LOC: ED 14:44 → ERH 18:55 → 3RSO 21:45
PROVIDERS: ADMIT Family Medicine; ATTEND Family Medicine
DX: K57.32 Diverticulitis of large intestine without perforation or abscess without bleeding (principal); I48.91 Unspecified atrial fibrillation; Z99.81 Dependence on supplemental oxygen; E86.0 Dehydration; K86.89 Other specified diseases of pancreas; E11.36 Type 2 diabetes mellitus with diabetic cataract; D64.9 Anemia, unspecified; E03.9 Hypothyroidism, unspecified; R19.7 Diarrhea, unspecified; J44.9 Chronic obstructive pulmonary disease, unspecified; I10 Essential (primary) hypertension; K21.9 Gastro-esophageal reflux disease without esophagitis; H66.91 Otitis media, unspecified, right ear; F41.9 Anxiety disorder, unspecified; R26.2 Difficulty in walking, not elsewhere classified; H91.93 Unspecified hearing loss, bilateral; Z86.718 Personal history of other venous thrombosis and embolism; Z79.01 Long term (current) use of anticoagulants; Z91.81 History of falling; Z90.49 Acquired absence of other specified parts of digestive tract; Z87.891 Personal history of nicotine dependence

== ENCOUNTER 2018-03-17 09:22 | Outpatient (CLI) | payer MEDICARE | END 2018-03-17 09:23 | disposition home or self-care (01) | LOC: RAD 09:22 ==

== ENCOUNTER 2018-05-16 08:50 | Inpatient (IN) | payer MEDICARE | END 2018-05-19 14:25 | disposition home or self-care (01) | LOC: ED 08:50 → ERH 11:54 → 3RSO 15:59 ==

== ENCOUNTER 2018-05-22 10:13 | Inpatient (IN) | payer MEDICARE ==
[2018-05-22 10:14] VITALS: PULSE 100; BMI 27.0
--- NOTE | 2018-05-22 10:51 | ED PDOC ---
Arrival/HPI - General Chief Complaint: Chest Pain Time Seen by Provider: 05/22/18 10:28 Historian: Patient, Family (nephew) - History of Present Illness Time/Duration: Other (yesterday) Symptom Onset: Gradual Symptom Course: Unchanged Quality: Aching Severity Level: Mild Activities at Onset: Rest Associated Symptoms (Text): 05/22/18 10:48 Patient was discharged from the hospital 3 days ago after admission for bilateral lower extremity DVT. Nephew reports that she was on heparin while in the hospital. She was discharged on no anticoagulation as she has a history of a GI bleed and she does have a Brian filter in place. Over the last several days she developed chest pain and shortness of breath. She has had chest pain and shortness of breath intermittently over the last several weeks. She developed swelling in her right upper extremity the day before yesterday. She was seen in the office today by her PMD Dr. Reyes and directed to the emergency department for evaluation and treatment. No cough congestion or URI. No fever or chills. Past Medical History - Infectious Disease Hx of Infectious Diseases: None - Tetanus Immunization Tetanus Immunization: Unknown - Reproductive Menopause: Yes - Cardiac Hx Cardiac Disorders: Yes (Afib) Hx Hypertension: Yes - Pulmonary Hx Respiratory Disorders: Yes (USED TO SMOKE CIGARETTES PPD QUIT 1979) Hx Pulmonary Embolism: Yes - Neurological Hx Neurological Disorder: No - HEENT Hx HEENT Disorder: Yes Hx Cataracts: Yes Other/Comment: HEARING AID - Renal Hx Renal Disorder: No - Endocrine/Metabolic Hx Endocrine Disorders: Yes Hx Diabetes Mellitus Type 2: Yes Hx Hypothyroidism: Yes - Hematological/Oncological Hx Blood Disorders: Yes Other/Comment: SEPSIS - Integumentary Hx Dermatological Disorder: Yes Other/Comment: 05-16-18 BILATERAL LEG CELLULITIS - Musculoskeletal/Rheumatological Hx Fractures: Yes (MULTIPLE RIB FRACTURES,L SHOULDER FX,) Hx Spinal Stenosis: Yes Hx Unsteady Gait: Yes (CANE) - Gastrointestinal Hx Gastrointestinal Disorders: Yes (COLITIS,H/O C DIFF,GASTROENTERITIS,APPENDECTOMY) Hx Gall Bladder Disease: Yes (CHOLEYCYSTECTOMY) - Genitourinary/Gynecological Hx Genitourinary Disorders: Yes (H/O OF ESBL IN THE URINE 05-14-17) - Psychiatric Hx Psychophysiologic Disorder: No Hx Substance Use: No - Surgical History Other/Comment: ivc filter - Anesthesia Hx Anesthesia: Yes Hx Anesthesia Reactions: No Hx Malignant Hyperthermia: No - Suicidal Assessment Feels Threatened In Home Enviroment: No Family/Social History - Physician Review Nursing Documentation Reviewed: Yes Family/Social History: Unknown Family HX Smoking Status: Former Smoker Hx Alcohol Use: Yes (GLASS OF WINE OCCASIONALLY) Hx Substance Use: No Hx Substance Use Treatment: No Allergies/Home Meds Allergies/Adverse Reactions: Allergies No Known Allergies Allergy (Verified 05/16/18 14:54) Review of Systems - Physician Review All systems were reviewed & negative as marked: Yes - Review of Systems Constitutional: Fatigue. absent: Fevers Respiratory: SOB. absent: Cough, Sputum, Wheezing Cardiovascular: Chest Pain. absent: Palpitations, Syncope Gastrointestinal: absent: Abdominal Pain, Nausea, Vomiting Genitourinary Female: absent: Dysuria, Frequency, Hematuria Neurological: absent: Headache, Dizziness, Focal Weakness Physical Exam Vital Signs Temp Pulse Resp BP Pulse Ox 05/22/18 10:31 97.9 F 94 H 18 149/85 98 Temperature: Afebrile Blood Pressure: Normal Pulse: Regular Respiratory Rate: Normal Appearance: Positive for: Well-Appearing, Non-Toxic, Comfortable, Other (Chronically ill-appearing) Pain Distress: None Mental Status: Positive for: Alert and Oriented X 3 - Systems Exam Head: Present: Atraumatic, Normocephalic Pupils: Present: PERRL Extroacular Muscles: Present: EOMI Conjunctiva: Present: Normal Mouth: Present: Moist Mucous Membranes Pharnyx: No: ERYTHEMA, EXUDATE, TONSILS ENLARGED Neck: Present: Normal Range of Motion Respiratory/Chest: Present: Clear to Auscultation, Good Air Exchange, Decreased Breath Sounds. No: Respiratory Distress, Accessory Muscle Use Cardiovascular: Present: Irregular Rhythm (Normal rate) Abdomen: Present: Normal Bowel Sounds. No: Tenderness, Distention, Peritoneal Signs, Rebound, Guarding Back: Present: Normal Inspection Upper Extremity: Present: Edema, Normal ROM, NORMAL PULSES, Tenderness, Swelling, Erythema, Neurovascularly Intact, Other (Right upper extremity sw elling edema erythema and mild tenderness). No: Deformity Lower Extremity: Present: Edema, Normal ROM, Tenderness, Swelling, Neurovascularly Intact, Other (Bilateral lower extremity trace edema swelling and tenderness). No: CALF TENDERNESS, Erythema, Deformity Neurological: Present: GCS=15, CN II-XII Intact, Speech Normal, Motor Func Grossly Intact Skin: Present: Warm, Dry, Normal Color. No: Rashes Psychiatric: Present: Alert, Oriented x 3, Normal Insight, Normal Concentration Medical Decision Making ED Course and Treatment: 05/22/18 10:52 EKG shows atrial fibrillation rate approximately 100 with poor R waves and nonspecific ST and T wave changes with no acute changes. Similar to EKG of May 16, 2018 05/22/18 14:[address] Reyes who requests a heparin drip and consultation with Dr. Rust and Dr. Clemons. Patient will be placed on telemetry observation. He will see the patient in the emergency department this afternoon. - RAD Interpretation Radiology Orders: 05/22/18 10:44 ANGIO CHEST PE PROTOCOL [CT] Stat 05/22/18 10:45 CHEST PORTABLE [RAD] Stat 05/22/18 10:46 DUPLEX UPPER EXTRM VEIN RIGHT [US] Stat X-ray chest one view was read by the radiologist shows cardiomegaly and chronic interstitial changes. No infiltrate or effusion. Venous Doppler of the right upper extremity as read by the radiologist shows a superficial phlebitis, but no deep vein thrombosis. CT scan of the chest as read by the radiologist shows a small right pleural effusion, but no pulmonary embolus. 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 Ulcer: No History Surgical Site Infection Following: None - Disposition Have Diagnosis and Disposition been Completed?: Yes Diagnosis: DVT (deep venous thrombosis), Chest pain, Dyspnea, Anemia, Elevated brain natriuretic peptide (BNP) level, Elevated d-dimer Disposition: HOSPITALIZED Disposition Time: 14:17 Patient Plan: Observation, Telemetry Patient Problems: Current Active Problems Problem Status Onset Anemia Acute Chest pain Acute DVT (deep venous thrombosis) Acute Dyspnea Acute Elevated brain natriuretic peptide (BNP) level Acute Elevated d-dimer Acute Condition: FAIR
[2018-05-22 11:22] LABS: BASO # 0.02 K/mm3 (0.0-2.0); BASO % 0.2 % (0.0-3.0); EOS % 0.4 % (1.5-5.0); HEMOGLOBIN 9.2 g/dL (12.0-16.0); LYMPH # 1.1 (1.2-3.4); LYMPH % 12.8 % (22.0-35.0); MEAN CELL VOLUME 80.6 fl (80.0-105.0); MEAN CORPUSCULAR HEMOGLOBIN 24.1 pg (25.0-35.0); MEAN CORPUSCULAR HGB CONC 29.9 g/dl (31.0-37.0); MEAN PLATELET VOLUME 10.4 fl (7.0-11.0); MONO # 0.6 (0.1-0.6); MONO % 7.4 % (1.0-6.0); RBC 3.82 10^6/uL (3.5-6.1); RED CELL DISTRIBUTION WIDTH 18.2 % (11.5-14.5); WHITE BLOOD COUNT 8.3 10^3/uL (4.5-11.0)
[2018-05-22 11:31] LABS: INR 1.5; PARTIAL THROMBOPLASTIN TIME 23.5 Seconds (26.9-38.3); PROTHROMBIN TIME 16.9 SECONDS (9.4-12.5)
[2018-05-22 11:46] LABS: B-TYPE NATRIURETIC PEPTIDE 2000 pg/mL (0-450); TROPONIN I < 0.01 ng/mL
[2018-05-22 11:54] LABS: ALB/GLOB RATIO 0.9 (1.1-1.8); ALBUMIN 3.2 g/dL (3.0-4.8); ALT/SGPT 10 U/L (7-56); AST/SGOT 24 U/L (14-36); BLOOD UREA NITROGEN 10 mg/dL (7-21); CALCIUM 7.9 mg/dL (8.4-10.5); GFR NON-AFRICAN AMERICAN > 60
[2018-05-22] MEDS ORDERED: Iohexol 350 MG/100 ML VIAL ONE (12:46)
--- NOTE | 2018-05-22 12:55 | RAD ---
Date of service: 05/22/2018 HISTORY: cp COMPARISON: 05/16/2018 FINDINGS: LUNGS: Chronic interstitial changes. No focal consolidation PLEURA: No significant pleural effusion identified, no pneumothorax apparent. CARDIOVASCULAR: Aortic calcification Mild cardiomegaly. No pulmonary vascular congestion. OSSEOUS STRUCTURES: No significant abnormalities. VISUALIZED UPPER ABDOMEN: Normal. OTHER FINDINGS: None. IMPRESSION: No active disease.
--- NOTE | 2018-05-22 14:24 | CT ---
Date of service: 05/22/2018 PROCEDURE: CT Chest with contrast (Pulmonary Angiogram) HISTORY: cp COMPARISON: 05/16/2018 CT TECHNIQUE: Axial computed tomography images were obtained of the chest in the pulmonary arterial phase of enhancement. Coronal and sagittal reformatted images were created and reviewed. Intravenous contrast dose: 100 cc of Omni 350 Radiation dose: Total exam DLP = 358.78 mGy-cm. This CT exam was performed using one or more of the following dose reduction techniques: Automated exposure control, adjustment of the mA and/or kV according to patient size, and/or use of iterative reconstruction technique. FINDINGS: PULMONARY ARTERIES: Unremarkable. No pulmonary embolism. AORTA: No acute findings. No thoracic aortic aneurysm. Aortic calcification and coronary artery calcification LUNGS: Unremarkable. No nodule, mass or pulmonary consolidation. PLEURAL SPACES: Small right pleural effusion HEART: Unremarkable. No cardiomegaly. No significant pericardial effusion. LYMPH NODES: No lymphadenopathy. BONES, CHEST WALL: Unremarkable. No fracture or destructive lesion OTHER FINDINGS: Unremarkable. IMPRESSION: Unremarkable CT pulmonary angiogram. No pulmonary embolus.
--- NOTE | 2018-05-22 15:15 | US ---
PROCEDURE: Right upper extremity venous US CLINICAL HISTORY: Arm pain and swelling Evaluate for deep venous thrombosis. PHYSICIAN(S): Carter Barajas M.D FINDINGS: The visualized rightinternal jugular vein is sonographically normal and compressible. No evidence of obstruction or thrombus is seen. The visualized segments of the right subclavian vein are patent with normal waveforms. No sonographic evidence of obstruction or thrombosis is seen. The visualized deep venous system of the proximal right upper extremity is sonographically normal and compressible. There is superficial phlebitis in the right basilic vein below the elbow IMPRESSION: 1. No sonographic evidence for deep venous thrombosis in the visualized segments of the right upper extremity. 2. Superficial thrombophlebitis in the right basilic vein below the elbow
[2018-05-22] MEDS: Heparin25000 units/250ml 1/2NS 25,000 UNITS/250 ML BAG IV PRN (15:35)
[2018-05-22] MEDS ORDERED: Potassium Chloride 20 mEq ER Tab PO ONE (17:38)
--- NOTE | 2018-05-22 19:52 | HP ---
DATE OF EXAM: 05/22/2018 HISTORY OF PRESENT ILLNESS: She was just discharged from the hospital 3 days ago for bilateral lower extremity DVTs. The nephew brought her in. In fact, she could not be on anticoagulation because of her GI history of bleeding for which she has a Brian filter in place. She developed chest pain, shortness of breath and right arm discomfort and also middle abdominal epigastric pain, also shortness of breath, swelling of the right upper extremity and now they sent her to the emergency room for evaluation. PAST MEDICAL HISTORY: She has a very interesting past medical history of atrial fibrillation, hypertension, pulmonary embolism history. She has diabetes, hypothyroid. She is off for her Synthroid because it was too low the last time. Blood sugars have been good. She has been septic in the past. She had bilateral leg cellulitis in the past. Multiple rib fractures and a left shoulder fracture from a fall. She has spinal stenosis. She uses a cane to get around. She has colitis history, C. diff history, gastroenteritis. PAST SURGICAL HISTORY: She had cataract surgeries. She has a hearing aid. Appendectomy, cholecystectomy. History of ESBL in the urine, she has a Brian filter in place. SOCIAL HISTORY: She used to smoke, she quit in 1979. A former smoker. Drinks wine occasionally. No substance abuse. FAMILY HISTORY: Unknown family history. ALLERGIES: NO KNOWN DRUG ALLERGIES. REVIEW OF SYSTEMS She is tired. No fevers. She is short of breath. No coughing or wheezing. There is chest pain. No palpitations. There is abdominal pain, midepigastric pain with nauseousness. No vomiting or diarrhea. No problems urinating. No headache or dizziness. The right arm is swollen, the legs are swollen. PHYSICAL EXAMINATION GENERAL: She is alert, well-appearing in the emergency room, chronically ill. Alert and oriented x3. VITAL SIGNS: She has a 97.9 temperature, 94 pulse, 18 respiratory rate, 149/85 blood pressure, and 98% O2 sat on room air. HEENT: Head is atraumatic, normocephalic. Extraocular muscles are intact. Pupils equally react to light and accommodation. Throat is moist. NECK: Supple. No erythema. CARDIOPULMONARY: Heart, irregular rate. LUNGS: Decreased breath sounds but clear to auscultation. No wheezes, no rhonchi, no rales. Decreased breath sounds. ABDOMEN: Mild midepigastric tenderness. Positive bowel sounds. No guarding. No rebound. No CVA tenderness. EXTREMITIES: The right arm is a little bit swollen. The left leg is a little bit swollen with edema. NEUROLOGIC: GCS is 15. Cranial nerves II through XII grossly intact. Speech is normal. Alert and oriented x3. SKIN: Warm and dry. No apparent rashes or ulcers. LYMPHATICS: Thyroid midline. No palpable appreciable lymphadenopathy. LABORATORY DATA: She has a possible small right pleural effusion on CT scan of the chest but no pulmonary embolus. She has a superficial thrombophlebitis of the right arm, bilateral lower extremity DVT history. She has an 8.3 white count, 9.2 hemoglobin, 38.8 hematocrit with 247 platelets. A 1.5 INR, D-dimer is 883. A 138 sodium, potassium is 3.4, I gave her potassium replacement. BUN 10, creatinine 0.5, GFR is greater than 60, sugar is 87, calcium is 7.9, magnesium 1.6, total bili is 1.5. AST is 24, ALT is 10, alk phos is 58. Lactate dehydrogenase is 516. Troponin I is less than 0.01. BNP is 2000, a little bit elevated. Total protein is 6.7. IMPRESSION: She is here for right arm new superficial thrombophlebitis and abdominal pain. PLAN: She is going to have consults with Pulmonary, Cardiology and Gastroenterology. I would like to get an endoscopy possibly. I think she needs to be put on Eliquis as something to dissolve these clots. She will get Protonix for the abdominal pain and potassium replacements. She is on a heparin drip. We are going to check her labs tomorrow. Make sure she has oxygen. TSH tomorrow morning. Osvaldo Reyes DO
--- NOTE | 2018-05-22 20:23 | CARD ---
APPROVED REPORT Date of service: 05/22/2018 EKG Measurement Heart [id number] <Conclusion> Atrial fibrillation with rapid ventricular response with premature ventricular or aberrantly conducted complexes Low voltage QRS Nonspecific ST and T wave abnormality, probably digitalis effect Abnormal ECG
[2018-05-23 04:32] LABS: HEMOGLOBIN 9.7 g/dL (12.0-16.0); MEAN CELL VOLUME 80.3 fl (80.0-105.0); MEAN CORPUSCULAR HEMOGLOBIN 24.5 pg (25.0-35.0); MEAN CORPUSCULAR HGB CONC 30.5 g/dl (31.0-37.0); MEAN PLATELET VOLUME 10.7 fl (7.0-11.0); RBC 3.96 10^6/uL (3.5-6.1); RED CELL DISTRIBUTION WIDTH 18.4 % (11.5-14.5); WHITE BLOOD COUNT 7.9 10^3/uL (4.5-11.0)
[2018-05-23] MEDS: Pantoprazole 40mg/100mL NS 40 MG/100 ML BAG IVPB SCH (05:23)
[2018-05-23 06:47] LABS: ALB/GLOB RATIO 0.9 (1.1-1.8); ALBUMIN 3.3 g/dL (3.0-4.8); ALT/SGPT 13 U/L (7-56); AST/SGOT 25 U/L (14-36); BLOOD UREA NITROGEN 8 mg/dL (7-21); CALCIUM 8.2 mg/dL (8.4-10.5); GFR NON-AFRICAN AMERICAN > 60
--- NOTE | 2018-05-23 07:34 | CON ---
DATE: 05/23/2018 PULMONARY CONSULTATION REFERRING PHYSICIAN: Dr. Osvaldo Reyes REASON FOR CONSULTATION: Chronic obstructive pulmonary disease. History is obtained via extensive discussion with the night nurse. I have also reviewed the chart at length, and discussed the case with the patient at length. The patient is a chronically ill 87-year-old female, with past medical history significant for bilateral deep venous thrombosis (diagnosed during the last admission), status post inferior vena cava filter placement, history of gastrointestinal bleeding, chronic obstructive pulmonary disease, atrial fibrillation, hypertension, diabetes mellitus, who presents to [facility] with main complaints of increasing shortness of breath at rest, dyspnea on exertion, and sporadic chest pain for the past 2 days. The patient does state to a chronic occasional cough with occasional sputum production - unchanged. There is no history of coughing up of blood. There is no history of chest pain - made worse with deep respirations. There is no history of temperatures, chills, or infectious exposure. There is no history of night sweats, weight loss, or appetite change prior to the above events. No history of calf pains. No history of syncope or diaphoresis. No history of recent travel or trauma. REVIEW OF SYSTEMS: The patient does complain of occasional abdominal pain. No nausea, vomiting, or diarrhea. No acute urinary symptoms. Rest of the review of systems is negative. ALLERGIES: NO KNOWN ALLERGIES. SOCIAL HISTORY: Positive for former tobacco usage. No alcohol. FAMILY HISTORY: No inheritable diseases. HOME MEDICATIONS: Include [place] nasal spray, Feosol, Os-Ignacio, and ProAir inhaler. PHYSICAL EXAMINATION: GENERAL: The patient appears comfortable at rest. She is not short of breath. She is not using accessory muscles for breathing. VITALS: Temperature is 98.6, pulse is 86, respirations 18, blood pressure 145/68. Oxygen saturation on room air is 96%. HEENT: Normocephalic, atraumatic. No JVD. CARDIOVASCULAR: Positive S1, S2. No S3 gallop. LUNGS: Decreased breath sounds at the bases. Minimal rhonchi bilaterally. No wheezing. EXTREMITIES: Mild edema in both lower extremities. No cyanosis or clubbing. The left calf is tender to palpation. The right calf is nontender to palpation. GASTROINTESTINAL: Abdomen is soft, nontender, nondistended. Bowel sounds are positive. SKIN: No acute rash. NEUROLOGIC: Exam limited at the present time. PERTINENT LABORATORY DATA: Duplex ultrasound was done on both her legs - last recent admission. Results revealed bilateral deep venous thrombosis. CAT scan of the chest was done as an angiogram protocol yesterday. There is no pulmonary embolism seen. There is no nodule, mass, or pulmonary consolidation seen. There is a small right pleural effusion. There is no lymphadenopathy. CBC: White count 7.9K, hemoglobin 9.7, hematocrit 31.8, platelets of 258,000. Complete metabolic profile: Potassium 3.4, calcium 7.9, magnesium 1.6, total bilirubin 1.5. B-type natriuretic peptide 2000. Rest of the metabolic profile is within normal limits. IMPRESSION: 1. Chest pain. 2. Atrial fibrillation. 3. Chronic obstructive pulmonary disease. 4. Bilateral deep venous thrombosis. 5. Anemia. PLAN: Again, I did discuss the case with the night nurse at length. I have also reviewed the chart at length, and discussed the case with the patient at length. The patient presented to [facility] yesterday with main complaints of shortness of breath at rest, dyspnea on exertion, and sporadic chest pain over the past 2 days. She also offers some chronic mild pulmonary symptoms. I did review the CAT scan of the chest - done as an angiogram protocol. Findings are noted above. In short, there are no new or significant findings. On physical exam, there is mild bronchospasm noted. However, there is no significant alveolar-arterial gradient. I will try starting the patient on Brovana and inhaled Pulmicort this morning. The patient does have a long history of chronic obstructive pulmonary disease. Again, she does use ProAir at home. However, I will try to stay away from the more potent beta-agonist at this point in time. Gastrointestinal and Cardiology consults have been ordered. The patient remains on a heparin drip. The patient does state to feeling better this morning and is clinically improved. Additional Pulmonary intervention will be based on the clinical status of the patient. I will discuss the above with Dr. Reyes later this morning. Thank you very much for this pulmonary consultation. Sterling Clemons MD MTDD
[2018-05-23] MEDS: Budesonide 0.5 mg/2 ml Inhal Susp UD IH SCH ×2 (07:46→19:35)
[2018-05-23] MEDS: Arformoterol 15 mcg/2 ml Inh Sol IH SCH ×2 (07:46→19:35)
[2018-05-23] MEDS ORDERED: AMYLASE PO SCH (10:00)
[2018-05-23] MEDS ORDERED: CREON 12000 UNIT PO SCH (10:00)
[2018-05-23] MEDS ORDERED: LIPASE PO SCH (10:00)
[2018-05-23] MEDS ORDERED: PROTEASE PO SCH (10:00)
--- NOTE | 2018-05-23 10:13 | CP.PCM.CON ---
<EmaFabio - Last Filed: 05/23/18 11:19> History of Present Illness - History of Present Illness History of Present Illness: Fabio Boo PGY2 GI Consult Note for Dr. Srinivasan covering for Dr. Patel Reason for consult: abd pain, EGD Ms. Conklin is an 87 year old pleasant female with a PMH of Afib (not on anticoagulation due to hx of GI bleeds), c.diff colitis, gastroenteritis, COPD, DM2, falls, Klebsiella UTIs, PE, and recent admission for b/l LE DVT's w/ filter in place who is admitted for epigastric pain and shortness of breath. GI consulted for possible endoscopy and evaluation of the patient's abdominal pain. Patient is currently on heparin drip for RUE superficial thrombophlebitis. On evaluation, the patient states that her pain is epigastric and that she has been experiencing dysphagia, including liquids. Patient denies any nausea/vomiting/diarrhea, fevers/chills, or incontinence. 12-pt ROS was reviewed and is otherwise unremarkable. EKG upon admission showed Afib w/ RVR, CT/PE was unremarkable for PE. Echo from 05/17/18 showed mildly dilated LA/RA but normal sized LV and RV w/ normal LV function; aortic valve is moderately sclerotic with no stenosis, and mitral valve is moderately calcified with mild MR; patient has moderate pulmonary hy pertension. Prior endoscopies noted on [facility]: Colonoscopy 03/2017: erythematous mucosa in descending colon (biopsy showed nonspecific chronic inflammation), and diverticulosis in sigmoid and descending colons; patient on dificid Colonoscopy 05/2015: severe diverticuloss, colonic angioectasia, hemorrhoids EGD 05/2015: medium sized hiatal hernia, none submucosa gastric nodule and one non-bleeding angioectasia PMH: as above PSH: cataracts, appendectomy, choelcystectomy, IVC filter Meds: reviewed on MAY Allergies: NKDA SHx: former tobacco smoker, no drug use, occasional EtOH FHx: non-contributory Review of Systems - Review of Systems All systems: reviewed and no additional remarkable complaints except (as per HPI) Past Patient History - Infectious Disease Hx of Infectious Diseases: None - Tetanus Immunizations Tetanus Immunization: Unknown - Past Social History Smoking Status: Former Smoker Alcohol: Occasional Drugs: Denies - CARDIAC Hx Cardiac Disorders: Yes (Afib, jaimie filter) Hx Hypertension: Yes - PULMONARY Hx Respiratory Disorders: Yes (USED TO SMOKE CIGARETTES PPD QUIT 1979) Hx Asthma: Yes Hx Chronic Obstructive Pulmonary Disease (COPD): Yes - NEUROLOGICAL Hx Neurological Disorder: No - HEENT Hx HEENT Problems: Yes ([place](uses Hearing aids), glasses) Hx Cataracts: Yes Other/Comment: HEARING AID - RENAL Hx Chronic Kidney Disease: No - ENDOCRINE/METABOLIC Hx Endocrine Disorders: Yes Hx Diabetes Mellitus Type 2: Yes Hx Hypothyroidism: Yes - HEMATOLOGICAL/ONCOLOGICAL Hx Blood Disorders: Yes (sepsis) Other/Comment: SEPSIS - INTEGUMENTARY Hx Dermatological Problems: Yes (bilateral leg cellulitis 05/16/18) Other/Comment: 05-16-18 BILATERAL LEG CELLULITIS - MUSCULOSKELETAL/RHEUMATOLOGICAL Hx Falls: Yes Hx Fractures: Yes (MULTIPLE RIB FRACTURES,L SHOULDER FX,) Hx Spinal Stenosis: Yes Hx Unsteady Gait: Yes (CANE) - GASTROINTESTINAL Hx Gastrointestinal Disorders: Yes (COLITIS,H/O C DIFF,GASTROENTERITIS,APPENDECTOMY) Hx Gall Bladder Disease: Yes (CHOLEYCYSTECTOMY) - GENITOURINARY/GYNECOLOGICAL Hx Genitourinary Disorders: Yes (H/O OF ESBL IN THE URINE 05-14-17) - PSYCHIATRIC Hx Psychophysiologic Disorder: No - SURGICAL HISTORY Hx Surgeries: (appendectomy, CHOLEYCYSTECTOMY, jaimie filter) Hx Cardiac Catheterization: (denies) - ANESTHESIA Hx Anesthesia: Yes Hx Anesthesia Reactions: No Hx Malignant Hyperthermia: No Meds Allergies/Adverse Reactions: Allergies Allergy/AdvReac Type Severity Reaction Status Date / Time No Known Allergies Allergy Verified 05/16/18 14:54 - Medications Medications: Current Medications Arformoterol Tartrate (Brovana) 15 mcg IH [id number] [facility] Last Admin: 05/23/18 07:46 Dose: 15 mcg Budesonide (Pulmicort Respules) 0.5 mg IH [id number] [facility] Last Admin: 05/23/18 07:46 Dose: 0.5 mg Home Med (Home Med) 1 unit PO TID [facility] Heparin Sodium/Sodium Chloride (Heparin 69167 Units/250ml 1/2 Normal Saline) 25,000 units in 250 mls @ 14.223 mls/hr IV .[id number] PRN; Protocol PRN Reason: ADJUST RATE PER PROTOCOL Last Titration: 05/23/18 05:22 Dose: 16 units/kg/hr, 12.643 mls/hr Pantoprazole Sodium (Protonix 40mg Ivpb) 40 mg in 100 mls @ 200 mls/hr IVPB 0600 [facility] Last Admin: 05/23/18 05:23 Dose: 200 mls/hr Physical Exam - Constitutional Appears: Well, No Acute Distress - Head Exam Head Exam: ATRAUMATIC, NORMAL INSPECTION - Eye Exam Eye Exam: EOMI, Normal appearance - ENT Exam ENT Exam: Mucous Membranes Moist, Normal Exam - Neck Exam Neck exam: Positive for: Normal Inspection. Negative for: Thyromegaly - Respiratory Exam Respiratory Exam: NORMAL BREATHING PATTERN. absent: Respiratory Distress - Cardiovascular Exam Cardiovascular Exam: Irregular Rhythm, +S1, +S2 - GI/Abdominal Exam GI & Abdominal Exam: Normal Bowel Sounds, Soft. absent: Distended, Tenderness - Extremities Exam Extremities exam: Positive for: full ROM, pedal edema (b/l) - Neurological Exam Neurological exam: Alert, Oriented x3 - Skin Skin Exam: Normal Color, Warm Results - Vital Signs Recent Vital Signs: Last Vital Signs Temp 98.0 F 05/23/18 06:00 Pulse 87 05/23/18 06:00 Resp 18 05/23/18 06:00 BP 143/65 05/23/18 06:00 Pulse Ox 98 05/23/18 06:00 - Labs Result Diagrams: 05/23/18 04:15 05/23/18 04:15 Labs: Laboratory Results - last 24 hr 05/22/18 05/22/18 05/22/18 11:11 11:11 11:11 WBC 8.3 RBC 3.82 Hgb 9.2 L Hct 30.8 L MCV 80.6 MCH 24.1 L MCHC 29.9 L RDW 18.2 H Plt Count 247 MPV 10.4 Neut % (Auto) 79.2 H Lymph % (Auto) 12.8 L [place] % (Auto) 7.4 H Eos % (Auto) 0.4 L Baso % (Auto) 0.2 Lymph # (Auto) 1.1 L [place] # (Auto) 0.6 Eos # (Auto) 0.0 Baso # (Auto) 0.02 Absolute Neuts (auto) 6.60 H PT 16.9 H INR 1.50 APTT 23.5 L D-Dimer, Quantitative 883 H Sodium 138 Potassium 3.4 L Chloride 100 Carbon Dioxide 25 Anion Gap 16 BUN 10 Creatinine 0.5 L Est GFR ( Amer) > 60 Est GFR (Non-Af Amer) > 60 Random Glucose 87 Calcium 7.9 L Magnesium 1.6 L Total Bilirubin 1.5 H AST 24 ALT 10 Alkaline Phosphatase 50 Lactate Dehydrogenase 516 Total Creatine Kinase 25 L Troponin I < 0.01 NT-Pro-B Natriuret Pep 2000 H Total Protein 6.7 Albumin 3.2 Globulin 3.6 Albumin/Globulin Ratio 0.9 L TSH 3rd Generation 05/22/18 05/23/18 05/23/18 22:00 04:15 04:15 WBC 7.9 RBC 3.96 Hgb 9.7 L Hct 31.8 L MCV 80.3 MCH 24.5 L MCHC 30.5 L RDW 18.4 H Plt Count 258 MPV 10.7 Neut % (Auto) Lymph % (Auto) [place] % (Auto) Eos % (Auto) Baso % (Auto) Lymph # (Auto) [place] # (Auto) Eos # (Auto) Baso # (Auto) Absolute Neuts (auto) PT INR APTT 71.2 H D-Dimer, Quantitative Sodium 135 Potassium 3.4 L Chloride 100 Carbon Dioxide 24 Anion Gap 14 BUN 8 Creatinine 0.5 L Est GFR ( Amer) > 60 Est GFR (Non-Af Amer) > 60 Random Glucose 78 Calcium 8.2 L Magnesium Total Bilirubin 1.4 H AST 25 ALT 13 Alkaline Phosphatase 53 Lactate Dehydrogenase Total Creatine Kinase Troponin I NT-Pro-B Natriuret Pep Total Protein 6.9 Albumin 3.3 Globulin 3.6 Albumin/Globulin Ratio 0.9 L TSH 3rd Generation 05/23/18 05/23/18 04:15 04:15 WBC RBC Hgb Hct MCV MCH MCHC RDW Plt Count MPV Neut % (Auto) Lymph % (Auto) [place] % (Auto) Eos % (Auto) Baso % (Auto) Lymph # (Auto) [place] # (Auto) Eos # (Auto) Baso # (Auto) Absolute Neuts (auto) PT INR APTT 86.8 H D-Dimer, Quantitative Sodium Potassium Chloride Carbon Dioxide Anion Gap BUN Creatinine Est GFR ( Amer) Est GFR (Non-Af Amer) Random Glucose Calcium Magnesium Total Bilirubin AST ALT Alkaline Phosphatase Lactate Dehydrogenase Total Creatine Kinase Troponin I NT-Pro-B Natriuret Pep Total Protein Albumin Globulin Albumin/Globulin Ratio TSH 3rd Generation 0.08 L Assessment & Plan - Assessment and Plan (Free Text) Assessment: 87 year old pleasant female with a PMH of Afib (not on anticoagulation due to hx of GI bleeds), c.diff colitis, gastroenteritis, COPD, DM2, falls, Klebsiella UTIs, PE, and recent admission for b/l LE DVT's w/ filter in place who is admitted for epigastric pain and shortness of breath. GI consulted for possible endoscopy and evaluation of the patient's abdominal pain. Symptoms of dysphagia upon presentation may be due to compression due to enlarged LA; we will need to r/o functional, malignant or inflammatory/infectious causes. Plan: - NPO - esophagram ordered today to evaluate anatomy and any strictures - CLD after scan - Patient for EGD tomorrow - patient is a high risk for anesthesia given her age and moderate pulmonary hypertension; will ask anesthesia to evaluate - PPI for GI ppx - Pulmonology is on board - further recs per Dr. Srinivasan Case was reviewed and discussed with attending Dr. Srinivasan <Dianna Srinivasan V - Last Filed: 05/23/18 20:51> Meds - Medications Medications: Current Medications Arformoterol Tartrate (Brovana) 15 mcg IH [id number] [facility] Last Admin: 05/23/18 19:35 Dose: 15 mcg Budesonide (Pulmicort Respules) 0.5 mg IH [id number] [facility] Last Admin: 05/23/18 19:35 Dose: 0.5 mg Home Med (Home Med) 1 unit PO TID [facility] Last Admin: 05/23/18 18:21 Dose: 1 unit Heparin Sodium/Sodium Chloride (Heparin 56428 Units/250ml 1/2 Normal Saline) 25,000 units in 250 mls @ 14.223 mls/hr IV .[id number] PRN; Protocol PRN Reason: ADJUST RATE PER PROTOCOL Last Admin: 05/23/18 11:44 Dose: 16 units/kg/hr, 12.643 mls/hr Pantoprazole Sodium (Protonix 40mg Ivpb) 40 mg in 100 mls @ 200 mls/hr IVPB 0600 [facility] Last Admin: 05/23/18 05:23 Dose: 200 mls/hr Oxycodone HCl (Oxycodone Immediate Release Tab) 15 mg PO BID PRN PRN Reason: Pain, moderate (4-7) Results - Vital Signs Recent Vital Signs: Last Vital Signs Temp 97.9 F 05/23/18 18:00 Pulse 85 05/23/18 18:00 Resp 20 05/23/18 18:00 BP 149/60 05/23/18 18:00 Pulse Ox 98 05/23/18 06:00 - Labs Result Diagrams: 05/23/18 04:15 05/23/18 04:15 Labs: Laboratory Results - last 24 hr 05/22/18 05/23/18 05/23/18 22:00 04:15 04:15 WBC 7.9 RBC 3.96 Hgb 9.7 L Hct 31.8 L MCV 80.3 MCH 24.5 L MCHC 30.5 L RDW 18.4 H Plt Count 258 MPV 10.7 APTT 71.2 H Sodium 135 Potassium 3.4 L Chloride 100 Carbon Dioxide 24 Anion Gap 14 BUN 8 Creatinine 0.5 L Est GFR ( Amer) > 60 Est GFR (Non-Af Amer) > 60 Random Glucose 78 Calcium 8.2 L Total Bilirubin 1.4 H AST 25 ALT 13 Alkaline Phosphatase 53 Total Protein 6.9 Albumin 3.3 Globulin 3.6 Albumin/Globulin Ratio 0.9 L TSH 3rd Generation 05/23/18 05/23/18 05/23/18 04:15 04:15 11:25 WBC RBC Hgb Hct MCV MCH MCHC RDW Plt Count MPV APTT 86.8 H 64.5 H Sodium Potassium Chloride Carbon Dioxide Anion Gap BUN Creatinine Est GFR ( Amer) Est GFR (Non-Af Amer) Random Glucose Calcium Total Bilirubin AST ALT Alkaline Phosphatase Total Protein Albumin Globulin Albumin/Globulin Ratio TSH 3rd Generation 0.08 L 05/23/18 17:25 WBC RBC Hgb Hct MCV MCH MCHC RDW Plt Count MPV APTT 74.5 H Sodium Potassium Chloride Carbon Dioxide Anion Gap BUN Creatinine Est GFR ( Amer) Est GFR (Non-Af Amer) Random Glucose Calcium Total Bilirubin AST ALT Alkaline Phosphatase Total Protein Albumin Globulin Albumin/Globulin Ratio TSH 3rd Generation Attending/Attestation - Attestation I have personally seen and examined this patient.: Yes I have fully participated in the care of the patient.: Yes I have reviewed all pertinent clinical information: Yes Notes (Text): This is an addendum to the GI consultation report dictated by medical record retrieval specialist. Patient was seen in the evaluated with the resident. Imaging studies were reviewed this 82-year-old patient with a history of atrial fibrillation not on anticoagulation in view of the history of GI bleeding. History of DVT status post IVC filter history of PE now complains of epigastric discomfort and also dysphagia mainly to solids. Patient did have an EGD and colonoscopy by Dr. Dale Patel in 2016 it was reviewed. Patient would benefit from esophagram and also EGD to further evaluate Patient has a history of pulmonary hypertension COPD in addition to coronary artery disease A. fib. We will request anesthesiologist to evaluate the patient for endoscopy in a.m. tomorrow 05/23/18 20:48
--- NOTE | 2018-05-23 11:41 | PN ---
DATE: 05/23/2018 SUBJECTIVE: She is in isolation now for ESBL in the urine that came back from the day ago when she was in the ER. In the hospital, she was for superficial thrombophlebitis in the arms and bilateral lower extremity clots. She has history of breast cancer, which makes her at higher risk for clots. I will re-discuss with GI if we can put her on Eliquis or something like that. She does have history of a GI bleed, but she is going to develop more clots with her history. She is on Brovana, heparin right now, Pancrease, Protonix and Pulmicort. I called Infectious Disease for IV antibiotics for the ESBL in the urine and she is on isolation and I changed her to inpatient. PHYSICAL EXAMINATION: VITAL SIGNS: She has a 98 temp, 86 pulse, 143/65 blood pressure, 18 respiratory rate and 98% O2 sat on room air. HEENT: Head is atraumatic and normocephalic. HEART: Regular rate. LUNGS: Decreased breath sounds, but clear. ABDOMEN: Soft. EXTREMITIES: Mild puffy. Also, she is comfortable, worried about her heart, cancer and her stomach. LABORATORY DATA: She has a 135 sodium, potassium 3.4, I gave her some potassium, BUN 8, creatinine 0.5, GFR is greater than 60, sugar is 78, calcium is 8.2, total bili is 1.4, AST is 25, ALT is 13, alk phos 63 and total protein 6.9. White count 7.9, hemoglobin 9.7, hematocrit 31.8 and platelet 258. See what Dr. Godfrey wants to do as far as IV antibiotics for ESBL in the urine. Pulmonary is on the case, so is Cardiology and GI, we will see what they have to say about anticoagulating her. Osvaldo Reyes DO
[2018-05-23] MEDS: Heparin25000 units/250ml 1/2NS 25,000 UNITS/250 ML BAG IV PRN (11:44)
--- NOTE | 2018-05-23 14:02 | CP.PCM.CON ---
<Jb Ramirez - Last Filed: 05/23/18 15:25> History of Present Illness - History of Present Illness History of Present Illness: Jb Ramirez D.O. PGY-3, Internal Medicine Resident, Infectious Disease Consult Note 87 year old female with a PMH of afib, c.diff colitis, gastroenteritis, COPD, DM2, falls, Klebsiella UTIs, PE, and recent admission for BL LE DVTs who pre sented with shortness of breath. Infectious disease consultation was requested for history of ESBL. Patient was seen and examined at bedside. Patient states that she feels much better at this time. Patient states that she does not have any dysuria, frequency, urgency, fevers, chills, or other urinary symptoms. Review of Systems - Review of Systems All systems: reviewed and no additional remarkable complaints except (as per HPI) Past Patient History - Infectious Disease Hx of Infectious Diseases: None - Tetanus Immunizations Tetanus Immunization: Unknown - Past Social History Smoking Status: Former Smoker Alcohol: Occasional Drugs: Denies - CARDIAC Hx Cardiac Disorders: Yes (Afib, jaimie filter) Hx Hypertension: Yes - PULMONARY Hx Chronic Obstructive Pulmonary Disease (COPD): Yes - NEUROLOGICAL Hx Neurological Disorder: No - HEENT Hx HEENT Problems: Yes ([place](uses Hearing aids), glasses) Hx Cataracts: Yes Other/Comment: HEARING AID - RENAL Hx Chronic Kidney Disease: No - ENDOCRINE/METABOLIC Hx Diabetes Mellitus Type 2: Yes Hx Hypothyroidism: Yes - HEMATOLOGICAL/ONCOLOGICAL Hx Blood Disorders: Yes (sepsis) Other/Comment: SEPSIS - INTEGUMENTARY Hx Dermatological Problems: Yes (bilateral leg cellulitis 05/16/18) Other/Comment: 05-16-18 BILATERAL LEG CELLULITIS - MUSCULOSKELETAL/RHEUMATOLOGICAL Hx Falls: Yes Hx Fractures: Yes (MULTIPLE RIB FRACTURES,L SHOULDER FX,) Hx Spinal Stenosis: Yes Hx Unsteady Gait: Yes (CANE) - GASTROINTESTINAL Hx Gastrointestinal Disorders: Yes (COLITIS,H/O C DIFF,GASTROENTERIT IS,APPENDECTOMY) Hx Gall Bladder Disease: Yes (CHOLEYCYSTECTOMY) - GENITOURINARY/GYNECOLOGICAL Hx Genitourinary Disorders: Yes (H/O OF ESBL IN THE URINE 05-14-17) - PSYCHIATRIC Hx Psychophysiologic Disorder: No - SURGICAL HISTORY Hx Surgeries: (appendectomy, CHOLEYCYSTECTOMY, jaimie filter) Hx Cardiac Catheterization: (denies) - ANESTHESIA Hx Anesthesia: Yes Hx Anesthesia Reactions: No Hx Malignant Hyperthermia: No Meds Allergies/Adverse Reactions: Allergies Allergy/AdvReac Type Severity Reaction Status Date / Time No Known Allergies Allergy Verified 05/16/18 14:54 - Medications Medications: Current Medications Arformoterol Tartrate (Brovana) 15 mcg IH [id number] [facility] Last Admin: 05/23/18 07:46 Dose: 15 mcg Budesonide (Pulmicort Respules) 0.5 mg IH [id number] [facility] Last Admin: 05/23/18 07:46 Dose: 0.5 mg Home Med (Home Med) 1 unit PO TID [facility] Heparin Sodium/Sodium Chloride (Heparin 43653 Units/250ml 1/2 Normal Saline) 25,000 units in 250 mls @ 14.223 mls/hr IV .[id number] PRN; Protocol PRN Reason: ADJUST RATE PER PROTOCOL Last Admin: 05/23/18 11:44 Dose: 16 units/kg/hr, 12.643 mls/hr Pantoprazole Sodium (Protonix 40mg Ivpb) 40 mg in 100 mls @ 200 mls/hr IVPB 0600 [facility] Last Admin: 05/23/18 05:23 Dose: 200 mls/hr Physical Exam - Constitutional Appears: Non-toxic, No Acute Distress - Head Exam Head Exam: ATRAUMATIC, NORMOCEPHALIC - Eye Exam Eye Exam: EOMI. absent: Scleral icterus - ENT Exam ENT Exam: Mucous Membranes Moist, Normal Oropharynx - Neck Exam Neck exam: Positive for: Normal Inspection - Respiratory Exam Respiratory Exam: Clear to Auscultation Bilateral. absent: Rales, Rhonchi, Wheezes - Cardiovascular Exam Cardiovascular Exam: +S1, +S2. absent: Gallop, Rubs - GI/Abdominal Exam GI & Abdominal Exam: Normal Bowel Sounds, Soft. absent: Tenderness - Neurological Exam Neurological exam: Alert, Oriented x3 - Skin Skin Exam: Dry, Warm Results - Vital Signs Recent Vital Signs: Last Vital Signs Temp 98.7 F 05/23/18 12:00 Pulse 100 H 05/23/18 10:00 Resp 18 05/23/18 12:00 BP 142/57 L 05/23/18 12:00 Pulse Ox 98 05/23/18 06:00 - Labs Result Diagrams: 05/23/18 04:15 05/23/18 04:15 Labs: Laboratory Results - last 24 hr 05/22/18 05/23/18 05/23/18 22:00 04:15 04:15 WBC 7.9 RBC 3.96 Hgb 9.7 L Hct 31.8 L MCV 80.3 MCH 24.5 L MCHC 30.5 L RDW 18.4 H Plt Count 258 MPV 10.7 APTT 71.2 H Sodium 135 Potassium 3.4 L Chloride 100 Carbon Dioxide 24 Anion Gap 14 BUN 8 Creatinine 0.5 L Est GFR ( Amer) > 60 Est GFR (Non-Af Amer) > 60 Random Glucose 78 Calcium 8.2 L Total Bilirubin 1.4 H AST 25 ALT 13 Alkaline Phosphatase 53 Total Protein 6.9 Albumin 3.3 Globulin 3.6 Albumin/Globulin Ratio 0.9 L TSH 3rd Generation 05/23/18 05/23/18 05/23/18 04:15 04:15 11:25 WBC RBC Hgb Hct MCV MCH MCHC RDW Plt Count MPV APTT 86.8 H 64.5 H Sodium Potassium Chloride Carbon Dioxide Anion Gap BUN Creatinine Est GFR ( Amer) Est GFR (Non-Af Amer) Random Glucose Calcium Total Bilirubin AST ALT Alkaline Phosphatase Total Protein Albumin Globulin Albumin/Globulin Ratio TSH 3rd Generation 0.08 L Assessment & Plan - Assessment and Plan (Free Text) Assessment: 87 year old female with a PMH of afib, c.diff colitis, gastroenteritis, COPD, DM 2, falls, Klebsiella UTIs, PE, and recent admission for BL LE DVTs who presented with shortness of breath. Infectious disease consultation was requested for history of ESBL. Plan: EBSL history Afib COPD DM DVT and PE Afebrile No leukocytosis Asymptomatic UA negative Will repeat UA Will ucx Will monitor off abx at this time Patient was seen and examined and case to be discussed with attending physician Thank you for the pleasure of participating in the care of this patient - Date & Time Date: 05/23/18 Time: 11:30 <Rj Godfrey - Last Filed: 05/23/18 17:17> Meds - Medications Medications: Current Medications Arformoterol Tartrate (Brovana) 15 mcg IH [id number] [facility] Last Admin: 05/23/18 07:46 Dose: 15 mcg Budesonide (Pulmicort Respules) 0.5 mg IH [id number] [facility] Last Admin: 05/23/18 07:46 Dose: 0.5 mg Home Med (Home Med) 1 unit PO TID [facility] Heparin Sodium/Sodium Chloride (Heparin 60829 Units/250ml 1/2 Normal Saline) 25,000 units in 250 mls @ 14.223 mls/hr IV .[id number] PRN; Protocol PRN Reason: ADJUST RATE PER PROTOCOL Last Admin: 05/23/18 11:44 Dose: 16 units/kg/hr, 12.643 mls/hr Pantoprazole Sodium (Protonix 40mg Ivpb) 40 mg in 100 mls @ 200 mls/hr IVPB 0600 [facility] Last Admin: 05/23/18 05:23 Dose: 200 mls/hr Oxycodone HCl (Oxycodone Immediate Release Tab) 15 mg PO BID PRN PRN Reason: Pain, moderate (4-7) Results - Vital Signs Recent Vital Signs: Last Vital Signs Temp 98.7 F 05/23/18 12:00 Pulse 100 H 05/23/18 10:00 Resp 18 05/23/18 12:00 BP 142/57 L 05/23/18 12:00 Pulse Ox 98 05/23/18 06:00 - Labs Result Diagrams: 05/23/18 04:15 05/23/18 04:15 Labs: Laboratory Results - last 24 hr 05/22/18 05/23/18 05/23/18 22:00 04:15 04:15 WBC 7.9 RBC 3.96 Hgb 9.7 L Hct 31.8 L MCV 80.3 MCH 24.5 L MCHC 30.5 L RDW 18.4 H Plt Count 258 MPV 10.7 APTT 71.2 H Sodium 135 Potassium 3.4 L Chloride 100 Carbon Dioxide 24 Anion Gap 14 BUN 8 Creatinine 0.5 L Est GFR ( Amer) > 60 Est GFR (Non-Af Amer) > 60 Random Glucose 78 Calcium 8.2 L Total Bilirubin 1.4 H AST 25 ALT 13 Alkaline Phosphatase 53 Total Protein 6.9 Albumin 3.3 Globulin 3.6 Albumin/Globulin Ratio 0.9 L TSH 3rd Generation 05/23/18 05/23/18 05/23/18 04:15 04:15 11:25 WBC RBC Hgb Hct MCV MCH MCHC RDW Plt Count MPV APTT 86.8 H 64.5 H Sodium Potassium Chloride Carbon Dioxide Anion Gap BUN Creatinine Est GFR ( Amer) Est GFR (Non-Af Amer) Random Glucose Calcium Total Bilirubin AST ALT Alkaline Phosphatase Total Protein Albumin Globulin Albumin/Globulin Ratio TSH 3rd Generation 0.08 L Attending/Attestation - Attestation I have personally seen and examined this patient.: Yes I have fully participated in the care of the patient.: Yes I have reviewed all pertinent clinical information: Yes Notes (Text): 05/23/18 17:17 ASYMPTOMATIC KLEBS UTI HX OF ESBL NO ABX
--- NOTE | 2018-05-23 14:03 | CON ---
DATE: 05/23/2018 ONCOLOGY CONSULTATION HISTORY OF PRESENT ILLNESS: This is an 87-year-old woman who is here for medical problems. She has atrial fibrillation. She had a DVT with pulmonary embolism last admission about a month or so ago. She now comes in with a superficial phlebitis of her right arm. She also has breast cancer. 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 She refused radiation therapy. She refused chemotherapy, but she did take the hormone pill; however, what happened that she developed a right axillary lymph node about a month ago. She was supposed to see Dr. Dick for a needle biopsy of this lesion and get CAT scans, but she was admitted to the hospital for the DVT and pulmonary embolism. She was discharged only three days and readmitted now for that superficial phlebitis. PHYSICAL EXAMINATION: SKIN: No petechiae. No bruises. HEENT: Anicteric. NODES: The right axillary lymph node is still present, not bigger but no others. LUNGS: Clear at present. No vertebral tenderness. HEART: Atrial fibrillation. Irregularly irregular. ABDOMEN: Shows no liver, no spleen, no tenderness, no rebound, no ascites. EXTREMITIES: At this point shows no edema. CENTRAL NERVOUS SYSTEM: No focal finding. ASSESSMENT AND PLAN: The patient is going to be on anticoagulation but she also needs a needle biopsy of that lymph node to confirm our suspicion of recurrent localized cancer. The issue is whether she has had needle biopsy done as an inpatient now or goes home, but she will be on Coumadin at the time or Eliquis and a little bit harder; however, a needle aspiration just to prove the diagnosis of cancer will probably be adequate as an outpatient. It can be done on the Eliquis and on the Coumadin. The CAT scan of the lung shows no mediastinal lymph nodes, no nodules in the lungs. 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 She has been very reticent of taking any real treatments for her cancer, and if it is indeed HER2 positive +3 cancer so quickly recurrent after the operation as it will require treatment. At any event at this point, she will need anticoagulation. She will need a needle biopsy or needle aspiration of that right axillary lymph node, not so much to get a lot of markers, but just to prove that it is breast cancer recurrent. Fabio Palmer MD
[2018-05-23] MEDS ORDERED: Barium Sulfate for Susp 98% w/w 340g Bottle ONE (14:24)
--- NOTE | 2018-05-23 15:39 | RAD ---
Date of service: 05/23/2018 HISTORY: Dysphagia. COMPARISON: None. TECHNIQUE: Single contrast esophagram was performed. FINDINGS: Patient tolerated procedure well. ESOPHAGUS: Esophageal mucosa appeared preserved. No evidence of stricture or mass lesion. HIATAL HERNIA: None demonstrated. GASTROESOPHAGEAL REFLUX: Not demonstrated. OTHER FINDINGS: None. IMPRESSION: Unremarkable esophagram.
--- NOTE | 2018-05-23 17:50 | CON ---
DATE: 05/23/2018 CARDIOLOGY FOLLOWUP HISTORY: The patient is an 87-year-old woman, who presents with recurrence of angina. Her symptoms are exacerbated by swallowing as well as during exertion. The patient presented with similar symptoms on her last admission. A cardiac catheterization was planned. However, the hemoglobin had oozed down to 8. After discussion with GI, they were afraid that this is related to AV malformations; therefore, the patient was tried on medical therapy. However, despite medical therapy, the patient continues to experience angina. 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 She denies shortness of breath. SOCIAL HISTORY: The patient is from assisted facility. REVIEW OF SYSTEMS: Noncontributory other than the ones above. PHYSICAL EXAMINATION: VITAL SIGNS: Blood pressure is 142/57, heart rate is atrial fibrillation in the 90s. NECK: Negative JVD. LUNGS: Without rales. HEART RATE: S1 and S2. EXTREMITIES: Without edema. EKG shows atrial fibrillation with nonspecific ST-T changes. Hemoglobin is 9.7. Chemistries: BUN and creatinine are unremarkable. IMPRESSION: 1. Recurrent angina despite medical therapy. 2. 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 3. Anemia. 4. History of deep venous thrombosis. 5. Anemia. 6. Atrial fibrillation. PLAN: Given these findings, the patient's anemia has been stable for the past several weeks. The patient is also for GI workup today. We will schedule the patient with cardiac catheterization to rule out significant coronary artery disease, which we suspect in the morning. Carter Rust MD
[2018-05-23] MEDS: CREON 12000 UNIT PO SCH (18:21)
[2018-05-23] MEDS: oxyCODONE 15 mg Immediate Release Tab PO PRN (23:16)
[2018-05-24] MEDS: Pantoprazole 40mg/100mL NS 40 MG/100 ML BAG IVPB SCH (05:47)
[2018-05-24] MEDS: Heparin25000 units/250ml 1/2NS 25,000 UNITS/250 ML BAG IV PRN (07:06)
[2018-05-24 07:16] LABS: HEMOGLOBIN 9.3 g/dL (12.0-16.0); MEAN CORPUSCULAR HGB CONC 30.5 g/dl (31.0-37.0); MEAN PLATELET VOLUME 10.5 fl (7.0-11.0); RBC 3.72 10^6/uL (3.5-6.1); RED CELL DISTRIBUTION WIDTH 18.6 % (11.5-14.5); WHITE BLOOD COUNT 5.9 10^3/uL (4.5-11.0)
[2018-05-24 08:02] LABS: ALBUMIN 2.9 g/dL (3.0-4.8); ALT/SGPT 12 U/L (7-56); AST/SGOT 20 U/L (14-36); BLOOD UREA NITROGEN 6 mg/dL (7-21); CALCIUM 7.8 mg/dL (8.4-10.5); GFR NON-AFRICAN AMERICAN > 60
[2018-05-24] MEDS: Arformoterol 15 mcg/2 ml Inh Sol IH SCH ×2 (08:05→19:31)
[2018-05-24] MEDS: Budesonide 0.5 mg/2 ml Inhal Susp UD IH SCH ×2 (08:05→19:31)
[2018-05-24] MEDS ORDERED: Iodixanol 320 MG/ML 200 ML BOTTLE IV ONE (08:42)
[2018-05-24] MEDS ORDERED: Iohexol 350mgl/ml 50 ML ONE (08:43)
[2018-05-24] MEDS ORDERED: Lidocaine PF 2% (5 ml) Inj (For Cardiac Arrhy) ONE (08:44)
[2018-05-24] MEDS ORDERED: Potassium Chloride 20 mEq/15 ml LIQ UD ONE ×2 (08:55→08:58)
[2018-05-24] MEDS ORDERED: Midazolam 2 MG/2 ML VIAL ONE (09:01)
[2018-05-24] MEDS ORDERED: Naloxone 0.4 mg/ml Inj (Adult) ONE (09:08)
[2018-05-24] MEDS ORDERED: Flumazenil 0.1 mg/ml Inj (5ml) IVP ONE (09:12)
[2018-05-24] MEDS ORDERED: Sodium Chloride 0.9% 1,000 ML IV SCH (09:30)
--- NOTE | 2018-05-24 10:12 | PN ---
DATE: 05/24/2018 PULMONARY NOTE SUBJECTIVE: The patient appears comfortable this morning. She is not short of breath at rest. PHYSICAL EXAMINATION: VITALS: Temperature is 97.9, pulse is 87, respiratory rate 18/20, blood pressure 149/60. Oxygen saturation on room air - 98%. HEENT: Normocephalic, atraumatic. No JVD. CARDIOVASCULAR: Positive S1, S2. No S3 gallop. LUNGS: Improved breath sounds at the bases. Much less/minimal rhonchi bilaterally. No wheezing. EXTREMITIES: Mild edema remains in both lower extremities. There is no cyanosis or clubbing. The left calf is less tender to palpation. The right calf is nontender to palpation. GASTROINTESTINAL: Abdomen is soft, nontender, and nondistended. Bowel sounds are positive. SKIN: No acute rash. NEUROLOGIC: Exam limited at the present time. IMPRESSION: 1. Chest pain. 2. Atrial fibrillation. 3. Chronic obstructive pulmonary disease. 4. Bilateral deep venous thrombosis. 5. Anemia. 6. pulmonary hypertension. PLAN: The patient appears comfortable this morning. She is not short of breath at rest. She does state to feeling much better overall. I did discuss the case with the night nurse at length. The night nurse stated that the patient had a very good night. On physical exam, there is certainly less bronchospasm noted. In addition, the alveolar-arterial gradient is also much less. I will continue the current nebulizer treatments and inhaled steroids for now. Inputs by Cardiology and Gastroenterology are also noted. The patient is for possible EGD in the near future. Clinical status of the patient certainly appears improved - compared to the initial presentation. The patient is feeling better and denies chest pain this morning. Again, the patient is for EGD in the near future. Given her long history of chronic obstructive pulmonary disease, the patient is at risk for perioperative complications with any procedure. However, at this point in time, I see NO absolute pulmonary contraindications to endoscopy at this point in time. I will discuss the above with Dr. Reyes later this morning. Sterling Clemons MD PITA
--- NOTE | 2018-05-24 11:10 | CP.PCM.PN ---
<Fabio Boo - Last Filed: 05/24/18 17:22> Subjective - Date & Time of Evaluation Date of Evaluation: 05/24/18 Time of Evaluation: 07:07 - Subjective Subjective: Fabio Boo PGY2 GI Progress Note for Dr. Srinivasan covering Dr. Patel Patient was seen and examined at bedside. She is planned for cardiac catheterization this AM with Dr. Rust. She states that her dysphagia has not really improved but she has been NPO overnight so she has not felt symptoms. Otherwise, she has no complaints. She remains on heparin drip. Discussed with overnight RN. Objective - Vital Signs/Intake and Output Vital Signs (last 24 hours): Temp Pulse Resp BP Pulse Ox 97.9 F 87 20 149/60 98 05/23/18 18:00 05/24/18 06:00 05/23/18 18:00 05/23/18 18:00 05/23/18 06:00 Intake and Output: 05/24/18 05/24/18 06:59 18:59 Intake Total 1176 250 Output Total 5 Balance 1171 250 - Medications Medications: Current Medications Arformoterol Tartrate (Brovana) 15 mcg IH [id number] [facility] Last Admin: 05/24/18 08:05 Dose: Not Given Budesonide (Pulmicort Respules) 0.5 mg IH [id number] [facility] Last Admin: 05/24/18 08:05 Dose: Not Given Home Med (Home Med) 1 unit PO TID [facility] Last Admin: 05/23/18 18:21 Dose: 1 unit Heparin Sodium/Sodium Chloride (Heparin 79131 Units/250ml 1/2 Normal Saline) 25,000 units in 250 mls @ 14.223 mls/hr IV .[id number] PRN; Protocol PRN Reason: ADJUST RATE PER PROTOCOL Last Admin: 05/24/18 07:06 Dose: 16 units/kg/hr, 12.643 mls/hr Pantoprazole Sodium (Protonix 40mg Ivpb) 40 mg in 100 mls @ 200 mls/hr IVPB 0600 [facility] Last Admin: 05/24/18 05:47 Dose: 200 mls/hr Potassium Chloride (Potassium Chloride 10 Meq/100 Ml) 10 meq in 100 mls @ 50 mls/hr IVPB Q2H [facility] Stop: 05/24/18 13:14 Sodium Chloride (Sodium Chloride 0.9%) 1,000 mls @ 100 mls/hr IV .Q10H [facility] Stop: 05/24/18 15:00 Last Admin: 05/24/18 10:30 Dose: 100 mls/hr Oxycodone HCl (Oxycodone Immediate Release Tab) 15 mg PO BID PRN PRN Reason: Pain, moderate (4-7) Last Admin: 05/23/18 23:16 Dose: 15 mg - Labs Labs: 05/24/18 06:45 05/24/18 06:45 PT 16.9 SECONDS (9.4-12.5) H 05/22/18 11:11 INR 1.50 05/22/18 11:11 APTT 71.1 Seconds (26.9-38.3) H 05/24/18 06:45 - Constitutional Appears: Well, Non-toxic, No Acute Distress - Head Exam Head Exam: ATRAUMATIC, NORMAL INSPECTION - Eye Exam Eye Exam: EOMI, Normal appearance, PERRL - ENT Exam ENT Exam: Mucous Membranes Moist, Normal Exam - Neck Exam Neck Exam: Full ROM, Normal Inspection - Respiratory Exam Respiratory Exam: NORMAL BREATHING PATTERN (on 2L NC). absent: Respiratory Distress - Cardiovascular Exam Cardiovascular Exam: Irregular Rhythm, +S1, +S2 - GI/Abdominal Exam GI & Abdominal Exam: Soft, Normal Bowel Sounds. absent: Distended, Tenderness - Extremities Exam Extremities Exam: Full ROM. absent: Pedal Edema - Back Exam Back Exam: NORMAL INSPECTION - Neurological Exam Neurological Exam: Alert, Awake - Skin Skin Exam: Normal Color, Warm Assessment and Plan - Assessment and Plan (Free Text) Assessment: 87 year old pleasant female with a PMH of Afib (not on anticoagulation due to hx of GI bleeds), c.diff colitis, gastroenteritis, COPD, DM2, falls, Klebsiella UTIs, PE, and recent admission for b/l LE DVT's w/ filter in place who is admitted for epigastric pain and shortness of breath. GI consulted for possible endoscopy and evaluation of the patient's abdominal pain. Symptoms of dysphagia upon presentation may be due to compression due to enlarged LA; we will need to r/o functional, malignant or inflammatory/infectious causes. Plan: - for cardiac cath today; will postpone EGD till tomorrow in light of cardiac procedure - esophagram reviewed - patient would still benefit from EGD, which can hopefully be done while inpatient - patient is a high risk for anesthesia given her age and moderate pulmonary hypertension; will ask anesthesia to evaluate prior to EGD - PPI for GI ppx - Pulmonology is on board - further recs per Dr. Srinivasan Case was reviewed and discussed with attending Dr. Srinivasan <Dianna Srinivasan V - Last Filed: 05/24/18 19:19> Objective - Vital Signs/Intake and Output Vital Signs (last 24 hours): Temp Pulse Resp BP Pulse Ox 98.5 F 106 H 18 152/85 H 98 05/24/18 17:59 05/24/18 18:00 05/24/18 17:59 05/24/18 17:59 05/23/18 06:00 Intake and Output: 05/24/18 05/25/18 18:59 06:59 Intake Total 1260 Output Total 350 Balance 910 - Medications Medications: Current Medications Arformoterol Tartrate (Brovana) 15 mcg IH [id number] [facility] Last Admin: 05/24/18 08:05 Dose: Not Given Budesonide (Pulmicort Respules) 0.5 mg IH [id number] [facility] Last Admin: 05/24/18 08:05 Dose: Not Given Home Med (Home Med) 1 unit PO TID [facility] Last Admin: 05/24/18 17:28 Dose: 1 unit Pantoprazole Sodium (Protonix 40mg Ivpb) 40 mg in 100 mls @ 200 mls/hr IVPB 0600 [facility] Last Admin: 05/24/18 05:47 Dose: 200 mls/hr Oxycodone HCl (Oxycodone Immediate Release Tab) 15 mg PO BID PRN PRN Reason: Pain, moderate (4-7) Last Admin: 05/23/18 23:16 Dose: 15 mg - Labs Labs: 05/24/18 06:45 05/24/18 06:45 PT 16.9 SECONDS (9.4-12.5) H 05/22/18 11:11 INR 1.50 05/22/18 11:11 APTT 71.1 Seconds (26.9-38.3) H 05/24/18 06:45 Attending/Attestation - Attestation I have personally seen and examined this patient.: Yes I have fully participated in the care of the patient.: Yes I have reviewed all pertinent clinical information, including history, physical exam and plan: Yes Notes (Text): This patient was seen and evaluated here earlier with the resident. This is an addendum to the GI progress report dictated by the esthetician and manager medical spa. Status post cardiac cath today. Patient still complains of dysphagia intermittent episodes and also epigastric discomfort. Esophagram was reviewed. Patient is scheduled for an upper GI endoscopy tomorrow. Risk benefits alternatives explained patient agreed. Dr. Srinivasan covering for Dr. Hunter:Jorge 05/24/18 19:16
[2018-05-24] MEDS: CREON 12000 UNIT PO SCH ×3 (11:21→17:28)
--- NOTE | 2018-05-24 12:11 | PN ---
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 Dr. Carter Rust is about to do a cardiac cath, making sure the heart is doing okay. She has multiple issues. She has multiple clots. She has IVC filter in place. She had an esophagram yesterday which was normal. We are trying to see if we could place her back on her Eliquis dissolve these clots. She also has some low potassium and UTI. PHYSICAL EXAMINATION: VITAL SIGNS: She has a 97.9 temperature, 91 pulse, 149/60 blood pressure, and 20 respiratory rate. HEAD: Atraumatic, normocephalic. HEART: Regular rate with decreased breath sounds, but clear. ABDOMEN: Soft. EXTREMITIES: No edema at this time. MEDICATIONS: She is on Brovana, heparin IV, oxycodone for pain, Protonix IV and Pulmicort. LABORATORY DATA: She has a 137 sodium, potassium 3.2, and given two K-riders of potassium. BUN 6, creatinine 0.5. GFR is greater than 60, sugar is 91, calcium 7.8. Total bili is 0.8, AST is 20, ALT is 12, alk phos 46, total protein is 5.9. TSH is up to 0.22. Off the Synthroid, she is getting better quicker. White count 5.9, 9.3 hemoglobin, 30.5 hematocrit with 245 platelets. ASSESSMENT AND PLAN: She is being seen by Cardiology, Infectious Disease, Gastroenterology. We will continue aggressive treatment and care on [place]. She has multiple issues going on; abdominal pain, right arm superficial thrombophlebitis, deep venous thrombosis, inferior vena cava filter, recurrent angina. She has had gastrointestinal bleeding, possible arteriovenous malformation in colon, anemia, atrial fibrillation. Osvaldo Reyes DO
--- NOTE | 2018-05-24 12:41 | CARDCATH ---
PROCEDURE DATE: 05/24/2018 HISTORY: The patient is an 87-year-old woman with a history of peripheral vascular disease, COPD, documented pulmonary hypertension, history of venous filter placed as well as an abdominal stent graft placed, who presents with progressive angina. Attempt at treating medically with beta-blockers and antianginals was unsuccessful, but because of this, cardiac catheterization was recommended. She was not pretreated with medications due to her history of GI bleed. PROCEDURE: Left heart catheterization with coronary arteriography and left ventriculogram with supra-aortic valvular injection and aortogram. The right femoral artery was cannulated with a 6-Lithuanian sheath. There were no complications. I performed moderate sedation which included the presence of an independent trained observer that assisted in monitoring the patient's level of consciousness and physiologic status. After administration of Versed and fentanyl, my intra-service time was 30 minutes. The findings on catheterization revealed a left ventricle that contracted normally. Estimated ejection fraction of 65% to 70%. Supra-aortic valvular injection revealed no aortic insufficiency. Her coronary anatomy revealed a left dominant circulation. The RCA was a small vessel and free of significant disease. The left main artery was unable unremarkable. The LAD and diagonal vessels revealed diffuse atherosclerosis without critical lesions. The diagonal vessel revealed a 50% to 60% stenoses in its ostium. The circumflex artery was a large vessel and revealed diffuse atherosclerosis without critical lesions. Supra-aortic valvular injection revealed no aortic insufficiency. Abdominal aortogram revealed a patent stent without aneurysm noted. Manual compression was used to close the femoral artery site due to her peripheral vascular disease. SUMMARY: The procedure revealed, 1. Nonobstructive coronary artery disease with a 50% to 60% stenosis of a diagonal vessel. 2. Good left ventricular function. 3. No aortic insufficiency. 4. Patent stent graft in the abdominal aorta with no aneurysm noted. PLAN: Given these findings, the patient's symptoms are not of cardiac origin. She will need to undergo GI workup to explain her chest pain symptoms. Carter Rust MD
--- NOTE | 2018-05-24 16:06 | CP.PCM.PN ---
<Jb Ramirez - Last Filed: 05/24/18 16:02> Subjective - Date & Time of Evaluation Date of Evaluation: 05/24/18 Time of Evaluation: 09:25 - Subjective Subjective: Jb Ramirez D.O. PGY-3, Internal Medicine Resident, Infectious Disease Progress Note 87 year old female with a PMH of afib, c.diff colitis, gastroenteritis, COPD, DM2, falls, Klebsiella UTIs, PE, and recent admission for BL LE DVTs who pre sented with shortness of breath. Infectious disease consultation was requested for history of ESBL. Patient was seen and examined at bedside. Doing well. For cath today. Objective - Vital Signs/Intake and Output Vital Signs (last 24 hours): Temp Pulse Resp BP Pulse Ox 97.4 F L 96 H 20 146/43 L 98 05/24/18 12:00 05/24/18 14:00 05/24/18 12:00 05/24/18 13:45 05/23/18 06:00 Intake and Output: 05/24/18 05/24/18 06:59 18:59 Intake Total 1176 250 Output Total 5 Balance 1171 250 - Medications Medications: Current Medications Arformoterol Tartrate (Brovana) 15 mcg IH [id number] [facility] Last Admin: 05/24/18 08:05 Dose: Not Given Budesonide (Pulmicort Respules) 0.5 mg IH [id number] [facility] Last Admin: 05/24/18 08:05 Dose: Not Given Home Med (Home Med) 1 unit PO TID [facility] Last Admin: 05/24/18 13:42 Dose: 1 unit Pantoprazole Sodium (Protonix 40mg Ivpb) 40 mg in 100 mls @ 200 mls/hr IVPB 0600 [facility] Last Admin: 05/24/18 05:47 Dose: 200 mls/hr Oxycodone HCl (Oxycodone Immediate Release Tab) 15 mg PO BID PRN PRN Reason: Pain, moderate (4-7) Last Admin: 05/23/18 23:16 Dose: 15 mg - Labs Labs: 05/24/18 06:45 05/24/18 06:45 PT 16.9 SECONDS (9.4-12.5) H 05/22/18 11:11 INR 1.50 05/22/18 11:11 APTT 71.1 Seconds (26.9-38.3) H 05/24/18 06:45 - Constitutional Appears: Non-toxic, No Acute Distress - Head Exam Head Exam: ATRAUMATIC, NORMOCEPHALIC - Eye Exam Eye Exam: EOMI. absent: Scleral icterus - ENT Exam ENT Exam: Mucous Membranes Moist, Normal Oropharynx - Neck Exam Neck exam: Positive for: Normal Inspection - Respiratory Exam Respiratory Exam: Clear to Auscultation Bilateral. absent: Rales, Rhonchi, Wheezes - Cardiovascular Exam Cardiovascular Exam: +S1, +S2. absent: Gallop, Rubs - GI/Abdominal Exam GI & Abdominal Exam: Normal Bowel Sounds, Soft. absent: Tenderness - Neurological Exam Neurological exam: Alert, Oriented x3 - Skin Skin Exam: Dry, Warm Assessment and Plan - Assessment and Plan (Free Text) Assessment: 87 year old female with a PMH of afib, c.diff colitis, gastroenteritis, COPD, DM2, falls, Klebsiella UTIs, PE, and recent admission for BL LE DVTs who presented with shortness of breath. Infectious disease consultation was requested for history of ESBL. Plan: EBSL history Afib COPD DM DVT and PE Afebrile with no leukocytosis Asymptomatic At risk for nosocomial infections Will monitor off abx at this time Patient was seen and examined and case to be discussed with attending physician Thank you for the pleasure of participating in the care of this patient <Rj Godfrey - Last Filed: 05/24/18 20:54> Objective - Vital Signs/Intake and Output Vital Signs (last 24 hours): Temp Pulse Resp BP Pulse Ox 98.5 F 106 H 18 152/85 H 98 05/24/18 17:59 05/24/18 18:00 05/24/18 17:59 05/24/18 17:59 05/23/18 06:00 Intake and Output: 05/24/18 05/25/18 18:59 06:59 Intake Total 1260 Output Total 350 Balance 910 - Medications Medications: Current Medications Arformoterol Tartrate (Brovana) 15 mcg IH [id number] [facility] Last Admin: 05/24/18 19:31 Dose: 15 mcg Budesonide (Pulmicort Respules) 0.5 mg IH [id number] [facility] Last Admin: 05/24/18 19:31 Dose: 0.5 mg Home Med (Home Med) 1 unit PO TID [facility] Last Admin: 05/24/18 17:28 Dose: 1 unit Pantoprazole Sodium (Protonix 40mg Ivpb) 40 mg in 100 mls @ 200 mls/hr IVPB 0600 [facility] Last Admin: 05/24/18 05:47 Dose: 200 mls/hr Oxycodone HCl (Oxycodone Immediate Release Tab) 15 mg PO BID PRN PRN Reason: Pain, moderate (4-7) Last Admin: 05/23/18 23:16 Dose: 15 mg - Labs Labs: 05/24/18 06:45 05/24/18 06:45 PT 16.9 SECONDS (9.4-12.5) H 05/22/18 11:11 INR 1.50 05/22/18 11:11 APTT 71.1 Seconds (26.9-38.3) H 05/24/18 06:45 Attending/Attestation - Attestation I have personally seen and examined this patient.: Yes I have fully participated in the care of the patient.: Yes I have reviewed all pertinent clinical information, including history, physical exam and plan: Yes
[2018-05-24 16:30] LABS: URINE APPEARANCE CLEAR (CLEAR); URINE BILIRUBIN SMALL (NEGATIVE); URINE BLOOD SMALL (NEGATIVE); URINE COLOR DARK YELLOW (YELLOW); URINE GLUCOSE (UA) NEGATIVE (NEGATIVE); URINE LEUKOCYTE ESTERASE NEGATIVE Leu/uL (NEGATIVE); URINE PROTEIN TRACE mg/dL (<30 mg/dL)
[2018-05-24] MEDS: oxyCODONE 15 mg Immediate Release Tab PO PRN (22:28)
[2018-05-25] MEDS: Pantoprazole 40mg/100mL NS 40 MG/100 ML BAG IVPB SCH (05:24)
[2018-05-25 06:46] LABS: HEMOGLOBIN 9.3 g/dL (12.0-16.0); MEAN CELL VOLUME 80.4 fl (80.0-105.0); MEAN CORPUSCULAR HEMOGLOBIN 24.3 pg (25.0-35.0); MEAN CORPUSCULAR HGB CONC 30.3 g/dl (31.0-37.0); MEAN PLATELET VOLUME 10.6 fl (7.0-11.0); RBC 3.82 10^6/uL (3.5-6.1); RED CELL DISTRIBUTION WIDTH 18.7 % (11.5-14.5); WHITE BLOOD COUNT 6.3 10^3/uL (4.5-11.0)
[2018-05-25 06:59] LABS: ALB/GLOB RATIO 0.8 (1.1-1.8); ALBUMIN 2.6 g/dL (3.0-4.8); ALT/SGPT 11 U/L (7-56); AST/SGOT 18 U/L (14-36); BLOOD UREA NITROGEN 5 mg/dL (7-21); CALCIUM 7.7 mg/dL (8.4-10.5); GFR NON-AFRICAN AMERICAN > 60
[2018-05-25] MEDS: Arformoterol 15 mcg/2 ml Inh Sol IH SCH ×2 (07:34→20:46)
[2018-05-25] MEDS: Budesonide 0.5 mg/2 ml Inhal Susp UD IH SCH ×2 (07:34→20:47)
[2018-05-25] MEDS ORDERED: Propofol 10 mg/ml Inj (20 ML) ONE (09:42)
[2018-05-25] MEDS ORDERED: Sodium Chloride 0.9% 1,000 ML IV SCH (09:45)
[2018-05-25] MEDS ORDERED: Albuterol HFA 90 mcg/actuation (8 g) ONE (09:45)
--- NOTE | 2018-05-25 09:45 | PN ---
DATE: 05/25/2018 PULMONARY NOTE SUBJECTIVE: The patient appears very comfortable this morning. She is not short of breath at rest. OBJECTIVE: VITALS: Temperature is 98, pulse 87, respirations 18, blood pressure 124/61. Oxygen saturation on nasal cannula is 97% to 98%. HEENT: Normocephalic, atraumatic. No JVD. CARDIOVASCULAR: Positive S1, S2. No S3 gallop. LUNGS: Very minimal/less rhonchi. No wheezing. EXTREMITIES: Mild edema remains in both lower extremities. There is no cyanosis or clubbing. The left calf is much less tender to palpation. The right calf is nontender to palpation. GASTROINTESTINAL: Abdomen is soft, nontender, and nondistended. Bowel sounds are positive. SKIN: No acute rash. NEUROLOGIC: Limited at the present time. IMPRESSION: 1. Chest pain - resolved. 2. Nonobstructive coronary artery disease. 3. Atrial fibrillation. 4. Chronic obstructive pulmonary disease. 5. Bilateral deep venous thrombosis. 6. Anemia. 7. Pulmonary hypertension. PLAN: The patient appears very comfortable this morning. She is not short of breath at rest. She does state to feeling much better overall. I discussed the case with the night nurse at length. The night nurse stated the patient had a very good night. On physical exam, her bronchospasm continues to resolve. In addition, the alveolar-arterial gradient also continues to resolve. I will continue the current nebulizer treatments and inhaled steroids for now. Inputs by Cardiology and Gastroenterology are noted. The patient is for endoscopy later this morning. Clinical status of the patient certainly appears improved - compared to the initial presentation. However, given the above, the future status/prognosis for this patient is certainly guarded. I did give the patient my card/information for a followup appointment - concerning her chronic obstructive pulmonary disease and pulmonary hypertension. She states she will definitely see me in the office. I will discuss the above with Dr. Reyes. Sterling Clemons MD [facility]
[2018-05-25] MEDS ORDERED: Etomidate 20 mg/10ml Inj IV ONE (10:15)
[2018-05-25] MEDS: CREON 12000 UNIT PO SCH ×3 (10:53→17:32)
--- NOTE | 2018-05-25 11:01 | PN ---
DATE: 05/25/2018 SUBJECTIVE: She is presently on her way to go down for a upper endoscopy. She had a cardiac cath. She has a right arm superficial thrombophlebitis with bilateral lower extremity DVTs. She has low potassium. Now, she has ESBL in the urine. She is comfortable, feeling better overall. She is being seen by numerous physicians. She is currently on Brovana, oxycodone, pantoprazole and Pulmicort. PHYSICAL EXAMINATION: VITAL SIGNS: Temperature 98, pulse 87, blood pressure 124/61, respiratory rate 18, and O2 sat 97%. HEENT: Head is atraumatic and normocephalic. HEART: Regular rate. LUNGS: Decreased breath sounds. ABDOMEN: Soft. EXTREMITIES: Less swollen. Can move all extremities well and nontender. LABORATORY DATA: White count of 6.3, hemoglobin 9.3, hematocrit 30.7, and platelets of 237. Sodium 139, potassium 3.8, BUN 5, creatinine 0.5, GFR is greater than 60, sugar is 92, and calcium 7.7. Total bili is 0.6, AST is 80, ALT is 11, alk phos is 42, and total protein is 5.8. ASSESSMENT AND PLAN: She is being seen by Infectious Disease, GI, and Cardiology. We are doing upper endoscopy to see if there is anything in the stomach that might prevent us from using Eliquis. She has nonobstructive coronary artery disease with 50-60% stenosis, good LV function, no aortic insufficiency. Patent stent in the abdominal aorta. No aneurysm. So, we are going to do GI evaluation and hopefully it will be okay and I will make a decision on medications for her DVTs and there was recommendation for RIGOBERTO for physical therapy, we will see where that ends up. We will repeat physical therapy and see if she is improving. Osvaldo Reyes DO
--- NOTE | 2018-05-25 14:00 | PN ---
DATE: 05/25/2018 SUBJECTIVE: The patient is comfortable post GI workup today. OBJECTIVE: VITAL SIGNS: Blood pressure 138/55, heart rates in the 70s. NECK: Negative JVD. LUNGS: Without rales. HEART: S1, S2. EXTREMITIES: Without edema. LABORATORY DATA: Hemoglobin is 9.3. Chemistries; BUN and creatinine are unremarkable. IMPRESSION: 1. Recurrent chest pain which is not cardiac origin. 2. Status post cardiac catheterization which revealed good left ventricular function and a nonobstructive coronary artery disease of the diagonal vessel. 3. History of peripheral vascular disease. 4. Anemia. Given these findings, the patient's cardiac status is doing well. We will discontinue telemetry today. No further cardiac workup is necessary. Carter Rust MD
--- NOTE | 2018-05-25 14:56 | CP.PCM.PN ---
<Jb Ramirez - Last Filed: 05/25/18 14:54> Subjective - Date & Time of Evaluation Date of Evaluation: 05/25/18 Time of Evaluation: 11:20 - Subjective Subjective: Jb Ramirez D.O. PGY-3, Internal Medicine Resident, Infectious Disease Progress Note 87 year old female with a PMH of afib, c.diff colitis, gastroenteritis, COPD, DM2, falls, Klebsiella UTIs, PE, and recent admission for BL LE DVTs who pre sented with shortness of breath. Infectious disease consultation was requested for history of ESBL. Patient was seen and examined at bedside. S/p endoscopy. Somewhat tired. Objective - Vital Signs/Intake and Output Vital Signs (last 24 hours): Temp Pulse Resp BP Pulse Ox 97 F L 72 14 138/55 L 98 05/25/18 10:45 05/25/18 10:45 05/25/18 10:45 05/25/18 10:45 05/25/18 10:45 Intake and Output: 05/25/18 05/25/18 06:59 18:59 Intake Total 100 Output Total 350 Balance -250 - Medications Medications: Current Medications Arformoterol Tartrate (Brovana) 15 mcg [facility] [id number] [facility] Last Admin: 05/25/18 07:34 Dose: 15 mcg Budesonide (Pulmicort Respules) 0.5 mg [facility] [id number] [facility] Last Admin: 05/25/18 07:34 Dose: 0.5 mg Home Med (Home Med) 1 unit PO TID [facility] Last Admin: 05/25/18 13:49 Dose: 1 unit Oxycodone HCl (Oxycodone Immediate Release Tab) 15 mg PO BID PRN PRN Reason: Pain, moderate (4-7) Last Admin: 05/24/18 22:28 Dose: 15 mg Pantoprazole Sodium (Protonix Inj) 40 mg IVP DAILY [facility] Last Admin: 05/25/18 13:49 Dose: 40 mg Sucralfate (Carafate Oral Susp) 1 gm PO 0630,1130,1630,2200 [facility] - Labs Labs: 05/25/18 06:15 05/25/18 06:15 PT 16.9 SECONDS (9.4-12.5) H 05/22/18 11:11 INR 1.50 05/22/18 11:11 APTT 71.1 Seconds (26.9-38.3) H 05/24/18 06:45 - Constitutional Appears: Non-toxic, No Acute Distress - Head Exam Head Exam: ATRAUMATIC, NORMOCEPHALIC - Eye Exam Eye Exam: EOMI. absent: Scleral icterus - ENT Exam ENT Exam: Mucous Membranes Moist, Normal Oropharynx - Neck Exam Neck exam: Positive for: Normal Inspection - Respiratory Exam Respiratory Exam: Clear to Auscultation Bilateral. absent: Rales, Rhonchi, Wheezes - Cardiovascular Exam Cardiovascular Exam: +S1, +S2. absent: Gallop, Rubs - GI/Abdominal Exam GI & Abdominal Exam: Normal Bowel Sounds, Soft. absent: Tenderness - Neurological Exam Neurological exam: Alert, Oriented x3 - Skin Skin Exam: Dry, Warm Assessment and Plan - Assessment and Plan (Free Text) Assessment: 87 year old female with a PMH of afib, c.diff colitis, gastroenteritis, COPD, DM2, falls, Klebsiella UTIs, PE, and recent admission for BL LE DVTs who presented with shortness of breath. Infectious disease consultation was requested for history of ESBL. Plan: EBSL history Afib COPD DM DVT and PE Continues to be afebrile with no leukocytosis Continues to be at risk for nosocomial infections GI Dr. Boo's note reviewed and appreciated Cardio Dr. Rust's note reviewed and appreciated Endo report reviewed We will monitor off abx at this time and follow with you Patient was seen and examined and case to be discussed with attending physician Thank you for the pleasure of participating in the care of this patient <Rj Godfrey - Last Filed: 05/25/18 16:47> Objective - Vital Signs/Intake and Output Vital Signs (last 24 hours): Temp Pulse Resp BP Pulse Ox 98 F 79 18 143/60 98 05/25/18 12:00 05/25/18 12:00 05/25/18 12:00 05/25/18 12:00 05/25/18 10:45 Intake and Output: 05/25/18 05/25/18 06:59 18:59 Intake Total 100 Output Total 350 Balance -250 - Medications Medications: Current Medications Arformoterol Tartrate (Brovana) 15 mcg [facility] [id number] [facility] Last Admin: 05/25/18 07:34 Dose: 15 mcg Budesonide (Pulmicort Respules) 0.5 mg [facility] [id number] [facility] Last Admin: 05/25/18 07:34 Dose: 0.5 mg Home Med (Home Med) 1 unit PO TID [facility] Last Admin: 05/25/18 13:49 Dose: 1 unit Oxycodone HCl (Oxycodone Immediate Release Tab) 15 mg PO BID PRN PRN Reason: Pain, moderate (4-7) Last Admin: 05/24/18 22:28 Dose: 15 mg Pantoprazole Sodium (Protonix Inj) 40 mg IVP DAILY [facility] Last Admin: 05/25/18 13:49 Dose: 40 mg Sucralfate (Carafate Oral Susp) 1 gm PO 0630,1130,1630,2200 [facility] - Labs Labs: 05/25/18 06:15 05/25/18 06:15 PT 16.9 SECONDS (9.4-12.5) H 05/22/18 11:11 INR 1.50 05/22/18 11:11 APTT 71.1 Seconds (26.9-38.3) H 05/24/18 06:45 Attending/Attestation - Attestation I have personally seen and examined this patient.: Yes I have fully participated in the care of the patient.: Yes I have reviewed all pertinent clinical information, including history, physical exam and plan: Yes
[2018-05-25] MEDS: Sucralfate 1 gm/10 ml Oral Susp UD PO SCH ×2 (17:34→21:00)
[2018-05-25] MEDS: oxyCODONE 15 mg Immediate Release Tab PO PRN (23:09)
[2018-05-26] MEDS: Sucralfate 1 gm/10 ml Oral Susp UD PO SCH ×4 (05:57→21:10)
[2018-05-26 07:14] LABS: HEMOGLOBIN 9.6 g/dL (12.0-16.0); MEAN CELL VOLUME 81.3 fl (80.0-105.0); MEAN CORPUSCULAR HEMOGLOBIN 24.6 pg (25.0-35.0); MEAN CORPUSCULAR HGB CONC 30.2 g/dl (31.0-37.0); MEAN PLATELET VOLUME 10.2 fl (7.0-11.0); RBC 3.91 10^6/uL (3.5-6.1); RED CELL DISTRIBUTION WIDTH 18.8 % (11.5-14.5); WHITE BLOOD COUNT 6.7 10^3/uL (4.5-11.0)
--- NOTE | 2018-05-26 07:30 | CP.PCM.PN ---
<Fabio Boo - Last Filed: 05/26/18 11:37> Subjective - Date & Time of Evaluation Date of Evaluation: 05/26/18 Time of Evaluation: 07:30 - Subjective Subjective: Fabio Boo PGY2 GI Progress Note for Dr. Srinivasan covering Dr. Patel Patient was seen and examined at bedside. Patient is improving and tolerating her diet. Was evaluated by speech therapist who made recommendations regarding diet. Otherwise, no acute overnight events. Objective - Vital Signs/Intake and Output Vital Signs (last 24 hours): Temp Pulse Resp BP Pulse Ox 97.7 F 80 20 119/59 L 95 05/25/18 23:16 05/25/18 23:16 05/25/18 23:16 05/25/18 23:16 05/25/18 23:16 Intake and Output: 05/26/18 05/26/18 06:59 18:59 Intake Total 660 Balance 660 - Medications Medications: Current Medications Arformoterol Tartrate (Brovana) 15 mcg IH [id number] [facility] Last Admin: 05/25/18 20:46 Dose: 15 mcg Budesonide (Pulmicort Respules) 0.5 mg IH [id number] [facility] Last Admin: 05/25/18 20:47 Dose: 0.5 mg Home Med (Home Med) 1 unit PO TID [facility] Last Admin: 05/25/18 17:32 Dose: 1 unit Oxycodone HCl (Oxycodone Immediate Release Tab) 15 mg PO BID PRN PRN Reason: Pain, moderate (4-7) Last Admin: 05/25/18 23:09 Dose: 15 mg Pantoprazole Sodium (Protonix Inj) 40 mg IVP DAILY [facility] Last Admin: 05/25/18 13:49 Dose: 40 mg Sucralfate (Carafate Oral Susp) 1 gm PO 0630,1130,1630,2200 [facility] Last Admin: 05/26/18 05:57 Dose: 1 gm - Labs Labs: 05/26/18 07:00 05/25/18 06:15 PT 16.9 SECONDS (9.4-12.5) H 05/22/18 11:11 INR 1.50 05/22/18 11:11 APTT 71.1 Seconds (26.9-38.3) H 05/24/18 06:45 - Constitutional Appears: Well, Non-toxic, No Acute Distress - Head Exam Head Exam: ATRAUMATIC, NORMAL INSPECTION - Eye Exam Eye Exam: EOMI, Normal appearance, PERRL - ENT Exam ENT Exam: Mucous Membranes Moist, Normal Exam - Neck Exam Neck Exam: Full ROM, Normal Inspection - Respiratory Exam Respiratory Exam: NORMAL BREATHING PATTERN (on 2L NC). absent: Respiratory Distress - Cardiovascular Exam Cardiovascular Exam: Irregular Rhythm, +S1, +S2 - GI/Abdominal Exam GI & Abdominal Exam: Soft, Normal Bowel Sounds. absent: Distended, Tenderness - Extremities Exam Extremities Exam: Full ROM. absent: Pedal Edema - Back Exam Back Exam: NORMAL INSPECTION - Neurological Exam Neurological Exam: Alert, Awake - Skin Skin Exam: Normal Color, Warm Assessment and Plan - Assessment and Plan (Free Text) Assessment: 87 year old pleasant female with a PMH of Afib (not on anticoagulation due to hx of GI bleeds), c.diff colitis, gastroenteritis, COPD, DM2, falls, Klebsiella UTIs, PE, and recent admission for b/l LE DVT's w/ filter in place who is admitted for epigastric pain and shortness of breath. GI consulted for possible endoscopy and evaluation of the patient's abdominal pain. Symptoms of dysphagia upon presentation are due to esophageal ulcers and esophagitis as seen on EGD. Plan: - Patient should continue protonix 40mg daily - cont carafate qid - resume diet specified by speech pathologist - further recs per Dr. Srinivasan This note is not finalized until signed Case was reviewed and discussed with attending Dr. Srinivasan <Dianna Srinivasan V - Last Filed: 05/26/18 22:13> Objective - Vital Signs/Intake and Output Vital Signs (last 24 hours): Temp Pulse Resp BP Pulse Ox 97.6 F 84 18 127/75 94 L 05/26/18 06:00 05/26/18 06:00 05/26/18 06:00 05/26/18 06:00 05/26/18 06:00 Intake and Output: 05/26/18 05/27/18 18:59 06:59 Intake Total 240 Output Total 0 Balance 240 - Medications Medications: Current Medications Arformoterol Tartrate (Brovana) 15 mcg [facility] [id number] [facility] Last Admin: 05/26/18 20:55 Dose: 15 mcg Budesonide (Pulmicort Respules) 0.5 mg IH [id number] [facility] Last Admin: 05/26/18 20:55 Dose: 0.5 mg Home Med (Home Med) 1 unit PO TID [facility] Last Admin: 05/26/18 17:51 Dose: 1 unit Oxycodone HCl (Oxycodone Immediate Release Tab) 15 mg PO BID PRN PRN Reason: Pain, moderate (4-7) Last Admin: 05/25/18 23:09 Dose: 15 mg Pantoprazole Sodium (Protonix Inj) 40 mg IVP BID [facility] Last Admin: 05/26/18 17:50 Dose: 40 mg Sucralfate (Carafate Oral Susp) 1 gm PO 0630,1130,1630,2200 [facility] Last Admin: 05/26/18 21:10 Dose: 1 gm - Labs Labs: 05/26/18 07:00 05/26/18 07:00 PT 16.9 SECONDS (9.4-12.5) H 05/22/18 11:11 INR 1.50 05/22/18 11:11 APTT 71.1 Seconds (26.9-38.3) H 05/24/18 06:45 Attending/Attestation - Attestation I have personally seen and examined this patient.: Yes I have fully participated in the care of the patient.: Yes I have reviewed all pertinent clinical information, including history, physical exam and plan: Yes Notes (Text): This patient was seen and evaluated here earlier. This is an addendum to the GI progress report dictated by the director medical economics. Patient was found to have an esophageal ulcerations. Biopsies were taken. Etiology is unclear. Continue Carafate and PPI. Status post cardiac cath negative for obstructive coronary artery disease. The likely cause for the patient's chest pain could be due to this esophageal ulceration. Patient was clearly told to eat pured food or soft diet too well. We will need to repeat endoscopy in 4-6 weeks time after review of the pathology report. Thank you Dr. Reyes for allowing us to participate in the care of the patient. We will continue to closely follow-up her care and suggest further recommendations based on the clinical course. Dr. Srinivasan covering for Dr. Dale Patel 05/26/18 22:09
[2018-05-26 07:38] LABS: ALB/GLOB RATIO 0.9 (1.1-1.8); ALBUMIN 2.8 g/dL (3.0-4.8); ALT/SGPT 16 U/L (7-56); AST/SGOT 20 U/L (14-36); BLOOD UREA NITROGEN 5 mg/dL (7-21); CALCIUM 8.1 mg/dL (8.4-10.5); GFR NON-AFRICAN AMERICAN > 60
[2018-05-26] MEDS: Arformoterol 15 mcg/2 ml Inh Sol IH SCH ×2 (07:47→20:55)
[2018-05-26] MEDS: Budesonide 0.5 mg/2 ml Inhal Susp UD IH SCH ×2 (07:47→20:55)
--- NOTE | 2018-05-26 10:16 | CP.PCM.PN ---
<Jb Ramirez - Last Filed: 05/26/18 10:14> Subjective - Date & Time of Evaluation Date of Evaluation: 05/26/18 Time of Evaluation: 07:20 - Subjective Subjective: Jb Ramirez D.O. PGY-3, Internal Medicine Resident, Infectious Disease Progress Note 87 year old female with a PMH of afib, c.diff colitis, gastroenteritis, COPD, DM2, falls, Klebsiella UTIs, PE, and recent admission for BL LE DVTs who pre sented with shortness of breath. Infectious disease consultation was requested for history of ESBL. Patient was seen and examined at bedside. Undergoing breathing treatment. States feeling "fantastic." Objective - Vital Signs/Intake and Output Vital Signs (last 24 hours): Temp Pulse Resp BP Pulse Ox 97.6 F 84 18 127/75 94 L 05/26/18 06:00 05/26/18 06:00 05/26/18 06:00 05/26/18 06:00 05/26/18 06:00 Intake and Output: 05/26/18 05/26/18 06:59 18:59 Intake Total 660 Balance 660 - Medications Medications: Current Medications Arformoterol Tartrate (Brovana) 15 mcg IH [id number] [facility] Last Admin: 05/26/18 07:47 Dose: 15 mcg Budesonide (Pulmicort Respules) 0.5 mg IH [id number] [facility] Last Admin: 05/26/18 07:47 Dose: 0.5 mg Home Med (Home Med) 1 unit PO TID [facility] Last Admin: 05/25/18 17:32 Dose: 1 unit Oxycodone HCl (Oxycodone Immediate Release Tab) 15 mg PO BID PRN PRN Reason: Pain, moderate (4-7) Last Admin: 05/25/18 23:09 Dose: 15 mg Pantoprazole Sodium (Protonix Inj) 40 mg IVP BID [facility] Sucralfate (Carafate Oral Susp) 1 gm PO 0630,1130,1630,2200 [facility] Last Admin: 05/26/18 05:57 Dose: 1 gm - Labs Labs: 05/26/18 07:00 05/26/18 07:00 PT 16.9 SECONDS (9.4-12.5) H 05/22/18 11:11 INR 1.50 05/22/18 11:11 APTT 71.1 Seconds (26.9-38.3) H 05/24/18 06:45 - Constitutional Appears: Non-toxic, No Acute Distress - Head Exam Head Exam: ATRAUMATIC, NORMOCEPHALIC - Eye Exam Eye Exam: EOMI. absent: Scleral icterus - ENT Exam ENT Exam: Mucous Membranes Moist, Normal Oropharynx - Neck Exam Neck exam: Positive for: Normal Inspection - Respiratory Exam Respiratory Exam: Clear to Auscultation Bilateral. absent: Rales, Rhonchi, Wheezes - Cardiovascular Exam Cardiovascular Exam: +S1, +S2. absent: Gallop, Rubs - GI/Abdominal Exam GI & Abdominal Exam: Normal Bowel Sounds, Soft. absent: Tenderness - Neurological Exam Neurological exam: Alert, Oriented x3 - Skin Skin Exam: Dry, Warm Assessment and Plan - Assessment and Plan (Free Text) Assessment: 87 year old female with a PMH of afib, c.diff colitis, gastroenteritis, COPD, DM2, falls, Klebsiella UTIs, PE, and recent admission for BL LE DVTs who presented with shortness of breath. Infectious disease consultation was requested for history of ESBL. Plan: EBSL history Afib COPD DM DVT and PE Afebrile No leukocytosis No signs of nosocomial infections Subspecialists' notes reviewed and appreciated No abx indicated We will follow with you Patient was seen and examined and case to be discussed with attending physician Thank you for the pleasure of participating in the care of this patient <Rj Godfrey - Last Filed: 05/26/18 12:09> Objective - Vital Signs/Intake and Output Vital Signs (last 24 hours): Temp Pulse Resp BP Pulse Ox 97.6 F 84 18 127/75 94 L 05/26/18 06:00 05/26/18 06:00 05/26/18 06:00 05/26/18 06:00 05/26/18 06:00 Intake and Output: 05/26/18 05/26/18 06:59 18:59 Intake Total 660 Balance 660 - Medications Medications: Current Medications Arformoterol Tartrate (Brovana) 15 mcg [facility] [id number] [facility] Last Admin: 05/26/18 07:47 Dose: 15 mcg Budesonide (Pulmicort Respules) 0.5 mg IH [id number] [facility] Last Admin: 05/26/18 07:47 Dose: 0.5 mg Home Med (Home Med) 1 unit PO TID [facility] Last Admin: 05/26/18 10:39 Dose: 1 unit Potassium Chloride (Potassium Chloride 10 Meq/100 Ml) 10 meq in 100 mls @ 100 mls/hr IVPB ONCE ONE Stop: 05/26/18 12:28 Oxycodone HCl (Oxycodone Immediate Release Tab) 15 mg PO BID PRN PRN Reason: Pain, moderate (4-7) Last Admin: 05/25/18 23:09 Dose: 15 mg Pantoprazole Sodium (Protonix Inj) 40 mg IVP BID [facility] Last Admin: 05/26/18 10:29 Dose: 40 mg Sucralfate (Carafate Oral Susp) 1 gm PO 0630,1130,1630,2200 [facility] Last Admin: 05/26/18 05:57 Dose: 1 gm - Labs Labs: 05/26/18 07:00 05/26/18 07:00 PT 16.9 SECONDS (9.4-12.5) H 05/22/18 11:11 INR 1.50 05/22/18 11:11 APTT 71.1 Seconds (26.9-38.3) H 05/24/18 06:45 Attending/Attestation - Attestation I have personally seen and examined this patient.: Yes I have fully participated in the care of the patient.: Yes I have reviewed all pertinent clinical information, including history, physical exam and plan: Yes
[2018-05-26] MEDS: CREON 12000 UNIT PO SCH ×3 (10:39→17:51)
--- NOTE | 2018-05-26 10:42 | PN ---
DATE: 05/26/2018 PULMONARY NOTE SUBJECTIVE: The patient appears comfortable this morning. She is not short of breath at rest. PHYSICAL EXAMINATION: VITAL SIGNS: Temperature is 97.7, pulse is 80, respirations 18/20, blood pressure 119/59. Oxygen saturation on nasal cannula is 95%. HEENT: Normocephalic, atraumatic. No JVD. Lungs--: Very minimal/much less rhonchi. No wheezing. GI: Abdomen is soft, nontender and nondistended. Bowel sounds are positive. EXTREMITIES: Mild edema remains in both lower extremities. There is no cyanosis or clubbing. The left calf is much less tender to palpation. The right calf is nontender to palpation. SKIN: No acute rash. NEUROLOGIC: Exam limited at the present time. CV: +S1S2. NO S3 gallop. IMPRESSION: 1. Chest pain - resolved. 2. Nonobstructive coronary artery disease. 3. Atrial fibrillation. 4. Chronic obstructive pulmonary disease. 5. Bilateral deep venous thrombosis. 6. Anemia. 7. Pulmonary hypertension. PLAN: The patient appears quite comfortable this morning. She is not short of breath at rest. She does state to feeling much, much better overall. On physical exam, her bronchospasm is much less. In addition, there is no significant alveolar-arterial gradient. I will continue the patient on the Brovana and Pulmicort nebulizer treatments for now. As noted previously, the patient does have my information for a followup appointment - concerning her chronic obstructive pulmonary disease and pulmonary hypertension. Inputs by Infectious Disease, Cardiology, and Gastroenterology are also noted. Clinical status of the patient appears significantly improved - compared to the initial presentation. However, given the above, the future status/prognosis for this elderly patient does remain guarded. I will discuss the above with Dr. Reyes. Sterling Clemons MD MTDHemanth
[2018-05-27] MEDS: oxyCODONE 15 mg Immediate Release Tab PO PRN (00:11)
--- NOTE | 2018-05-27 02:22 | DS ---
HISTORY OF PRESENT ILLNESS: I am hoping we can discharge her to TCU. She had an upper endoscopy with GI and I did biopsies and it is possible of cancer versus Bernal's esophagus, gastritis, and duodenitis. I would like her to be on the Protonix IV to help jump start this, also I believe she little bit of physical therapy. She gotten weaker after the procedure, I know physical therapy home, but I would still like to watch her make sure she is eating well, they change her diet around. MEDICATIONS: She is currently on Brovana, Carafate, pain meds, Protonix twice a day, and Pulmicort. PHYSICAL EXAMINATION: VITAL SIGNS: 97.6 temperature, 84 pulse, 127/75 blood pressure, 18 respiratory rate, and 94% O2 sat on room air. GENERAL: She is very tired and weak. HEENT: Head is atraumatic and normocephalic. HEART: Regular rate. LUNGS: Clear to auscultation. ABDOMEN: Soft. EXTREMITIES: No edema. LABORATORY DATA: He has a 6.7 white count, 9.6 hemoglobin, 31.8 hematocrit with 222 platelets. Sodium 139, potassium 3.5, we will give her some potassium, BUN 5, creatinine 0.5, GFR is greater than 60, sugar is 85, calcium is 8.1, and total bili is 0.5. AST is 20, ALT is 16, alk phos 44, and total protein is 6. ASSESSMENT AND PLAN: She is being seen by GI, Infectious Disease, Cardiology, and Pulmonary. I am hoping to get her to TCU once she up from the upper endoscopy, get some IV Protonix b.i.d. for few days before she goes home. Hopefully, we get the biopsy results back. Osvaldo Reyes DO MTD[facility]
[2018-05-27] MEDS: Sucralfate 1 gm/10 ml Oral Susp UD PO SCH ×4 (05:44→21:10)
[2018-05-27] MEDS: Arformoterol 15 mcg/2 ml Inh Sol IH SCH ×2 (07:18→19:26)
[2018-05-27] MEDS: Budesonide 0.5 mg/2 ml Inhal Susp UD IH SCH ×2 (07:18→19:26)
[2018-05-27] MEDS ORDERED: oxyCODONE 15 mg Immediate Release Tab PO PRN (09:24)
[2018-05-27] MEDS: CREON 12000 UNIT PO SCH ×3 (09:42→17:31)
--- NOTE | 2018-05-27 14:14 | PN ---
DATE: 05/27/2018 PULMONARY PROGRESS NOTE SUBJECTIVE: The patient was seen and examined at bedside. She is not in respiratory distress. She is receiving inhalation treatments with Brovana and budesonide. PHYSICAL EXAMINATION: GENERAL: She is awake, alert, in no acute distress. VITAL SIGNS: Temperature 97.5, pulse 96, respirations 20, pulse oximetry is 96 on room air, blood pressure 130/60. HEENT: Examination of the head normocephalic and atraumatic. NECK: Supple with no jugular vein distention. CARDIOVASCULAR: S1, S2. No S3. Regular. PULMONARY: Diminished breath sounds at both bases with no rhonchi. No wheezing. GASTROINTESTINAL: Soft, nontender. No organomegaly. EXTREMITIES: No pedal edema. No cyanosis. SKIN: No acute skin rash. NEUROLOGIC: No focal deficits. ADDITIONAL DATA: Reviewed. WBC 6.7, hemoglobin of 9.6, and platelet count 220,000. ASSESSMENT: 1. Shortness of breath. 2. Pulmonary hypertension. 3. Atrial fibrillation. 4. Chronic obstructive pulmonary disease. 5. Deep vein thrombosis. PLAN: The patient's shortness of breath is mostly on exertion. She is comfortable at rest. She is receiving nebulizer treatments. Her oxygenation at rest is normal. She should be re-evaluated because of severity of her shortness of breath. She may be a candidate for more advanced treatment of pulmonary hypertension with prostacyclin and it looks like Uptravi. This can be done in office setting after discharge. Wenceslao Mcgee MD
--- NOTE | 2018-05-27 14:49 | PN ---
DATE: 05/27/2018 SUBJECTIVE: I saw her resting in bed. She is doing okay, a little bit better than when she came in. I started her on Eliquis today. More concerned about having a clot than having a GI bleed; we could always transfuse her, so I started her on Eliquis. We will watch her overnight, will see how she does. She is on Brovana, Carafate, Eliquis now, oxycodone, Protonix, and Pulmicort. I thought about putting her on Coumadin, but she refused the Coumadin. She only wants the Eliquis. She does not want the blood tests she wants the Eliquis and we will go with the Eliquis. I discussed the risk of no way of completely reversing it if there is a bleed. She understands that. She does not care. She does not want Coumadin. PHYSICAL EXAMINATION: VITAL SIGNS: She has 97.5 temperature, 96 pulse, 134/61 blood pressure, 18 respiratory rate, and 96% O2 saturation on 2 liters. HEAD: Atraumatic, normocephalic. HEART: Regular rate. LUNGS: Decreased breath sounds, but clear. ABDOMEN: Soft. EXTREMITIES: No edema. She is eating better. MEDICATIONS: She is currently going to be on Brovana, Carafate, Eliquis, oxycodone, Protonix, and Pulmicort. LABORATORY DATA: She has 6.7 white count, 9.6 hemoglobin, 31.8 hematocrit with 222 platelets. She has sodium 139, potassium 3.5, BUN is 5, creatinine 0.5, 109 sugar, 8.1 calcium, and 0.5 total bilirubin. AST is 20, ALT is 69, alk phos 44, total protein is 6. ASSESSMENT AND PLAN: I discussed at length with JULIÁN, he agrees. We are going to anticoagulate her and keep an eye of her bleeding. We can always bring her back in to transfuse her, if we have to. Currently, she is not on any antibiotics per Infectious Disease. If she does well, try and discharge her tomorrow. Osvaldo Reyes DO MTDHemanth
--- NOTE | 2018-05-27 23:11 | PN ---
DATE: 05/27/2018 SUBJECTIVE: The patient was seen earlier today, awake and alert in room 571, bed 1. No fevers. No chills. PHYSICAL EXAMINATION: VITAL SIGNS: Temperature is 97, blood pressure is 140/60, respiratory rate of 18. HEENT: Unremarkable. NECK: Supple. LUNGS: Have decreased breath sounds. HEART: Normal S1 and S2. ABDOMEN: Soft. LABORATORY DATA: Laboratory examination reveals a white count of 6.7, hemoglobin of 9.6. Chemistries are noted and urinalysis is noted. Microbiology is reviewed. ASSESSMENT AND PLAN: This is an 87-year-old female with atrial fibrillation, Clostridium difficile gastroenteritis, chronic obstructive pulmonary disease, diabetes, Klebsiella with a history of extended-spectrum beta-lactamase. Currently off of antibiotics. Afebrile. Normal white count unit. Dr. Osvaldo Reyes's note is reviewed. We will follow with you. Rj Godfrey MD
--- NOTE | 2018-05-28 04:21 | PN ---
DATE: 05/27/2018 Dr Srinivasan covering for Dr Dale Patel SUBJECTIVE: This patient was seen and evaluated earlier today. I discussed with Dr. Reyes and also the nursing staff. The patient is comfortable, tolerating diet. PHYSICAL EXAMINATION: VITAL SIGNS: Temperature 97.7, blood pressure 144/64, pulse 90, respirations 24, and O2 saturation 95%. HEENT: Atraumatic and anicteric. NECK: Supple. HEART: S1 and S2 heard. LUNGS: Bilateral air entry present. ABDOMEN: Soft. There is no tenderness. IMPRESSION AND PLAN: Esophageal ulcer. Continue the proton pump inhibitor. The patient has esophageal ulceration biopsy which is still pending. Advised the patient to take pureed food or soft food, chew it well. Continue proton pump inhibitor and Carafate. Other comorbidities include history of PVD,deep venous thrombosis, pulmonary embolism, h/o afib sp IVC ilter placement, history of coronary artery disease, status recent cardiac catheterization. Has a history of gastrointestinal bleeding in the past, diverticulosis,IH. At this time, the risk-benefit ratio was discussed with the patient. close monitoring Hb. Started on eliquis If there is any significant blood loss or bleeding, then we will need to discontinue the anticoagulation therapy. Dw Dr Reyes and patient Dianna Srinivasan MD MTDD
[2018-05-28] MEDS: Sucralfate 1 gm/10 ml Oral Susp UD PO SCH ×4 (05:41→21:06)
[2018-05-28] MEDS: Arformoterol 15 mcg/2 ml Inh Sol IH SCH ×2 (07:21→20:00)
[2018-05-28] MEDS: Budesonide 0.5 mg/2 ml Inhal Susp UD IH SCH ×2 (07:21→20:00)
[2018-05-28 07:40] LABS: HEMOGLOBIN 9.5 g/dL (12.0-16.0); MEAN CELL VOLUME 83.1 fl (80.0-105.0); MEAN CORPUSCULAR HEMOGLOBIN 24.3 pg (25.0-35.0); MEAN CORPUSCULAR HGB CONC 29.2 g/dl (31.0-37.0); MEAN PLATELET VOLUME 10.6 fl (7.0-11.0); RBC 3.91 10^6/uL (3.5-6.1); WHITE BLOOD COUNT 5.8 10^3/uL (4.5-11.0)
[2018-05-28 07:47] LABS: ALB/GLOB RATIO 0.8 (1.1-1.8); ALBUMIN 2.5 g/dL (3.0-4.8); ALT/SGPT 13 U/L (7-56); AST/SGOT 18 U/L (14-36); BLOOD UREA NITROGEN 6 mg/dL (7-21); CALCIUM 8.3 mg/dL (8.4-10.5); GFR NON-AFRICAN AMERICAN > 60
[2018-05-28] MEDS: CREON 12000 UNIT PO SCH ×3 (09:17→18:24)
[2018-05-28] MEDS ORDERED: Bisacodyl 5mg EC Tab PO ONE (11:15)
--- NOTE | 2018-05-28 12:13 | PN ---
DATE: 05/28/2018 SUBJECTIVE: The patient is in bed in no acute distress. PHYSICAL EXAMINATION: VITAL SIGNS: Temperature is 98, blood pressure is 130/50, respiratory rate of 18. HEENT: Unremarkable. NECK: Supple. LUNGS: Have decreased breath sounds. HEART: Normal S1, S2. ABDOMEN: Soft, nontender. LABORATORY EXAMINATION: Reveals a white count of 5.8, hemoglobin of 9, platelets of 243. Chemistries are noted. BUN of 6, creatinine of 0.6. ASSESSMENT AND PLAN: This is an 87-year-old female, atrial fibrillation Clostridium difficile gastroenteritis, chronic obstructive lung disease, diabetes, Klebsiella, history of a extended-spectrum beta-lactamases. Currently off of antibiotics. Afebrile. The patient is at risk for developing nosocomial infections. Rj Godfrey MD
[2018-05-28] MEDS: Sodium Chloride 0.45% 1,000 ML IV SCH (12:19)
--- NOTE | 2018-05-28 12:31 | PN ---
DATE: 05/28/2018 PULMONARY PROGRESS NOTE SUBJECTIVE: The patient was seen and examined at bedside. She is comfortable. She is on nasal cannula. She is receiving inhalation treatment with Brovana and budesonide. PHYSICAL EXAMINATION VITAL SIGNS: Her temperature is 98, pulse 76, respirations 20, pulse oximetry is 95% on nasal cannula and blood pressure is 130/54. HEENT: Head normocephalic and atraumatic. NECK: Supple with no jugular vein distentions. CARDIOVASCULAR: S1 and S2. No S3. Regular. PULMONARY: Diminished breath sounds at both bases with few scattered rhonchi. No wheezing. GASTROINTESTINAL: Soft and nontender. No organomegaly. EXTREMITIES: No pedal edema. No cyanosis. SKIN: No acute skin rash. NEUROLOGIC: No focal deficits. LABORATORY DATA: Additional data reviewed. Today's blood work shows serum sodium 138, potassium 3.6 and chloride 105. Her BUN is 6 and creatinine is 0.6. Total protein is 5.7 and albumin reduced markedly to 2.5. WBC's are 5.8 and hemoglobin of 9.5. I reviewed notes by outsole molder and her primary care physician, Dr. Reyes. Discussion about resuming anticoagulation took place. The patient declined Coumadin. ASSESSMENT 1. Shortness of breath. 2. Pulmonary hypertension. 3. Atrial fibrillation. 4. Chronic obstructive pulmonary disease. 5. Deep vein thrombosis. PLAN: The plan is to put her back on Eliquis, which will be good for both atrial fibrillation and history of deep venous thrombosis. She has significant shortness of breath on exertion and may be a candidate for more advanced therapy for her pulmonary hypertension with Uptravi and Opsumit. I will discuss this with Dr. Clemons. Wenceslao Mcgee MD
[2018-05-28 12:35] LABS: BASO # 0.03 K/mm3 (0.0-2.0); BASO % 0.4 % (0.0-3.0); EOS # 0.2 (0.0-0.7); EOS % 2.9 % (1.5-5.0); HEMOGLOBIN 10.4 g/dL (12.0-16.0); LYMPH # 0.9 (1.2-3.4); MEAN CELL VOLUME 84.3 fl (80.0-105.0); MEAN CORPUSCULAR HEMOGLOBIN 24.7 pg (25.0-35.0); MEAN CORPUSCULAR HGB CONC 29.3 g/dl (31.0-37.0); MEAN PLATELET VOLUME 10.3 fl (7.0-11.0); MONO # 0.8 (0.1-0.6); MONO % 11.6 % (1.0-6.0); RBC 4.21 10^6/uL (3.5-6.1)
--- NOTE | 2018-05-28 12:46 | RAD ---
Date of service: 05/28/2018 PROCEDURE: CHEST RADIOGRAPH, 1 VIEW HISTORY: sepsis COMPARISON: 05/22/2018 FINDINGS: LUNGS: The lungs are well inflated. There is mild pulmonary venous congestion and interstitial pulmonary edema. PLEURA: Small left pleural effusion. No pneumothorax or right pleural effusion CARDIOVASCULAR: Persistent mild cardiomegaly. There are aortic atherosclerotic calcifications present. OSSEOUS STRUCTURES: Within normal limits for the patient's age. There is an old fracture deformity in the left proximal humerus. VISUALIZED UPPER ABDOMEN: Normal. OTHER FINDINGS: None. IMPRESSION: No active pulmonary disease. Suspect mild congestive heart failure. Developing small left pleural effusion.
[2018-05-28 12:48] LABS: ALB/GLOB RATIO 0.8 (1.1-1.8); ALBUMIN 2.8 g/dL (3.0-4.8); ALT/SGPT 13 U/L (7-56); AST/SGOT 16 U/L (14-36); BLOOD UREA NITROGEN 7 mg/dL (7-21); CALCIUM 8.6 mg/dL (8.4-10.5); GFR NON-AFRICAN AMERICAN > 60
[2018-05-28 13:01] LABS: URINE BILIRUBIN NEGATIVE (NEGATIVE); URINE BLOOD TRACE-INTACT (NEGATIVE); URINE GLUCOSE (UA) NEGATIVE (NEGATIVE); URINE LEUKOCYTE ESTERASE LARGE Leu/uL (NEGATIVE); URINE PROTEIN NEGATIVE mg/dL (<30 mg/dL); URINE UROBILINOGEN 0.2 E.U./dL (<1 E.U./dL)
[2018-05-28 13:02] LABS: URINE APPEARANCE SLIGHT-CLOUDY (CLEAR); URINE COLOR LIGHT YELLOW (YELLOW)
[2018-05-28 13:20] LABS: URINE BACTERIA LARGE /hpf; URINE WBC 25 - 30 /hpf (0-6)
--- NOTE | 2018-05-28 14:19 | CP.PCM.PN ---
<Deysi Nunez - Last Filed: 05/28/18 14:19> Subjective - Date & Time of Evaluation Date of Evaluation: 05/28/18 Time of Evaluation: 08:00 - Subjective Subjective: PGY5 GI Progress Note for Dr. Srinivasan covering Dr. Patel Pt seen and examined bedside complains of urinary urgency tolerating diet denies any abd pain ROS: 12 point ROS conducted, neg other than above Objective - Vital Signs/Intake and Output Vital Signs (last 24 hours): Temp Pulse Resp BP Pulse Ox 98 F 75 16 131/54 L 95 05/28/18 06:00 05/28/18 06:00 05/28/18 06:00 05/28/18 06:00 05/28/18 06:00 Intake and Output: 05/28/18 05/28/18 06:59 18:59 Intake Total 660 Balance 660 - Medications Medications: Current Medications Apixaban (Eliquis) 2.5 mg PO Q12 [facility]; Protocol Last Admin: 05/28/18 09:17 Dose: 2.5 mg Arformoterol Tartrate (Brovana) 15 mcg IH [id number] [facility] Last Admin: 05/28/18 07:21 Dose: 15 mcg Budesonide (Pulmicort Respules) 0.5 mg IH [id number] [facility] Last Admin: 05/28/18 07:21 Dose: 0.5 mg Home Med (Home Med) 1 unit PO TID [facility] Last Admin: 05/28/18 09:17 Dose: 1 unit Meropenem (Merrem Iv 1 Gm Premix) 1 gm in 50 mls @ 100 mls/hr IVPB Q8 [facility]; Protocol Stop: 06/05/18 14:01 Sodium Chloride (Sodium Chloride 0.45%) 1,000 mls @ 40 mls/hr IV .Q24H [facility] Last Admin: 05/28/18 12:19 Dose: 40 mls/hr Oxycodone HCl (Oxycodone Immediate Release Tab) 15 mg PO BID PRN PRN Reason: Pain, moderate (4-7) Pantoprazole Sodium (Protonix Inj) 40 mg IVP BID [facility] Last Admin: 05/28/18 09:17 Dose: 40 mg Sucralfate (Carafate Oral Susp) 1 gm PO 0630,1130,1630,2200 [facility] Last Admin: 05/28/18 11:37 Dose: 1 gm - Labs Labs: 05/28/18 12:11 05/28/18 12:30 PT 16.9 SECONDS (9.4-12.5) H 05/22/18 11:11 INR 1.50 05/22/18 11:11 APTT 71.1 Seconds (26.9-38.3) H 05/24/18 06:45 - Constitutional Appears: Well, No Acute Distress - Head Exam Head Exam: ATRAUMATIC, NORMOCEPHALIC - Eye Exam Eye Exam: Normal appearance - ENT Exam ENT Exam: Mucous Membranes Moist, Normal Exam - Respiratory Exam Respiratory Exam: Clear to Ausculation Bilateral, NORMAL BREATHING PATTERN. absent: Rales, Rhonchi, Wheezes - Cardiovascular Exam Cardiovascular Exam: REGULAR RHYTHM, +S1, +S2 - GI/Abdominal Exam GI & Abdominal Exam: Soft, Normal Bowel Sounds. absent: Distended, Guarding, Rigid, Tenderness, Organomegaly, Pulsatile Mass, Rebound - Extremities Exam Extremities Exam: absent: Joint Swelling, Pedal Edema - Neurological Exam Neurological Exam: Alert, Awake, Oriented x3 - Psychiatric Exam Psychiatric exam: Normal Affect, Normal Mood - Skin Skin Exam: Dry, Intact, Normal Color, Warm Assessment and Plan - Assessment and Plan (Free Text) Assessment: 87 year old pleasant female with a PMH of Afib (not on anticoagulation due to hx of GI bleeds), c.diff colitis, gastroenteritis, COPD, DM2, falls, Klebsiella UTIs, PE, and recent admission for b/l LE DVT's w/ filter in place who is admitted for epigastric pain and shortness of breath. GI consulted for possible endoscopy and evaluation of the patient's abdominal pain. Symptoms of dysphagia upon presentation are due to esophageal ulcers and esophagitis as seen on EGD. Plan: - Patient should continue protonix 40mg daily - cont carafate qid - resume diet specified by speech pathologist -pt started on eliquis 2.5mg BID after long discussion with PCP and Pt, risk and benefits explained to the pt and she is agreeable to start the new medication - further recs per Dr. Srinivasan This note is not finalized until signed Case was reviewed and discussed with attending Dr. Srinivasan <Dianna Srinivasan V - Last Filed: 05/28/18 17:26> Objective - Vital Signs/Intake and Output Vital Signs (last 24 hours): Temp Pulse Resp BP Pulse Ox 98.2 F 80 16 140/58 L 20 L 05/28/18 14:00 05/28/18 14:00 05/28/18 06:00 05/28/18 14:00 05/28/18 14:00 Intake and Output: 05/28/18 05/28/18 06:59 18:59 Intake Total 660 Balance 660 - Medications Medications: Current Medications Apixaban (Eliquis) 2.5 mg PO Q12 [facility]; Protocol Last Admin: 05/28/18 09:17 Dose: 2.5 mg Arformoterol Tartrate (Brovana) 15 mcg IH [id number] [facility] Last Admin: 05/28/18 07:21 Dose: 15 mcg Budesonide (Pulmicort Respules) 0.5 mg IH [id number] [facility] Last Admin: 05/28/18 07:21 Dose: 0.5 mg Home Med (Home Med) 1 unit PO TID [facility] Last Admin: 05/28/18 14:44 Dose: 1 unit Meropenem (Merrem Iv 1 Gm Premix) 1 gm in 50 mls @ 100 mls/hr IVPB Q8 [facility]; Protocol Stop: 06/05/18 14:01 Last Admin: 05/28/18 14:45 Dose: 100 mls/hr Sodium Chloride (Sodium Chloride 0.45%) 1,000 mls @ 40 mls/hr IV .Q24H [facility] Last Admin: 05/28/18 12:19 Dose: 40 mls/hr Oxycodone HCl (Oxycodone Immediate Release Tab) 15 mg PO BID PRN PRN Reason: Pain, moderate (4-7) Pantoprazole Sodium (Protonix Inj) 40 mg IVP BID [facility] Last Admin: 05/28/18 09:17 Dose: 40 mg Sucralfate (Carafate Oral Susp) 1 gm PO 0630,1130,1630,2200 [facility] Last Admin: 05/28/18 11:37 Dose: 1 gm - Labs Labs: 05/28/18 12:11 05/28/18 12:30 PT 16.9 SECONDS (9.4-12.5) H 05/22/18 11:11 INR 1.50 05/22/18 11:11 APTT 71.1 Seconds (26.9-38.3) H 05/24/18 06:45 Attending/Attestation - Attestation I have personally seen and examined this patient.: Yes I have fully participated in the care of the patient.: Yes I have reviewed all pertinent clinical information, including history, physical exam and plan: Yes Notes (Text): This is an addendum to the GI progress report dictated by the fellow. The patient was seen and evaluated earlier. Please also see other dictated addendum progress report 05/28/18 17:25
[2018-05-28] MEDS: Meropenem IV 1 gm in NS 1 GM/50 ML BAG IVPB SCH ×2 (14:45→21:06)
--- NOTE | 2018-05-28 19:33 | PN ---
DATE: 05/28/2018 Covering for Dale Patel MD. SUBJECTIVE: This patient was seen and evaluated earlier today. The patient is tolerating the diet. PHYSICAL EXAMINATION: VITAL SIGNS: Temperature is 98, blood pressure is 131/54, pulse 75. HEENT: Atraumatic, anicteric. NECK: Supple. HEART: S1, S2. LUNGS: Bilateral air entry present. ABDOMEN: Soft. There is no tenderness. NEUROLOGIC: Alert and oriented. LABORATORY DATA: Hemoglobin 10.4, hematocrit 35.5, WBC is 7, platelets 259, BUN 7, creatinine 0.6. IMPRESSION AND PLAN: This is an 87-year-old patient admitted with atypical chest pain. She has history of coronary artery disease, status post cardiac cath. No intervention done. The patient had an endoscopy done, which showed upper esophageal ulcer, biopsy was done with results pending. The patient has a history of peripheral vascular disease, atrial fibrillation, history of deep venous thrombosis, pulmonary embolism status post IVC filter. She was thought to be high risk by the cardiology for thromboembolic event and recommended anticoagulation. The patient's old charts were reviewed. The patient did have a history of GI bleeding in the past. Her previous endoscopy and colonoscopy reports are also reviewed. History of diverticulosis, internal hemorrhoids in 2016. The patient had no significant episodes of bleeding recently. We had a detailed discussion with the patient and the decision was to restart the Eliquis at 2.5 mg the lower dose. The patient fully understood the risk of bleeding also and the risks, benefits were discussed at length. The patient's hemoglobin will be closely monitored. Followup for the biopsy report. Thank you very much for allowing me to participate in the care of the patient. Dianna Srinivasan MD
[2018-05-29] MEDS: Sucralfate 1 gm/10 ml Oral Susp UD PO SCH ×4 (05:57→21:05)
[2018-05-29] MEDS: Meropenem IV 1 gm in NS 1 GM/50 ML BAG IVPB SCH ×3 (05:58→21:05)
[2018-05-29 07:18] LABS: HEMOGLOBIN 9.6 g/dL (12.0-16.0); MEAN CELL VOLUME 81.5 fl (80.0-105.0); MEAN CORPUSCULAR HEMOGLOBIN 24.7 pg (25.0-35.0); MEAN CORPUSCULAR HGB CONC 30.3 g/dl (31.0-37.0); MEAN PLATELET VOLUME 10.2 fl (7.0-11.0); RBC 3.89 10^6/uL (3.5-6.1); RED CELL DISTRIBUTION WIDTH 19.2 % (11.5-14.5); WHITE BLOOD COUNT 7.2 10^3/uL (4.5-11.0)
[2018-05-29 07:39] LABS: ALB/GLOB RATIO 0.9 (1.1-1.8); ALBUMIN 2.8 g/dL (3.0-4.8); ALT/SGPT 8 U/L (7-56); AST/SGOT 17 U/L (14-36); BLOOD UREA NITROGEN 8 mg/dL (7-21); CALCIUM 8.3 mg/dL (8.4-10.5); GFR NON-AFRICAN AMERICAN > 60
[2018-05-29] MEDS: Budesonide 0.5 mg/2 ml Inhal Susp UD IH SCH ×2 (07:41→20:01)
[2018-05-29] MEDS: Arformoterol 15 mcg/2 ml Inh Sol IH SCH ×2 (07:41→20:01)
--- NOTE | 2018-05-29 08:12 | PN ---
DATE: 05/29/2018 SUBJECTIVE: The patient appears comfortable this morning. She is not short of breath at rest. PHYSICAL EXAMINATION: VITAL SIGNS: Temperature is 98.3, pulse 93, respirations 18, blood pressure 131/71. Oxygen saturation on room air 94% to 95%. HEENT: Normocephalic, atraumatic. No JVD. CARDIOVASCULAR: Positive S1, S2. No S3 gallop. LUNGS: Clear bilaterally. EXTREMITIES: Minimal edema in her lower extremities remains. No cyanosis or clubbing. Calves are nontender to palpation. GASTROINTESTINAL: Abdomen is soft, nontender and nondistended. Bowel sounds are positive. SKIN: No acute rash. NEUROLOGIC: Exam limited at the present time. IMPRESSION: 1. Chest pain - resolved. 2. Nonobstructive coronary artery disease. 3. Atrial fibrillation. 4. Chronic obstructive pulmonary disease. 5. Bilateral deep venous thrombosis. 6. Anemia. 7. Pulmonary hypertension. PLAN: The patient appears comfortable this morning. She is not short of breath at rest. She does state to feeling better overall. On physical exam, her lungs are now clear. In addition, there is no significant alveolar-arterial gradient. I will continue the current nebulizer treatments and inhaled steroids for now. Inputs by Infectious Disease and Gastroenterology are also noted. Clinical status of the patient is significantly improved - compared to the initial presentation. However, again, the future status/prognosis for this elderly patient does remain guarded. The patient does promise to follow up with me in the office - regarding her chronic obstructive pulmonary disease and pulmonary hypertension. I will discuss the above with Dr. Reyes. Sterling Clemons MD PITA
--- NOTE | 2018-05-29 08:22 | DS ---
HISTORY OF PRESENT ILLNESS: She is resting comfortably in bed. She is eating some. She has questions about her medications and her testing she is on Brovana, Carafate, Dulcolax, Eliquis, Protonix, Pulmicort. We are holding Synthroid for right now to the TSH normalizes. OBJECTIVE: VITAL SIGNS: She has a 98 temperature, 75 pulse, 131/54 blood pressure, 16 respiratory rate, 95% sat on room air. HEENT: Head is atraumatic, normocephalic. HEART: Regular rate. LUNGS: Decreased breath sounds, but clear. ABDOMEN: Soft, nontender. Positive bowel sounds. EXTREMITIES: No edema. LABORATORY DATA: She has a 138 sodium, potassium 3.6, BUN is 6, creatinine 0.6, GFR is greater than 60, sugar is 97, calcium is 8.3, total bili is 0.3, AST is 18, ALT is 30, alk phos 42, total protein 5.7. White count 5.8, hemoglobin 9.5, hematocrit 32.5, platelets of 243. She is currently on the Eliquis, no bleeding in the past 24 hours. We will continue with the Eliquis, I had rather have her bleed and replace the blood then possibly get stroke without having her anticoagulated. We will continue with aggressive treatment and care who had low potassium, extended-spectrum beta-lactamases, right arm superficial thrombophlebitis, bilateral lower extremity deep venous thrombosis. Osvaldo Reyes DO
[2018-05-29] MEDS: CREON 12000 UNIT PO SCH ×3 (09:13→18:00)
--- NOTE | 2018-05-29 09:53 | PN ---
DATE: 05/29/2018 SUBJECTIVE: She had a rough day yesterday. I tried to discharge her yesterday, then she became very lethargic and we did a whole routine of cultures on her. Infectious Disease restarted her on antibiotics. She feels as if she is having urinary tract infection again. She is on IV fluids, Brovana, Carafate, Dulcolax, Eliquis, Merrem IV by Infectious Disease, oxycodone, Protonix and Pulmicort. PHYSICAL EXAMINATION: VITAL SIGNS: Temperature 98, 68 pulse, 131/83 blood pressure, 20 respiratory rate, 96% O2 sat on room air. HEAD: Atraumatic, normocephalic. HEART: Regular rate. LUNGS: Decreased breath sounds. ABDOMEN: Soft. EXTREMITIES: No edema. She is a lot better this morning than yesterday. Maybe the Merrem is helping. LABORATORY DATA: White count 7.2, 9.6 hemoglobin, 31.7 hematocrit with 269 platelets. She has 139 sodium, potassium 3.6, BUN is 8, creatinine 0.5, GFR greater than 60, sugar 92, calcium 8.3, total bili is 0.4. AST is 17, ALT is 8, alk phos 42, total protein is 5.9. Urine was large leukocyte, it was negative four days ago, now it is large with large bacteria. So, she is having a UTI again, that is why she was so lethargic. She is on Merrem. We will continue the Merrem here. We will check her labs tomorrow as per Infectious Disease. We are going to change it to tablets and I will discharge her. I want to get her out of bed to chair and that is why she was so lethargic yesterday. The patient, Joslyn Ellis, with a persistent UTI. Osvaldo Reyes DO
[2018-05-29] MEDS: Sodium Chloride 0.45% 1,000 ML IV SCH (13:18)
--- NOTE | 2018-05-29 16:15 | PN ---
DATE: 05/29/2018 SUBJECTIVE: The patient is lying in bed comfortable. She denies any chest pain, dysphagia, melena, or hematemesis. PHYSICAL EXAMINATION: VITAL SIGNS: Reveal temperature of 98, blood pressure 131/83, heart rate 68. HEENT: Reveal sclerae to be white. Conjunctivae pale. NECK: Supple. CHEST: Reveals lungs to be clear. HEART: Reveals regular rate and rhythm. ABDOMEN: Soft, nontender. No mass. EXTREMITIES: Show no edema. LABORATORY DATA: Reveal white blood cell count 7.2, hemoglobin 9.6, platelet count of 269,000. Chemistries reveal normal AST, ALT, alk phos. Bicarb of 27, potassium of 3.6. Most recent urine for C&S is positive for gram-negative rods. IMPRESSION: An 87-year-old female with coronary artery disease, esophageal ulcer, chronic anemia, now with possible urinary tract infection with gram-negative rods. The patient has had multiple episodes of Clostridium difficile in the past. She is at risk for recurrent Clostridium difficile with antibiotics for UTI. RECOMMENDATIONS: 1. I have spoken with Dr. Godfrey about judicious use of antibiotics in this patient with recurrent C. diff and possible urinary tract infection. 2. Continue pantoprazole 40 mg twice a day and Carafate suspension. 3. Continue Eliquis. The patient's blood count is stable. Dale Patel MD
[2018-05-29] MEDS: Pantoprazole 40 mg EC Tab PO SCH (17:59)
--- NOTE | 2018-05-29 22:53 | PN ---
DATE: 05/29/2018 SUBJECTIVE: The patient is in bed, in no acute distress, nontoxic. PHYSICAL EXAMINATION VITAL SIGNS: Temperature is 98, blood pressure is 140/60, respiratory rate 22. HEENT: Unremarkable. NECK: Supple. LUNGS: Decreased breath sounds. HEART: Normal S1, S2. ABDOMEN: Soft. LABORATORY DATA: Reveals white count of 7.2. Urinalysis 25 to 30 wbcs. Microbiology; a gram-negative jerry in the urine. Dr. Patel's progress note is reviewed. ASSESSMENT AND PLAN: An 87-year-old female with atrial fibrillation, recurrent Clostridium difficile, gastroenteritis and chronic obstructive lung disease, Klebsiella extended-spectrum beta-lactamases, now has gram-negative jerry in the urine with positive urinalysis and the patient is symptomatic. Awaiting for identification of the gram-negative jerry in the urine. Currently on meropenem. I agree with Dr. Patel's recommendation of judicious use of antibiotics; unfortunately the patient is a symptomatic urinary tract infection with gram-negative rods, which requires treatment at this time. We will minimize the antibiotic use as possible. Rj Godfrey MD
[2018-05-30] MEDS: Meropenem IV 1 gm in NS 1 GM/50 ML BAG IVPB SCH ×2 (05:26→13:43)
[2018-05-30] MEDS: Sucralfate 1 gm/10 ml Oral Susp UD PO SCH ×4 (05:29→21:22)
[2018-05-30] MEDS: Budesonide 0.5 mg/2 ml Inhal Susp UD IH SCH (07:23)
[2018-05-30] MEDS: Arformoterol 15 mcg/2 ml Inh Sol IH SCH (07:23)
[2018-05-30 07:44] LABS: HEMOGLOBIN 9.6 g/dL (12.0-16.0); MEAN CELL VOLUME 81.7 fl (80.0-105.0); MEAN CORPUSCULAR HEMOGLOBIN 24.7 pg (25.0-35.0); MEAN CORPUSCULAR HGB CONC 30.2 g/dl (31.0-37.0); RBC 3.89 10^6/uL (3.5-6.1); RED CELL DISTRIBUTION WIDTH 19.3 % (11.5-14.5); WHITE BLOOD COUNT 5.9 10^3/uL (4.5-11.0)
[2018-05-30 08:09] LABS: ALB/GLOB RATIO 0.8 (1.1-1.8); ALBUMIN 2.5 g/dL (3.0-4.8); ALT/SGPT 9 U/L (7-56); AST/SGOT 21 U/L (14-36); BLOOD UREA NITROGEN 8 mg/dL (7-21); CALCIUM 8.2 mg/dL (8.4-10.5); GFR NON-AFRICAN AMERICAN > 60
--- NOTE | 2018-05-30 09:41 | PN ---
DATE: 05/30/2018 SUBJECTIVE: The patient appears comfortable this morning. She is not short of breath at rest. PHYSICAL EXAMINATION: VITAL SIGNS: (Last noted in the computer): Temperature is 97.7, pulse 84, respirations 18, blood pressure 153/80. Oxygen saturation on room air is 96%. HEENT: Normocephalic, atraumatic. No JVD. CARDIOVASCULAR: Positive S1, S2. No S3, gallop. LUNGS: Clear bilaterally. EXTREMITIES: Mild edema in both lower extremities remains. No cyanosis or clubbing. The calves are nontender to palpation. GASTROINTESTINAL: Abdomen is soft, nontender, nondistended. Bowel sounds are positive. SKIN: No acute rash. NEUROLOGIC: Exam limited at the present time. IMPRESSION: 1. Chest pain - resolved. 2. Nonobstructive coronary artery disease. 3. Atrial fibrillation. 4. Chronic obstructive pulmonary disease. 5. Bilateral deep venous thrombosis. 6. Anemia. 7. Pulmonary hypertension. PLAN: The patient appears comfortable this morning. She is not short of breath at rest. She does state to feeling better overall. On physical exam, there is no bronchospasm noted. In addition, the oxygen saturation on room air is now 96%. I will continue the current nebulizer treatments and inhaled steroids for now. The patient remains on antibiotic therapy. Input by Dr. Godfrey is noted. Inputs by Internal Medicine and Gastroenterology are also noted. Clinical status of the patient is significantly improved overall. However, given the above, the future status/prognosis for this elderly patient does remain guarded. I will discuss the above with Dr. Reyes. Sterling Clemons MD PITA
[2018-05-30] MEDS: Pantoprazole 40 mg EC Tab PO SCH ×2 (10:53→18:06)
[2018-05-30] MEDS: CREON 12000 UNIT PO SCH ×3 (10:53→18:06)
--- NOTE | 2018-05-30 12:39 | PN ---
DATE: 05/30/2018 SUBJECTIVE: I saw her resting comfortably in bed. She is eating her breakfast. She is in good spirits. No chest pain or shortness of breath. No abdominal pain. She is now on IV antibiotics. She had multiple issues presently. PHYSICAL EXAMINATION: VITAL SIGNS: Temperature 98.2, 87 pulse, 151/73 blood pressure,18 respiratory rate, 98% sat on room air. HEAD: Atraumatic, normocephalic. GENERAL: She is very pleasant, alert, no complaints, back to her baseline, on antibiotics. HEART: Regular rate. LUNGS: Clear to auscultation. ABDOMEN: Soft. EXTREMITIES: No edema. MEDICATIONS: She is on Brovana, Carafate, Eliquis, Merrem, oxycodone, Protonix, Pulmicort and IV fluids. LABORATORY DATA: She has a 5.9 white count, 9.6 hemoglobin, 31.8 hematocrit, 281 platelets. Sodium 138, potassium 3.9, BUN 8, creatinine 0.5, GFR is greater than 60, sugar is 86, calcium 8.2, total bili is 0.4, AST is 21, ALT is 9, alk phos 42, total protein is 5.7. She had a urine showed multiple species. Suggest repeat specimen on urine culture that was repeated. It was Proteus mirabilis in the urine. When I can change her to tablets, I will discharge her home. She is being treated by Infectious Disease, Pulmonology and GI, and as per Infectious Disease when I can get her off the antibiotics, I will. I do not want to see difficile in the future. Dr. Godfrey understands that too and when I can discharge her, I will. Osvaldo Reyes DO
[2018-05-30] MEDS: Sodium Chloride 0.45% 1,000 ML IV SCH (14:05)
[2018-05-30] MEDS: Cefpodoxime (Vantin) 200 mg Tab PO SCH (21:21)
--- NOTE | 2018-05-31 01:10 | PN ---
DATE: 05/30/2018 SUBJECTIVE: The patient is seen earlier today in 571, bed 1. No fevers and no chills. OBJECTIVE: VITAL SIGNS: Temperature is 98, blood pressure is 140/70, and respiratory rate of 16. HEENT: Unremarkable. NECK: Supple. LUNGS: Have decreased breath sounds. HEART: Normal S1 and S2. ABDOMEN: Soft. LABORATORY DATA: Reveals a white count of 5.9 and chemistries are noted. Urinalysis is noted. Urine culture is reported to be Proteus mirabilis, pansensitive. ASSESSMENT AND PLAN: This is an 87-year-old female with atrial fibrillation, Clostridium difficile, gastroenteritis, chronic obstructive lung disease, Klebsiella extended-spectrum beta-lactamase, now has symptomatic Proteus urinary tract infection. We will switch to p.o. for short course therapy. We will follow with you. We will 200 mg p.o. b.i.d. x5 days. Rj Godfrey MD
[2018-05-31] MEDS: Sucralfate 1 gm/10 ml Oral Susp UD PO SCH ×2 (05:34→11:36)
[2018-05-31] MEDS: Arformoterol 15 mcg/2 ml Inh Sol IH SCH (07:36)
[2018-05-31] MEDS: Budesonide 0.5 mg/2 ml Inhal Susp UD IH SCH (07:36)
[2018-05-31 07:48] LABS: HEMOGLOBIN 9.9 g/dL (12.0-16.0); MEAN CELL VOLUME 81.9 fl (80.0-105.0); MEAN CORPUSCULAR HEMOGLOBIN 24.5 pg (25.0-35.0); MEAN CORPUSCULAR HGB CONC 29.9 g/dl (31.0-37.0); MEAN PLATELET VOLUME 10.4 fl (7.0-11.0); RBC 4.04 10^6/uL (3.5-6.1); RED CELL DISTRIBUTION WIDTH 19.2 % (11.5-14.5); WHITE BLOOD COUNT 5.5 10^3/uL (4.5-11.0)
[2018-05-31 07:58] VITALS: BP 108/58; PULSE 92; RESP 18; TEMP 98.4; O2SAT 92
[2018-05-31 08:10] LABS: ALB/GLOB RATIO 0.8 (1.1-1.8); ALBUMIN 2.8 g/dL (3.0-4.8); ALT/SGPT 10 U/L (7-56); AST/SGOT 24 U/L (14-36); BLOOD UREA NITROGEN 8 mg/dL (7-21); CALCIUM 8.5 mg/dL (8.4-10.5); GFR NON-AFRICAN AMERICAN > 60
--- NOTE | 2018-05-31 08:33 | PN ---
DATE: 05/31/2018 SUBJECTIVE: The patient appears comfortable this morning. She is not short of breath at rest. She does appear somewhat weak. PHYSICAL EXAMINATION: VITAL SIGNS (last noted in the computer): Temperature 97.7, pulse 83, respirations 19, blood pressure 129/53. Oxygen saturation on room air - 93%. Oxygen saturation on nasal cannula - 98%. HEENT: Normocephalic, atraumatic. No JVD. CARDIOVASCULAR: Positive S1, S2. No S3 gallop. LUNGS: Very minimal rhonchi. No wheezing. EXTREMITIES: Mild edema in both lower extremities. No cyanosis or clubbing. Calves are nontender to palpation. GASTROINTESTINAL : Abdomen is soft, nontender and nondistended. Bowel sounds are positive. SKIN: No acute rash. NEUROLOGIC: Exam limited at the present time. IMPRESSION: 1. Chest pain - resolved. 2. Nonobstructive coronary artery disease. 3. Atrial fibrillation. 4. Chronic obstructive pulmonary disease. 5. Bilateral deep venous thrombosis. 6. Anemia. 7. Pulmonary hypertension. PLAN: The patient appears comfortable this morning. She is not short of breath at rest. She does appear somewhat weak. However, she does state to feeling better overall. On physical exam, there is no significant bronchospasm noted. In addition, there is no significant alveolar-arterial gradient. I will continue with the current nebulizer treatments and inhaled steroids for now. Inputs by Infectious Disease and Gastroenterology are also noted. Clinical status of the patient is significantly improved - compared to the initial presentation. However, given the above, the future status/prognosis for this elderly patient does remain guarded. Again, after discharge, the patient does promise to follow up with me in the office. I will discuss the above with Dr. Reyes. Sterling Clemons MD PITA
[2018-05-31] MEDS: Cefpodoxime (Vantin) 200 mg Tab PO SCH (09:36)
[2018-05-31] MEDS: CREON 12000 UNIT PO SCH ×2 (09:37→14:12)
[2018-05-31] MEDS: Pantoprazole 40 mg EC Tab PO SCH (09:37)
--- NOTE | 2018-05-31 23:14 | DS ---
HISTORY OF PRESENT ILLNESS: She is resting comfortably in bed, doing a lot better, more alert, stronger. She walks a little bit. She is looking forward to walking again also this morning. Turned out late last night at 10 p.m. Infectious Disease changed her to tablets p.o. antibiotics. I will discharge her today. She will be on 5 days of Vantin 200 mg twice a day. She will be on her regular medications at home. Today is Tuesday, I want to see her on Tuesday before the weekend. She is now on Eliquis 2.5 mg twice a day and we will see her on Tuesday. She will be discharged. I will tell the pharmacy to call me for her medications. PHYSICAL EXAMINATION VITAL SIGNS: She has a 98.4 temperature, 92 pulse, 108/58 blood pressure, 18 respiratory rate, and 92% O2 sat on room air. HEENT: Head is atraumatic, normocephalic. HEART: Regular rate. LUNGS: Decreased breath sounds. ABDOMEN: Soft. EXTREMITIES: No edema. LABORATORY DATA: She has a 5.5 white count, 9.9 hemoglobin, 32.1 hematocrit, with a 297 platelets. She has 139 sodium, potassium 3.9, BUN 8, creatinine 0.6, GFR is greater than 60, sugar is 90, calcium is 8.5, total bili is 0.4, AST is 24, ALT is 10, alk phos 83, total protein 6.1. ASSESSMENT AND PLAN: She had a urinary tract infection also. She had superficial thrombophlebitis of the right arm, bilateral deep venous thromboses, and now we are going to keep her on Eliquis to resolve the clots. Continue with the rest of treatment care. I will see her in the office in two days. Ajith Reyes DO
== END 2018-05-31 16:20 | disposition home or self-care (01) | DRG 286 ==
LOC: ED 10:13 → ERH 14:14 → 2RNO 20:53 → OBSVTOIN 05-23 08:19 → 2RSO 05-24 10:22 → 5RSO 05-25 16:56
PROVIDERS: ADMIT Family Medicine; ATTEND Family Medicine
PROC: 4A023N7 Measurement of Cardiac Sampling and Pressure, Left Heart, Percutaneous Approach (ICD-10-PCS; principal; 2018-05-24)
PROC: B2111ZZ Fluoroscopy of Multiple Coronary Arteries using Low Osmolar Contrast (ICD-10-PCS; 2018-05-24)
PROC: B2151ZZ Fluoroscopy of Left Heart using Low Osmolar Contrast (ICD-10-PCS; 2018-05-24)
PROC: B4101ZZ Fluoroscopy of Abdominal Aorta using Low Osmolar Contrast (ICD-10-PCS; 2018-05-24)
PROC: 0DB58ZX Excision of Esophagus, Via Natural or Artificial Opening Endoscopic, Diagnostic (ICD-10-PCS; 2018-05-25)
DX: I25.119 Atherosclerotic heart disease of native coronary artery with unspecified angina pectoris (principal); K22.11 Ulcer of esophagus with bleeding; N39.0 Urinary tract infection, site not specified; K22.10 Ulcer of esophagus without bleeding; I80.8 Phlebitis and thrombophlebitis of other sites; I10 Essential (primary) hypertension; E11.9 Type 2 diabetes mellitus without complications; E03.9 Hypothyroidism, unspecified; Z86.718 Personal history of other venous thrombosis and embolism; R79.1 Abnormal coagulation profile; D64.9 Anemia, unspecified; R79.89 Other specified abnormal findings of blood chemistry; I48.2 Chronic atrial fibrillation; J44.9 Chronic obstructive pulmonary disease, unspecified; R13.10 Dysphagia, unspecified; I27.20 Pulmonary hypertension, unspecified; K57.30 Diverticulosis of large intestine without perforation or abscess without bleeding; Z17.0 Estrogen receptor positive status [ER+]; C50.919 Malignant neoplasm of unspecified site of unspecified female breast; Z95.828 Presence of other vascular implants and grafts; Z86.19 Personal history of other infectious and parasitic diseases; Z86.711 Personal history of pulmonary embolism; Z87.891 Personal history of nicotine dependence; B96.4 Proteus (mirabilis) (morganii) as the cause of diseases classified elsewhere; E11.51 Type 2 diabetes mellitus with diabetic peripheral angiopathy without gangrene; K44.9 Diaphragmatic hernia without obstruction or gangrene; K29.70 Gastritis, unspecified, without bleeding; K31.9 Disease of stomach and duodenum, unspecified; Z90.49 Acquired absence of other specified parts of digestive tract; Z87.81 Personal history of (healed) traumatic fracture

== ENCOUNTER 2018-06-16 09:18 | Inpatient (IN) | payer MEDICARE ==
[2018-06-16 09:18] VITALS: PULSE 100
[2018-06-16 09:25] VITALS: BMI 26.9
--- NOTE | 2018-06-16 09:47 | ED PDOC ---
Arrival/HPI - General Chief Complaint: Trauma Time Seen by Provider: 06/16/18 09:22 Historian: Patient - History of Present Illness Narrative History of Present Illness (Text): 87 year old female, whose past medical history includes C. Diff, A-Fib, LLE DVT (pt compliant with Eliquis, took it yesterday but not this morning), hypertension, diabetes, GI bleed, COPD, hypothyroidism, cataract surgery, appendectomy, and cholecystectomy, who presents to the ED status post mechanical fall around 9 am today. Patient reports she was walking on the street when she slipped on the curb of the sidewalk and hit her head and left arm. Fall impacted patient's forehead and left hand. Patient notes chronic LLE swelling due to blood clot and states she does not remember when she last received Tetanus vaccine. Patient denies loss of consciousness, fevers, chills, headache, dizziness, chest pain, shortness of breath, dyspnea on exertion, cough, abdominal pain, neck pain, nausea, vomiting, constipation, diarrhea, back pain, neck pain, urinary/bowel changes, or any other complaints. PMD: Dr. Moon Time/Duration: 1/2 hour Symptom Onset: Sudden Symptom Course: Unchanged Activities at Onset: Other (Walking) Context: Street Past Medical History - Provider Review Nursing Documentation Reviewed: Yes - Infectious Disease Hx of Infectious Diseases: None - Tetanus Immunization Tetanus Immunization: Unknown - Cardiac Hx Cardiac Disorders: Yes (Afib, jaimie filter) Hx Atrial Fibrillation: Yes Hx Hypertension: Yes Other/Comment: blood clot on LLE - Pulmonary Hx Chronic Obstructive Pulmonary Disease (COPD): Yes - Neurological Hx Neurological Disorder: No - HEENT Hx HEENT Disorder: Yes (NENANA(uses Hearing aids), glasses) Hx Cataracts: Yes Other/Comment: HEARING AID - Renal Hx Renal Disorder: No - Endocrine/Metabolic Hx Diabetes Mellitus Type 2: Yes Hx Hypothyroidism: Yes - Hematological/Oncological Hx Blood Transfusions: Yes Hx Blood Transfusion Reaction: No - Integumentary Hx Dermatological Disorder: Yes (bilateral leg cellulitis 05/16/18) Other/Comment: 05-16-18 BILATERAL LEG CELLULITIS - Musculoskeletal/Rheumatological Hx Falls: Yes Hx Fractures: Yes (MULTIPLE RIB FRACTURES,L SHOULDER FX,) Hx Spinal Stenosis: Yes Hx Unsteady Gait: Yes (CANE) - Gastrointestinal Hx Gastrointestinal Disorders: Yes (COLITIS,H/O C DIFF,GASTROENTERITIS,APPENDECTOMY) Hx Gall Bladder Disease: Yes (CHOLEYCYSTECTOMY) - Genitourinary/Gynecological Hx Genitourinary Disorders: Yes (H/O OF ESBL IN THE URINE 05-14-17) - Psychiatric Hx Psychophysiologic Disorder: No Hx Substance Use: No - Surgical History Hx Cardiac Catheterization: (denies) - Anesthesia Hx Anesthesia Reactions: No Hx Malignant Hyperthermia: No - Suicidal Assessment Feels Threatened In Home Enviroment: No Family/Social History - Physician Review Nursing Documentation Reviewed: Yes Family/Social History: Unknown Family HX Smoking Status: Former Smoker Hx Alcohol Use: Yes (GLASS OF WINE OCCASIONALLY) Hx Substance Use: No Hx Substance Use Treatment: No Allergies/Home Meds Allergies/Adverse Reactions: Allergies No Known Allergies Allergy (Verified 06/16/18 20:51) Home Medications: Home Meds Medication Instructions Recorded Confirmed Lipase/Protease/Amylase [Creon Dr 1 cap PO DAILY 05/22/18 06/16/18 12,000 Units Capsule] Review of Systems - Review of Systems Constitutional: Normal. absent: Fevers Eyes: Normal. absent: Vision Changes ENT: Normal. absent: Hearing Changes, Epistaxis Respiratory: Normal. absent: SOB, Cough Cardiovascular: Normal. absent: Chest Pain Gastrointestinal: Normal. absent: Abdominal Pain, Diarrhea, Nausea, Vomiting Genitourinary Female: Normal. absent: Dysuria, Hematuria Musculoskeletal: Normal. absent: Back Pain, Neck Pain Skin: Normal. absent: Rash Neurological: Normal. absent: Headache, Dizziness Endocrine: Normal. absent: Diaphoresis Hemo/Lymphatic: Normal. absent: Adenopathy Psychiatric: Normal. absent: Anxiety, Depression Physical Exam Vital Signs Reviewed: Yes Temperature: Afebrile Blood Pressure: Normal Pulse: Tachycardic Respiratory Rate: Normal Appearance: Positive for: Well-Appearing, Non-Toxic, Comfortable Pain Distress: None Mental Status: Positive for: Alert and Oriented X 3 - Systems Exam Head: Present: Abrasion (superficial abrasion on right frontal scalp) Pupils: Present: PERRL Extroacular Muscles: Present: EOMI Conjunctiva: Present: Normal Mouth: Present: Moist Mucous Membranes Neck: Present: Normal Range of Motion Respiratory/Chest: Present: Clear to Auscultation, Good Air Exchange. No: Respiratory Distress, Accessory Muscle Use Cardiovascular: Present: Regular Rate and Rhythm, Normal S1, S2. No: Murmurs Abdomen: No: Tenderness, Distention, Peritoneal Signs Back: No: Midline Tenderness Upper Extremity: Present: Neurovascularly Intact, Other (multiple abrasions on left wrist, no left hand tenderness) Neurological: Present: GCS=15, Speech Normal, Other (no focal neurological deficits) Skin: Present: Warm, Dry, Normal Color. No: Rashes Psychiatric: Present: Alert, Oriented x 3 Medical Decision Making ED Course and Treatment: 06/16/18 10:05 Impression: 87 year old female who presents to the ED status post fall. no CP or sob. No headache, no abdominal pain, no nausea or vomiting. No FND. Abrasions to face, but no Cervical midline tenderness. No snuff box tenderness or wrist pain to b/l UE. No joint pain. She notes pain to abrasion sites and was given tetanus given unk last tetanus booster. Pt in NAD and denies any chest pain, abdominal pain, neck pain or any other complaints. On exam, well appearing with non-focal exam. Normal neuro exam. Will seek CT and labs Differential Diagnosis included but are not limited to: Contusion vs ICH. Plan: -- Labs -- CT cervical spine -- CT head -- Chest X-Ray -- Left hand X-Ray -- Reassess and disposition Prior Visits: Notes and results from previous visits were reviewed. Progress Notes: 06/16/18 11:[address] without Contrast IMPRESSION: No acute intracranial pathology identified. Generalized atrophy. Nonspecific white matter changes. Hand X-Ray Impression: No acute findings. Chest X-Ray Impression: No active disease. 06/16/18 15:01 labs largely unremarkable pt endorsed CP EK bpm. A-fib. No STEMI. tetanus given pt in NAD. LLE remains N/v intact and without any signs of cellulitis or crepitus. No lower extremity pain noted. troponin negative, appreciate consult w/ PMD Dr. moon: we are to admit to his service pt in [facility], agreeable to plan. - RAD Interpretation Radiology Orders: 06/16/18 09:33 HEAD W/O CONTRAST [CT] Stat CHEST TWO VIEWS (PA/LAT) [RAD] Stat HAND LEFT 3 VIEWS ROUTINE [RAD] Stat 06/16/18 09:35 CERVICAL SPINE W/O CONTRAST [CT] Stat - Scribe Statement The provider has reviewed the documentation as recorded by the Jacob Wakefield Provider Scribe Attestation: All medical record entries made by the Jacob were at my direction and personally dictated by me. I have reviewed the chart and agree that the record accurately reflects my personal performance of the history, physical exam, medical decision making, and the department course for this patient. I have also personally directed, reviewed, and agree with the discharge instructions and disposition. Disposition/Present on Arrival - Present on Arrival Any Indicators Present on Arrival: No History of DVT/PE: No History of Uncontrolled Diabetes: No Urinary Catheter: No History of Decub. Ulcer: No History Surgical Site Infection Following: None - Disposition Have Diagnosis and Disposition been Completed?: Yes Diagnosis: Fall, Chest pain Disposition: HOSPITALIZED Disposition Time: 15:01 Patient Problems: Current Active Problems Problem Status Onset Chest pain Acute Fall Acute Condition: STABLE
[2018-06-16 10:17] LABS: BASO # 0.03 K/mm3 (0.0-2.0); BASO % 0.5 % (0.0-3.0); EOS # 0.2 (0.0-0.7); EOS % 2.4 % (1.5-5.0); HEMOGLOBIN 11.2 g/dL (12.0-16.0); LYMPH # 1.1 (1.2-3.4); LYMPH % 18.1 % (22.0-35.0); MEAN CELL VOLUME 82.2 fl (80.0-105.0); MEAN CORPUSCULAR HEMOGLOBIN 25.2 pg (25.0-35.0); MEAN CORPUSCULAR HGB CONC 30.7 g/dl (31.0-37.0); MEAN PLATELET VOLUME 10.5 fl (7.0-11.0); MONO # 0.7 (0.1-0.6); MONO % 11.8 % (1.0-6.0); RBC 4.44 10^6/uL (3.5-6.1); RED CELL DISTRIBUTION WIDTH 19.2 % (11.5-14.5); WHITE BLOOD COUNT 6.2 10^3/uL (4.5-11.0)
[2018-06-16 10:25] LABS: INR 1.25; PROTHROMBIN TIME 14.1 SECONDS (9.4-12.5)
[2018-06-16 10:30] LABS: ALB/GLOB RATIO 1.1 (1.1-1.8); ALBUMIN 3.8 g/dL (3.0-4.8); ALT/SGPT 11 U/L (7-56); AST/SGOT 27 U/L (14-36); BLOOD UREA NITROGEN 11 mg/dL (7-21); CALCIUM 8.8 mg/dL (8.4-10.5); GFR NON-AFRICAN AMERICAN > 60
--- NOTE | 2018-06-16 10:57 | CT ---
Date of service: 06/16/2018 PROCEDURE: CT HEAD WITHOUT CONTRAST. HISTORY: fall COMPARISON: Noncontrast head CT performed 02/17/17 TECHNIQUE: Axial computed tomography images were obtained through the head/brain without intravenous contrast. Radiation dose: Total exam DLP = 972.66 mGy-cm. This CT exam was performed using one or more of the following dose reduction techniques: Automated exposure control, adjustment of the mA and/or kV according to patient size, and/or use of iterative reconstruction technique. FINDINGS: HEMORRHAGE: No intracranial hemorrhage. BRAIN: Diffuse atrophy with prominence of the ventricles and sulci noted. No mass effect or edema. Intracranial atherosclerosis. Scattered periventricular and subcortical white matter hypodensities, which are nonspecific, but often seen with chronic microvascular ischemic disease. Please note that MRI with diffusion imaging is more sensitive in the detection of acute ischemic event. VENTRICLES: No hydrocephalus. CALVARIUM: Unremarkable. PARANASAL SINUSES: Unremarkable as visualized. No significant inflammatory changes. MASTOID AIR CELLS: Under aeration of the mastoid air cells. OTHER FINDINGS: None. IMPRESSION: No acute intracranial pathology identified. Generalized atrophy. Nonspecific white matter changes.
--- NOTE | 2018-06-16 11:04 | RAD ---
Date of service: 06/16/2018 HISTORY: fall COMPARISON: 05/28/2018 TECHNIQUE: Chest PA and lateral views FINDINGS: LUNGS: Chronic interstitial changes. No focal consolidation PLEURA: No significant pleural effusion identified. No pneumothorax apparent. CARDIOVASCULAR: Aortic calcification Normal cardiac size. No pulmonary vascular congestion. OSSEOUS STRUCTURES: No significant abnormalities. VISUALIZED UPPER ABDOMEN: Normal. OTHER FINDINGS: None. IMPRESSION: No active disease.
--- NOTE | 2018-06-16 11:07 | RAD ---
PROCEDURE: Left Hand Radiographs. HISTORY: fall COMPARISON: None. TECHNIQUE: 3 views obtained. FINDINGS: BONES: Normal. No fracture. JOINTS: Degenerative changes are seen at the base of the thumb SOFT TISSUES: Normal. OTHER FINDINGS: None. IMPRESSION: No acute findings
--- NOTE | 2018-06-16 11:18 | CT ---
Date of service:06/16/2018 CT cervical spine without IV contrast Indication: FALKL Comparison: Cervical spine CT without contrast performed 01/18/17 Technique: Axial computed tomography images were obtained of the cervical spine without the use of intravenous contrast. Coronal and sagittal reformatted images were created and reviewed. This CT exam was performed using 1 or more of the following dose reduction techniques: Automated exposure control, adjustment of the MAA and/or kV according to patient size, and/or use of iterative reconstruction technique. Radiation dose: Total exam DLP = 600.7 mGy-cm. Findings: Straightening of the normal cervical lordosis may be related to muscle spasm or positioning. Multilevel degenerative changes including anterior osteophyte formation and intervertebral disc space narrowing. There is no evidence of acute fracture or subluxation. The prevertebral soft tissues and spinolaminar lines appear intact. The lateral masses are preserved. The dens tip is intact. There is proper alignment of the lateral masses of C1 with the C2 vertebral body. Incidental note is made of dense right greater than left carotid artery calcifications. Right carotid artery stent noted. Included portions of the thyroid gland appear unremarkable. Included portions of lung apices demonstrates chronic interstitial changes. Impression: Straightening of the normal cervical lordosis may be related to muscle spasm or positioning. No evidence of acute fracture or subluxation. Multilevel degenerative changes. Additional findings as above.
[2018-06-16 14:49] LABS: B-TYPE NATRIURETIC PEPTIDE 787 pg/mL (0-450); TROPONIN I < 0.01 ng/mL
--- NOTE | 2018-06-16 15:35 | CARD ---
APPROVED REPORT Date of service: 06/16/2018 EKG Measurement Heart [id number] <Conclusion> Atrial fibrillation Low voltage QRS Septal infarct, age undetermined Abnormal ECG
[2018-06-16] MEDS ORDERED: Amylase/Lipase/Protease 5,000 Units ECC PO SCH (16:30)
[2018-06-16] MEDS ORDERED: Potassium Chloride 20 mEq ER Tab PO STA (16:32)
[2018-06-16] MEDS: Mupirocin 2% Ointment 15 GM TUBE TOP SCH (17:07)
[2018-06-16] MEDS: Sucralfate 1 gm/10 ml Oral Susp UD PO SCH ×2 (17:10→21:56)
[2018-06-16] MEDS: Calcium-Vit D 250 mg-125 Units Tab UD PO SCH (17:11)
[2018-06-16] MEDS: Pantoprazole 40 mg EC Tab PO SCH (17:12)
--- NOTE | 2018-06-17 00:59 | HP ---
DATE OF EXAM: 06/16/2018 HISTORY OF PRESENT ILLNESS: She is an 87-year-old white female who I know her for very long time who presents while walking in the street, she slipped on the curb off the sidewalk, hit her head and left arm, and hit her forehead, left hand. She has chronic left lower extremity swelling due to blood clots. Denies loss of consciousness, multiple scrapes. PAST MEDICAL HISTORY: C. diff, AFib; left lower extremity DVT, on Eliquis; hypertension; diabetes; GI bleed; COPD; hypothyroidism; cataract surgery; appendectomy; cholecystectomy; she also has an IVC filter in place for the AFib; hard of hearing; poor vision; cataracts; hearing aid; diabetes; and hypothyroid. She has had cellulitis to the legs in the past. She had falls with multiple rib fractures, left shoulder fractures. She uses a cane. She has spinal stenosis, difficult gait, history of colitis, C. diff, gastroenteritis, appendectomy, and cholecystectomy. She has a history of ESBL in the urine. FAMILY HISTORY: Unknown family history. SOCIAL HISTORY: Former smoker. She still drinks, request a wine. No drugs. ALLERGIES: NO KNOWN DRUG ALLERGIES. MEDICATIONS: She is on Creon, Carafate, Apixaban, iron, nasal spray, Os-Ignacio, and pantoprazole. REVIEW OF SYSTEMS: No acute vision changes, hearing changes, but old. No bloody nose. No fevers. No shortness of breath or cough. No chest pain, abdominal pain, nausea, vomiting, constipation, or diarrhea. No problems urinating. She is a little bit sore in her arms and her back, multiple cuts and bruises. No rashes. No headache or dizziness. No sweating. No adenopathy. No anxiety or depression. PHYSICAL EXAMINATION: VITAL SIGNS: She has a 97.6 temperature, 75 pulse, 167/82 blood pressure, came down to 135/75 blood pressure, 18 respiratory rate, and 98% O2 sat on room air. HEENT: Head is traumatic, multiple facial scrapings, superficial abrasion on the right frontal scalp, cheek. Extraocular muscles are intact. Pupils are equal and reactive to light and accommodation. Throat is moist. NECK: Supple. No JVD. Thyroid midline. No palpable appreciable lymphadenopathy. LUNGS: Decreased breath sounds, but clear to auscultation. No wheezes. No rhonchi. No rales. HEART: Regular rate. Normal S1 and S2. ABDOMEN: Soft and nontender. Positive bowel sounds. EXTREMITIES: There is edema of both lower extremities. She does wear stockings, multiple abrasions on the left wrist and the left arm with avulsion areas, multiple skin bruises and scrapes. NEUROLOGIC: GCS is 15. Cranial nerves II through XII grossly intact. Speech is normal. Alert and oriented x3. SKIN: There are multiple abrasions and cuts and avulsions all over the arm and on the face. LABORATORY DATA: CAT scan of the head showed no acute intracranial pathology. Hand x-ray with no acute finding. Chest x-ray with no active disease. EKG is AFib at 74, no STEMI. Cervical spine showed some flattening of the lordosis with some muscle spasm from a fall. She has a 6.2 white count, 11.2 hemoglobin, 36.5 hematocrit with 209 platelets. INR 1.25. Sodium 141, potassium 3.4, I gave her some potassium replacement, BUN 11, creatinine 0.6, GFR is greater than 60, sugar is 105, calcium is 8.8, and total bili is 0.6. AST is 27, ALT is 11, and alk phos is 62. Troponin I is less than 0.01. BNP is high at 787. Total protein is 7.3. IMPRESSION AND PLAN: Cervical spine, head CT, hand x-ray, and chest x-ray for the most part okay. We are keeping her overnight in observation. Get physical therapy to see her. Check her labs tomorrow. Continue with the medications. Joslyn Ellis who had a fall, multiple scrapes and bruises of her skin. Osvaldo Reyes DO MTDD
[2018-06-17] MEDS: Sucralfate 1 gm/10 ml Oral Susp UD PO SCH ×4 (06:43→21:59)
[2018-06-17 07:47] LABS: HEMOGLOBIN 9.4 g/dL (12.0-16.0); MEAN CELL VOLUME 81.1 fl (80.0-105.0); MEAN CORPUSCULAR HEMOGLOBIN 24.3 pg (25.0-35.0); MEAN CORPUSCULAR HGB CONC 29.9 g/dl (31.0-37.0); MEAN PLATELET VOLUME 10.9 fl (7.0-11.0); RBC 3.87 10^6/uL (3.5-6.1); WHITE BLOOD COUNT 5.4 10^3/uL (4.5-11.0)
[2018-06-17 08:53] LABS: ALBUMIN 3.1 g/dL (3.0-4.8); ALT/SGPT 15 U/L (7-56); AST/SGOT 23 U/L (14-36); BLOOD UREA NITROGEN 13 mg/dL (7-21); CALCIUM 8.4 mg/dL (8.4-10.5); GFR NON-AFRICAN AMERICAN > 60
[2018-06-17] MEDS: Pantoprazole 40 mg EC Tab PO SCH ×2 (09:20→17:21)
[2018-06-17] MEDS: Amylase/Lipase/Protease 5,000 Units ECC PO SCH (09:23)
[2018-06-17] MEDS: Calcium-Vit D 250 mg-125 Units Tab UD PO SCH (11:11)
[2018-06-17] MEDS: Mupirocin 2% Ointment 15 GM TUBE TOP SCH ×2 (12:44→17:21)
--- NOTE | 2018-06-17 15:36 | PN ---
DATE: 06/17/2018 SUBJECTIVE: I saw Joslyn sitting in bed. She is eating her breakfast. She is doing well. She is doing a little bit better. She fell yesterday. Her face is all bruised and her arms are bruised. She is healing up very quickly and very nicely. She is still very weak. She is having some issues with her body achy all over the place. She does not want to walk. She is too painful right now. I increased her IV Toradol to see if that will help her. I am hoping to get her out of bed to chair today and see what Physical Therapy says. I am not sure if she does not need TCU or subacute rehab before she goes home. She is an 87-year-old. Otherwise, I told her that I am going to try and discharge her tomorrow. PHYSICAL EXAMINATION: GENERAL: She is alert. No headache. No chest pain or shortness of breath at this time. VITAL SIGNS: She has a 98.3 temperature, 79 pulse, 131/72 blood pressure and 20 respiratory rate. HEENT: Head is traumatic and normocephalic. Multiple bruises, but healing up nicely. HEART: Regular rate. LUNGS: Clear to auscultation. ABDOMEN: Soft. EXTREMITIES: No edema. NEUROLOGIC: She is just weak in all her body from falling. It is definitely like a trauma to her whole system. LABORATORY DATA: She has 140 sodium, potassium 3.7, BUN 13, creatinine 0.8, GFR is greater than 60, sugar is 85, calcium is 8.4, total bili is AST is 23, ALT is 15, alk phos is . Troponins are less than 0.01. Total protein is 6.1. INR is 1.25. She has 5.4 white count, 9.4 hemoglobin, 31.4 hematocrit and 205 platelets. MEDICATIONS: She is currently on Bactroban cream, Carafate, Cozaar, Eliquis, Feosol, [place] spray, Os-Ignacio, Pancreaze, Protonix and Toradol. ASSESSMENT AND PLAN: She had multiple tests done since she fell and because she is on blood thinner, we did a CAT scan of her head. so far so good, we are going to watch her 24 more hours. We have plans to discharge her home tomorrow unless Physical Therapy says otherwise. No, physical therapy has seen her yet. I am going to put another order in to get their opinion. She does look like she is very sore and achy to move her arms and legs a little bit. We will see how she does. She has a fall and multiple bruises and she had some chest pain. Osvaldo Reyes DO MTDD
--- NOTE | 2018-06-17 19:30 | CON ---
DATE OF CONSULTATION: 06/17/2018 HISTORY OF PRESENT ILLNESS: The patient is an 87-year-old female who has a history of chronic atrial fibrillation and history of DVT status post IVC filter placement. The patient presented because of a fall. The patient stated that she was walking a street, she was looking straight ahead and did not notice that her feet was going nearby the high sidewalk. The patient tripped and fell on her face, sustained an upper lip bruise and right eyebrow ecchymosis as well as bruising. The patient stated her earlier fall was some 2 years ago when she sustained a hip injury and rib fractures. The patient stated that she had DVT in the past involving her left lower extremity and right upper extremity and required IVC filter placement. The patient denies feeling dizzy prior to her collapse on the street and does not recall experiencing palpitations and did not lose any consciousness. SOCIAL HISTORY: Nonsmoker, nondrinker. She lives by herself, a nephew lives a few blocks away from home. MEDICATIONS: Carafate 1 g 4 times a day, Cozaar 50 mg once a day, Eliquis 2.5 mg twice a day, Feosol one tablet once a day, amylase 5000 units p.o. daily, Protonix 40 mg p.o. twice a day. REVIEW OF SYSTEMS: No palpitations, no dizziness, no loss of consciousness. PHYSICAL EXAMINATION: GENERAL: The patient is an elderly female who does not appear to be in acute distress. VITAL SIGNS: Blood pressure 131/72, heart rate 79, temperature 98.3, respirations 20. HEENT: Upper lip and right eyebrow bruising. NECK: No JVD. CHEST: Clear. HEART: S1 and S2 regular. ABDOMEN: Soft. EXTREMITIES: Bruising involving the right knee. No edema. LABORATORY DATA: Today's hemoglobin and hematocrit 9.4 and 31.4, which was an 82 g of drop compared to yesterday. White count and platelet count are within normal limits. The INR is 1.25, PTT is 36. Today's SMA-7 is within normal limits except for glucose of 108. Three sets of troponins are negative. A recent echo done last month revealed mild concentric LVH with normal systolic function and normal segmental wall motion, moderate sclerotic aortic valve, lnme-pd-[id number] pulmonary retention. Recent cardiac catheterization on 05/24/[address] Rust revealed nonobstructive coronary artery disease, good left ventricular function and patent stent graft in the abdominal aorta with no aneurysm noted. Cervical spine CT scan without contrast, straightening of the normal cervical lordosis may be related to muscle spasm or positioning. No evidence of acute fracture or subluxation. Head CT scan without contrast: No acute intracranial pathology, generalized atrophy. EKG revealed atrial fibrillation at rate of 74, low voltage QRS complex, septal infarct, age indeterminate. ASSESSMENT: 1. Status post mechanical fall. 2. Chronic atrial fibrillation. 3. History of deep vein thrombosis, status post IVC filter placement. 5. Mild anemia. 6. 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 RECOMMENDATIONS: Continue Cozaar 50 mg once a day, Eliquis 2.5 mg once a day, Protonix 40 mg p.o. twice a day. Consider carotid ultrasound. Hood Hamilton MD
--- NOTE | 2018-06-17 20:11 | CON ---
DATE: 06/17/2018 HISTORY OF PRESENT ILLNESS: This is an 87-year-old female with past medical history of AFib, hypertension, diabetes, COPD, hypothyroidism, status post cataract surgery, appendectomy, and cholecystectomy who came to the emergency room because she fell at [address] the [address] and hit her head and left arm and she hit her forehead. CAT scan of the head was done, which shows no bleed and did not lose consciousness and called to evaluate the patient. PAST MEDICAL HISTORY: As above. SOCIAL HISTORY: She does not smoke, ex-smoker, and drinks a glass of wine occasionally. ALLERGIES: NO KNOWN DRUG ALLERGY. PHYSICAL EXAMINATION: HEENT: Normocephalic and atraumatic. NECK: supple. NEUROLOGIC: Alert, awake, and oriented x3. No aphasia. Cranial nerves II through XII are tested. Pupils reactive. Moves all the extremities equally. Tone normal. Deep tendon reflexes 1+. Both plantar are downgoing. Sensory appears intact. Cerebellar gait deferred. IMPRESSION AND PLAN: Fall accidentally to the curve and hit her head, no loss of consciousness. CAT scan of the head was negative and workup in progress. Cervical spine, no fracture also. Continue present management and we will follow up. Tenzin Luke MD
[2018-06-18] MEDS: Sucralfate 1 gm/10 ml Oral Susp UD PO SCH ×4 (06:26→21:07)
[2018-06-18 06:54] LABS: HEMOGLOBIN 9.7 g/dL (12.0-16.0); MEAN CELL VOLUME 82.3 fl (80.0-105.0); MEAN CORPUSCULAR HEMOGLOBIN 24.6 pg (25.0-35.0); MEAN CORPUSCULAR HGB CONC 29.8 g/dl (31.0-37.0); MEAN PLATELET VOLUME 9.9 fl (7.0-11.0); RBC 3.95 10^6/uL (3.5-6.1); WHITE BLOOD COUNT 5.7 10^3/uL (4.5-11.0)
[2018-06-18 07:24] LABS: ALBUMIN 2.9 g/dL (3.0-4.8); ALT/SGPT 11 U/L (7-56); AST/SGOT 19 U/L (14-36); BLOOD UREA NITROGEN 14 mg/dL (7-21); CALCIUM 8.4 mg/dL (8.4-10.5); GFR NON-AFRICAN AMERICAN > 60
[2018-06-18] MEDS: Calcium-Vit D 250 mg-125 Units Tab UD PO SCH (09:14)
[2018-06-18] MEDS: Pantoprazole 40 mg EC Tab PO SCH ×2 (09:15→17:52)
[2018-06-18] MEDS: Amylase/Lipase/Protease 5,000 Units ECC PO SCH (09:15)
[2018-06-18] MEDS: Mupirocin 2% Ointment 15 GM TUBE TOP SCH ×2 (09:16→17:52)
--- NOTE | 2018-06-18 14:04 | PN ---
DATE: 06/18/2018 SUBJECTIVE: She had fallen with multiple contusions and scrapes. She is now having lots of pain in the right side. Also Physical Therapy saw her and recommended TCU and I think she could use it. She has right shoulder pain, right chest pain, difficult to get a deep breath in. I palpated her. I think it is mostly contusion and bruises, but I ordered some x-rays to make sure I am not missing any fractures. MEDICATIONS: She is on Toradol, Protonix, Pancreaze, Os-Ignacio, [place] spray, Feosol, Eliquis, Cozaar, Carafate, Benadryl and Bactroban cream. PHYSICAL EXAMINATION: VITAL SIGNS: She has a 97.4 temp, 86 pulse, 140/55 blood pressure, 20 respiratory rate and 94% O2 sat on room air. HEENT: Head is traumatic, normocephalic HEART: Regular rate. LUNGS: Decreased breath sounds. She cannot take a deep breath in because of the pain in the right ribs. Also when I moved her forward and back to take a look into her lungs, it was difficult for her from pain. ABDOMEN: Soft, nontender. Positive bowel sounds. EXTREMITIES: No edema. LABORATORY DATA: Hopefully, the x-rays will be negative. She has 5.7 white count, 9.7 hemoglobin, 32.5 hematocrit with 187 platelets. INR is 1.25. She has 140 sodium, potassium 3.6, BUN 14, creatinine 0.8, GFR is greater than 60, sugar is 106, calcium is 8.4, total bili is 0.4. AST is 19, ALT is 11, alk phos is 44. All three troponins are less than 0.01. Total protein is 5.9. ASSESSMENT AND PLAN: She is going to be seen by Neurology, Cardiology. I am also going to call in Orthopedics if we need to. I will do some more x-rays of the right side, which is very tender to palpation. Called in TCU for evaluation. Hopefully, she can get there two more overnights. I changed her to inpatient. Osvaldo Reyes DO [facility] # [id number]
--- NOTE | 2018-06-18 14:55 | RAD ---
Date of service: 06/18/2018 PROCEDURE: Radiographs of the Right Shoulder HISTORY: pain COMPARISON: No prior. TECHNIQUE: 3 views obtained. FINDINGS: BONES: No evidence of acute displaced fracture nor dislocation. 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 SOFT TISSUES: Normal. OTHER FINDINGS: None. IMPRESSION: No evidence of acute displaced fracture nor dislocation. 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
--- NOTE | 2018-06-18 15:15 | RAD ---
Date of service: 06/18/2018 PROCEDURE: Radiographs of the Chest and Right Ribs. 4 views. HISTORY: Pain COMPARISON: Comparison made with chest radiograph 06/16/2018. Correlation also made with CTA chest 05/16/2018. TECHNIQUE: Frontal radiograph of the chest and multiple oblique radiographs of the right ribs were obtained. 4 views obtained. FINDINGS: RIGHT RIBS: Redemonstrated are several old right posterior rib fractures 1 of which may be be partially fused. No definitive radiographic evidence of acute displaced right-sided rib fracture. LUNGS: The interstitial markings are increased and coarsened however no focal consolidation.; PLEURA: No pneumothorax or pleural fluid. CARDIOVASCULAR: Heart appears enlarged.. No pulmonary vascular congestion. Mild moderate aortic atherosclerotic calcification present OTHER FINDINGS: None. IMPRESSION: No evidence of acute right-sided rib fracture however redemonstrated are several old right posterior rib fractures 1 of which may be partially fused. Note these fractures are seen to better advantage on prior CTA chest. Slight increased and coarse interstitial markings. No acute consolidation.
--- NOTE | 2018-06-18 17:56 | PN ---
DATE: 06/18/2018 SUBJECTIVE: The patient is experiencing right-sided chest pain as well as right shoulder pain and inability to raise up her right arm. She denies any dizziness. PHYSICAL EXAMINATION VITAL SIGNS: Blood pressure 140/55, heart rate 86, temperature 97.4, and respirations 20. HEENT: Right eyebrow bruising with upper lip bruising. CHEST: Clear. HEART: S1 and S2 regular. EXTREMITIES: No edema. LABORATORY DATA: Today's hemoglobin and hematocrit are 9.7. and 32.5, white count and platelet count are within normal limits. Today's SMA-7 is within normal limits except for glucose of 109 and anion gap of 8. ASSESSMENT: 1. Chronic atrial fibrillation. 2. Status post mechanical fall. 3. History of deep venous thrombosis, status post IVC filter placement. 4. Mild pulmonary hypertension. RECOMMENDATIONS: Continue current Cozaar 50 mg once a day, Eliquis 2.5 mg twice a day, ferrous sulfate 1 tablet once a day. Obtain right shoulder x-ray as well as right rib series. Hood Hamilton MD
[2018-06-19] MEDS: Sucralfate 1 gm/10 ml Oral Susp UD PO SCH ×4 (06:37→22:00)
[2018-06-19 06:38] LABS: HEMOGLOBIN 9.5 g/dL (12.0-16.0); MEAN CELL VOLUME 81.1 fl (80.0-105.0); MEAN CORPUSCULAR HEMOGLOBIN 24.5 pg (25.0-35.0); MEAN CORPUSCULAR HGB CONC 30.3 g/dl (31.0-37.0); MEAN PLATELET VOLUME 10.5 fl (7.0-11.0); RBC 3.87 10^6/uL (3.5-6.1); WHITE BLOOD COUNT 6.4 10^3/uL (4.5-11.0)
[2018-06-19 06:49] LABS: ALT/SGPT 10 U/L (7-56); AST/SGOT 20 U/L (14-36); BLOOD UREA NITROGEN 14 mg/dL (7-21); CALCIUM 8.6 mg/dL (8.4-10.5); GFR NON-AFRICAN AMERICAN > 60
[2018-06-19] MEDS ORDERED: Potassium Chloride 20 mEq ER Tab PO ONE (08:16)
[2018-06-19] MEDS: Pantoprazole 40 mg EC Tab PO SCH ×2 (10:16→17:10)
[2018-06-19] MEDS: Amylase/Lipase/Protease 5,000 Units ECC PO SCH (10:16)
[2018-06-19] MEDS: Calcium-Vit D 250 mg-125 Units Tab UD PO SCH (10:16)
[2018-06-19] MEDS: Mupirocin 2% Ointment 15 GM TUBE TOP SCH ×2 (10:16→17:11)
--- NOTE | 2018-06-19 10:57 | PN ---
DATE: 06/19/2018 SUBJECTIVE: She was recommended to go to TCU as per physical therapy, I am hoping . She had a fall with multiple abrasions. She had chest pain. She is doing bit better. Still weak wants to go to therapy also. OBJECTIVE: VITAL SIGNS: Temperature 97.9, 102 pulse, 155/76 blood pressure, 20 respiratory rate, 94% O2 sat on 2 liters. HEENT: Head is traumatic, multiple bruises , but are healing normocephalic. Throat is moist. NECK: Supple. HEART: Regular rate. LUNGS: Decreased breath sounds, but clear. ABDOMEN: Soft, nontender. EXTREMITIES: Tender, but no edema. MEDICATIONS: She is currently on Bactroban cream, Carafate, Cozaar, Eliquis, Feosol, [place] spray, Os-Ignacio, Pancrease, Protonix, Ultram. LABORATORY DATA: White count 6.4, 9.5 hemoglobin, 31.4 hematocrit with a 187 platelets. Sodium 139, potassium 3.5 we will give her some potassium, BUN 14, creatinine 0.7, GFR is greater than 60, sugar is 96, calcium is 8.6. Total bili is 0.4. AST is 20, ALT is 10. Alk phos 47, total protein is 6. to the TCU when the bed is available and it is okay case management to help me with this. She had fall abrasions, chest pain, low potassium and weakness and recommendation from physical therapy is TCU. Osvaldo Reyes DO MTDD
--- NOTE | 2018-06-19 11:24 | PN ---
DATE: 06/19/2018 SUBJECTIVE: The patient is sitting in a chair bruised, but without issues. No complaints at this time. PHYSICAL EXAMINATION: VITAL SIGNS: Stable. Blood pressure is 155/76, heart rate is in the 90s. Afib. NECK: Negative JVD. LUNGS: Without rales. HEART: S1, S2. EXTREMITIES: Without edema. LABORATORY: Hemoglobin is 9.5. Chemistries; BUN and creatinine are unremarkable. IMPRESSION: 1. Status post fall. 2. Atrial fibrillation. 3. Hypertension. 4. History of deep venous thrombosis. 5. Mild pulmonary hypertension. Given these findings, the patient is hemodynamically stable. The patient is scheduled to go to the TCU tomorrow. Carter Rust MD
--- NOTE | 2018-06-19 11:43 | CP.PCM.PCO ---
Physician Communication Note - Physician Communication Note Physician Communication Note: recommned physical therapy. thx you
[2018-06-20] MEDS: Levothyroxine 100 MCG TAB PO SCH (05:52)
[2018-06-20] MEDS: Sucralfate 1 gm/10 ml Oral Susp UD PO SCH ×4 (05:53→22:10)
[2018-06-20 07:14] LABS: HEMOGLOBIN 9.5 g/dL (12.0-16.0); MEAN CELL VOLUME 81.2 fl (80.0-105.0); MEAN CORPUSCULAR HEMOGLOBIN 24.8 pg (25.0-35.0); MEAN CORPUSCULAR HGB CONC 30.5 g/dl (31.0-37.0); MEAN PLATELET VOLUME 10.9 fl (7.0-11.0); RBC 3.83 10^6/uL (3.5-6.1); RED CELL DISTRIBUTION WIDTH 19.2 % (11.5-14.5); WHITE BLOOD COUNT 7.1 10^3/uL (4.5-11.0)
[2018-06-20 07:23] LABS: ALBUMIN 3.1 g/dL (3.0-4.8); ALT/SGPT 9 U/L (7-56); AST/SGOT 22 U/L (14-36); BLOOD UREA NITROGEN 14 mg/dL (7-21); CALCIUM 8.5 mg/dL (8.4-10.5); GFR NON-AFRICAN AMERICAN > 60
[2018-06-20] MEDS: Mupirocin 2% Ointment 15 GM TUBE TOP SCH ×2 (09:19→17:21)
[2018-06-20] MEDS: Amylase/Lipase/Protease 5,000 Units ECC PO SCH (09:20)
[2018-06-20] MEDS: Pantoprazole 40 mg EC Tab PO SCH ×2 (09:20→17:22)
[2018-06-20] MEDS: Calcium-Vit D 250 mg-125 Units Tab UD PO SCH (09:20)
--- NOTE | 2018-06-20 16:16 | CON ---
DATE: 06/20/2018 ONCOLOGY CONSULTATION HISTORY OF PRESENT ILLNESS: This is an 87-year-old woman with a right breast cancer that I strongly suspect is already metastatic to the right axilla. The patient underwent a lumpectomy with therapy, but she had a receptor positive for +3 positive cancer. About two months ago, she came to the office. I could feel that right axillary lymph node and we wanted to do an outpatient biopsy. 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 Now, she was out of the hospital and then she fell and now she is back in. She is going to be going to rehab, I believe, in another day or two. PHYSICAL EXAMINATION: SKIN: No petechiae. No bruises. HEENT: Anicteric. NODES: The right axilla shows if I had feel it, now two lymph nodes. There was one about two months ago, I think this is the second one now, near the elbow. The first one is about the same size. BREASTS: No mass,discharge, dimpling, tenderness. HEART: S1 and S2. ABDOMEN: Shows no liver, no spleen, no tenderness, no rebound, no ascites. EXTREMITIES: No edema. CENTRAL NERVOUS SYSTEM: Plantars are downgoing bilaterally. She has clinically recurrent breast cancer in the right axilla. We are hoping to do a needle biopsy as an outpatient. This has not yet been done. If possible, she can get that done as an inpatient, which needs a needle biopsy to prove the cancer. However, quite frankly, she has been very weak. In terms of all of her other medical complications, chemotherapy. So, at this point, at some point, we can do that biopsy. She says that she will try and give me a call as an outpatient once she is out of the rehab. Fabio Palmer MD
--- NOTE | 2018-06-20 21:19 | PN ---
DATE: 06/20/2018 SUBJECTIVE: The patient is resting comfortably. PHYSICAL EXAMINATION: VITAL SIGNS: Blood pressure 146/86, heart rate is in the 70s, atrial fibrillation. NECK: Negative JVD. LUNGS: Without rales. HEART: S1 and S2. EXTREMITIES: Decreasing edema. LABORATORY DATA: Hemoglobin is 9.5. Chemistries are unremarkable. IMPRESSION: 1. Status post fall. 2. Stable atrial fibrillation. 3. History of deep vein thrombosis. 4. Mild pulmonary hypertension. 5. Hypertension. PLAN: Given these findings, the patient is hemodynamically stable. She is back on Eliquis with a heart rate that is well controlled. Carter Rust MD
--- NOTE | 2018-06-20 23:24 | DS ---
HISTORY OF PRESENT ILLNESS: I am hoping to get her to [facility] at [facility]. She is on Bactroban cream, Carafate, Cozaar, Eliquis, Feosol, [place] spray, Os-Ignacio, Pancrease, Protonix, Synthroid, and Ultram that was what was recommended by physical therapy, originally at was [facility], but her insurance want to go there, so she agreed to go to [facility]. PHYSICAL EXAMINATION: VITAL SIGNS: She has a 98.4 temp, 93 pulse, 146/86 blood pressure, 20 respiratory rate, and 93% O2 sat on room air. GENERAL: She is sitting out of bed to chair. HEENT: Head is atraumatic and normocephalic. She has bruises that are healing up. HEART: Regular rate. LUNGS: Decreased breath sounds, but clear. ABDOMEN: Soft. EXTREMITIES: No edema. MEDICATIONS: She is currently on Bactroban cream, Carafate, Cozaar, Eliquis, Feosol, [place] spray, Os-Ignacio, Pancrease, Protonix, Synthroid, and Ultram. LABORATORY DATA: She has a 7.1 white count, 9.5 hemoglobin, 31.1 hematocrit with 204 platelets and 1.25 INR. Sodium 137, potassium 3.8, BUN is 14, creatinine 0.7, GFR is greater than 60, sugar is 96, calcium is 8.5, and total bili is 0.4. AST is 22, ALT is 9, alk phos 43, and total protein is 6.2. ASSESSMENT AND PLAN: She her to [facility] today. She was seen by Cardiology and Neurology and they are all recommending physical therapy for her before she goes home, status post fall, atrial fibrillation, no right rib fractures which is good and the shoulder, no evidence of acute displaced fracture or dislocations. The pain that she was having in the right shoulder and right ribs were not from a fracture. We will hopefully get her to [facility] today for physical therapy and continue medications there. Osvaldo Reyes DO [facility]
[2018-06-21 04:34] VITALS: RESP 20; O2SAT 95
[2018-06-21] MEDS: Levothyroxine 100 MCG TAB PO SCH (05:47)
[2018-06-21] MEDS: Sucralfate 1 gm/10 ml Oral Susp UD PO SCH ×2 (05:47→14:52)
[2018-06-21 07:57] VITALS: BP 135/77; PULSE 96; TEMP 97.6
[2018-06-21] MEDS: Mupirocin 2% Ointment 15 GM TUBE TOP SCH (10:31)
[2018-06-21] MEDS: Pantoprazole 40 mg EC Tab PO SCH (10:33)
[2018-06-21] MEDS: Calcium-Vit D 250 mg-125 Units Tab UD PO SCH (10:33)
[2018-06-21] MEDS: Amylase/Lipase/Protease 5,000 Units ECC PO SCH (10:34)
--- NOTE | 2018-06-22 01:13 | DS ---
HISTORY OF PRESENT ILLNESS: I am trying to discharge her to [facility] at [facility], waiting for a bed to open up. She is motivated. She wants to go there. MEDICATIONS: She is on Bactroban cream, Carafate, Cozaar, Eliquis, Feosol, [place], Os-Ignacio, Pancrease, Protonix, Synthroid and Ultram as needed. PHYSICAL EXAMINATION VITAL SIGNS: She has a 97.6 temperature, 96 pulse, 135/77 blood pressure, 20 respiratory rate, and 95% O2 sat on room air. HEAD: Atraumatic, normocephalic. HEART: Regular rate. LUNGS: Decreased breath sounds. ABDOMEN: Soft. EXTREMITIES: No edema. SKIN: She had fallen with multiple scrapes, she is doing much better. LABORATORY DATA: She has a 7.1 white count, 9.5 hemoglobin, 31.1 hematocrit with 204 platelets. A 1.25 INR. A 137 sodium, potassium is 3.8, BUN is 14, creatinine 0.7, GFR is greater than 60, sugar is 96, calcium is 8.5. Total bili is 0.4. AST is 22, ALT is 9, alk phos 43, total protein is 6.2. ASSESSMENT AND PLAN: I am hoping that she could be transferred to [facility] today for physical therapy before she would go home. That is my plan. She was seen by Oncology and by Dr. Carter Rust, Cardiology. She has stable atrial fibrillation. She had a fall, pulmonary hypertension. Hopefully she will be discharged to [facility]. She does have a right breast cancer. Osvaldo Reyes, DO (Delete this signature block when dictator is a preceptor.) cc: MD Isai (Delete if not dictated.)
== END 2018-06-21 16:24 | DRG 605 ==
LOC: ED 09:18 → ERH 14:59 → 3RNO 16:48 → OBSVTOIN 06-17 14:30
PROVIDERS: ADMIT Family Medicine; ATTEND Family Medicine
DX: S00.81XA Abrasion of other part of head, initial encounter (principal); S00.531A Contusion of lip, initial encounter; S00.11XA Contusion of right eyelid and periocular area, initial encounter; M25.511 Pain in right shoulder; I48.2 Chronic atrial fibrillation; I27.20 Pulmonary hypertension, unspecified; C50.911 Malignant neoplasm of unspecified site of right female breast; R07.89 Other chest pain; E11.9 Type 2 diabetes mellitus without complications; E03.9 Hypothyroidism, unspecified; I10 Essential (primary) hypertension; J44.9 Chronic obstructive pulmonary disease, unspecified; W01.0XXA Fall on same level from slipping, tripping and stumbling without subsequent striking against object, initial encounter; Y92.480 Sidewalk as the place of occurrence of the external cause; Y93.01 Activity, walking, marching and hiking; Z87.891 Personal history of nicotine dependence; Z86.718 Personal history of other venous thrombosis and embolism; Z95.828 Presence of other vascular implants and grafts

== ENCOUNTER 2018-07-21 11:52 | Outpatient (CLI) | payer MEDICARE | END 2018-07-21 11:53 | disposition home or self-care (01) | LOC: RAD 11:53 ==